=== PATIENT | male | born 1950 | race Caucasian/White ===

== ENCOUNTER 2022-08-21 17:47 | Inpatient (IN) ==
[2022-08-21] MEDS ORDERED: ACETAMINOPHEN 1,000 MG/100 ML VIAL IV STA (18:17)
--- NOTE | 2022-08-21 18:26 | Emergency Department Note ---
Impression & Plan Pneumonia, Parkinson disease, SIRS (systemic inflammatory response syndrome), Dyspnea on minimal exertion ED Provider Note NAME: DAVID FERNANDO AGE: 72 SEX: M ARRIVES VIA: Ambulance INFORMANT: Patient ED PROVIDER(S): Jose Powell MD CHIEF COMPLAINT: Shortness of breath PLAN: Disposition: Admit MEDICAL DECISION MAKING: The patient is a pleasant 72-year-old gentleman with a past medical history of Parkinson disease, rheumatoid arthritis, GERD who presents to the emergency department via EMS accompanied by family for evaluation of acute shortness of br eath which occurred this afternoon in the setting of the patient having worsening shortness of breath over the past couple of weeks, in the setting of his report of having increasing shortness of breath with exertion over the past 4 months. He reports he has not seen his doctor for his symptoms. They decided follow-up with his neurologist today in case his symptoms were related to his Parkinson medication. They were recommended to follow-up with his primary care doctor. They report that when they were driving home he acutely began more short of breath. Thus, and EMS was called and he was brought to the hospital. Patient denies any recent cough, congestion, GI or symptoms. He denies any fevers though he does present with fever at this time. On arrival to emergency department patient noted to be febrile to 38.2 with heart in the 100s and vital signs otherwise stable. He appears clinically dry though with chronic BLE edema He has diminished breath sounds of bilateral lower lung petersen and lungs are otherwise clear. Abdomen is benign. EKG without overt acute ischemia. WBC, 11.7K with neutrophil predominance. H/H 13.5/38.7 without prior values for comparison. Platelets within normal limits. Chemistry without metabolic acidosis. Phosphorus 1.4 with repletion provided. LFTs unremarkable. High- sensitivity troponin 10.2, within normal limits. BNP 83, within normal limits. Procalcitonin is not significantly elevated. Covid-19 PCR negative. Influenza and RSV PCR negative. UA without convincing evidence of infection. Given the patient's presentation with fever/SIRS was treated empirically with ceftriaxone. IVF hydration administered cautiously given the patient's lower extremity edema. CTA of the chest and abdomen pelvis was performed. CT of the chest was negative for PE. Note is made of left lower lung atelectasis however given the clinical context is suspicious for superimposed infection/pneumonia. [place] Her[place] [facility] evaluated the patient for admission. Further management per admitting team. Triage Nursing notes reviewed and agree them. Prior medical records reviewed Vital Signs: reviewed Differential diagnosis: Viral syndrome, otitis, pharyngitis, pneumonia, influenza, meningitis, urinary tract infection, sepsis, bacteremia, as well as other pathologies. ER treatment provided: See below. Diagnostics interpreted by me: ECG: Normal sinus rhythm, 97 bpm, no ectopy, no overt ST elevation or depression, QTC 414, QRS 84. Cardiac Monitoring: An order for continuous cardiac monitoring was placed and demonstrated Normal sinus rhythm, 97 bpm, no ectopy. Laboratory studies: See below Imaging studies: See below Consultation(s): Dr. Herrera, [facility], HPI: The patient is a pleasant 72-year-old gentleman with a past medical history of Parkinson disease, rheumatoid arthritis, GERD who presents to the emergency department via EMS accompanied by family for evaluation of acute shortness of breath which occurred this afternoon in the setting of the patient having worsening shortness of breath over the past couple of weeks, in the setting of his report of having increasing shortness of breath with exertion over the past 4 months. He reports he has not seen his doctor for his symptoms. They decided follow-up with his neurologist today in case his symptoms were related to his Parkinson medication. They were recommended to follow-up with his primary care doctor. They report that when they were driving home he acutely began more short of breath. Thus, and EMS was called and he was brought to the hospital. Patient denies any recent cough, congestion, GI or symptoms. He denies any fevers though he does present with fever at this time. ROS: See above HPI for pertinent positives & negatives. A total of 10 systems reviewed and were otherwise negative. VITALS:See Below PHYSICAL EXAMINATION: GENERAL: Awake, alert, uncomfortable-appearing, in no distress HENT: Normocephalic, atraumatic. Oropharynx with dry mucous membranes and otherw ise unremarkable. EYES: Normal conjunctiva. Sclera non-icteric. NECK: Supple. No nuchal rigidity. FROM. No JVD. RESPIRATORY: Diminished breath sounds of bilateral lower lung petersen and lungs are otherwise clear. CARDIAC: Tachycardic rate, normal rhythm. Extremities warm and well perfused. Pulses equal. ABDOMEN: Soft, non-distended. No tenderness to palpation. No rebound or guarding. No masses. RECTAL: Deferred. MUSCULOSKELETAL: Chest examination reveals no tenderness. The back is symmetrical on inspection without obvious abnormality. There is no CVA tenderness to palpation. No joint edema. LOWER EXTREMITIES: Calves are equal size bilaterally and non-tender. 1+ BLE edema. No discoloration. NEURO: No focal sensory or motor deficits noted. Masked facies. At baseline for Parkinsons. SKIN: No rash or jaundice noted. Jose Powell MD Past Med/Surg History Medical History GERD (gastroesophageal reflux disease) Hearing deficit Parkinson disease Rheumatoid arthritis Seizure 1 episode 8 years ago Surgical History History of cataract surgery History of colonoscopy History of tooth extraction History of total hip arthroplasty left Nasal polyps removed Family History Other No family history of adverse response to anesthesia Social History Smoking Status: Never smoker Second Hand Exposure: No; Hx Alcohol Use: Yes Alcohol type: beer Hx Substance Use: Yes Last Used Substance Other:: A COUPLE MONTHS AGO>ADVISED Preferred Language: Serbian Communication Ability: Effective 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 Beliefs That Will Affect Care: None Current Living Situation: Spouse Feels Safe at Home: Yes Assistive Devices: Glasses and Hearing Aid - Bilateral Allergies Allergies Allergy/AdvReac Type Severity Reaction Status Date / Time methotrexate Allergy Severe Seizure Verified 08/21/22 20:44 Home Meds Home Medications Medication Instructions Recorded Confirmed aspirin 81 mg tablet,delayed 81 mg PO QAM 06/06/22 08/21/22 release biotin 1,000 mcg chewable tablet 1,000 mcg PO QAM 06/06/22 08/21/22 carbidopa ER 25 mg-levodopa 100 mg 2 tab PO TIDM 06/06/22 08/21/22 tablet,extended release lamotrigine 150 mg tablet 150 mg PO BID 06/06/22 08/21/22 omeprazole 20 mg tablet,delayed 20 mg PO BID 06/06/22 08/21/22 release sertraline 100 mg tablet 100 mg PO DAILY 06/06/22 08/21/22 upadacitinib 15 mg tablet,extended 15 mg PO HS 06/06/22 08/21/22 release 24 hr (Rinvoq) carbidopa 25 mg-levodopa 100 mg 1 tab PO HS 08/21/22 08/21/22 tablet cholecalciferol (vitamin D3) 25 25 mcg PO DAILY 08/21/22 08/21/22 mcg (1,000 unit) tablet (Vitamin D3) diclofenac sodium 1 % topical gel 2 g topical TID PRN Pain 08/21/22 08/21/22 prednisone 5 mg tablet 5 mg PO QAM 08/21/22 08/21/22 Results & Data (ED) Vital Signs Vital Signs - 24 hr 08/21/22 18:00 08/21/22 18:00 08/21/22 18:04 Temperature 38.2 C H Temperature Source Oral Oral Pulse Rate 100 H Pulse Rate [Apical] Pulse Rhythm [Apical] Pulse Strength [Apical] Respiratory Rate 24 Respiratory Effort / Characteristics Respiratory Depth Respiratory Pattern Blood Pressure 142/71 H Blood Pressure [Right Arm] Blood Pressure Mean 94 Blood Pressure Mean [Right Arm] Blood Pressure Position Sitting Blood Pressure Position [Right Arm] Pulse Oximetry 94 Oxygen Delivery Method Room Air Room Air Sepsis Recent Fever Within 48 Hours Yes Sepsis New/Unexplained Change in Mental Status No Sepsis Action Taken by Nursing Physician Notified 08/21/22 18:20 08/21/22 19:00 08/21/22 20:00 Temperature Temperature Source Pulse Rate Pulse Rate [Apical] 94 H Pulse Rhythm [Apical] Regular Pulse Strength [Apical] Normal Respiratory Rate 18 Respiratory Effort / Characteristics Non-Labored Spontaneous Non-Labored Respiratory Depth Normal Normal Respiratory Pattern Regular Agonal Regular Blood Pressure Blood Pressure [Right Arm] 102/68 Blood Pressure Mean Blood Pressure Mean [Right Arm] 79 Blood Pressure Position Blood Pressure Position [Right Arm] Lying Pulse Oximetry 94 94 Oxygen Delivery Method Room Air Room Air Sepsis Recent Fever Within 48 Hours Sepsis New/Unexplained Change in Mental Status Sepsis Action Taken by Nursing Laboratory Data Attestation: I reviewed the patient's lab results. 08/21/22 18:47 08/21/22 18:47 Lab Results 08/21/22 08/21/22 08/21/22 Range/Units 18:00 18:36 18:47 WBC 11.78 H (4.8-10.8) K/ul RBC 4.54 L (4.63-6.08) M/uL Hgb 13.5 L (14.0-18.0) g/dl POC Hgb (14.0-18.0) g/dl Hct 38.7 L (40.1-51.0) % POC Hct (42-52) % MCV 85.2 (80.0-100.0) fL MCH 29.7 (25.0-34.0) pg MCHC 34.9 (32.0-36.0) g/dL RDW Std Deviation 40.5 (36.4-46.3) fL RDW Coeff of Neela 13.1 (11.5-14.5) % Plt Count 147 (130-400) K/uL MPV 10.7 (9.4-12.4) fL Immature Gran % (Auto) 0.8 % Neut % (Auto) 91.7 % Lymph % (Auto) 2.6 % [place] % (Auto) 4.1 % Eos % (Auto) 0.3 % Baso % (Auto) 0.5 % Neut # (Auto) 10.81 H (1.4-6.5) K/uL Lymph # (Auto) 0.31 L (1.2-3.4) K/uL [place] # (Auto) 0.48 (0.24-0.82) K/uL Eos # (Auto) 0.03 (0-0.50) K/uL Baso # (Auto) 0.06 (0-0.2) K/uL Immature Gran # (Auto) 0.09 H (0.00-0.02) K/uL PT (9.0-12.0) Seconds INR (0.9-1.1) POC Sodium (135-144) mmol/L Sodium (136-145) mmol/L POC Potassium (3.3-5.0) mmol/L Potassium (3.5-5.1) mmol/L POC Chloride (101-112) mmol/L Chloride (98-107) mmol/L Carbon Dioxide (21-32) mmol/L POC Total CO2 (24-31) mmol/L Anion Gap (3-11) POC Anion Gap (16-25) mmol/L POC BUN (7-18) mg/dl BUN (6-23) mg/dl Creatinine (0.6-1.4) mg/dl POC Creatinine (0.6-1.3) mg/dl Est Cr Clr Drug Dosing ml/min Est GFR ( Amer) ml/min Est GFR (Non-Af Amer) ml/min BUN/Creatinine Ratio (10-20) Glucose (70-99(Fasting)) mg/dl POC Glucose (other) (70-99) mg/dl Lactate (0.4-2.0) mmol/L Calcium (8.5-10.1) mg/dl POC Ioniz Calcium [place] (1.12-1.32) mmol/l Phosphorus (2.5-4.9) mg/dl Magnesium (1.7-2.4) mg/dl Total Bilirubin (0.2-1.0) mg/dl Direct Bilirubin (0-0.2) mg/dl AST (13-39) U/L ALT (7-52) U/L Alkaline Phosphatase (34-104) U/L Troponin I High Sens (0-20) pg/ml B-Natriuretic Peptide (0-100) pg/ml Total Protein (6.0-8.3) gm/dl Albumin (3.4-5.0) gm/dl Procalcitonin (0-0.5) ng/ml Urine Color Dark Yellow Urine Appearance Clear (Clear) Urine pH 5.5 (4.5-7.5) Ur Specific [place] 1.032 H (1.000-1.030) Urine Protein Negative (Negative) Urine Glucose (UA) Negative (Negative) Urine Ketones 1+ H (Negative) Urine Blood Negative (Negative) Urine Nitrite Negative (Negative) Urine Bilirubin 1+ H (Negative) Urine Urobilinogen Negative (Negative) Ur Leukocyte Esterase Negative (Negative) SARS-CoV-2 (PCR) NEGATIVE (Negative) Influenza Type A (PCR) Negative (Neg) Influenza Type B (PCR) Negative (Neg) RSV (RT-PCR) Negative (Neg) 08/21/22 08/21/22 08/21/22 Range/Units 18:47 18:47 18:47 WBC (4.8-10.8) K/ul RBC (4.63-6.08) M/uL Hgb (14.0-18.0) g/dl POC Hgb (14.0-18.0) g/dl Hct (40.1-51.0) % POC Hct (42-52) % MCV (80.0-100.0) fL MCH (25.0-34.0) pg MCHC (32.0-36.0) g/dL RDW Std Deviation (36.4-46.3) fL RDW Coeff of Neela (11.5-14.5) % Plt Count (130-400) K/uL MPV (9.4-12.4) fL Immature Gran % (Auto) % Neut % (Auto) % Lymph % (Auto) % [place] % (Auto) % Eos % (Auto) % Baso % (Auto) % Neut # (Auto) (1.4-6.5) K/uL Lymph # (Auto) (1.2-3.4) K/uL [place] # (Auto) (0.24-0.82) K/uL Eos # (Auto) (0-0.50) K/uL Baso # (Auto) (0-0.2) K/uL Immature Gran # (Auto) (0.00-0.02) K/uL PT 10.8 (9.0-12.0) Seconds INR 1.0 (0.9-1.1) POC Sodium (135-144) mmol/L Sodium 138 (136-145) mmol/L POC Potassium (3.3-5.0) mmol/L Potassium 3.5 (3.5-5.1) mmol/L POC Chloride (101-112) mmol/L Chloride 105 (98-107) mmol/L Carbon Dioxide 27 (21-32) mmol/L POC Total CO2 (24-31) mmol/L Anion Gap 6 (3-11) POC Anion Gap (16-25) mmol/L POC BUN (7-18) mg/dl BUN 18 (6-23) mg/dl Creatinine 1.04 (0.6-1.4) mg/dl POC Creatinine (0.6-1.3) mg/dl Est Cr Clr Drug Dosing 85.7 ml/min Est GFR ( Amer) 83.9 ml/min Est GFR (Non-Af Amer) 72.4 ml/min BUN/Creatinine Ratio 17.3 (10-20) Glucose 101 H (70-99(Fasting)) mg/dl POC Glucose (other) (70-99) mg/dl Lactate 1.8 (0.4-2.0) mmol/L Calcium 8.3 L (8.5-10.1) mg/dl POC Ioniz Calcium [place] (1.12-1.32) mmol/l Phosphorus (2.5-4.9) mg/dl Magnesium 1.7 (1.7-2.4) mg/dl Total Bilirubin 0.8 (0.2-1.0) mg/dl Direct Bilirubin 0.0 (0-0.2) mg/dl AST 14 (13-39) U/L ALT 10 (7-52) U/L Alkaline Phosphatase 85 (34-104) U/L Troponin I High Sens 10.2 (0-20) pg/ml B-Natriuretic Peptide (0-100) pg/ml Total Protein 6.2 (6.0-8.3) gm/dl Albumin 4.1 (3.4-5.0) gm/dl Procalcitonin (0-0.5) ng/ml Urine Color Urine Appearance (Clear) Urine pH (4.5-7.5) Ur Specific [place] (1.000-1.030) Urine Protein (Negative) Urine Glucose (UA) (Negative) Urine Ketones (Negative) Urine Blood (Negative) Urine Nitrite (Negative) Urine Bilirubin (Negative) Urine Urobilinogen (Negative) Ur Leukocyte Esterase (Negative) SARS-CoV-2 (PCR) (Negative) Influenza Type A (PCR) (Neg) Influenza Type B (PCR) (Neg) RSV (RT-PCR) (Neg) 08/21/22 08/21/22 08/21/22 Range/Units 18:47 18:47 18:47 WBC (4.8-10.8) K/ul RBC (4.63-6.08) M/uL Hgb (14.0-18.0) g/dl POC Hgb (14.0-18.0) g/dl Hct (40.1-51.0) % POC Hct (42-52) % MCV (80.0-100.0) fL MCH (25.0-34.0) pg MCHC (32.0-36.0) g/dL RDW Std Deviation (36.4-46.3) fL RDW Coeff of Neela (11.5-14.5) % Plt Count (130-400) K/uL MPV (9.4-12.4) fL Immature Gran % (Auto) % Neut % (Auto) % Lymph % (Auto) % [place] % (Auto) % Eos % (Auto) % Baso % (Auto) % Neut # (Auto) (1.4-6.5) K/uL Lymph # (Auto) (1.2-3.4) K/uL [place] # (Auto) (0.24-0.82) K/uL Eos # (Auto) (0-0.50) K/uL Baso # (Auto) (0-0.2) K/uL Immature Gran # (Auto) (0.00-0.02) K/uL PT (9.0-12.0) Seconds INR (0.9-1.1) POC Sodium (135-144) mmol/L Sodium (136-145) mmol/L POC Potassium (3.3-5.0) mmol/L Potassium (3.5-5.1) mmol/L POC Chloride (101-112) mmol/L Chloride (98-107) mmol/L Carbon Dioxide (21-32) mmol/L POC Total CO2 (24-31) mmol/L Anion Gap (3-11) POC Anion Gap (16-25) mmol/L POC BUN (7-18) mg/dl BUN (6-23) mg/dl Creatinine (0.6-1.4) mg/dl POC Creatinine (0.6-1.3) mg/dl Est Cr Clr Drug Dosing ml/min Est GFR ( Amer) ml/min Est GFR (Non-Af Amer) ml/min BUN/Creatinine Ratio (10-20) Glucose (70-99(Fasting)) mg/dl POC Glucose (other) (70-99) mg/dl Lactate (0.4-2.0) mmol/L Calcium (8.5-10.1) mg/dl POC Ioniz Calcium [place] (1.12-1.32) mmol/l Phosphorus 1.4 L* (2.5-4.9) mg/dl Magnesium (1.7-2.4) mg/dl Total Bilirubin (0.2-1.0) mg/dl Direct Bilirubin (0-0.2) mg/dl AST (13-39) U/L ALT (7-52) U/L Alkaline Phosphatase (34-104) U/L Troponin I High Sens (0-20) pg/ml B-Natriuretic Peptide 83 (0-100) pg/ml Total Protein (6.0-8.3) gm/dl Albumin (3.4-5.0) gm/dl Procalcitonin 0.42 (0-0.5) ng/ml Urine Color Urine Appearance (Clear) Urine pH (4.5-7.5) Ur Specific [place] (1.000-1.030) Urine Protein (Negative) Urine Glucose (UA) (Negative) Urine Ketones (Negative) Urine Blood (Negative) Urine Nitrite (Negative) Urine Bilirubin (Negative) Urine Urobilinogen (Negative) Ur Leukocyte Esterase (Negative) SARS-CoV-2 (PCR) (Negative) Influenza Type A (PCR) (Neg) Influenza Type B (PCR) (Neg) RSV (RT-PCR) (Neg) 08/21/22 Range/Units 19:07 WBC (4.8-10.8) K/ul RBC (4.63-6.08) M/uL Hgb (14.0-18.0) g/dl POC Hgb 13.3 L (14.0-18.0) g/dl Hct (40.1-51.0) % POC Hct 39 L (42-52) % MCV (80.0-100.0) fL MCH (25.0-34.0) pg MCHC (32.0-36.0) g/dL RDW Std Deviation (36.4-46.3) fL RDW Coeff of Neela (11.5-14.5) % Plt Count (130-400) K/uL MPV (9.4-12.4) fL Immature Gran % (Auto) % Neut % (Auto) % Lymph % (Auto) % [place] % (Auto) % Eos % (Auto) % Baso % (Auto) % Neut # (Auto) (1.4-6.5) K/uL Lymph # (Auto) (1.2-3.4) K/uL [place] # (Auto) (0.24-0.82) K/uL Eos # (Auto) (0-0.50) K/uL Baso # (Auto) (0-0.2) K/uL Immature Gran # (Auto) (0.00-0.02) K/uL PT (9.0-12.0) Seconds INR (0.9-1.1) POC Sodium 140 (135-144) mmol/L Sodium (136-145) mmol/L POC Potassium 3.5 (3.3-5.0) mmol/L Potassium (3.5-5.1) mmol/L POC Chloride 102 (101-112) mmol/L Chloride (98-107) mmol/L Carbon Dioxide (21-32) mmol/L POC Total CO2 27 (24-31) mmol/L Anion Gap (3-11) POC Anion Gap 16.0 (16-25) mmol/L POC BUN 18 (7-18) mg/dl BUN (6-23) mg/dl Creatinine (0.6-1.4) mg/dl POC Creatinine 1.1 (0.6-1.3) mg/dl Est Cr Clr Drug Dosing ml/min Est GFR ( Amer) ml/min Est GFR (Non-Af Amer) ml/min BUN/Creatinine Ratio (10-20) Glucose (70-99(Fasting)) mg/dl POC Glucose (other) 98 (70-99) mg/dl Lactate (0.4-2.0) mmol/L Calcium (8.5-10.1) mg/dl POC Ioniz Calcium [place] 1.11 L (1.12-1.32) mmol/l Phosphorus (2.5-4.9) mg/dl Magnesium (1.7-2.4) mg/dl Total Bilirubin (0.2-1.0) mg/dl Direct Bilirubin (0-0.2) mg/dl AST (13-39) U/L ALT (7-52) U/L Alkaline Phosphatase (34-104) U/L Troponin I High Sens (0-20) pg/ml B-Natriuretic Peptide (0-100) pg/ml Total Protein (6.0-8.3) gm/dl Albumin (3.4-5.0) gm/dl Procalcitonin (0-0.5) ng/ml Urine Color Urine Appearance (Clear) Urine pH (4.5-7.5) Ur Specific [place] (1.000-1.030) Urine Protein (Negative) Urine Glucose (UA) (Negative) Urine Ketones (Negative) Urine Blood (Negative) Urine Nitrite (Negative) Urine Bilirubin (Negative) Urine Urobilinogen (Negative) Ur Leukocyte Esterase (Negative) SARS-CoV-2 (PCR) (Negative) Influenza Type A (PCR) (Neg) Influenza Type B (PCR) (Neg) RSV (RT-PCR) (Neg) Administered Medications Acetaminophen (Acetaminophen 325 Mg Tab) 650 mg PO Q4H PRN PRN Reason: Pain or Fever Stop: 09/21/22 04:20 Last Admin: 08/22/22 04:31 Dose: 650 mg Documented By: CAROL ANN Carbidopa/Levodopa (Carbidopa/Levodopa 25/100mg Tab) 2 tab PO TIDM [facility] Stop: 09/20/22 21:59 Last Admin: 08/21/22 23:29 Dose: 2 tab Documented By: UZMA Potassium Phosphate 30 mmol/ (Sodium Chloride) 510 mls @ 88 mls/hr IV Tu@0000 ONE Stop: 08/22/22 05:47 Last Admin: 08/22/22 00:18 Dose: 88 mls/hr Documented By: UZMA Miscellaneous (Order Awaiting Action [Upadacitinib [Rinvoq] 15 Mg Tablet Extended Release 24 Hr]) 1 each N/A QS [facility] Stop: 09/21/22 00:00 Last Admin: 08/21/22 23:30 Dose: Not Given Documented By: UZMA Pantoprazole Sodium (Pantoprazole 40 Mg Tab) 40 mg PO BID [facility] Stop: 09/20/22 21:59 Last Admin: 08/21/22 23:29 Dose: 40 mg Documented By: UZMA Discontinued Medications Acetaminophen (Acetaminophen 325 Mg Tab) Confirm Administered Dose 650 mg .ROUTE .STK-MED ONE Stop: 08/22/22 04:28 Last Admin: 08/22/22 04:31 Dose: Not Given Documented By: CAROL ANN Sodium Chloride (Nss 1000ml) 500 mls @ 999 mls/hr IV .Q31M [facility] Stop: 08/21/22 19:00 Last Infusion: 08/21/22 19:06 Dose: 0 mls/hr Documented By: Admin: 08/21/22 18:26 Dose: 999 mls/hr Documented By: [id number] Acetaminophen (Ofirmev) 1,000 mg in 100 mls @ 400 mls/hr IV NOW STA Stop: 08/21/22 18:31 Last Infusion: 08/21/22 19:06 Dose: 0 mls/hr Documented By: Admin: 08/21/22 18:25 Dose: 400 mls/hr Documented By: [id number] Ceftriaxone Sodium (Rocephin) 2,000 mg in 70 mls @ 140 mls/hr IV NOW STA Stop: 08/21/22 19:30 Last Infusion: 08/21/22 20:23 Dose: 0 mls/hr Documented By: Admin: 08/21/22 19:36 Dose: 140 mls/hr Documented By: UZMA Sodium Chloride (Nss) 500 mls @ 999 mls/hr IV .Q31M ONE Stop: 08/21/22 19:32 Last Infusion: 08/21/22 20:23 Dose: 0 mls/hr Documented By: Admin: 08/21/22 19:36 Dose: 999 mls/hr Documented By: UZMA Sodium Chloride (Nss) 500 mls @ 999 mls/hr IV .Q31M ONE Stop: 08/21/22 20:57 Last Infusion: 08/21/22 21:46 Dose: 0 mls/hr Documented By: Admin: 08/21/22 21:00 Dose: 999 mls/hr Documented By: UZMA Potassium Phosphate 9 mmol/ (Sodium Chloride) 253 mls @ 88 mls/hr IV ONE ONE Stop: 08/21/22 23:37 Last Infusion: 08/22/22 00:18 Dose: 0 mls/hr Documented By: Admin: 08/21/22 21:00 Dose: 88 mls/hr Documented By: UZMA Ioversol (Optiray 320 500ml) 113 ml IV ONCE ONE Stop: 08/21/22 19:27 Last Admin: 08/21/22 19:26 Dose: 113 ml Documented By: AUSTEN Potassium Phosphate (Potassium Phos 3 Mmol/1 Ml Infusion) 9 mmol IV NOW STA Stop: 08/21/22 20:28 Last Admin: 08/21/22 21:01 Dose: 9 mmol Documented By: UZMA Imaging Data Radiologist's Impression: Abdomen/Pelvis CT 08/21/22 19:00 CT abd pelvis IV con only CLINICAL HISTORY: sepsis TECHNIQUE: Helical axial images of the abdomen and pelvis were obtained and displayed. Automated dose lowering techniques and/or adjustment according to patient size were utilized for this exam. This exam was performed with intravenous contrast. COMPARISON: None available at the time of this dictation. FINDINGS: Lower chest: For findings above the diaphragm, please see CT chest performed same day. Liver: Unremarkable. No focal lesions are seen. Gallbladder and biliary tree: No calcified gallstones. Normal caliber wall. No intra- or extrahepatic biliary ductal dilation. Pancreas: Fatty replacement of the pancreas is seen. Spleen: Unremarkable. Adrenals: Unremarkable. Kidneys and ureters: Unremarkable. Bladder: The wall appears thickened and the bladder is under distended. Reproductive organs: Unremarkable. Bowel: Unremarkable. Lymph nodes Retroperitoneal: Unremarkable. Pelvic: Unremarkable. Mesenteric: Unremarkable. Peritoneum: Normal. Vessels: Unremarkable. Abdominal wall: Unremarkable. Bones: Degenerative changes in the visualized spine. There is a left total hip arthroplasty. IMPRESSION: There is thickening of the bladder wall. Correlation with urinalysis is recommended to exclude UTI. ACT 112: Negative or not required by law. Electronically signed by: Dwaine Wallace M.D. 08/21/2022 7:51 PM Chest CTA 08/21/22 19:02 CT angio chest PE protocol CLINICAL HISTORY: SOB, BLE edema, r/o PE TECHNIQUE: Multidetector row helical CT of the chest was performed with a ngiographic protocol. Coronal and sagittal reformations were obtained. Coronal and sagittal MIPS were obtained from the axial data set and were submitted for review. Automated dose lowering techniques and/or adjustment according to patient size were utilized for this exam. CT DOSE: 1592.33 mGy.cm Comparison: Comparison is made to chest radiograph 11/29/2014 FINDINGS: Lungs and pleura: Atelectasis is seen in the left lower lobe. There is a 5 mm nodule in the right lower lobe (series 4 image 132) and a 6 mm nodule in the lingula (image 133). Heart and pericardium: Heart size is normal. No pericardial effusion. Vessels: No evidence of pulmonary embolism. Mediastinum and geoffrey: Unremarkable. Chest wall and lower neck: Unremarkable. Abdomen: For findings below the diaphragm, please refer to CT of the abdomen dated the same. Bones: Degenerative changes in the thoracic spine. IMPRESSION: 1. No evidence of pulmonary embolus. 2. There is atelectasis of the left lower lobe. No pneumonia is seen. 3. Pulmonary nodules as above. According to Fleischner criteria, no follow-up is required in low risk patients, in high-risk patients, a 12 month follow-up CT can be optionally performed. ACT 112: Negative or not required by law. Electronically signed by: Dwaine Wallace M.D. 08/21/2022 7:47 PM Discharge Plan Visit Data Chief Complaint: Shortness of Breath/Dyspnea ED Provider: Jose Powell Discharge Problem: Pneumonia, Parkinson disease, SIRS (systemic inflammatory response syndrome), Dyspnea on minimal exertion Patient Disposition: Admitted As Inpatient Discharge Instructions Interventions: ED Discharge Assessment Last Done: 08/21/22 22:59 : Pneumonia Qualifiers: Pneumonia type: due to unspecified organism Laterality: left Lung location: lower lobe of lung Qualified Code(s): J18.9 - Pneumonia, unspecified organism
[2022-08-21] MEDS ORDERED: SODIUM CHLORIDE 0.9% 1000ML 500 ML IV SCH (18:30)
[2022-08-21 18:52] LABS: Influenza A virus by PCR Negative (Neg); Influenza B virus by PCR Negative (Neg); RSV by PCR Negative (Neg); SARS CoV2 RNA(COVID-19) Ceph NEGATIVE (Negative)
[2022-08-21] MEDS ORDERED: cefTRIAXone SODIUM 2,000 MG/70 ML BAG IV STA (19:01)
[2022-08-21 19:02] LABS: Appearance Urine Clear (Clear); Blood Urine Negative (Negative); Color Urine Dark Yellow; Glucose Urine UA Negative (Negative); Ketones Urine 1+ (Negative); Leukocyte Esterase Urine Negative (Negative); Nitrite Urine Negative (Negative); Protein Urine Negative (Negative); Specific Gravity Urine 1.032 (1.000-1.030); Urobilinogen Urine Negative (Negative); pH Urine 5.5 (4.5-7.5)
[2022-08-21] MEDS ORDERED: SODIUM CHLORIDE 0.9% 500 ML IV ONE ×2 (19:02→20:27)
[2022-08-21 19:05] LABS: Bilirubin Urine 1+ (Negative)
[2022-08-21 19:20] LABS: iSTAT Creatinine 1.1 mg/dl (0.6-1.3); iSTAT Hemoglobin 13.3 g/dl (14.0-18.0); iSTAT Ionized Calcium 1.11 mmol/l (1.12-1.32); iSTAT Potassium 3.5 mmol/L (3.3-5.0)
[2022-08-21] MEDS ORDERED: OPTIRAY 320 500ml IV ONE (19:26)
[2022-08-21 19:37] LABS: Hematocrit (blood only) 38.7 % (40.1-51.0); Hemoglobin 13.5 g/dl (14.0-18.0); Mean Corpuscular Hemoglobin 29.7 pg (25.0-34.0); Mean Corpuscular Hgb Conc 34.9 g/dL (32.0-36.0); Mean Corpuscular Volume 85.2 fL (80.0-100.0); Mean Platelet Volume 10.7 fL (9.4-12.4); Platelet Count 147 K/uL (130-400); RDW Coefficient of Variation 13.1 % (11.5-14.5); RDW Standard Deviation 40.5 fL (36.4-46.3); Red Blood Count 4.54 M/uL (4.63-6.08); White Blood Count 11.78 K/ul (4.8-10.8)
--- NOTE | 2022-08-21 19:48 | CT Scan Report ---
CT angio chest PE protocol CLINICAL HISTORY: SOB, BLE edema, r/o PE TECHNIQUE: Multidetector row helical CT of the chest was performed with angiographic protocol. Alcala l and sagittal reformations were obtained. Coronal and sagittal MIPS were obtained from the axial heather a set and were submitted for review. Automated dose lowering techniques and/or adjustment according to patient size were utilized for this exam. CT DOSE: 1592.33 mGy.cm Comparison: Comparison is made to chest radiograph 11/29/2014 FINDINGS: Lungs and pleura: Atelectasis is seen in the left lower lobe. There is a 5 mm nodule in the right low er lobe (series 4 image 132) and a 6 mm nodule in the lingula (image 133). Heart and pericardium: Heart size is normal. No pericardial effusion. Vessels: No evidence of pulmonary embolism. Mediastinum and geoffrey: Unremarkable. Chest wall and lower neck: Unremarkable. Abdomen: For findings below the diaphragm, please refer to CT of the abdomen dated the same. Bones: Degenerative changes in the thoracic spine. IMPRESSION: 1. No evidence of pulmonary embolus. 2. There is atelectasis of the left lower lobe. No pneumonia is seen. 3. Pulmonary nodules as above. According to Fleischner criteria, no follow-up is required in low ris k patients, in high-risk patients, a 12 month follow-up CT can be optionally performed. ACT 112: Negative or not required by law. Electronically signed by: Dwaine Wallace M.D. 08/21/2022 7:47 PM
[2022-08-21 19:49] LABS: Prothrombin Time 10.8 Seconds (9.0-12.0)
--- NOTE | 2022-08-21 19:53 | CT Scan Report ---
CT abd pelvis IV con only CLINICAL HISTORY: sepsis TECHNIQUE: Helical axial images of the abdomen and pelvis were obtained and displayed. Automated dose lowering techniques and/or adjustment according to patient size were utilized for this exam. This e xam was performed with intravenous contrast. COMPARISON: None available at the time of this dictation. FINDINGS: Lower chest: For findings above the diaphragm, please see CT chest performed same day. Liver: Unremarkable. No focal lesions are seen. Gallbladder and biliary tree: No calcified gallstones. Normal caliber wall. No intra- or extrahepatic biliary ductal dilation. Pancreas: Fatty replacement of the pancreas is seen. Spleen: Unremarkable. Adrenals: Unremarkable. Kidneys and ureters: Unremarkable. Bladder: The wall appears thickened and the bladder is under distended. Reproductive organs: Unremarkable. Bowel: Unremarkable. Lymph nodes Retroperitoneal: Unremarkable. Pelvic: Unremarkable. Mesenteric: Unremarkable. Peritoneum: Normal. Vessels: Unremarkable. Abdominal wall: Unremarkable. Bones: Degenerative changes in the visualized spine. There is a left total hip arthroplasty. IMPRESSION: There is thickening of the bladder wall. Correlation with urinalysis is recommended to exclude UTI. ACT 112: Negative or not required by law. Electronically signed by: Dwaine Wallace M.D. 08/21/2022 7:51 PM
[2022-08-21 19:55] LABS: Basophils # (auto) 0.06 K/uL (0-0.2); Basophils % (auto) 0.5 %; Eosinophils # (auto) 0.03 K/uL (0-0.50); Eosinophils % (auto) 0.3 %; Immature Granulocytes # (auto) 0.09 K/uL (0.00-0.02); Immature Granulocytes % (auto) 0.8 %; Lymphocytes # (auto) 0.31 K/uL (1.2-3.4); Lymphocytes % (auto) 2.6 %; Monocytes # (auto) 0.48 K/uL (0.24-0.82); Monocytes % (auto) 4.1 %; Neutrophils # (auto) 10.81 K/uL (1.4-6.5); Neutrophils % (auto) 91.7 %
[2022-08-21 20:02] LABS: Albumin Level 4.1 gm/dl (3.4-5.0); BUN Creatinine Ratio 17.3 (10-20); Bilirubin,Total 0.8 mg/dl (0.2-1.0); Calcium 8.3 mg/dl (8.5-10.1); Creatinine Clr Calc Pharmacy 85.7 ml/min; Est GFR (African American) 83.9 ml/min; Est GFR (Non-African American) 72.4 ml/min; Magnesium 1.7 mg/dl (1.7-2.4); Potassium 3.5 mmol/L (3.5-5.1); Total Protein 6.2 gm/dl (6.0-8.3)
[2022-08-21 20:06] LABS: Troponin I High Sensitivity 10.2 pg/ml (0-20)
[2022-08-21] MEDS ORDERED: POTASSIUM PHOS 3 MMOL/1 ML INFUSION IV STA ×2 (20:27→21:50)
[2022-08-21] MEDS ORDERED: POTASSIUM PHOSPHATE 9 MMOL in SODIUM CHLORIDE 0.9% 250 ML IV ONE (20:45)
--- NOTE | 2022-08-21 20:58 | History & Physical Report ---
Date of Service August 21, 2022 Assessment & Plan (1) Hypophosphatemia: Plan: 72yo male with a history of Parkinsons disease, RA, history of seizure (eight years ago), GERD, and MDD presents with a one-week history of acutely-worsening SOB in the setting of SOB that has been worsening overall for the past four months. Patient was found on arrival with hypophosphatemia to 1.4. Hypophosphatemia Phosphate on arrival low at 1.4 Etiology unclear; calcium minimally low at 1.11 (ionized) Received Kphos 9mmol (x2) in ED Will give additional Kphos 30mmol Recheck serum phosphorous in AM Fever Unclear etiology; imaging shows bibasilar atelectasis but no overt pneumonia WBC mildly elevated to 11.8, though patient is on chronic prednisone for RA Received dose of ceftriaxone in ED Follow cultures Will defer decision re: further antibiotics to day team Parkinson's disease: continue home regimen RA: continue home prednisone History of seizure (8 years ago): continue home lamotrigine GERD: continue home omeprazole MDD: continue home sertraline FEN: regular diet Code status: full code DVT ppx: SCDs PT/OT: ordered Dispo: med/surg (2) Rheumatoid arthritis: (3) Parkinson disease: (4) Seizure: (5) GERD (gastroesophageal reflux disease): History of Present Illness Primary Care Provider: Khai Virk MD 72yo male with a history of Parkinsons disease, RA, history of seizure (eight years ago), GERD, and MDD presents with a one-week history of acutely-worsening SOB in the setting of SOB that has been worsening overall for the past four months. Symptoms acutely worsened earlier today, which prompted a visit to patient's neurologist, who recommended a PCP visit. On the way home from the neurology visit, patient experienced an acute worsening of SOB, at which point he called EMS and was brought to the hospital. Patient denies headache, vision changes, CP, palpitations, abdominal pain, nausea, vomiting, dysuria, hematochezia, melena, numbness, tingling, or other symptoms. Denies recent illness and recent travel. Upon arrival, vitals were notable for elevated BP (140s/70s), tachycardia (100), and fever (38.2); no tachypnea, patient afebrile, spO2 adequate on room air. Initial labs were notable for mild leukocytosis (11.8), mild anemia (13.5), minimally-low iCa (1.11), and hypophosphatemia (1.4); platelets wnl, no additional electrolyte abnormalities, creatinine not elevated, LFTs wnl, Tbili not elevated, covid/flu/RSV PCR negative, procalcitonin negative. In the ED, patient receivedNSS 500mL bolus (x3), Kphos 9mmol (x2), ceftriaxone, and acetaminophen. EKG: NSR, no overt ischemic change CT a/p: there is thickening of the bladder wall; correlation with urinalysis is recommended to exclude UTI CTA chest: no evidence of pulmonary embolus; there is atelectasis of the left lower lobe; no pneumonia is seen; pulmonary nodules (see official read) Surrogate decision-maker in case of an emergency: aishwarya Reyes (cell: [phone]) Allergies Allergy/AdvReac Type Severity Reaction Status Date / Time methotrexate Allergy Severe Seizure Verified 08/21/22 20:44 Home Medications Medication Instructions Recorded Confirmed Type aspirin 81 mg tablet,delayed 81 mg PO QAM 06/06/22 08/21/22 History release biotin 1,000 mcg chewable tablet 1,000 mcg PO QAM 06/06/22 08/21/22 History carbidopa ER 25 mg-levodopa 100 mg 2 tab PO TIDM 06/06/22 08/21/22 History tablet,extended release lamotrigine 150 mg tablet 150 mg PO BID 06/06/22 08/21/22 History omeprazole 20 mg tablet,delayed 20 mg PO BID 06/06/22 08/21/22 History release sertraline 100 mg tablet 100 mg PO DAILY 06/06/22 08/21/22 History upadacitinib 15 mg tablet,extended 15 mg PO HS 06/06/22 08/21/22 History release 24 hr (Rinvoq) carbidopa 25 mg-levodopa 100 mg 1 tab PO HS 08/21/22 08/21/22 History tablet cholecalciferol (vitamin D3) 25 25 mcg PO DAILY 08/21/22 08/21/22 History mcg (1,000 unit) tablet (Vitamin D3) diclofenac sodium 1 % topical gel 2 g topical TID PRN Pain 08/21/22 08/21/22 History prednisone 5 mg tablet 5 mg PO QAM 08/21/22 08/21/22 History Past Med/Surg History Medical History GERD (gastroesophageal reflux disease) Hearing deficit Parkinson disease Rheumatoid arthritis Seizure 1 episode 8 years ago Surgical History History of cataract surgery History of colonoscopy History of tooth extraction History of total hip arthroplasty left Nasal polyps removed Family History Other No family history of adverse response to anesthesia Social History Smoking Status: Never smoker Second Hand Exposure: No; Do You Dip or Chew Tobacco: No; Tobacco Cessation Education Requested by Patient: No Hx Alcohol Use: Yes Alcohol type: beer Hx Substance Use: No Preferred Language: Mohawk Communication Ability: Effective Director Family Required: Voice Beliefs That Will Affect Care: None Current Living Situation: Spouse Other Information That Helps Us Care for You: No Feels Safe at Home: Yes Assistive Devices: Glasses, Hearing Aid - Bilateral and Hearing Aid - Left Review of Systems Review of Systems: See HPI Physical Exam Physical Exam: Constitutional: tired-appearing, no acute distress HEENT: NCAT, no conjunctival injection CV: regular rhythm, no murmur appreciated, extremities well-perfused, no LE edema Resp: breath sounds distant in lower petersen, CTABL in upper petersen, no wheezes/rales/rhonchi appreciated, no increased work of breathing GI: soft, nondistended, nontender, BS normoactive MSK: no gross deformities appreciated Skin: warm, dry, no rash appreciated Neuro: somnolent but arousable to voice, oriented, no focal neurologic deficit appreciated Results & Data Results & Data ([facility]) Vital Signs (Past 12 Hours) Vital Signs Temp Pulse Pulse Resp BP BP Pulse Ox 08/21/22 20:00 94 H 18 102/68 94 08/21/22 19:00 94 08/21/22 18:00 08/21/22 18:00 38.2 C H 100 H 24 142/71 H 94 O2 Del Method 08/21/22 20:00 Room Air 08/21/22 19:00 Room Air 08/21/22 18:00 Room Air 08/21/22 18:00 Room Air Supervising Physician Co-Signing Physician Notes Attending addendum: I have physically seen this patient, have supervised the medical residents activities, and agree with the H&P unless as otherwise noted. Assessment and Plan: Hypophosphatemia- Phosphorus 1.4 on admission Replace with serial doses of potassium phosphate IV and follow serial labor atories Asthmatic bronchitis- Received ceftriaxone [address] ED Place on azithromycin 500 mg IV daily Duonebs every 4 hours while awake and every 2 hours when necessary. 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
[2022-08-21] MEDS: CARBIDOPA/LEVODOPA 25/100MG TAB PO SCH (23:29)
[2022-08-21] MEDS: PANTOprazole 40 MG TAB PO SCH (23:29)
--- NOTE | 2022-08-21 23:44 | CT Scan Report ---
CT SCAN OF THE CHEST WITHOUT IV CONTRAST CLINICAL HISTORY: Interstitial lung disease. COMPARISON STUDY: CT angiogram of the chest performed the same day 08/21/2022. TECHNIQUE: CT scan of the thorax was performed from the thoracic inlet to the upper abdomen. Images are reviewed in the axial, sagittal, and coronal planes. IV contrast was not administered for this ex amination as per the referring clinician. A dose lowering technique was utilized adhering to the carlie luci of MICHELLE. The examination is significantly compromised by motion artifact. There is also stre ak artifact from the arms which could not be elevated above the chest. CT DOSE: 668.79 mGy.cm FINDINGS: Thyroid: Imaged portions of the thyroid gland are normal in size and attenuation. Thoracic aorta: The thoracic aorta is normal in caliber and demonstrates standard 3-vessel arch anato my. Heart: The heart is enlarged and without pericardial effusion. There are coronary artery calcificatio ns. The main pulmonary arteries are mildly dilated suggesting pulmonary artery hypertension. Lungs and pleural spaces: Evaluation of the lung parenchyma is compromised by motion artifact. There is a small left pleural effusion. Segmental atelectasis is seen in the left lower lobe and lingula, w ith elevation of the left hemidiaphragm, volume loss in the left lung, and compensatory hyperinflatio n of the right lung. An 8 mm left upper lobe pulmonary nodule is seen on image #129. A 3 mm right low er lobe nodule is seen on image #150. The trachea and central airways are clear. Mild scarring/atelec tasis is seen at the right lung base. There is no subpleural reticulation. No traction bronchiectasis or honeycombing is seen. Mediastinum: There is no mediastinal lymphadenopathy. Yarelis: Not well assessed without IV contrast. Axillae: There is no axillary lymphadenopathy. Upper abdomen: There is a small hiatal hernia. Excreted IV contrast is noted within the partially antwon ged left renal collecting system. Partially visualized upper abdominal viscera is otherwise grossly u nremarkable. Skeletal structures: The skeletal structures are osteopenic. There are numerous mild thoracic kathy harish deformities. Degenerative change in hyperkyphosis is noted in the thoracic spine. No lytic or bl astic bony lesions are seen. Advanced arthritic change is noted in the shoulders. IMPRESSION: 1. Significant streak and motion compromised examination. 2. Cardiomegaly. 3. There is segmental atelectasis in the left lower lobe and lingula with volume loss in the left kimberlyn g. This is of indeterminate chronicity. Correlate clinically for evidence of superimposed pneumonia. 4. Small left pleural effusion. 5. There are at least 2 pulmonary nodules identified. The largest is seen in the left upper lobe and measures 8 mm. These can be followed as per the Fleischner criteria. See below. 6. Additional findings as above. Please refer to below summary of Fleischner criteria recommendations for follow-up of incidental CT n odules (Jen Singleton, Guidelines for management of small pulmonary nodules detected on CT scans: A sta tement from the Fleischner Society, Radiology 237: [phone].) SOLID NODULES Solitary nodule size: <6 mm * low risk patients: no follow-up needed * high risk patients: optional CT at 12 months Solitary nodule size: 6-8 mm * low risk patients: follow-up at 6-12 months, then consider further follow-up at 18-24 months * high risk patients: initial follow-up CT at 6-12 months and then at 18-24 months if no change Solitary nodule size: >8 mm * either low or high risk patients - consider follow-up CT at 3 months, and/or CT-PET, and/or biopsy Multiple nodules size: <6 mm * low risk patients: no routine follow-up * high risk patients: optional CT at 12 months Multiple nodules size: 6-8 mm * low risk patients: follow-up at 3-6 months, then consider further follow-up at 18-24 months * high risk patients: follow-up at 3-6 months, then at 18-24 months if no change Multiple nodules size: >8 mm * low risk patients: follow-up at 3-6 months, then consider further follow-up at 18-24 months * high risk patients: follow-up at 3-6 months, then at 18-24 months if no change Note: newly detected indeterminate nodule in persons 35 years of age or older. * low risk patients: minimal or absent history of smoking and/or other known risk factors * high risk patients: history of smoking or of other known risk factors (e.g. first degree relative with lung cancer, or exposure to asbestos, radon, uranium) * if a nodule up to 8 mm is partly solid or is ground glass further follow-up is required after 24 m onths to exclude possible slow growing adenocarcinoma (TEE) SUBSOLID NODULES Solitary pure ground-glass nodule * nodule size <6 mm - no CT follow-up required * nodule size >=6 mm - follow-up CT at 6-12 months, then every 2 years until 5 years Solitary part-solid nodule * nodule size <6 mm - no CT follow-up required * nodule size >=6 mm - follow-up CT at 3-6 months. If unchanged, and solid component remains <6 mm, then annual follow-up for 5 years Multiple subsolid nodules * nodule size <6 mm - follow-up CT at 3-6 months, consider further follow-up at 2 and 4 years if sta ble * nodule size >=6 mm - follow-up CT at 3-6 months, subsequent management based on the most suspiciou s nodule(s) ACT 112: Negative or not required by law. Electronically signed by: Luis Morejon M.D. 08/21/2022 11:42 PM
[2022-08-22] MEDS ORDERED: POTASSIUM PHOSPHATE 30 MMOL in SODIUM CHLORIDE 0.9% 500 ML IV ONE
[2022-08-22] MEDS ORDERED: ALBUT/IPRATROP 3MG/0.5MG NEB 3 ML VIAL NEB PRN (04:21)
[2022-08-22] MEDS ORDERED: ACETAMINOPHEN 325 MG TAB ONE (04:27)
[2022-08-22] MEDS: ACETAMINOPHEN 325 MG TAB PO PRN ×3 (04:31→17:53)
[2022-08-22] MEDS: AZITHROMYCIN 500 MG in DEXTROSE 5% 250 ML IV SCH (06:20)
[2022-08-22 06:40] LABS: Hematocrit (blood only) 36.7 % (40.1-51.0); Hemoglobin 12.8 g/dl (14.0-18.0); Mean Corpuscular Hemoglobin 29.7 pg (25.0-34.0); Mean Corpuscular Hgb Conc 34.9 g/dL (32.0-36.0); Mean Corpuscular Volume 85.2 fL (80.0-100.0); Mean Platelet Volume 10.6 fL (9.4-12.4); Platelet Count 139 K/uL (130-400); RDW Coefficient of Variation 13.1 % (11.5-14.5); RDW Standard Deviation 41.3 fL (36.4-46.3); Red Blood Count 4.31 M/uL (4.63-6.08); White Blood Count 11.25 K/ul (4.8-10.8)
[2022-08-22 07:31] LABS: Albumin Globulin Ratio 1.9 (0.9-2); Albumin Level 3.8 gm/dl (3.4-5.0); BUN Creatinine Ratio 14.5 (10-20); Calcium 7.8 mg/dl (8.5-10.1); Est GFR (African American) 78.4 ml/min; Est GFR (Non-African American) 67.7 ml/min; Magnesium 1.7 mg/dl (1.7-2.4); Phosphorus 3.5 mg/dl (2.5-4.9); Potassium 3.7 mmol/L (3.5-5.1); Total Protein 5.8 gm/dl (6.0-8.3)
[2022-08-22] MEDS: CARBIDOPA/LEVODOPA 25/100MG TAB PO SCH ×3 (09:13→17:53)
[2022-08-22] MEDS: ASPIRIN 81 MG ECTAB PO SCH (09:14)
[2022-08-22] MEDS: PANTOprazole 40 MG TAB PO SCH ×2 (09:15→23:24)
[2022-08-22] MEDS: lamoTRIgine 100 MG TAB PO SCH ×2 (09:15→21:31)
[2022-08-22] MEDS: predniSONE 5 MG TAB PO SCH (09:15)
[2022-08-22] MEDS: guaiFENesin 600 MG TABCR PO SCH ×2 (09:16→21:31)
[2022-08-22] MEDS: SERTRALINE HCL 100 MG TABLET PO SCH (09:16)
[2022-08-22] MEDS: CALCIUM CARBONATE 1250MG TAB PO SCH ×2 (15:21→21:31)
[2022-08-22] MEDS ORDERED: cefTRIAXone SODIUM 2,000 MG in DEXTROSE 5% 50 ML IV SCH (19:00)
--- NOTE | 2022-08-22 20:18 | Billing Data ---
Date of Service August 22, 2022 Coding Level of Care Code 99130 INT INP/OBS CARE
[2022-08-22] MEDS: UPADACITINIB PO SCH (21:02)
--- NOTE | 2022-08-22 22:04 | Hospitalist Progress Note ---
Date of Service August 22, 2022 Assessment & Plan (1) Hypophosphatemia: Plan: 72yo male with a history of Parkinsons disease, RA, history of seizure (eight years ago), GERD, and MDD presents with a one-week history of acutely-worsening SOB in the setting of SOB that has been worsening overall for the past four months. Patient was found on arrival with hypophosphatemia to 1.4. Hypophosphatemia Phosphate on arrival low at 1.4 Etiology unclear; calcium minimally low at 1.11 (ionized) Received Kphos 9mmol (x2) in ED Will give additional Kphos 30mmol Phosphorus level is normal, will recheck in AM. Likely contributed to his sym ptoms. Concern that this was due to decreased dietary symptoms. Fever Unclear etiology; imaging shows bibasilar atelectasis but no overt pneumonia WBC mildly elevated to 11.8, though patient is on chronic prednisone for RA Received dose of ceftriaxone in ED Follow cultures will give another dose of ceftriaxone. patient likely has pneumonia. will mon itor fever curve. If improved, will discharge on 08/23 Parkinson's disease: continue home regimen RA: continue home prednisone History of seizure (8 years ago): continue home lamotrigine GERD: continue home omeprazole MDD: continue home sertraline L FEN: regular diet Code status: full code DVT ppx: SCDs PT/OT: ordered Dispo: med/surg (2) Rheumatoid arthritis: (3) Parkinson disease: (4) Seizure: (5) GERD (gastroesophageal reflux disease): Admission and Anticipated Discharge Date Admission Date: August 21, 2022 Subjective 72 yo male reports feeling much better today. He has no new complaints. Review of Systems Review of Systems: All systems reviewed & are unremarkable except as noted in HPI & below Physical Exam Physical Exam: Constitutional: tired-appearing, no acute distress HEENT: NCAT, no conjunctival injection CV: regular rhythm, no murmur appreciated, extremities well-perfused, no LE edema Resp: breath sounds distant in lower petersen, CTABL in upper petersen, no wheezes/rales/rhonchi appreciated, no increased work of breathing GI: soft, nondistended, nontender, BS normoactive MSK: no gross deformities appreciated Skin: warm, dry, no rash appreciated Neuro: somnolent but arousable to voice, oriented, no focal neurologic deficit appreciated Results & Data Results & Data ([facility]) Vital Signs (Past 12 Hours) Vital Signs Temp Pulse Resp BP Pulse Ox O2 Del Method 08/22/22 15:26 72 18 103/68 93 Room Air 08/22/22 14:50 99 08/22/22 13:42 36.5 C 77 18 105/66 93 Room Air 08/22/22 13:38 Room Air 08/22/22 11:00 70 16 109/69 93 Room Air PG Care Time/CCT Total # of Minutes Spent Total Time Spent with Patient: Total time spent is greater than 50% in coordination of care (as documented) at patient's floor/unit and/or counseling patient: Coding Level of Care Code 89121 SUB INP/OBS CARE 2/35MIN Diagnoses Hypophosphatemia E83.39 Rheumatoid arthritis M06.9 Parkinson disease G20 Seizure R56.9 GERD (gastroesophageal reflux disease) K21.9
[2022-08-23] MEDS: UPADACITINIB PO SCH (00:43)
[2022-08-23] MEDS: AZITHROMYCIN 500 MG in DEXTROSE 5% 250 ML IV SCH (05:24)
[2022-08-23 08:26] LABS: Calcium 8.5 mg/dl (8.5-10.1); Potassium 3.8 mmol/L (3.5-5.1)
[2022-08-23 08:31] LABS: BUN Creatinine Ratio 12.5 (10-20); C Reactive Protein 9.14 mg/dl (0-0.5); Creatinine Clr Calc Pharmacy 92.8 ml/min; Est GFR (African American) 92.4 ml/min; Est GFR (Non-African American) 79.8 ml/min; Phosphorus 3.3 mg/dl (2.5-4.9)
[2022-08-23] MEDS: CALCIUM CARBONATE 1250MG TAB PO SCH (08:49)
[2022-08-23] MEDS: guaiFENesin 600 MG TABCR PO SCH (08:49)
[2022-08-23] MEDS: lamoTRIgine 100 MG TAB PO SCH (08:49)
[2022-08-23] MEDS: CARBIDOPA/LEVODOPA 25/100MG TAB PO SCH ×2 (08:49→11:13)
[2022-08-23] MEDS: PANTOprazole 40 MG TAB PO SCH (08:50)
[2022-08-23] MEDS: SERTRALINE HCL 100 MG TABLET PO SCH (08:50)
[2022-08-23 09:20] LABS: Hematocrit (blood only) 38.2 % (40.1-51.0); Hemoglobin 13.1 g/dl (14.0-18.0); Mean Corpuscular Hemoglobin 29.7 pg (25.0-34.0); Mean Corpuscular Hgb Conc 34.3 g/dL (32.0-36.0); Mean Corpuscular Volume 86.6 fL (80.0-100.0); Mean Platelet Volume 10.2 fL (9.4-12.4); Platelet Count 144 K/uL (130-400); RDW Standard Deviation 41.1 fL (36.4-46.3); Red Blood Count 4.41 M/uL (4.63-6.08); White Blood Count 6.33 K/ul (4.8-10.8)
[2022-08-23] MEDS: ASPIRIN 81 MG ECTAB PO SCH (09:38)
[2022-08-23] MEDS: predniSONE 5 MG TAB PO SCH (09:39)
[2022-08-23] MEDS: ACETAMINOPHEN 325 MG TAB PO PRN (09:39)
--- NOTE | 2022-08-23 19:03 | Electrocardiogram Report ---
Test Reason : Blood Pressure : / mmHG Vent. Rate : 097 BPM Atrial Rate : 097 BPM P-R Int : 154 ms QRS Dur : 084 ms QT Int : 326 ms P-R-T Axes : 051 -17 039 degrees QTc Int : 414 ms Poor data quality, interpretation may be adversely affected Normal sinus rhythm Cannot rule out Anterior infarct (cited on or before 29-NOV-2014) Nonspecific T wave abnormality Abnormal ECG When compared with ECG of 29-NOV-2014 08:39, No significant change was found Confirmed by Abhinav Jack ([id number]) on 08/23/2022 7:03:00 PM Referred By: REFERRED SELF Confirmed By:Abhinav Jack
--- NOTE | 2022-08-31 17:38 | Discharge Summary ---
Date of Service August 23, 2022 Admission HPI Per Admitting Provider 72yo male with a history of Parkinsons disease, RA, history of seizure (eight years ago), GERD, and MDD presents with a one-week history of acutely-worsening SOB in the setting of SOB that has been worsening overall for the past four months. Symptoms acutely worsened earlier today, which prompted a visit to patient's neurologist, who recommended a PCP visit. On the way home from the neurology visit, patient experienced an acute worsening of SOB, at which point he called EMS and was brought to the hospital. Patient denies headache, vision changes, CP, palpitations, abdominal pain, nausea, vomiting, dysuria, hematochezia, melena, numbness, tingling, or other symptoms. Denies recent illness and recent travel. Upon arrival, vitals were notable for elevated BP (140s/70s), tachycardia (100), and fever (38.2); no tachypnea, patient afebrile, spO2 adequate on room air. Initial labs were notable for mild leukocytosis (11.8), mild anemia (13.5), minimally-low iCa (1.11), and hypophosphatemia (1.4); platelets wnl, no additional electrolyte abnormalities, creatinine not elevated, LFTs wnl, Tbili not elevated, covid/flu/RSV PCR negative, procalcitonin negative. In the ED, patient receivedNSS 500mL bolus (x3), Kphos 9mmol (x2), ceftriaxone, and acetaminophen. EKG: NSR, no overt ischemic change CT a/p: there is thickening of the bladder wall; correlation with urinalysis is recommended to exclude UTI CTA chest: no evidence of pulmonary embolus; there is atelectasis of the left lower lobe; no pneumonia is seen; pulmonary nodules (see official read) Surrogate decision-maker in case of an emergency: aishwarya Reyes (cell: [phone]) Principal Diagnosis Pneumonia Discharge Exam Constitutional: APPEARS COMFORTABLE. no acute distress HEENT: NCAT, no conjunctival injection CV: regular rhythm, no murmur appreciated, extremities well-perfused, no LE edema Resp: CTA b/l, no wheezes/rales/rhonchi appreciated, no increased work of breathing GI: soft, nondistended, nontender, BS normoactive MSK: no gross deformities appreciated Skin: warm, dry, no rash appreciated Neuro: AA OX3 Discharge Data Allergies Allergy/AdvReac Type Severity Reaction Status Date / Time methotrexate Allergy Severe Seizure Verified 08/21/22 20:44 Consultations 08/21/22 20:27 ED Decision to Admit Stat Ordered Studies 08/21/22 19:00 CT abd pelvis IV con only Stat 08/21/22 19:02 CT angio chest PE protocol Stat 08/21/22 22:33 CT chest diagnostic wo con Urgent Hospital Course (1) Hypophosphatemia: 72yo male with a history of Parkinsons disease, RA, history of seizure (eight years ago), GERD, and MDD presents with a one-week history of acutely-worsening SOB in the setting of SOB that has been worsening overall for the past four months. Patient was found on arrival with hypophosphatemia to 1.4. Hypophosphatemia Phosphate on arrival low at 1.4 Etiology unclear; calcium minimally low at 1.11 (ionized) Received Kphos 9mmol (x2) in ED Will give additional Kphos 30mmol Phosphorus level is normal. Likely contributed to his symptoms. Concern that this was due to decreased dietary symptoms. Fever Unclear etiology; imaging shows bibasilar atelectasis but no overt pneumonia WBC mildly elevated to 11.8, though patient is on chronic prednisone for RA Received dose of ceftriaxone in ED Follow cultures gave another dose of ceftriaxone. patient likely has pneumonia. will monitor fever curve. As patient improved, will discharge on 08/23 with cefuroxime and azithromycin regimens. Parkinson's disease: continue home regimen RA: continue home prednisone History of seizure (8 years ago): continue home lamotrigine GERD: continue home omeprazole MDD: continue home sertraline FEN: regular diet Code status: full code DVT ppx: SCDs PT/OT: ordered Dispo: med/surg (2) Rheumatoid arthritis: (3) Parkinson disease: (4) Seizure: (5) GERD (gastroesophageal reflux disease): Total Time Total Time Spent Total Time Spent (In Minutes): 32 Discharge Plan Discharge Items Patient Disposition: Home - Self-Care Reason For Visit: HYPOPHOSPHATEMIA Discharge Diagnosis: pneumonia Activity: Resume your previous activity Non-emergency contact: Primary Care Provider Call non-emergency contact if: you have any medication questions Follow-up/Referrals: Khai Virk MD [Primary Care Provider] - 08/29/22 1:25 pm Diet: Regular Addtl Attending Provider Instructions: You have been hospitalized for an acute medical problem. During your stay at [facility], we have made an effort to correct the problem that brought you to the hospital while keeping you as comfortable as possible. Medications were used to bring your condition under control and your discharge instructions will include directions for any medications you should take after leaving the hospital. Please make sure you see your Primary Care Provider as part of your follow up plan. Recommend followup with PCP in 1-2 weeks. Recommend rechecking phosphorus in 1 week. Pending Studies at Discharge: No Stand-Alone Forms: My [facility], Smoking Cessation Medications and DC Order Prescriptions: New guaifenesin [Mucinex] 600 mg Tablet Extended Release 12hr 1,200 mg PO Q12H Qty: 10 0RF azithromycin 500 mg tablet 500 mg PO DAILY Qty: 1 0RF Rx Instructions: Please take one dose on 08/24 in the AM cefuroxime axetil 500 mg tablet 500 mg PO BID Qty: 8 0RF Rx Instructions: Take first dose on 08/23 PM with dinner Continued lamotrigine 150 mg Tablet 150 mg PO BID carbidopa-levodopa 25-100 mg Tablet Extended Release 2 tab PO TIDM Rx Instructions: ordered 1&1/2 tabs with 3 times a day with meals but pt takes 2 tablets 3 times a day with meals sertraline 100 mg Tablet 100 mg PO DAILY aspirin 81 mg Tablet,Delayed Release (Dr/Ec) 81 mg PO QAM omeprazole 20 mg Tablet,Delayed Release (Dr/Ec) 20 mg PO BID biotin 1,000 mcg Tablet,Chewable 1,000 mcg PO QAM Rinvoq 15 mg Tablet Extended Release 24 Hr 15 mg PO HS carbidopa-levodopa 25-100 mg tablet 1 tab PO HS prednisone 5 mg tablet 5 mg PO QAM cholecalciferol (vitamin D3) [Vitamin D3] 25 mcg (1,000 unit) Tablet 25 mcg PO DAILY diclofenac sodium 1 % Gel 2 g TOPICAL TID PRN (Reason: Pain) Rx Instructions: apply to single elbow, wrist or hand; for hand includes palm/fingers/back of hand Discharge Orders: Discharge Order (Routine); Ordered 08/23/22 Ordered By: Hemant Bishop/Other Patient Handouts: What Is Pneumonia? Admission Data Admit Date/Time: 08/21/22 21:55 Attending Provider: Hemant Crawley Admit Provider: Arcadio Edmond Primary Care Provider: Khai Virk Other Providers: Merritt Herrera Other Interventions: Discharge Summary Assessment (RN) Last Done: 08/23/22 13:45 Coding Level of Care Code HOSP INP/OBS DISCH >30 MIN Diagnoses Hypophosphatemia E83.39 Rheumatoid arthritis M06.9 Parkinson disease G20 Seizure R56.9 GERD (gastroesophageal reflux disease) K21.9
== END 2022-08-23 15:03 | disposition home or self-care (01) | DRG 194 ==
LOC: ED 17:47 → SUATTDRO 21:55 → EDINP 21:55 → 3N 08-22 18:31

== ENCOUNTER 2024-10-27 16:40 | Inpatient (IN) ==
--- NOTE | 2024-10-27 17:18 | Emergency Department Note ---
Impression & Plan Acute confusion, Hallucination, visual ED Provider Note HISTORY OF PRESENT ILLNESS: Patient is a 74-year-old male presenting with confusion. provides history. Reports the patient was diagnosed with influenza on 10/16/2024. Reports that "he just has not been right since." Reports that the patient has been having increasing hallucinations, she states that he is seeing things that are not there. States that he is seeing people and requesting to go home even when they are at home. He reportedly has been having increasing aggression and irritability towards the . She states that he is just not acting himself. Reports he has a history of Parkinson's disease. Reports he is had frequent falls in the last week. Denies the patient striking his head. States that he has not had any vomiting. He has had diarrhea for the last 10 days. Reports that he is just having watery stool for the last few days. Denies any recent antibiotic or steroid use. No reported fevers. No chest pain or shortness of breath. ROS: as above PHYSICAL EXAM: Constitutional: Patient appears in no acute distress. HENT: Head: Normocephalic and atraumatic. Eyes: EOMI, PERRL Mouth/Throat: Mucous membranes moist. Neck: Trachea midline. Neck supple. Cardiovascular: RRR, No murmurs, rubs or gallops. Intact distal pulses. Pulmonary/Chest: No respiratory distress. Breath sounds clear and equal bilaterally. No wheezes or rales. No chest wall tenderness to palpation. Abdominal: Abdomen soft, no tenderness, rebound or guarding. Musculoskeletal: No edema, tenderness or deformity noted. Skin: Warm and dry. No rash, erythema, pallor or cyanosis Psychiatric: Appropriate mood and affect for situation. Neurological: Alert and keenly responsive. CN II-XII grossly intact, moving all extremities equally and fully. MDM: - Vitals signs stable - History obtained via patient's , given his confusion. History as above. - Chronic conditions affecting care: Parkinson's disease; GERD; rheumatoid arthritis - Differential diagnoses include, but are not limited to: UTI; pneumonia; viral syndrome; CVA; intracranial hemorrhage; ACS - Order placed for continuous cardiac monitoring. At this time, monitor showed rate of 88 bpm with normal sinus rhythm, per my interpretation. - External medical records reviewed. Pulmonary visit note dated 01/04/2024 was reviewed. 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 - EKG image interpreted by myself showed normal sinus rhythm. Rate 81 bpm. QT 444. No acute ischemic changes. - Laboratory workup interpreted by myself showed normal WBC; normal PT/INR; stable electrolytes; normal troponin; normal TSH; normal AST/ALT - UA negative for infection - Viral respiratory panel negative - CXR image reviewed by myself is negative for pneumonia, per my interpretation. Radiology states that patient's left hemidiaphragmatic elevation is similar to previous CT scan. - CT head wo contrast negative for acute pathology - Unclear etiology for patient's confusion and visual hallucinations at this point. expresses concern about patient's safety given his recurrent falls and him not being at his neurologic baseline. Will discuss case with hospitalist service - Discussion was had with field case manager about patient's case and need for admission - Hospitalist consulted for admission - Patient admitted to [facility] hospitalist service for further evaluation and management. ASSESSMENT AND PLAN: Diagnosis: Acute confusion; visual hallucinations Plan: Admit Past Med/Surg History Problem List (Updated 10/27/24 @ 20:19 by Meghan Mccurdy MD) Hallucination, visual (Acute) Acute confusion (Acute) Pulmonary nodules Carotid artery disease Edema Restrictive lung disease Paralysis, diaphragm Dyslipidemia Carotid artery stenosis Dyspnea on exertion Low back pain Cervical stenosis of spinal canal Elevated hemidiaphragm Dyspnea Rheumatoid arthritis (Chronic) Seizure (Acute) Encounter for pre-operative examination Pneumonia (Acute) Parkinson disease (Acute) SIRS (systemic inflammatory response syndrome) (Acute) Dyspnea on minimal exertion (Acute) Seizure 1 episode 8 years ago GERD (gastroesophageal reflux disease) Parkinson disease Hypophosphatemia Medical History Carotid artery disease Dyslipidemia Restrictive lung disease Paralysis, diaphragm Rheumatoid arthritis GERD (gastroesophageal reflux disease) Parkinson disease Seizure Hearing deficit Surgical History History of cataract surgery History of total hip arthroplasty left History of colonoscopy History of tooth extraction Nasal polyps removed Family History Other Allergies Cancer Heart disease No family history of adverse response to anesthesia Social History Smoking Status: Never smoker Second Hand Exposure: No; Do You Dip or Chew Tobacco: No; Hx Alcohol Use: Yes Alcohol type: beer Hx Substance Use: No Preferred Language: Divehi Communication Ability: Effective Unhairing Machine Operator Required: Voice Beliefs That Will Affect Care: None Current Living Situation: Spouse Feels Safe at Home: Yes Assistive Devices: Cane Allergies Allergies Allergy/AdvReac Type Severity Reaction Status Date / Time methotrexate Allergy Severe Seizure Verified 01/02/24 10:07 Home Meds Home Medications Medication Instructions Recorded Confirmed aspirin 81 mg tablet,delayed 81 mg PO QAM 06/06/22 10/27/24 release biotin 1,000 mcg chewable tablet 1,000 mcg PO QAM 06/06/22 10/27/24 carbidopa ER 25 mg-levodopa 100 mg 2 tab PO TIDM 06/06/22 10/27/24 tablet,extended release lamotrigine 150 mg tablet 150 mg PO BID 06/06/22 10/27/24 omeprazole 20 mg tablet,delayed 40 mg PO BID 06/06/22 10/27/24 release sertraline 100 mg tablet 100 mg PO DAILY 06/06/22 10/27/24 upadacitinib 15 mg tablet,extended 15 mg PO HS 06/06/22 10/27/24 release 24 hr (Rinvoq) cholecalciferol (vitamin D3) 25 50 mcg PO DAILY 08/21/22 10/27/24 mcg (1,000 unit) tablet (Vitamin D3) diclofenac sodium 1 % topical gel 2 g topical TID PRN Pain 08/21/22 10/27/24 prednisone 5 mg tablet 5 mg PO QAM 08/21/22 10/27/24 saw palmetto 160 mg capsule 160 mg PO BID 09/26/22 10/27/24 cyanocobalamin (vitamin B-12) 1,000 mcg PO DAILY 11/19/23 10/27/24 1,000 mcg capsule magnesium chloride 64 mg 64 mg PO DAILY 11/19/23 10/27/24 (magnesium chloride) tablet carbidopa 50 mg-levodopa 200 1 tab PO HS 10/27/24 10/27/24 mg-entacapone 200 mg tablet Results & Data (ED) Vital Signs Vital Signs - 24 hr 10/27/24 16:45 10/27/24 18:01 10/27/24 18:24 Temperature 36.3 C L Temperature Source Oral Pulse Rate 78 87 Respiratory Rate 18 Blood Pressure 128/78 Blood Pressure Mean 94 Pulse Oximetry 94 91 Oxygen Delivery Method Room Air Room Air Sepsis New/Unexplained Change in Mental Status Yes Sepsis Action Taken by Nursing No Action Required Laboratory Data 10/27/24 17:57 10/27/24 17:57 Lab Results 10/27/24 10/27/24 10/27/24 Range/Units 17:48 17:57 18:16 WBC 6.81 (4.8-10.8) K/ul RBC 4.42 L (4.70-6.10) M/uL Hgb 13.1 L (14.0-18.0) g/dl Hct 38.1 L (42.0-52.0) % MCV 86.2 (80.0-100.0) fL MCH 29.6 (25.0-34.0) pg MCHC 34.4 (32.0-36.0) g/dL RDW Std Deviation 39.6 (36.4-46.3) fL RDW Coeff of Neela 12.5 (11.5-14.5) % Plt Count 271 (130-400) K/uL MPV 10.7 (9.4-12.4) fL Immature Gran % (Auto) 4.1 % Neut % (Auto) 68.9 % Lymph % (Auto) 15.6 % Mercer % (Auto) 8.2 % Eos % (Auto) 2.5 % Baso % (Auto) 0.7 % Neut # (Auto) 4.69 (1.40-6.50) K/uL Lymph # (Auto) 1.06 L (1.20-3.40) K/uL Mercer # (Auto) 0.56 (0.11-0.59) K/uL Eos # (Auto) 0.17 (0.00-0.50) K/uL Baso # (Auto) 0.05 (0.00-0.20) K/uL Immature Gran # (Auto) 0.28 H (0.01-0.20) K/uL PT 10.8 (9.0-12.0) Seconds INR 1.0 (0.9-1.1) Sodium 138 (136-145) mmol/L Potassium 3.8 (3.5-5.1) mmol/L Chloride 103 (98-107) mmol/L Carbon Dioxide 28 (21-32) mmol/L Anion Gap 7 (3-11) BUN 26 H (6-23) mg/dl Creatinine 1.36 (0.6-1.4) mg/dl Est Cr Clr Drug Dosing 59.9 ml/min eGFR 55.29 BUN/Creatinine Ratio 19.1 (10-20) Glucose 112 H (70-99(Fasting)) mg/dl Lactate 1.0 (0.4-2.0) mmol/L Calcium 9.1 (8.6-10.3) mg/dl Magnesium 1.9 (1.7-2.4) mg/dl Total Bilirubin 0.7 (0.2-1.0) mg/dl AST 15 (13-39) U/L ALT 4 L (7-52) U/L Alkaline Phosphatase 82 (34-104) U/L Troponin I High Sens 3.8 (0-20) pg/ml Total Protein 6.9 (6.0-8.3) gm/dl Albumin 4.2 (3.4-5.0) gm/dl Globulin 2.7 (2.5-4.0) gm/dl Albumin/Globulin Ratio 1.6 (0.9-2) TSH 2.905 (0.300-4.500) uIu/ml Urine Color Dark Yellow Urine Appearance Clear (Clear) Urine pH 6.0 (4.5-7.5) Ur Specific Downs 1.021 (1.000-1.030) Urine Protein Trace H (Negative) Urine Glucose (UA) Negative (Negative) Urine Ketones 1+ H (Negative) Urine Blood Negative (Negative) Urine Nitrite Negative (Negative) Urine Bilirubin Negative (Negative) Urine Urobilinogen Negative (Negative) Ur Leukocyte Esterase Negative (Negative) Urine WBC (Auto) 0-5 (0-5) /hpf Urine RBC (Auto) 0-2 (0-2) /hpf U Hyaline Cast (Auto) >20 H (0-2) /lpf U Epithel Cells (Auto) 0-2 (0-2) /hpf Urine Bacteria (Auto) None Seen (None Seen) Granular Casts Present A (None Prsent) /lpf Adenovirus (PCR) Not Detected (NotDetected) B. pertussis DNA (PCR) Not Detected (NotDetected) B.parapertussis DNA PCR Not Detected (NotDetected) C. pneumoniae DNA (PCR) Not Detected (NotDetected) Coronavirus OC43 (PCR) Not Detected (NotDetected) Coronavirus HKU1 (PCR) Not Detected (NotDetected) Coronavirus 229E (PCR) Not Detected (NotDetected) SARS-CoV-2 (PCR) Not Detected (NotDetected) Coronavirus NL63 (PCR) Not Detected (NotDetected) Human Metapneumovir PCR Not Detected (NotDetected) Influenza Type A (PCR) Not Detected (NotDetected) Influenza Type B (PCR) Not Detected (NotDetected) M. pneumoniae (PCR) Not Detected (NotDetected) Parainfluenza 1 (PCR) Not Detected (NotDetected) Parainfluenza 2 (PCR) Not Detected (NotDetected) Parainfluenza 3 (PCR) Not Detected (NotDetected) Parainfluenza 4 (PCR) Not Detected (NotDetected) RSV (PCR) Not Detected (NotDetected) Entero/Rhino (PCR) Not Detected (NotDetected) Imaging Data Radiologist's Impression: Chest X-Ray 10/27/24 17:03 EXAM: XR chest 1V portable CLINICAL HISTORY: Confusion. TECHNIQUE: X-ray image of the chest is obtained in AP projection. COMPARISON: With the prior CT dated 01/01/2024. FINDINGS: Pulmonary Parenchyma: Compared to the prior CT , there is an unchanged appearance regarding the left side diaphragmatic elevation and posterior basal consolidation noted. No pulmonary nodules are identified. Again obscured left costophentic angle was noted. No evidence of pleural effusion or pleural thickening. Heart and Mediastinum: Heart size and shape are normal. No mediastinal widening or masses. No hilar or mediastinal lymphadenopathy. Bony Thorax: The bony thorax appears intact without fractures or deformities. Soft Tissues: Soft tissues overlying the chest wall are unremarkable. IMPRESSION: 1. Compared to the prior CT, there is an unchanged appearance regarding the left side severe diaphragmatic elevation and posterior basal consolidation/atelectasis noted. No acute findings. However a residual left lower lobe infiltrate cant be excluded. 2. Again obscured left costophentic angle was noted. Electronically signed by Dre Burk 10-27-2024 7:[address] 10/27/24 17:03 EXAM: CT head/brain wo con CLINICAL HISTORY: Confusion. TECHNIQUE: An axial non-contrast CT scan of the brain was performed from the skull base to the high parietal region.One of the following dose reduction techniques was utilized for this exam.Automated exposure control, adjustment of the mA and/or kV according to patient size, and use of iterative reconstruction. COMPARISON: None. FINDINGS: Prominent cortical sulci and Sylvian fissures. The ventricular system, and basal cisterns are prominent and consistent with age-related changes. The visualized brain parenchyma shows a normal appearance. Henderson-white matter differentiation is maintained. No midline shifts or deformity. No intracerebral or extra axial hematoma. Normal size and configuration of the cerebral ventricles. Normal CT appearance of the posterior fossa structures namely the cerebellar hemispheres, brainstem and cerebellar peduncles. The IACs are unremarkable. The cerebellopontine angles are clear. The pituitary gland, the pineal gland, and the optic chiasm are unremarkable. The osseous structures in the skull base are unremarkable. No definite calvarium fractures. Calcifications are seen in the pineal gland region. Right maxillary sinus retention cyst Complete opacification of left maxillary sinus with soft tissue density and widened left osteomeatal complex. Abnormal left zygomatic arch and all boundaries of left maxillary sinus which is seen expanded with a ground glass matrix Mild mucosal thickening in the right maxillary sinus and left ethmoid sinus. The rest of the scanned paranasal sinuses are clear. IMPRESSION: 1. No acute intracranial hemorrhage, mass effect, or hydrocephalus. 2. The above-mentioned findings are suggestive of age-related changes. 3. Left maxilla and zygomatic arch expansile bone lesion with ground glass internal matrix. 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 4. Left maxillary sinusitis and right maxillary sinus retention cyst . Electronically signed by Dre Burk 10-27-2024 7:17 PM Discharge Plan Visit Data Chief Complaint: Confusion Stated Complaint: PARKINSONS, HALLUCINATIONS, UTI POSSIBLE ED Provider: Meghan Mccurdy Discharge Problem: Acute confusion, Hallucination, visual Forms Stand Alone Forms: My [facility] Prescriptions Prescriptions: No Action cyanocobalamin (vitamin B-12) 1,000 mcg capsule 1,000 mcg PO DAILY magnesium chloride 64 mg magnesium tablet 64 mg PO DAILY saw palmetto 160 mg capsule 160 mg PO BID Rx Instructions: give with meal/snack lamotrigine 150 mg Tablet 150 mg PO BID carbidopa-levodopa 25-100 mg Tablet Extended Release 2 tab PO TIDM Rx Instructions: ordered 1&1/2 tabs with 3 times a day with meals but pt takes 2 tablets 3 times a day with meals sertraline 100 mg Tablet 100 mg PO DAILY aspirin 81 mg Tablet,Delayed Release (Dr/Ec) 81 mg PO QAM omeprazole 20 mg Tablet,Delayed Release (Dr/Ec) 40 mg PO BID biotin 1,000 mcg Tablet,Chewable 1,000 mcg PO QAM Rinvoq 15 mg Tablet Extended Release 24 Hr 15 mg PO HS prednisone 5 mg tablet 5 mg PO QAM cholecalciferol (vitamin D3) [Vitamin D3] 25 mcg (1,000 unit) Tablet 50 mcg PO DAILY Rx Instructions: Pt's spouse does 2000 units- 4000 units during the winter diclofenac sodium 1 % Gel 2 g TOPICAL TID PRN (Reason: Pain) Rx Instructions: apply to single elbow, wrist or hand; for hand includes palm/fingers/back of hand [id number] 50-200-200 mg tablet 1 tab PO HS Referrals Referrals: Khai Virk MD [Primary Care Provider] -
[2024-10-27 18:20] LABS: Basophils # (auto) 0.05 K/uL (0.00-0.20); Basophils % (auto) 0.7 %; Eosinophils # (auto) 0.17 K/uL (0.00-0.50); Eosinophils % (auto) 2.5 %; Hematocrit (blood only) 38.1 % (42.0-52.0); Hemoglobin 13.1 g/dl (14.0-18.0); Immature Granulocytes # (auto) 0.28 K/uL (0.01-0.20); Immature Granulocytes % (auto) 4.1 %; Lymphocytes # (auto) 1.06 K/uL (1.20-3.40); Lymphocytes % (auto) 15.6 %; Mean Corpuscular Hemoglobin 29.6 pg (25.0-34.0); Mean Corpuscular Hgb Conc 34.4 g/dL (32.0-36.0); Mean Corpuscular Volume 86.2 fL (80.0-100.0); Mean Platelet Volume 10.7 fL (9.4-12.4); Monocytes # (auto) 0.56 K/uL (0.11-0.59); Monocytes % (auto) 8.2 %; Neutrophils # (auto) 4.69 K/uL (1.40-6.50); Neutrophils % (auto) 68.9 %; Platelet Count 271 K/uL (130-400); RDW Coefficient of Variation 12.5 % (11.5-14.5); RDW Standard Deviation 39.6 fL (36.4-46.3); Red Blood Count 4.42 M/uL (4.70-6.10); White Blood Count 6.81 K/ul (4.8-10.8)
[2024-10-27 18:40] LABS: Prothrombin Time 10.8 Seconds (9.0-12.0)
[2024-10-27 18:46] LABS: Appearance Urine Clear (Clear); Bacteria Urine Automated None Seen (None Seen); Bilirubin Urine Negative (Negative); Blood Urine Negative (Negative); Cast Urine Automated >20 /lpf (0-2); Color Urine Dark Yellow; Epithelial Cell Urine Auto 0-2 /hpf (0-2); Glucose Urine UA Negative (Negative); Granular Casts Urine Present /lpf (None Prsent); Ketones Urine 1+ (Negative); Leukocyte Esterase Urine Negative (Negative); Nitrite Urine Negative (Negative); Protein Urine Trace (Negative); RBC Urine Automated 0-2 /hpf (0-2); Specific Gravity Urine 1.021 (1.000-1.030); Urobilinogen Urine Negative (Negative); WBC Urine Automated 0-5 /hpf (0-5)
--- NOTE | 2024-10-27 19:06 | XRay Report ---
EXAM: XR chest 1V portable CLINICAL HISTORY: Confusion. TECHNIQUE: X-ray image of the chest is obtained in AP projection. COMPARISON: With the prior CT dated 01/01/2024. FINDINGS: Pulmonary Parenchyma: Compared to the prior CT , there is an unchanged appearance regarding the left side diaphragmatic elevation and posterior basal consolidation noted. No pulmonary nodules are identified. Again obscured left costophentic angle was noted. No evidence of pleural effusion or pleural thickening. Heart and Mediastinum: Heart size and shape are normal. No mediastinal widening or masses. No hilar or mediastinal lymphadenopathy. Bony Thorax: The bony thorax appears intact without fractures or deformities. Soft Tissues: Soft tissues overlying the chest wall are unremarkable. IMPRESSION: 1. Compared to the prior CT, there is an unchanged appearance regarding the left side severe diaphragmatic elevation and posterior basal consolidation/atelectasis noted. No acute findings. However a residual left lower lobe infiltrate cant be excluded. 2. Again obscured left costophentic angle was noted. Electronically signed by Dre Burk 10-27-2024 7:06 PM
[2024-10-27 19:07] LABS: Adenovirus PCR Not Detected (NotDetected); Bordetella parapertussis PCR Not Detected (NotDetected); Bordetella pertussis PCR Not Detected (NotDetected); Chlamydia pneumoniae PCR Not Detected (NotDetected); Coronavirus 229E PCR Not Detected (NotDetected); Coronavirus CoV-2 (COVID19)PCR Not Detected (NotDetected); Coronavirus HKU1 PCR Not Detected (NotDetected); Coronavirus NL63 PCR Not Detected (NotDetected); Coronavirus OC43PCR Not Detected (NotDetected); Human Metapneumovirus PCR Not Detected (NotDetected); Influenza A PCR Not Detected (NotDetected); Influenza B PCR Not Detected (NotDetected); Mycoplasma pneumoniae PCR Not Detected (NotDetected); Parainfluenza Virus 1 PCR Not Detected (NotDetected); Parainfluenza Virus 2 PCR Not Detected (NotDetected); Parainfluenza Virus 3 PCR Not Detected (NotDetected); Parainfluenza Virus 4 PCR Not Detected (NotDetected); Respiratory Syncytial VirusPCR Not Detected (NotDetected); Rhinovirus/Enterovirus PCR Not Detected (NotDetected)
--- NOTE | 2024-10-27 19:17 | CT Scan Report ---
EXAM: CT head/brain wo con CLINICAL HISTORY: Confusion. TECHNIQUE: An axial non-contrast CT scan of the brain was performed from the skull base to the high parietal region.One of the following dose reduction techniques was utilized for this exam.Automated exposure control, adjustment of the mA and/or kV according to patient size, and use of iterative reconstruction. COMPARISON: None. FINDINGS: Prominent cortical sulci and Sylvian fissures. The ventricular system, and basal cisterns are prominent and consistent with age-related changes. The visualized brain parenchyma shows a normal appearance. Henderson-white matter differentiation is maintained. No midline shifts or deformity. No intracerebral or extra axial hematoma. Normal size and configuration of the cerebral ventricles. Normal CT appearance of the posterior fossa structures namely the cerebellar hemispheres, brainstem and cerebellar peduncles. The IACs are unremarkable. The cerebellopontine angles are clear. The pituitary gland, the pineal gland, and the optic chiasm are unremarkable. The osseous structures in the skull base are unremarkable. No definite calvarium fractures. Calcifications are seen in the pineal gland region. Right maxillary sinus retention cyst Complete opacification of left maxillary sinus with soft tissue density and widened left osteomeatal complex. Abnormal left zygomatic arch and all boundaries of left maxillary sinus which is seen expanded with a ground glass matrix Mild mucosal thickening in the right maxillary sinus and left ethmoid sinus. The rest of the scanned paranasal sinuses are clear. IMPRESSION: 1. No acute intracranial hemorrhage, mass effect, or hydrocephalus. 2. The above-mentioned findings are suggestive of age-related changes. 3. Left maxilla and zygomatic arch expansile bone lesion with ground glass internal matrix. 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 4. Left maxillary sinusitis and right maxillary sinus retention cyst . Electronically signed by Dre Burk 10-27-2024 7:17 PM
[2024-10-27 19:38] LABS: Albumin Level 4.2 gm/dl (3.4-5.0); Bilirubin,Total 0.7 mg/dl (0.2-1.0); Calcium 9.1 mg/dl (8.6-10.3); Magnesium 1.9 mg/dl (1.7-2.4); Potassium 3.8 mmol/L (3.5-5.1)
[2024-10-27 19:44] LABS: Albumin Globulin Ratio 1.6 (0.9-2); BUN Creatinine Ratio 19.1 (10-20); Creatinine Clr Calc Pharmacy 59.9 ml/min; Globulin 2.7 gm/dl (2.5-4.0); Total Protein 6.9 gm/dl (6.0-8.3)
[2024-10-27 19:50] LABS: Troponin I High Sensitivity 3.8 pg/ml (0-20)
[2024-10-27 20:00] LABS: Thyroid Stimulating Hormone 2.905 uIu/ml (0.300-4.500)
[2024-10-27] MEDS: ACETAMINOPHEN 1,000 MG/100 ML VIAL IV STA (20:50)
--- NOTE | 2024-10-27 21:34 | History & Physical Report ---
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 He presented to the ED with his due to increasing confusion, aggression, and hallucinations for multiple days. She stated he is just not been the same since he had the flu 10/16/2024. CXR was concerning for left lower lobe infiltrate, will cover with IV antibiotics. Patient with recurrent falls over the past few weeks, will consult PT/OT. Patient is being admitted for left lower lobe pneumonia, ambulatory dysfunction, and confusion. Patient's is concerned that she is unable to care for him at home in this state. 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 Clark cxr showed unchanged appearance regarding left side severe diaphragmatic elevation and posterior basal consolidation/atelectasis, however residual left lower lobe infiltrate cannot be excluded, obscured left costophrenic angle In setting of recent flu, ongoing cough, weakness and confusion, will treat for pneumonia no leukocytosis, VSS, non-hypoxic procal ordered droplet precautions Rocephin and azithromycin IV ordered Tylenol and Tessalon perle prn sputum cultures ordered incentive spirometry trend cbc #Ambulatory dysfunction/confusion 2/2 PNA, dehydration, vs worsening Parkinsons dz Head CT negative for acute changes, left maxillary sinusitis and right maxillary sinus retention cyst (Tx with antibiotics above), left maxilla and zygomatic arch bone lesion with groundglass internal matrix (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 hydration at home Will give NSS at 80 mL/hour x 1L promote oral hydration Trend BMP #rheumatoid arthritis follows with [facility] rheumatology Electrolytes stable, low concern for adrenal insufficiency On chronic prednisone 5 Mg p.o. daily, continue On Rinvoq QAM, will hold in the setting of acute infection above #diarrhea - stool cultures ordered, denies recent abx use Chronic stable diagnoses: Parkinson'scontinue carbidopa levodopa, possibly contributing/worsening confusion above, fall precautions history of seizurescontinue lamotrigine GERDcontinue PPI Depressioncontinue sertraline BPH- bladder scan prn VTE ppx: SCDs Diet: regular Dispo: med/tele Admission and Anticipated Discharge Date Admission Date: 10/27/24 History of Present Illness Chief Complaint: confusion Primary Care Provider: Khai Virk MD Patient is a 74-year-old male with past medical history of Parkinson's disease, 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 He presented to the ED with his due to increasing confusion, aggression, and hallucinations for multiple days. She stated he is just not been the same since he had the flu 10/16/2024. CXR was concerning for left lower lobe infiltrate, will cover with IV antibiotics. Patient with recurrent falls over the past few weeks, will consult PT/OT. Patient is being admitted for left lower lobe pneumonia, ambulatory dysfunction, and confusion. Patient's is concerned that she is unable to care for him at home in this state. Patient seen at bedside with his present. Following history was provided by patients given patient's state of confusion. she stated that he has been confused at home and asking to go Home even when they are at home. He has also been aggressive today. He often has hallucinations here and there however it has been much more frequent. He has had a cough since he was diagnosed with the flu October 16. He also has been feverish. She stated he fell multiple times last week due to difficulty getting around, he is able to ambulate at baseline. He has had a poor p.o. intake for the past few days due to feeling sick. She also stated that the patient has had diarrhea that has progressed over the past 10 days to now loose watery stools. She denies any recent antibiotic use over the past 3 months. He was prescribed amoxicillin to take prior to dental visit, however patient canceled the visit and never took the antibiotic. Patient is on chronic prednisone and Renvela "which she gave him today. He received all of his medications today including his evening medications. She stated she believes he would wish to be DNR/DNI. Patient stated he really does not want to stay, however discussed benefits of staying with for IV antibiotics and to improve his strength. Patient was not aggressive at time of admission. Allergies Allergy/AdvReac Type Severity Reaction Status Date / Time methotrexate Allergy Severe Seizure Verified 01/02/24 10:07 Home Medications Medication Instructions Recorded Confirmed Type aspirin 81 mg tablet,delayed 81 mg PO QAM 06/06/22 10/27/24 History release biotin 1,000 mcg chewable tablet 1,000 mcg PO QAM 06/06/22 10/27/24 History carbidopa ER 25 mg-levodopa 100 mg 2 tab PO TIDM 06/06/22 10/27/24 History tablet,extended release lamotrigine 150 mg tablet 150 mg PO BID 06/06/22 10/27/24 History omeprazole 20 mg tablet,delayed 40 mg PO BID 06/06/22 10/27/24 History release sertraline 100 mg tablet 100 mg PO DAILY 06/06/22 10/27/24 History upadacitinib 15 mg tablet,extended 15 mg PO HS 06/06/22 10/27/24 History release 24 hr (Rinvoq) cholecalciferol (vitamin D3) 25 50 mcg PO DAILY 08/21/22 10/27/24 History mcg (1,000 unit) tablet (Vitamin D3) diclofenac sodium 1 % topical gel 2 g topical TID PRN Pain 08/21/22 10/27/24 History prednisone 5 mg tablet 5 mg PO QAM 08/21/22 10/27/24 History saw palmetto 160 mg capsule 160 mg PO BID 09/26/22 10/27/24 History cyanocobalamin (vitamin B-12) 1,000 mcg PO DAILY 11/19/23 10/27/24 History 1,000 mcg capsule magnesium chloride 64 mg 64 mg PO DAILY 11/19/23 10/27/24 History (magnesium chloride) tablet carbidopa 50 mg-levodopa 200 1 tab PO HS 10/27/24 10/27/24 History mg-entacapone 200 mg tablet Past Med/Surg History Problem List (Updated 10/27/24 @ 23:22 by Kellie Hearn PA-C) Acute diarrhea Renal insufficiency Ambulatory dysfunction LLL pneumonia Hallucination, visual (Acute) Acute confusion (Acute) Pulmonary nodules Carotid artery disease Edema Restrictive lung disease Paralysis, diaphragm Dyslipidemia Carotid artery stenosis Dyspnea on exertion Low back pain Cervical stenosis of spinal canal Elevated hemidiaphragm Dyspnea Rheumatoid arthritis (Chronic) Seizure (Acute) Encounter for pre-operative examination Pneumonia (Acute) Parkinson disease (Acute) SIRS (systemic inflammatory response syndrome) (Acute) Dyspnea on minimal exertion (Acute) Seizure 1 episode 8 years ago GERD (gastroesophageal reflux disease) Parkinson disease Hypophosphatemia Medical History Carotid artery disease Dyslipidemia Restrictive lung disease Paralysis, diaphragm Rheumatoid arthritis GERD (gastroesophageal reflux disease) Parkinson disease Seizure Hearing deficit Surgical History History of cataract surgery History of total hip arthroplasty left History of colonoscopy History of tooth extraction Nasal polyps removed Family History Other Allergies Cancer Heart disease No family history of adverse response to anesthesia Social History Smoking Status: Never smoker Second Hand Exposure: No; Do You Dip or Chew Tobacco: No; Hx Alcohol Use: Yes Alcohol type: beer Hx Substance Use: No Preferred Language: Surinamese Communication Ability: Effective Finish [employer] Operator Required: Voice Beliefs That Will Affect Care: None Current Living Situation: Spouse Feels Safe at Home: Yes Assistive Devices: Cane Review of Systems Review of Systems: see HPI Physical Exam Physical Exam: The patient is awake, confused. HEENT- EOMI, mucous membranes dry. Hearing grossly intact. Heart-normal S1 and S2. No murmurs, rubs or gallops. Lungs-clear bilaterally, no respiratory distress, no accessory muscle use. Abdomen-normal bowel sounds and soft. No ascites noted. Extremities- no clubbing, cyanosis, or edema. Results & Data Results & Data Vital Signs (Past 12 Hours) Vital Signs Temp Pulse Resp BP Pulse Ox O2 Del Method 10/27/24 20:43 37.6 C H 10/27/24 18:24 87 10/27/24 18:01 91 Room Air 10/27/24 16:45 36.3 C L 78 18 128/78 94 Room Air Laboratory Results Reviewed CBC, PT/INR, CMP, Pro-Rios, bio fire, UA, troponin, mag Diagnostic Findings reviewed head ct and cxr Medications Administered ed - 1G I Tylenol admission - NSS 80 mL/hour, Rocephin 2G IV, azithromycin 500 Mg IV ECG Additional Comments: ordered Code Status & VTE Plan Code Status dnr/dni discussed with patients VTE Prophylaxis Plan VTE Prophylaxis will be ordered: Yes Supervising Physician Co-Signing Physician Notes Attending addendum: I have physically seen this patient, have supervised the LONNIE's activities, and agree with the H&P unless as otherwise noted. 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 The patient presents to the emergency department due to family concerns regarding worsening confusion, aggressive behavior, and hallucinations since she had the flu on 10/17/2023 with. He was noted to have several falls last week, and had a fall earlier in the day today. Workup in the emergency department included CT scan of the head which primarily showed a left maxillary sinusitis, chest x-ray with left lower lobe pneumonia, and negative respiratory BioFire test. #Pneumonia/restrictive lung disease secondary to paralyzed left hemidiaphragm Chest x-ray with appearance of left-sided severe diaphragmatic elevation, with likely residual left lower lobe infiltrate. With no recent hospitalization, patient can be treated as a community-acquired pneumonia, being placed on ceftriaxone and azithromycin IV, DuoNebs as needed Follow sputum Gram stain, culture and sensitivity Incentive spirometry Ambulatory dysfunction/confusion/hallucinations- CT head negative for maxillary sinusitis Fall precautions Aspiration precautions Consult PT/OT Patient will need to be watched for potential activities requiring one-to-one Likely underlying contributing factor to his Parkinson's, continue [id number] at current dosing Acute kidney injury superimposed on CKD Creatinine 1.36, with base 0.96-1.13 Placed on NSS at 80 mL/h x 1 L Encourage oral hydration Repeat laboratories in a.m. Rheumatoid arthritis- On Rinvoq as outpatient, and prednisone 5 mg p.o. daily Will hold on stress dose steroids at this time Chronic medical conditions: Seizures/depression-continue lamotrigine, sertraline GERD-continue omeprazole/pantoprazole PG Care Time/CCT Total # of Minutes Spent Total Time Spent with Patient: Total time spent is greater than 50% in coordination of care (as documented) at patient's floor/unit and/or counseling patient: Coding Level of Care Code 54208 INT INP/OBS CARE 75MIN Diagnoses LLL pneumonia J18.9 Ambulatory dysfunction R26.2 Acute confusion R41.0 Renal insufficiency N28.9 Rheumatoid arthritis M06.9 Acute diarrhea R19.7
[2024-10-27] MEDS ORDERED: AZITHROMYCIN 500 MG/255 ML BAG IV SCH (22:30)
[2024-10-27] MEDS: cefTRIAXone SODIUM 2,000 MG/50 ML BAG IV STA (22:50)
[2024-10-27] MEDS ORDERED: ONDANSETRON INJ 2 MG/ML 2 ML VIAL IV PRN (23:42)
[2024-10-27] MEDS: AZITHROMYCIN 500 MG/255 ML BAG IV STA (23:44)
[2024-10-27] MEDS: SODIUM CHLORIDE 0.9% 1,000 ML IV SCH (23:44)
[2024-10-28] MEDS: GABAPENTIN 100 MG CAP PO ONE (02:41)
[2024-10-28] MEDS: MELATONIN 3 MG TAB PO PRN (02:41)
[2024-10-28] MEDS: OLANZapine 10 MG/2.1 ML SDV IM PRN (03:16)
[2024-10-28] MEDS: OLANZapine 10 MG/2.1 ML SDV IM STA (05:45)
--- OUTSIDE RECORDS SUMMARY | 2024-10-28 07:25 | External Medical Summary | Summary of Care ---
Author Name Unknown Organization [facility] Address [address] [facility] [place] [address] Phone [phone] Care Team Providers Care Alarm Operator Name Role Phone Khai Virk MD Primary Care Provider [phone] Reason for Visit * Reason Comments Rheum Follow Up Follow up - RA/PMR Encounter Details Date Type Department Care Team (Latest Contact Info) Description 06/27/2024 1:30 PM EST Office Visit Rheumatology [address] [place] [phone] [place] Nash CRNP [address] [facility] [place] [address] Rheumatoid factor positive with cyclic citrullinated peptide (CCP) antibody negative*; Encounter for long-term (current) use of high-risk medication; senior living current use of systemic steroids Allergies Active Allergy Reactions Criticality Noted Date Comments Cat Dander 08/10/2021 Dog Dander 08/10/2021 Dust 08/10/2021 Methotrexate Seizure High 11/20/2017 2015 was used to treat rheum arthritis, had seizure and was taken off. Not certain it was the methotrexate which caused the seizure. Pollen 08/10/2021 documented as of this encounter (statuses as of 06/30/2024) Medications ASPIR-81 81 MG PO TBEC Take by mouth. 0 6 Active Cholecalciferol (VITAMIN D) 1000 UNITS Tablet 1 daily Active Sildenafil Citrate 50 MG Oral Tablet As directed Active Diclofenac Sodium (VOLTAREN) 1 % gelIndications:Marla eric osteoarthritis involving multiple joints Apply 2 g topically to affected area 3 times a day as needed for Pain. 1 Tube 3 7 Active Biotin 1000 MCG Oral Tablet Chewable Take by mouth. Active Vitamin B Complex Oral Capsule Take by mouth. Active Rinvoq 15 MG Oral Tablet Extended Release 24 Hour (Upadacitinib ER)Indications:Rhe umatoid factor positive with cyclic citrullinated peptide (CCP) antibody negative Take 1 Tablet by mouth daily. 30 Tablet 5 3 Active Saw Fries (Serenoa repens) 160 MG Oral Capsule 160 mg. 3 Active Omeprazole 40 MG Oral Capsule Delayed Release (PriLOSEC) 4 Active Magnesium Gluconate 250 MG Oral Tablet 250 mg. 4 Active Carbidopa-Levodopa 25-100 MG Oral Tablet (Sinemet) Take 2 in the morning 1 in afternoon 1 in the evening 4 Active Sertraline HCl 100 MG Oral Tablet (Zoloft)Indication s:PD (Parkinson's disease) (HCC) TAKE 1 TABLET IN THE MORNING 90 Tablet 1 4 Active predniSONE 5 MG Oral Tablet (Deltasone)Indicat ions:Rheumatoid factor positive with cyclic citrullinated peptide (CCP) antibody negative TAKE 1 TABLET IN THE MORNING 90 Tablet 1 4 Active lamoTRIgine 150 MG Oral Tablet (LaMICtal)Indicati ons:History of seizure TAKE 1 TABLET TWICE A DAY 180 Tablet 1 4 Active Carbidopa-Levodopa ER 25-100 MG Oral Tablet Extended Release (Sinemet CR) TAKE 1 TABLET AT BEDTIME 90 Tablet 3 4 Active documented as of this encounter (statuses as of 06/30/2024) Active Problems Problem Noted Date Diagnosed Date Rheumatoid factor positive w ith cyclic citrullinated peptide (CCP) antibody negative 08/04/2022 PMR (polymyalgia rheumatica) 08/04/2022 Seizure, grand mal 05/27/2018 PD (Parkinson's disease) 04/22/2018 ED (erectile dysfunction) of organic origin 11/04 Post-void dribbling 11/20/2017 History of rheumatoid arthritis 02/21/2016 Memory difficulty 02/04/2015 Generalized osteoarthritis 02/04/2015 Rheumatoid arthritis involvi ng multiple sites with positive rheumatoid factor 12/08/2014 Overview (11/09/2015): ICD-10 update of inactive term Encounter for long-term (current) use of medicat ions 12/08/2014 Overview (05/29/2017): ICD-10 update of inactive term Other allergic rhinitis Overview (05/29/2017): ICD-10 update of inactive term documented as of this encounter (statuses as of 06/30/2024) Resolved Problems Problem Noted Date Diagnosed Date Resolved Date Other allergic rhinitis 12/2008 Overview (05/29/2017): Resolved per Duplicate Protocol #2. ICD-10 update of inactive term documented as of this encounter (statuses as of 06/30/2024) Immunizations Name Administration Dates Next Due COVID-19 mRNA, LNP-s, No Pre serve, 2-Dose Series (Moderna) 11/08/2020,10/11/2020 Pneumococcal Polysaccharide PPV23 (Pneumovax) documented as of this encounter Social History Tobacco Use Types Packs/Day Years Used Date Smoking Tobacco: Never Smokeless Tobacco: Former Tobacco Cessation:Counseling Given: Not Answered Alcohol Use Standard Drinks/Week Comments Yes 0 (1 standard drink = 0.6 oz pur e alcohol) 6 beers per week Sex and Gender Information Value Date Recorded Sex Assigned at Not on file Legal Sex Male 6:05 AM EST Gender Identity Not on file Sexual Orientation Not on file 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 Answer Date of Assessment Author Yes 04/16/2017 2:00 PM EDT Zeina Parisha E, MED ASSIST * Are you blind or do you have serious difficulty seeing, even when wearing glasses? Answer Date of Assessment Author Yes 04/16/2017 2:00 PM EDT Zeina Parisha E, MED ASSIST * Do you have serious difficulty walking or climbing stairs? (5 years old or older) Answer Date of Assessment Author Yes 04/16/2017 2:00 PM EDT Zeina Parisha E, MED ASSIST * Do you have difficulty dressing or bathing? (5 years old or older) Answer Date of Assessment Author Yes 04/16/2017 2:00 PM EDT Zeina Parisha E, MED ASSIST * Because of a physical, mental, or emotional condition, do you have difficulty doing errands alone such as visiting a doctors office or shopping? (15 years old or older) Answer Date of Assessment Author Yes 04/16/2017 2:00 PM EDZeina Fields E, MED ASSIST documented as of this encounter Mental Status * Because of a physical, mental, or emotional condition, do you have serious difficulty concentrating, remembering, or making decisions? (5 years old or older) Answer Entry Date Author Yes 04/16/2017 2:00 PM EDZeina Fields, MED ASSIST documented in this encounter Progress Notes * [place] Nash CRNP - 06/27/2024 1:40 PM EST Images from the original note were not included. Assessment and Plan Rheumatoid factor positive with cyclic citrullinated peptide (CCP) antibody negative Encounter for long-term (current) use of high-risk medication - CBC with WBC Differential; Future - Comprehensive Metabolic Panel; Future - Lipid Panel with Direct LDL if TG is High; Future long term current use of systemic steroids - DEXA Scan Bone Mineral Axial; Future Mr. Reyes returns today for management of RA. He is doing overall well from a RA standpoint on Rinvoq daily and low-dose prednisone. We will continue current medication regimen. Discussed conservative measures for flank pain. Seems to be more muscular in nature which may be caused from staggeredposture. Discussed trying pure magnesium oil, 10 units, topical analgesics. Advised patient to get blood work done today while they are here. We will continue to monitor labs every 6 months. DEXA scan scheduled for November. Patient advised to hold any immunosuppressant medication if they are sick or on antibiotics. Labs ordered for monitoring for medication toxicity. Patient advised to contact the clinic with questions. PLAN: Labs every 6 months Continue Rinvoq and Prednisone Follow up 6 months Discussed conservative measures for back pain Contact clinic with any questions or concerns Discussed the above in detail with the patient. All questions answered. CC DR. Prajapati Rheumatology Synopsis: [facility] RA SYNOPSIS Date of RA Diagnosis: 10/06/13 (06/27/2024 1:00 PM) Current Treatment: UPA (Prednisone 5 mg daily) (06/27/2024 1:00 PM) Previous Treatment: MTX; ADA (06/27/2024 1:00 PM) 2009 Classification Criteria: N (06/27/2024 1:00 PM) Seropositive or seronegative: Seropositive (06/27/2024 1:00 PM) RF and/or CCP: CCP+ (06/27/2024 1:00 PM) Disease activity: Controlled Patient History History of Present Illness HPI:74 year old male presented to rheumatology clinic for Rheum Follow Up (Follow up - RA/PMR) Accompanied by his today. Continues on Rinvoq 15 mg daily and low-dose prednisone 5 mg daily. Reports left lower flank pain with movement. He had back injections in the past with no improvement.Denies any recent flares from RA. Is due for labs. Scan in 2018, due for a DEXA scan. Denies any peripheral joint pain or synovitis. Denies interval illnesses, hospitalizations, surgeries. No concerns today. ROS: Review of Systems was asked and the following other significant symptoms are present: Right flank pain, fatigue, dry eyes, dyspnea on exertion Rheumatology History Subjective Patient's past history, medications, and allergies were reviewed. Objective Physical Exam Temp 36.5 C (97.7 F) (Infrared ) | Wt 108 kg (238 lb) | BMI 33.19 kg/m | BSA 2.33 m Constitutional: no acute distress HEENT: normal: normocephalic, atraumatic; no masses, tenderness, or adenopathy Eyes: sclera and conjunctiva normal Neck: supple, decreased range of motion of cervical spine CV: normal rate and rhythm, no murmur, gallops or rub Chest: normal respiratory effort, lungs clear to auscultation and percussion Musculoskeletal: Muscle strength 5/5 in upper and lower extremities, insurance account manager strength 5/5 Extremities: no clubbing, cyanosis, or edema, otherwise grossly normal, warm, and dry, bilateral ankle edema +2 nonpitting Skin: warm, dry, intact: Neuro: alert, sensory normal, staggered gait MSK/Joint exam (Homunculus) MSK Exam findings: Homunculus exam Studies: Labs and Imaging studies reviewed with pertinent findings noted below: Disease Treatment Response CDAI Scoring Patient Global: 20 / 100 Provider Global: 5 100 Tender (JETT-28): 0 / 28 Swollen (JETT-28): 0 / 28 CDAI: 2.5 CDAI (Clinical Disease Activity Index) [facility] Outcomes measures: Serial CDAI: Synopsis SmartLink 06/27/2024 13:30 11/26/2023 14:00 05/02/2023 14:00 CDAI CDAI 2.5 2 3 - Serial CDAI: - Yes - Remission: - No - Controlled disease activity Currently on csDMARD: No Currently on Biologic DMARD: Yes Vaccination status: COVID: Vaccine and/or Health maintenance status Incomplete Influenza:Flu Vaccine pending for this season Pneumococcal:Vaccine Series complete Zoster:Vaccine Series Complete Last Hepatitis and TB testing: Hepatitis B: Tested, result reviewed Hepatitis C: Tested, result reviewed PPD or TB-Gold: Tested, result reviewed Lab Results Component Value Date HBSAG Negative 08/10/2021 HEPB Negative 08/10/2021 HEPB <3.5 08/10/2021 HEPB Negative 08/10/2021 HEPB NOT immune to Hepatitis B Virus 08/10/2021 HCVAB Negative 08/10/2021 QUANTIFERON-TB PLUS,1T Date/Time Value Ref Range Status 08/10/2021 09:17 AM NEGATIVE NEGATIVE Final Comment: Negative test result. M. tuberculosis complex infection unlikely. Wrap-Up Follow Up: Return in about 6 months (around 12/25/2024) for Clinic Visit. | For: Clinic Visit Time: I spent a total of 30-39 minutes (exact time 30 mins) on the date of service in preparation, delivery, and documentation of the care provided to Clement Reyes excluding any time spent in the performance of separately billed services. JAKOB Deutsch Rheumatology Department The patient was discussed with me. I agree with the findings and plan as documented by [place] ROBERT in this note. Robert Cooper MD Rheumatology Department documented in this encounter Nursing Notes * Ana De La Cruz LPN - 06/27/2024 1:25 PM EST Chief Complaint Patient presents with Rheum Follow Up Follow up - RA/PMR documented in this encounter Plan of Treatment Upcoming Encounters Date Type Department Care Team (Late st Contact Info) Description 07/21/2024 1:00 PM EST Office Visit Neurology [facility] [address] [facility] [place] [address] Monica Gerard MD [address] [place] [address] 12/23/2024 3:30 PM EDT Imaging Radiology, [address] [place] [address] 12/26/2024 2:00 PM EDT Office Visit Rheumatology [address] [place] [phone] [place] Nash CRNP [facility] [place] [address] Scheduled Orders Name Type Priority Associated Diagnoses Orde r Schedule DEXA SCAN/BONE MINERAL AXIAL Medical Imaging Routine long term current use of systemic steroids Expected: 11/04/2024, Expires: 07/27/2025 Health Maintenance Due Date Last Done Comments Depression Screening 1964 DTap/Tdap Vaccines (1 - Tdap) 1971 Cologuard 1997 Fecal Occult Blood Test 1997 Sigmoidoscopy 1997 Colonoscopy 07/23/2018 07/23/2008 Colorectal Cancer Screening 07/23/2018 COVID-19 Vaccine ( season) 2024 11/08/2020, 10/11/2020 Influenza Vaccine (FLU shot) (#1) 2024 Lipid Panel 06/27/2029 06/27/2024, 0209/2023, 08/03/2015 Hepatitis C Screening Completed 08/10/2021 Zoster Vaccines Completed 11/28/2021, 09/07, 04/18/2012 Pneumococcal Vaccine: 65+ Years Completed 09/12/2023, 09/28/2021, 05/11/2016, Additional history exists HPV (Gardasil) Vaccine Aged Out No lo nger eligible based on patient's age to complete this topic Hepatitis B Vaccine Aged Out No longe r eligible based on patient's age to complete this topic MENINGOCOCCAL (MENACTRA/MENVEO) Aged Out No longer eligible based on patient's age to complete this topic documented as of this encounter Medical Devices Not on filedocumented as of this encounter Results * (ABNORMAL) LIPID PANEL WITH DIRECT LDL IF TG IS HIGH (06/27/2024 2:12 PM EST) Triglycerides 68 <=174 mg/dL 06/27/2024 11:11 PM EST [facility] Comment: Triglyceride Reference Ranges (mg/dL): <150 Acceptable 150-174 Borderline high 175-499 High >=500 Very high Cholesterol 264(H) <200 mg/dL 06/27/2024 11:11 PM EST [facility] Comment: Total Cholesterol Reference Ranges (mg/dL): <200 Desirable 200-239 Borderline high >=240 High HDL Cholesterol 75 >39 mg/dL 11:11 PM EST [facility] Comment: HDL Cholesterol Reference Ranges (mg/dL): >=60 High (Desirable) <50 Low (Undesirable) For Females <40 Low (Undesirable) For Males Non-HDL Cholesterol 189(H) <=159 mg/dL 06/27/2024 11:11 PM EST [facility] Comment: Non-HDL Cholesterol Reference Range (mg/dL): <100 Target level for high risk ASCVD patient <130 Optimal for general population 130-159 Near optimal for general population 160-189 Borderline High 190-219 High >=220 Very High LDL Cholesterol 175(H) <=129 mg/dL 06/27/2024 11:11 PM EST [facility] Comment: LDL Cholesterol Reference Ranges (mg/dL): <70 Target level for high risk ASCVD patient <100 Optimal for general population 100-129 Near optimal for general population 130-159 Borderline high 160-189 High >=190 Very high Blood Venous blood specimen / Unknown Venipuncture / Unknown 06/27/2024 2:12 PM EST 06/27/2024 2:12 PM EST [place] ROBERT LAB BLOOD ORDERABLES Sheridan l Result [facility] [address] [place] [address] documented in this encounter Visit Diagnoses Diagnosis Rheumatoid factor positive with cyclic citrullinated peptide (CCP) antibody negative- Primary Encounter for long-term (current) use of high-risk medication Encounter for long-term (current) use of other medications long term current use of systemic steroids Encounter for long-term (current) use of steroids documented in this encounter Care Teams Alarm Operator Relationship Specialty Start Date End Date Khai Virk MD [address] [place] [address] PCP - General Family Medicine 12/08/14 documented as of this encounter"
--- OUTSIDE RECORDS SUMMARY | 2024-10-28 07:25 | External Medical Summary ---
Author Name Unknown Address Unknown Organization [id number]:[facility]ORY [facility] [place] - [address] [place] [address] Laboratory Report Ordering Provider Test Date Status DEANNE JUAREZ 07/21/2024 13:49:43 Final Observation Date Value Abnormality Reference (Units ) Status Lamotrigine level 07/21/2024 13:49:43 7.7 2. 5-15.0 (ug/mL) Final Performing Location LABORATORY [facility] - [address] [place] [address]
--- OUTSIDE RECORDS SUMMARY | 2024-10-28 07:25 | External Medical Summary | Summary of Care ---
Author Name Unknown Organization [facility] Address [address] [place] [address] Phone [phone] Care Team Providers Care Entry Level Software Developer Name Role Phone Khai Virk MD Primary Care Provider [phone] Reason for Referral * Precert (Diagnostic Medical) (Within 10 days (routine)) - Pending Review Specialty Diagnoses / Procedures Referred By Marlon jacobs Referred To Contact Sleep Disorders Diagnoses Obstructive sleep apnea syndrome Procedures SLEEP TEST W/ TYPE 3 PORTABLE MONITOR, 4 CHANNEL; AT HOME Migue Conde MD [address] [place] [address] Phone: tel: fax: Referral ID Status Reason Start Date Expiration Date V isits Requested Visits Authorized [id number] Pending Review 09/23/[phone] Reason for Visit * Reason Comments NEW PATIENT New patient referral from Dr Larry Gerard for Parkinson's * Evaluate & Treat - Unlimited Visits (Within 30 days (routine)) - Authorized Specialty Diagnoses / Procedures Referred By Marlon t Referred To Contact Neurology Diagnoses Parkinson's disease without dyskinesia or fluctuating manifestations (HCC) Larry Gerard MD [address] [place] [address] [place] [address] Phone: tel: fax: Referral ID Status Reason Start Date Expiration Date Visits Requested Visits Authorized [id number] Authorized Specialty Services Required 4 07/23/[phone] Encounter Details Date Type Department Care Team (Latest Contact Info) Description 09/23/2024 1:00 PM EST Office Visit Neurology [facility] [place] [address] [place] [address] Migue Conde MD [address] [facility] [place] [phone] Parkinson's disease without dyskinesia, with fluctuating manifestations (HCC)*; 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 Not certain it was the methotrexate which caused the seizure. Pollen 08/10/2021 documented as of this encounter (statuses as of 09/23/2024) Medications ASPIR-81 81 MG PO TBEC Take by mouth. 0 05/08/20 06 Active Cholecalciferol (VITAMIN D) 1000 UNITS Tablet 1 daily Active Sildenafil Citrate 50 MG Oral Tablet As directed Active Diclofenac Sodium (VOLTAREN) 1 % gelIndications:Marla eric osteoarthritis involving multiple joints Apply 2 g topically to affected area 3 times a day as needed for Pain. 1 Tube 3 04/02/20 17 Active Biotin 1000 MCG Oral Tablet Chewable Take by mouth. Active Vitamin B Complex Oral Capsule Take by mouth. Active Rinvoq 15 MG Oral Tablet Extended Release 24 Hour (Upadacitinib ER)Indications:Rhe umatoid factor positive with cyclic citrullinated peptide (CCP) antibody negative Take 1 Tablet by mouth daily. 30 Tablet 5 06/01/20 23 Active Saw Catarina (Serenoa repens) 160 MG Oral Capsule Take 160 mg by mouth at bedtime. 09/26/19 23 Active Omeprazole 40 MG Oral Capsule Delayed Release (PriLOSEC) 1 Capsule in the morning and 1 Capsule before bedtime. 02/20/20 24 Active Magnesium Gluconate 250 MG Oral Tablet Take 250 mg by mouth at bedtime. 03/03/20 24 Active Sertraline HCl 100 MG Oral Tablet (Zoloft)Indication s:PD (Parkinson's disease) (HCC) TAKE 1 TABLET IN THE MORNING 90 Tablet 1 05/05/20 24 Active predniSONE 5 MG Oral Tablet (Deltasone)Indicat ions:Rheumatoid factor positive with cyclic citrullinated peptide (CCP) antibody negative TAKE 1 TABLET IN THE MORNING 90 Tablet 1 05/06/20 24 Active lamoTRIgine 150 MG Oral Tablet (LaMICtal)Indicati ons:History of seizure TAKE 1 TABLET TWICE A DAY 180 Tablet 1 05/27/20 24 Active B-12 50 MCG Oral Tablet Take by mouth. Active Flax Seed Oil 1000 MG Oral Capsule Take 1 Capsule by mouth at bedtime. Active Carbidopa-Levodopa -Entacapone 50-200-200 MG Oral Tablet Take 1 tablet per mouth 4 times a day at [id number]-oxod-3SM and MN (Take 30 minutes prior to food intake) Do not start before October 07, 2024. 360 Tablet 3 10/08/19 25 Active Carbidopa-Levodopa 25-100 MG Oral Tablet (Sinemet) Take 2 in the morning 2 in afternoon 2 in the evening 03/24/20 24 025 Discontin ued(Medic ation/Dos e Changed) Carbidopa-Levodopa ER 25-100 MG Oral Tablet Extended Release (Sinemet CR) TAKE 1 TABLET AT BEDTIME 90 Tablet 3 06/17/20 24 025 Discontin ued(Medic ation/Dos e Changed) documented as of this encounter (statuses as of 09/23/2024) Active Problems Problem Noted Date Diagnosed Date [...] as of this encounter (statuses as of 09/23/2024) Resolved Problems Problem Noted Date Diagnosed Date Resolved Date Other allergic rhinitis 12/2008 Overview (05/29/2017): Resolved per Duplicate Protocol #2. ICD-10 update of inactive term documented as of this encounter (statuses as of 09/23/2024) Immunizations Name Administration Dates Next Due COVID-19 mRNA, LNP-s, No Pre serve, 2-Dose Series (Moderna) 11/08/2020,10/11/2020 Pneumococcal Polysaccharide PPV23 (Pneumovax) documented as of this encounter Social History Tobacco Use Types Packs/Day Years Used Date Smoking Tobacco: Never Smokeless Tobacco: Former Alcohol Use Standard Drinks/Week Comments Yes 0 (1 standard drink = 0.6 oz pur e alcohol) occasional use only Sex and Gender Information Value Date Recorded Sex Assigned at Not on file Legal Sex Male 6:05 AM EST Gender Identity Not on file Sexual Orientation Not on file 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 Answer Date of Assessment Author Yes 04/16/2017 2:00 PM EDT Zeina Parish, MED ASSIST * Are you blind or [...] Author Yes 04/16/2017 2:00 PM EDT Zeina Parish E, MED ASSIST documented as of this encounter Mental Status * Because of a physical, mental, or emotional condition, do you have serious difficulty concentrating, remembering, or making decisions? (5 years old or older) Answer Entry Date Author Yes 04/16/2017 2:00 PM EDT Zeina Parish E, MED ASSIST documented in this encounter Patient Instructions * Patient Instructions* Migue Conde MD - 09/23/2024 1:57 PM EST I would like to switch him to Carbidopa/Levdopa/Entacapone (Stalevo) 50/200/200 QID at [id number]. I will order a home sleep study. If he continues with hallucinations we can put him on Nuplazid 34mg per day. I have recommended to stop Licorice. He needs an annual melanoma screen. documented in this encounter Progress Notes * Migue Conde MD - 09/23/2024 12:59 PM EST 09/23/2024 1:06 PM Clement Reyes 74 year old male REF: LARRY GERARD [address] [place] [address] (office) [phone] (fax) Asked by Khai Virk MD to render opinion regarding management of Parkinson's CC: Chief Complaint Patient presents with NEW PATIENT New patient referral from Dr Larry Gerard for Parkinson's HPI: The patient is a 74-year-old gentleman who is being followed by my colleague, Dr. Gerard [facility]. There was concerns of possible Parkinson's. Symptoms were first noted in 2014 with reduced eye blink and overall slowness of movements. He was seen by my colleague, Dr. Wellingtoncu April 2017 for the same concern. My colleague felt that he likely has Parkinson's. He has a history of loss of sense of smell and dream enactment. Also with a history of depression and apathy. Helives put on carbidopa/levodopa in 2016 which reduced his tremor. He does have a poor balance and has a shuffling tendency. He also has less arm swing on 1 side. No history of hallucinations until last year but house have cognitive issues. Handwriting was getting smaller. He had a Maben in April2018 which was 22/30 points. He also has hearing impairment which was thought to affect his overallscore. He takes immediate release carbidopa/levodopa 50/200 at 10:00 a.m., at 2:00 p.m. and at 6:00 p.m. and slow release 25/100 at bedtime. Last L-Dopa was at 7AM. He does have times where he freezes and has trouble turning around. At times he appears to be confused, especially in the morning hours. states that he snores and gasps for air frequently. Very tired during the day. He has occasional sundowning. He has stopped exercising for the past year. He has back pain. He has been having diarrhea for the past couple months. He has been eating lots of licorice. 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.9] 02/04/2015 Rheumatoid arthritis involving multiple sites with positive rheumatoid factor ([facility]) [M05.79] 12/08/2014 ICD-10 update of inactive term Encounter for long-term (current) use of medications [Z79.899] 12/08/2014 ICD-10 update of inactive term Other allergic rhinitis [J30.89] ICD-10 update of inactive term MEDICATIONS: Current Outpatient Medications Medication Sig Dispense Refill Cholecalciferol (VITAMIN D) 1000 UNITS Tablet 1 daily Sildenafil Citrate 50 MG Oral Tablet As directed Diclofenac Sodium (VOLTAREN) 1 % gel Apply 2 g topically to affected area 3 times a day as needed for Pain. 1 Tube 3 Biotin 1000 MCG Oral Tablet Chewable Take by mouth. Rinvoq 15 MG Oral Tablet Extended Release 24 Hour (Upadacitinib ER) Take 1 Tablet by mouth daily. 30 Tablet 5 Saw Catarina (Serenoa repens) 160 MG Oral Capsule Take 160 mg by mouth at bedtime. Omeprazole 40 MG Oral Capsule Delayed Release (PriLOSEC) 1 Capsule in the morning and 1 Capsule before bedtime. Magnesium Gluconate 250 MG Oral Tablet Take 250 mg by mouth at bedtime. Carbidopa-Levodopa 25-100 MG Oral Tablet (Sinemet) Take 2 in the morning 2 in afternoon 2 in the evening Sertraline HCl 100 MG Oral Tablet (Zoloft) TAKE 1 TABLET IN THE MORNING 90 Tablet 1 predniSONE 5 MG Oral Tablet (Deltasone) TAKE 1 TABLET IN THE MORNING 90 Tablet 1 lamoTRIgine 150 MG Oral Tablet (LaMICtal) TAKE 1 TABLET TWICE A DAY 180 Tablet 1 Carbidopa-Levodopa ER 25-100 MG Oral Tablet Extended Release (Sinemet CR) TAKE 1 TABLET AT BEDTIME 90 Tablet 3 B-12 50 MCG Oral Tablet Take by mouth. Flax Seed Oil 1000 MG Oral Capsule Take 1 Capsule by mouth at bedtime. ASPIR-81 81 MG PO TBEC Take by mouth. (Patient not taking: Reported on 09/23/2024) 0 Vitamin B Complex Oral Capsule Take by mouth. (Patient not taking: Reported on 09/23/2024) No current facility-administered medications for this visit. ALLERGIES: Review of patient's allergies indicates: Allergen Reactions Methotrexate Seizure 2014 was used to treat rheum arthritis, had seizure and was taken off. Not certain it was the methotrexate which caused the seizure. 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 [employer] Tobacco Use Smoking status: Never Smokeless tobacco: Former Vaping Use Vaping status: Never Used Substance and Sexual Activity Alcohol use: Yes Comment: occasional use only Drug use: Yes Types: Marijuana Comment: Rare use Sexual activity: Not on file Other Topics Concern Not on file Social History Narrative Not on file Social Needs Financial Resource Strain: Not on file Food Insecurity: Not on file Transportation Needs: Not on file Social Connections: Not on file Housing Stability: Not on file Occupation: HIV risk factors: None FAMILY HISTORY Family History Problem Relation Name Age of Onset Other (triple bypass) Father Lymphoma Sister Other (Other) Son Neutropenia Thyroid Disorder Mother Breast Cancer Mother Other (ITP) Daughter Family Status Relation Status Mo Alive thyroid problems Fa Alive triple by-pass, arthritis in back Sis Alive blood disorder, thyroid Bro Alive Ruthie Alive ITP-spleen removed Son Alive neutropenia Mo Ruthie (Not Specified) REVIEW OF SYSTEMS: The patient denies new cardiac, lung, kidney, liver, skin, thyroid, bladder, or digestive problems.The patient also denies acute changes in hearing or vision. Otherwise, all other systems are negative or as noted above. There were no vitals taken for this visit. The patient is a 74 year old male who is well developed and appears to be their stated age. NEUROLOGIC EXAMINATION: Mental status: Intact higher integrative functions. Orientated to person, place, and time. Recent and remote memory functions are intact. Attention, concentration, language, and fund of knowledge arenormal. Judgment and insight are intact. Mood and affect are normal. Hypomimia, hypokinetic dysarthria. Hypophonia Head leans to the left. Bilateral bradykinesia L>R, some apraxia on the Left. Bilateral moderate rigidity. No resting tremor. Camptocormia, significant axial rigidity Slow turns. IMPRESSION: He has rigid-akinetic type Parkinson's, has developed motor fluctuations. He is presently underdosed with dopamine I suspect he has severe obstructive sleep apnea that affects his cognition. He would benefit from Nuplazid. He has no prolonged QT on today's ECG. RECOMMENDATIONS: I would like to switch him to Carbidopa/Levdopa/Entacapone (Stalevo) 50/200/200 QID at [id number]. I will order a home sleep study. If he continues with hallucinations we can put him on Nuplazid 34mg per day. I have recommended to stop Licorice. Next f/u in 4months. I spent approximately 45 minutes with this patient greater than half the time was spent reviewing diagnosis, physical exam, imaging, and treatment. Thank-you for letting me participate in the care of this patient. Migue Conde MD Neurology [address] [place] [address] Please send copy to requesting physician, Khai Virk MD documented in this encounter Nursing Notes * Patricia Gunter LPN - 09/23/2024 1:05 PM EST Patient verified identity by spelling of last name and date. Chief Complaint Patient presents with NEW PATIENT New patient referral from Dr Larry Gerard for Parkinson's documented in this encounter Plan of Treatment Upcoming Encounters Date Type Department Care Team (Late st Contact Info) Description 12/23/2024 3:30 PM EDT Imaging Radiology [facility] [address] [place] [phone] 12/26/2024 2:00 PM EDT Office Visit Rheumatology [address] [place] [phone] [place] Nash CRNP [address] [place] [address] 01/22/2025 2:20 PM EDT Office Visit Neurology [facility] [place] [address] [place] [address] Larry Gerard MD [address] [place], [place] [id number] 03/04/2025 1:40 PM EDT Telemedicine Neurology [address] [place] [address] Migue Conde MD [address] [place] [facility] [address] Scheduled Orders Name Type Priority Associated Diagnoses Orde r Schedule SLEEP TEST W/ TYPE 3 PORTABLE MONITOR, 4 CHANNEL; AT HOME Procedures Routine Obstructive sleep apnea syndrome Ordered: 09/23/2024 EKG EKG Routine At risk for prolonged QT interval syndrome Expected: 09/30/2024 (Approximate), Expires: 10/21/2025 Health Maintenance Due Date Last Done Comments Depression Screening 1964 DTap/Tdap Vaccines (1 - Tdap) 1971 Cologuard 1997 Fecal Occult Blood Test 1997 Sigmoidoscopy 1997 Colonoscopy 07/23/2018 07/23/2008 Colorectal Cancer Screening 07/23/2018 COVID-19 Vaccine ( season) 2024 11/08/2020, 10/11/2020 Influenza Vaccine (FLU shot) (#1) 2024 Lipid Panel 06/27/2029 06/27/2024, 09/2023, 08/03/2015 Hepatitis C Screening Completed 08/10/2021 Zoster Vaccines Completed 11/28/2021, 09/07, 04/18/2012 Pneumococcal Vaccine: 50+ Years Completed 09/12/2023, 09/28/2021, 05/11/2016, Additional history exists HPV (Gardasil) Vaccine Aged Out No lo nger eligible based on patient's age to complete this topic Hepatitis B Vaccine Aged Out No longe r eligible based on patient's age to complete this topic MENINGOCOCCAL (MENACTRA/MENVEO) Aged Out No longer eligible based on patient's age to complete this topic Meningitis B Vaccine (Bexsero/Trumemba) Aged Out No longer eligible based on patient's age to complete this topic documented as of this encounter Medical Devices Not on filedocumented as of this encounter Visit Diagnoses Diagnosis Parkinson's disease without dyskinesia, with fluctuating manifestations (HCC)- Primary 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
--- OUTSIDE RECORDS SUMMARY | 2024-10-28 07:25 | External Medical Summary | Continuity of Care Document ---
Author Name Unknown Organization [address] [id number] Care Team Providers Care Electronics Engineering Technician Name Role Phone Khai Virk Primary Care Physician [phone] Encounter [facility] [id number] Date(s): 10/02/24 - 10/02/24 [place] [address] A [facility] [address] [address] [phone] Encounter Diagnosis GERD(Discharge Diagnosis) - 10/02/24 Anxiety with depression(Discharge Diagnosis) - 10/02/24 Edema(Discharge Diagnosis) - 10/02/24 Hyperlipidemia(Discharge Diagnosis) - 10/02/24 Parkinsonism(Discharge Diagnosis) - 10/02/24 Rheumatoid arthritis of multiple sites without rheumatoid factor(Discharge Diagnosis) - 10/02/24 Seizure(Discharge Diagnosis) - 10/02/24 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, without behavioral disturbance, psychotic disturbance, mood disturbance, or anxiety(Discharge Diagnosis) - 10/02/24 Hemidiaphragm paralysis(Discharge Diagnosis) - 10/02/24 Body mass index [BMI] 31.0-31.9, adult(Discharge Diagnosis) - 10/02/24 Physical deconditioning(Discharge Diagnosis) - 10/02/24 Back pain(Discharge Diagnosis) - 10/02/24 Discharge Disposition: Home or Self Care Attending Physician: MD Virk Juan Encounter Type: Clinic Allergies, Adverse Reactions, Alerts Substance Criticality Severity Reaction Reaction Severity Status methotrexate Unable to assess criticality Severe Seizure Active Cats Active Grass Active Dogs Active Dust Active Pollen Active Mold Active Assessment and Plan Extracted from: Title:Office Visit Note Author:MD Virk Juan Mickey e:10/02/24 1.GERD Status: chronic, controlled. Data: EMR. Goal: controlled and stable. Plan: continue current treatment plan. 2.Anxiety with depression Status: chronic, controlled. Data: EMR. Goal: controlled and stable. Plan: continue current treatment plan. 3.Edema Status: chronic, controlled. Data: EMR. Goal: controlled and stable. Plan: continue current treatment plan. 4.Hyperlipidemia Status: chronic, controlled. Data: EMR. Goal: controlled and stable. Plan: continue current treatment plan. 5.Parkinsonism Status: chronic, controlled. Data: EMR. Goal: controlled and stable. Plan: continue current treatment plan. 6.Rheumatoid arthritis of multiple sites without rheumatoid factor Status: chronic, controlled. Data: EMR. Goal: controlled and stable. Plan: continue current treatment plan. 7.Seizure Status: chronic, controlled. Data: EMR. Goal: controlled and stable. Plan: continue current treatment plan. 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 Data: EMR. Goal: controlled and stable. Plan: continue current treatment plan. 9.Hemidiaphragm paralysis Status: chronic, stable. Data: EMR. Goal: controlled and stable. Plan: continue current treatment plan. 10.Physical deconditioning Status: chronic, uncontrolled. Data: EMR. Goal: controlled and stable. Plan: refer to PT self schedule. 11.Back pain Status: chronic, uncontrolled. Data: EMR. Goal: controlled and stable. Plan: refer to PT self schedule. Check labs prior to next visit: lipid, CMP, TSH, CBC BTO 6 months for awv. Immunizations Given and Recorded Vaccine Date Status Refusal Reason pneumococcal 20-valent conjugate vaccine 09/12/23 Given zoster vaccine, inactivated 11/28/21 Given zoster vaccine, inactivated 09/28/21 Given pneumococcal 13-valent vaccine 09/28/21 Given pneumococcal 13-valent vaccine 06/08/14 Given tetanus toxoids-diphtheria, Td (Adult) 09/26/17 Gi hever pneumococcal 23-valent vaccine 07/23/15 Given zoster vaccine live 04/18/12 Given tetanus/diphtheria/pertuss, acel (Tdap) 02/24/08 R ecorded Mental Status 10/02/24 Barriers to Learning one year Acuity of illness Mandatory Health Literacy Documentation Yes Health Literacy Communication Barriers N ever Primary Language Martiniquais Problem List Condition Confirmation Course Effective Dates Status H ealth Status Informant Lumbar facet arthropathy Confirmed Active Carotid artery stenosis 1 Confirmed Active Other symptoms and signs involving cognitive functions and awareness Confirmed Active Colon polyp Confirmed Active Colonoscopy 2, 3 Confirmed Active 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, without behavioral disturbance, psychotic disturbance, mood disturbance, or anxiety Confirmed 03/06/24 Active Depression 4 Confirmed Active Other difficulties with micturition Confirmed Active Parkinsonism 5 Confirmed Active Male erectile dysfunction, unspecified Confirmed Active GERD Confirmed 04/18/12 Active Hip arthritis 6 Confirmed Active Status post left hip replacement Confirmed Active Hyperlipidemia Confirmed Active Sacroiliitis Confirmed Active Low back pain Confirmed Active Anxiety with depression Confirmed 03/06/24 Active BPH (benign prostatic hypertrophy) Confirmed Active Obesity Confirmed Active Osteoarthritis of right hip Confirmed 03/06/24 Active Hemidiaphragm paralysis 7 Confirmed 10/12/22 Active Restrictive lung disease 8 Confirmed 10/12/22 Active Rheumatoid arthritis of multiple sites without rheumatoid factor 9, 10 Confirmed Active Seizure 11 Confirmed Active Edema Confirmed Active Weight disorder Confirmed Active 160-69% stenosis in 05/2013 doppler : polyp 312/2007: polyp 4sees Dr. Dobson 5se[address] Dr[address] Monica Gerard [place] [facility] [place] 7sees [facility] [place]monology [facility]. Clement Clark 8sees [facility] [place] pulmonology Dr. Clement Clark 9[address] Dr[address] Ivy [address] Dr[address] Mccormick 11[address] Dr. 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, without behavioral disturbance, psychotic disturbance, mood disturbance, or anxiety Discharge Diagnosis 10/02/24 Non-Specified Anxiety with depression Discharge Diagnosis 10/02/24 Non-Specified GERD Discharge Diagnosis 10/02/24 Non-Specified Seizure Discharge Diagnosis 10/02/24 Non-Specified Rheumatoid arthritis of multiple sites without rheumatoid factor Discharge Diagnosis 10/02/24 Non-Specified Body mass index [BMI] 31.0-31.9, adult Discharge Diagnosis 10/02/24 Non-Specified Back pain Discharge Diagnosis 10/02/24 Non-Specified Physical deconditioning Discharge Diagnosis 10/02/24 Non-Specified Procedures Procedure Date Related Diagnosis Body Site Status CT angiography of chest with contrast 1 08/21/[address] of abdomen and pelvis 2 08/21/[address] of chest without contrast 3 08/21/[address] of chest without IV contrast 4 08/21/22 Completed Colonoscopy 5, 6 10/17/21 Complete d EMG - Electromyography 7 01/12/21 Completed X-ray of spine 8 08/30/20 Complete d Colonoscopy 9 10/17/17 Completed Pelvis X-ray 10 06/02/[address] 11 11/29/14 Completed MRI 12, 13 11/29/14 Completed Lumbar spine XRAY 14 10/14/14 Comp leted XRAY Right Hip 15 10/14/14 Complet ed Colonoscopy 16 06/09/13 Completed Cataract 17 Completed Hearing aid - bilateral C ompleted hip replacement; nasal polyps Completed MRI of brain 18 Completed 11. No evidence of pulmonary embolus. 2. There is atelectasis of the left lower lobe. No pneumonia is seen. 3. Pulmonary nodules as above. According to Fleishner criteria, no follow-up is required in low risk patients, in high-risk ptients, a [address] can be optionally performed. 2There is thickening of the bladder wall. Correlation with urinalysis is recommended to exclude UTI. 3IMPRESSION: 1. Significant streak and motion compromised examination. 2. Cardiomegaly. 3. There is segmental atelectasis in the left lower lobe and lingula with colume loss in the left lung. This is os indeterminate chronicity. Correlate clinically for edvidence of superimposed pneumonia. 4. Small left pleural effusion. 5. There are at least 2 pulmonary nodules identified. The largest is seen in the left upper lobe and measures 8mm. These can be followed as per the Fleischner criteria. See below. 6. Additional findings as above. 41. Significant streak and motion compromised examination. 2. Cardiomegaly 3. THere is segmental atelectasis in the left lower lob and lingula with volume loss in the left lung. This is of indeteriminate chronicity. Correlate clinically for evidence of superimposed pneumonia. 4. Small left pleural effusion. 5. There are at least 2 pulmonary nodules identified. The largest is seen in the left upper lobe and measures 8 mm. These can be followed as per the Fleishner criteria. See Below. 5COLO to cecum, diverticulossi, hemorrhoids, SF polyp 5 mm CF 6Pathology results showed one serrated polyps. Repeat in 5 years. 7Impression: Abnormal study. This electrodianostic study shows evidence of followin. Chronic right C5-C6 polyradiculopathy with no active denervation. 2. 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 3. Mild focal slowing (focal demyelination) of the left ulnar nerve across the elbow. There is no electrophysiological evidence of a myopathy or generalized disorder of motor neurons. 8Spine DDD, without abnormal translation 9Impression: Diverticulosis in the sigmoid colon No specimens collected. Recommendations: Repeat colonoscopy in 5 years for surveillance. 10Degenerative and postoperative changes. No acute process 11d/t seizure No acute cardiopulmonary abnormality 12brain without IV contrast there is no hemorrage, mass effect, or evidence of acute territorial ischemia by CT criteria 13no acute intracranial abnormalitiy 14Mild to moderate multilevel degenerative disc disease and facet arthosis of the lumbar spine. No lumbar spine fracture or subluxation. 15No acute bony abnormality identified in the hips or bony pelvis. A Left hip arthroplasty is in near anatomic alignment. No periprosthetic lucency is suggested. Additional degenerative changes as above. 16hx of polyp 17As per [facility] note 03/06/24 18No acute intracranial abnormality is identified. A few scattered, tiny nonspecific foci of subcortical and periventricular t2/flair hyperintensity, most commonly associated with chronic small vessel ischemic changes in this age group, similar nonspecific findings may be seen with prior inflammation, [prior infection, or prior trauma. Paranasal sinus mucosal thickening as described with a left maxillary sinus air- fluid level, worrisome for sinusitis. Clinical correlation is recommended. Vital Signs Most recent to oldest [Reference Range]: 1 Height 182 cm (10/02/24 10:36 AM) Patient Weight 105.7 kg (10/02/24 10:36 AM) Body Mass Index 31.91 kg/m2 (10/02/24 10:36 AM) Temperature [36.5-37.9 DegC] 36.4 DegC *LOW* (10/02/24 10:36 AM) Heart Rate 61 bpm (10/02/24 10:36 AM) Respiratory Rate 17 br/min (10/02/24 10:36 AM) Blood Pressure 121/80mmHg (10/02/24 10:36 AM) Cuff Pulse Pressure 41 mmHg (10/02/24 10:36 AM) Social History Social History Type Response Smoking Status Never smoked cigaret melodie Sex Male Sex Representation Male (finding) [facility] Outpt Note * MD Virk Juan: PERFORM Event Display: [facility] Outpt Note Authored Date: [id number] Chief Complaint 6 Month F/U. History of Present Illness feels good, no c/o. No SE from meds. No significant change in health since last visit 6 months ago. c/o right lower back pain for years. pain only when walking. no pain whensitting. no radiation.No numbness or tingling. gradually getting worse. Saw Dr. Morales in past, had 2 injection at the right SI joint - not helped. Takes ibuprofen prn. sees neurology for Parkinson's disease, seizure, dementia, anxiety and depression. stable. went ot see a neurology in [facility], was toldundermedicated.Sleep study wasordered.Medication for Parkinso n'sdiseasewaschanged to a long-acting medication (ptdoes not knowthe nameof the medication).Has f/u. No exercise. does notwalk much due toback pain.feels tiredall the time. Does not want to use a cane or walker. continue to SOB withmild exertion such as walking due to diaphoresis paralysis,see [facility] [place] security escort.Does not walk much now as a result. seesDr.OppermanforRA. Hx of edema, stable. wears compression stocking. BPH controlled with Saw [place]. GERD controlled withomeprazole. Physical Exam Vitals & Measurements T:36.4C HR:61(Monitored) RR:17 BP:121/80 SpO2:96% HT:182cm WT:105.7kg WT:105.700kg(Dosing) BMI:31.91 PHQ2 Data(Data Documented on:10/02/2024 10:36) Emotional health assessment POSITIVE PHQ-9 modified for adolescents not completed GENERAL: A&Ox3. No acute distress. Affect and speech appropriate. HEENT: PERRLA, EOMI, Conjunctivae clear. NECK: Supple, No lymphadenopathy. No carotid bruits. HEART: RRR, normal S1, S2. No murmurs, gallops or clicks. LUNGS: breathing not labored, breathing sound clear, breathing sound equal bilaterally, no rales, no wheezing. ABDOMEN: Positive bowel sound, soft, nontender, non-distended. No hepatosplenomegaly noted. No mass. EXTREMITIES: + stasis changes with trace edema. Back: limited ROM due to stuffiness.+ tenderness at the right SI joint area. Assessment/Plan 1.GERD Status: chronic, controlled. Data: EMR. Goal: controlled and stable. Plan: continue current treatment plan. 2.Anxiety with depression Status: chronic, controlled. Data: EMR. Goal: controlled and stable. Plan: continue current treatment plan. 3.Edema Status: chronic, controlled. Data: EMR. Goal: controlled and stable. Plan: continue current treatment plan. 4.Hyperlipidemia Status: chronic, controlled. Data: EMR. Goal: controlled and stable. Plan: continue current treatment plan. 5.Parkinsonism Status: chronic, controlled. Data: EMR. Goal: controlled and stable. Plan: continue current treatment plan. 6.Rheumatoid arthritis of multiple sites without rheumatoid factor Status: chronic, controlled. Data: EMR. Goal: controlled and stable. Plan: continue current treatment plan. 7.Seizure Status: chronic, controlled. Data: EMR. Goal: controlled and stable. Plan: continue current treatment plan. 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 Data: EMR. Goal: controlled and stable. Plan: continue current treatment plan. 9.Hemidiaphragm paralysis Status: chronic, stable. Data: EMR. Goal: controlled and stable. Plan: continue current treatment plan. 10.Physical deconditioning Status: chronic, uncontrolled. Data: EMR. Goal: controlled and stable. Plan: refer to PT self schedule. 11.Back pain Status: chronic, uncontrolled. Data: EMR. Goal: controlled and stable. Plan: refer to PT self schedule. Check labs prior to next visit: lipid, CMP, TSH, CBC BTO 6 months for awv. 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, without behavioral disturbance, psychotic disturbance, mood disturbance, or anxiety Obesity Osteoarthritis of right hip Other difficulties with micturition Other symptoms and signs involving cognitive functions and awareness Parkinsonism Restrictive lung disease Rheumatoid arthritis of multiple sites without rheumatoid factor Sacroiliitis Seizure Status post left hip replacement UNSPECIFIED HEARING LOSS Weight disorder Resolved Cervical disc disease DDD (degenerative disc disease), cervical Elbow pain, right Foot pain Hip pain Knee pain Neck pain Pain in elbow Strain of gluteus medius Strain of piriformis muscle Procedure/Surgical History CT of chest without IV contrast| Service Date: 08/21/2022T of chest without contrast| Service Date: 08/21/2022T of abdomen and pelvis| Service Date: 08/21/2022T angiography of chest with contrast| Service Date: 08/21/2022olonoscopy| Service Date: 10/17/2021EMG - Electromyography| Service Date: 01/12/2021X-ray of spine| Service Date: 08/30/2020olonoscopy| Service Date:10/17/2017Pelvis X-ray| Service Date: 06/02/2016MRI| Service Date: 11/29/2014Chest CT| Service Date: 11/29/2014Lumbar spine XRAY| Service Date: 10/14/2014XRAY Right Hip| Service Date: 10/14/2014Colonoscopy| Service Date: 06/09/2013hip replacement; nasal polypsHearing aid - bilateralMRI of brainCataract Medications biotin(biotin 1000 mcg oral tablet), 1000 mcg= 1 tab, PO, Daily carbidopa-levodopa(Sinemet 25 mg-100 mg oral tablet), 1 tab, PO, tid cholecalciferol(Vitamin D3 1000 intl units oral capsule), 1000 Int_Unit= 1 cap, PO, Daily cholecalciferol(cholecalciferol 25 mcg (1000 intl units) oral tablet) cyanocobalamin(Vitamin B12 1000 mcg oral tablet), 1000 mcg= 1 tab, PO, Daily diclofenac topical(Voltaren 1% topical gel), 1 appl, topical, qid, PRN, 3 refills flax(Flax Seed Oil oral capsule), See Instructions lamoTRIgine(lamoTRIgine 150 mg oral tablet), 150 mg= 1 tab, PO, bid magnesium gluconate(magnesium gluconate 250 mg oral tablet), 250 mg= 1 tab, PO, Daily omeprazole(omeprazole 40 mg oral delayed release capsule), 1 cap, PO, bid predniSONE(predniSONE 5 mg oral tablet), 5 mg= 1 tab, PO, Daily saw palmetto(saw palmetto 450 mg oral capsule), 450 mg= 1 each, PO, Daily sertraline(sertraline 100 mg oral tablet) upadacitinib(Rinvoq 15 mg oral tablet, extended release), 15 mg= 1 tab, PO, Daily Allergies methotrexate(Severe)Seizure Cats Dogs Dust Grass Mold Pollen Social History Smoking Status Never smoked cigarettes Alcohol - Medium Risk Type:Beer - Comments: 6-7 beers at one time at times when palying golf Exercise - Regular exercise Exercise type:Walking - Comments: golfing Tobacco - Denies Tobacco Use Use:Unknown if ever smoked Smokeless tobacco use:As per [facility] note 03/06/24 -Former chewing tobacco user 0.5 pouches a day x 20years Intake (IView) Smoking History Cigarette smoker: Never smoked cigarettes Tobacco Product Use: Never used other tobacco products SHX E-Cigarette Use: Never Family History Bleeding disorder: Son. Breast cancer: Mother. Cardiovascular disease: Father. Heart disease: Father and Unknown. Pacemaker: Father. Stroke: MGF and Unknown. Health Status Family Member(s) Immunizations Vaccine Date Status pneumococcal 20-valent conjugate vaccine 09/12/2023 Given zoster vaccine, inactivated 11/28/2021 Given zoster vaccine, inactivated 09/28/2021 Given pneumococcal 13-valent vaccine 09/28/2021 Given tetanus toxoids-diphtheria, Td (Adult) 09/26/2017 Given pneumococcal 23-valent vaccine 07/23/2015 Given pneumococcal 13-valent vaccine 06/08/2014 Given zoster vaccine live 04/18/2012 Given tetanus/diphtheria/pertuss, acel (Tdap) 02/24/2008 Recorded Recommendations Health Maintenance Pending(in the next year) OverDue Medicare Annual Wellness Visit due09/28/22and every 1year Adult Influenza Vaccine due02/04/24and every 1year Due Adult Social Determinants of Health Screening due10/02/24Unknown Frequency Falls Plan of Care due10/02/24Unknown Frequency Satisfied(in the past 1 year) Satisfied Body Mass Index on10/02/24.Satisfied by SHEILA Gray Kirsten Lipid Screening on03/03/24.Satisfied by Contributor_system, 115 network disks Electronic Signature on File Electronically Reviewed/Signed by: Khai Virk MD Author Signature Dt/Tm:10/02/2024 11:25 AM Department of Family Medicine [facility] Patient Care team information Care Team Personnel Name: MD Virk Juan Position: Physician - Family Med Member Role: Primary Care Provider Address: [address] [place] [address] Telecom: [phone] Care Team Related Persons Name: TIMA FERNANDO Insurance Providers Guarantor name: CLEMENT FERNANDO Health Plan Information #: 1 Payer: [employer] Member Number: [id number] Policy Number: NA Group Number: [id number] Health Plan Information #: 2 Payer: SELF PAY Member Number: NA Policy Number: NA Group Number: NA Health Plan Information #: 3 Payer: [employer] Member Number: [id number] Policy Number: NA Group Number: [id number]"
--- OUTSIDE RECORDS SUMMARY | 2024-10-28 07:25 | External Medical Summary | Summary of Care ---
Author Name Unknown Organization [facility] Address [address] [place] [address] Phone [phone] Care Team Providers Care Garment Manufacturer Name Role Phone Khai Virk MD Primary Care Provider [phone] Reason for Visit * Reason Onset Date Comments Appointment 09/23/2024 Sleep Med Encounter Details Date Type Department Care Team (Late st Contact Info) Description 09/23/2024 Telephone Neurology, [place] [address] [place] [address] Migue Conde MD [address] [place] [address] Appointment (Sleep Med) Allergies Active Allergy Reactions Criticality Noted Date [...] daily. 30 Tablet 5 3 Active Saw [place] (Serenoa repens) 160 MG Oral Capsule Take 160 mg by mouth at bedtime. 3 Active Omeprazole 40 MG Oral Capsule Delayed Release (PriLOSEC) 1 Capsule in the morning and 1 Capsule before bedtime. 4 Active Magnesium Gluconate 250 MG Oral Tablet Take 250 mg by mouth at bedtime. 4 Active Sertraline HCl 100 MG Oral [...] A DAY 180 Tablet 1 4 Active B-12 50 MCG Oral Tablet Take by mouth. Active Flax Seed Oil 1000 MG Oral Capsule Take 1 Capsule by mouth at bedtime. Active Carbidopa-Levodopa -Entacapone 50-200-200 MG Oral Tablet Take 1 tablet per mouth 4 times a day at [id number] and MN (Take 30 minutes prior to food intake) Do not start before October 07, 2024. 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 Answer Date of Assessment Author Yes 04/16/2017 2:00 PM EDT Zeina Parish, MED ASSIST * Are you blind or do you have serious difficulty seeing, even when wearing glasses? Answer Date of Assessment Author Yes 04/16/2017 2:00 PM EDT Zeina Parish, MED ASSIST * Do you have serious difficulty walking or climbing stairs? (5 years old or older) Answer Date of Assessment Author Yes 04/16/2017 2:00 PM EDT Zeina Parish, MED ASSIST * Do you have difficulty dressing or bathing? (5 years old or older) Answer Date of Assessment Author Yes 04/16/2017 2:00 PM EDT Zeina Parish, MED ASSIST * Because of a physical, mental, or emotional condition, do you have difficulty doing errands alone such as visiting a doctors office or shopping? (15 years old or older) Answer Date of Assessment Author Yes 04/16/2017 2:00 PM EDT Zeina Parish, MED ASSIST documented as of this encounter Mental Status * Because of a physical, mental, or emotional condition, do you have serious difficulty concentrating, remembering, or making decisions? (5 years old or older) Answer Entry Date Author Yes 04/16/2017 2:00 PM EDT Zeina Parish, MED ASSIST documented in this encounter Miscellaneous Notes * Telephone Encounter - Jacki Lo OSA - 09/23/2024 2:39 PM EST Please call pt to schedule a home sleep test documented in this encounter Plan of Treatment Upcoming Encounters Date Type Department Care Team (Late st Contact Info) Description 12/23/2024 3:30 PM EDT Imaging Radiology [facility] [address] [place] [phone] 12/26/2024 2:00 PM EDT Office Visit Rheumatology [address] [place] [phone] Jamaica Nash CRNP [address] [facility] [place] [address] 01/22/2025 2:20 PM EDT Office Visit Neurology [facility] [address] [facility] [place] [address] Monica Gerard MD [address] [place] [address] 03/04/2025 1:40 PM EDT Telemedicine Neurology [address] [place] [phone] Migue Conde MD [address] [facility] [place] [address] Health Maintenance Due Date Last Done Comments Depression Screening 1962 DTap/Tdap Vaccines (1 - Tdap) 1971 Cologuard 1997 Fecal Occult Blood Test 1997 Sigmoidoscopy 1997 Colonoscopy 07/23/2018 07/23/2008 Colorectal Cancer Screening 07/23/2018 COVID-19 Vaccine ( season) 2024 11/08/2020, 10/11/2020 Influenza Vaccine (FLU shot) (#1) 2024 Lipid Panel 06/27/2029 06/27/2024, 0 09/2023, 08/03/2015 Hepatitis C Screening Completed 08/10/2021 Zoster Vaccines Completed 11/28/2021, 2 10/2021, 04/18/2012 Pneumococcal Vaccine: 50+ Years Completed 09/12/2023, [...] Not on filedocumented as of this encounter Care Teams Garment Manufacturer Relationship Specialty Start Date End Date Khai Virk MD [address] [place] [address] PCP - General Family Medicine 12/08/14 documented as of this encounter
--- OUTSIDE RECORDS SUMMARY | 2024-10-28 07:25 | External Medical Summary | Summary of Care ---
Author Name Unknown Organization [facility] Address [address] [facility] [place] [address] Phone [phone] Care Team Providers Care Freight Service Inspector Name Role Phone Khai Virk MD Primary Care Provider [phone] Reason for Visit * Reason Onset Date Comments Scheduling 09/24/2024 HST Encounter Details Date Type Department Care Team (Late st Contact Info) Description 09/24/2024 Telephone Sleep Lab [facility] [address] [facility] [place] [address] [facility] [address] [facility] [place] [address] Scheduling (HST) Allergies Active Allergy Reactions Criticality Noted Date Comments Cat Dander 08/10/2021 Dog Dander 08/10/2021 Dust 08/10/2021 Methotrexate Seizure High 11/20/2017 2015 was used to treat rheum arthritis, had seizure and was taken off. Not certain it was the methotrexate which caused the seizure. Pollen 08/10/2021 documented as of this encounter (statuses as of 09/24/2024) Medications ASPIR-81 81 MG PO TBEC Take [...] daily. 30 Tablet 5 3 Active Saw [place] (Serenoa repens) 160 MG Oral Capsule Take [...] per mouth 4 times a day at [id number] and MN (Take 30 minutes prior to food intake) Do not start before October 07, 2024. 360 Tablet 3 5 Active documented as of this encounter (statuses as of 09/24/2024) Active Problems Problem Noted Date Diagnosed Date [...] as of this encounter (statuses as of 09/24/2024) Resolved Problems Problem Noted Date Diagnosed Date Resolved Date Other allergic rhinitis 12/2008 Overview (05/29/2017): Resolved per Duplicate Protocol #2. 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 Answer Date of Assessment Author Yes 04/16/2017 2:00 PM eZina Mason, MED ASSIST * Are you blind or do you have serious difficulty seeing, even when wearing glasses? Answer Date of Assessment Author Yes 04/16/2017 2:00 PM Zeina Mason, MED ASSIST * Do you have serious [...] PM EDT Zeina Parisha E, MED ASSIST documented as of this encounter Mental Status * Because of a physical, mental, or emotional condition, do you have serious difficulty concentrating, remembering, or making decisions? (5 years old or older) Answer Entry Date Author Yes 04/16/2017 2:00 PM EDT Zeina Parish E, MED ASSIST documented in this encounter Miscellaneous Notes * Telephone Encounter - Shawna Jarrett OSA - 09/24/2024 10:06 AM EST HST REUMANN NO AUTH documented in this encounter Plan of Treatment Upcoming Encounters Date Type Department Care Team (Late st Contact Info) Description 12/23/2024 3:30 PM EDT Imaging Radiology [facility] [address] [place] [phone] 12/26/2024 2:00 PM EDT Office Visit Rheumatology [address] [place] [address] Jamaica Nash CRNP [address] [facility] [place] [address] 01/22/2025 2:20 PM EDT Office Visit Neurology [facility] [address] [place] [address] Monica Gerard MD [address] [place] [address] 03/04/2025 1:40 PM EDT Telemedicine Neurology [address] [place] [phone] Migue Conde MD [address] [facility] [place] [address] Health Maintenance Due Date Last Done Comments [...] filedocumented as of this encounter Care Teams Freight Service Inspector Relationship Specialty Start Date End Date Khai Virk MD [address] [place] [address] PCP - General Family Medicine 12/08/14 documented as of this encounter
--- OUTSIDE RECORDS SUMMARY | 2024-10-28 07:25 | External Medical Summary | Summary of Care ---
Author Name Unknown Organization [facility] Address [address] [facility] [place] [address] Phone [phone] Care Team Providers Care Marionette Performer Name Role Phone Khai Virk MD Primary Care Provider [phone] Reason for Visit * Reason Comments Outpatient Testing Encounter Details Date Type Department Care Team (Late st Contact Info) Description 06/27/2024 2:10 PM EST Laboratory Laboratory [address] [place] [phone] [place] [address] Encounter for long-term (current) use of high-risk medication Allergies Active Allergy Reactions Criticality Noted Date Comments Cat Dander 08/10/2021 Dog Dander 08/10/2021 Dust 08/10/2021 Methotrexate Seizure High 11/20/2017 2015 was used to treat rheum arthritis, had seizure and was taken off. Not certain it was the methotrexate which caused the seizure. Pollen 08/10/2021 documented as of this encounter (statuses as of 06/27/2024) Medications ASPIR-81 81 MG PO TBEC Take [...] daily. 30 Tablet 5 3 Active Saw [place] (Serenoa repens) 160 MG Oral Capsule 160 [...] as of this encounter (statuses as of 06/27/2024) Active Problems Problem Noted Date Diagnosed Date [...] as of this encounter (statuses as of 06/27/2024) Resolved Problems Problem Noted Date Diagnosed Date Resolved Date Other allergic rhinitis 12/2008 Overview (05/29/2017): Resolved per Duplicate Protocol #2. 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 Answer Date of Assessment Author Yes 04/16/2017 2:00 PM Zeina Mason E, MED ASSIST * Are you blind or do you have serious difficulty seeing, even when wearing glasses? Answer Date of Assessment Author Yes 04/16/2017 2:00 PM Zeina Mason, MED ASSIST * Do you have serious difficulty walking or climbing stairs? (5 years old or older) Answer Date of Assessment Author Yes 04/16/2017 2:00 PM Zeina Mason, MED ASSIST * Do you have difficulty [...] Parish, MED ASSIST documented in this encounter Plan of Treatment Upcoming Encounters Date Type Department Care Team (Late st Contact Info) Description 07/21/2024 1:00 PM EST Office Visit Neurology [facility] [address] [facility] [place] [address] Monica Gerard MD [address] [facility] [place] [address] 12/23/2024 3:30 PM EDT Imaging Radiology, [place] [address] [place] [address] 12/26/2024 2:00 PM EDT Office Visit Rheumatology [address] [place] [phone] Jamaica Nash CRNP [facility] [facility] [place] [address] Pending Results Name Type Priority Associated Diagnoses Date /Time CBC WITH WBC DIFFERENTIAL Lab Routine Encounter for long-term (current) use of high-risk medication 06/27/2024 2:12 PM EST COMPREHENSIVE METABOLIC PANEL Lab Routine Encounter for long-term (current) use of high-risk medication 06/27/2024 2:12 PM EST LIPID PANEL WITH DIRECT LDL IF TG IS HIGH Lab Routine Encounter for long-term (current) use of high-risk medication 06/27/2024 2:12 PM EST CBC Lab Routine Encounter for long-term (current) use of high-risk medication 06/27/2024 2:12 PM EST DIFFERENTIAL, AUTOMATED Lab Routine Encounter for long-term (current) use of high-risk medication 06/27/2024 2:12 PM EST Health Maintenance Due Date Last Done Comments Depression Screening 1964 DTap/Tdap Vaccines (1 - Tdap) 1971 Cologuard 1997 Fecal Occult Blood Test 1997 Sigmoidoscopy 1997 Colonoscopy 07/23/2018 07/23/2008 Colorectal Cancer Screening 07/23/2018 COVID-19 Vaccine ( season) 2024 11/08/2020, 10/11/2020 Influenza Vaccine (FLU shot) (#1) 2024 Lipid Panel 09/07/2028 09/07/2023, 08/03/2015 Hepatitis C Screening Completed 08/10/2021 Zoster [...] as of this encounter Visit Diagnoses Diagnosis Encounter for long-term (current) use of high-risk medication Encounter for long-term (current) use of other medications documented in this encounter Care Teams Marionette Performer Relationship Specialty Start Date End Date Khai Virk MD [address] [place] [address] PCP - General Family Medicine 12/08/14 documented as of this encounter
--- OUTSIDE RECORDS SUMMARY | 2024-10-28 07:25 | External Medical Summary | Summary of Care ---
Author Name Unknown Organization [facility] Address [address] [place] [address] Phone [phone] Care Team Providers Care Supervisor Beehive Kiln Name Role Phone Khai Virk MD Primary Care Provider [phone] Reason for Referral * Evaluate & Treat - Unlimited Visits (Within 30 days (routine)) - Authorized Specialty Diagnoses / Procedures Referred By Contac t Referred To Contact Neurology Diagnoses Parkinson's disease without dyskinesia or fluctuating manifestations (HCC) Monica Gerard MD [address] [facility] [place] [address] Phone: tel: fax: Referral ID Status Reason Start Date Expiration Date Visits Requested Visits Authorized [id number] Authorized Specialty Services Required 4 [phone] Question Answer Referral Priority Within 30 days (routine) [facility] NEUROLOGY REFERRAL QUESTIONS Movement - Dr Morton Does the patient's condition allow them to wait to be seen by a specialist or should they be seen by first available provider? Or is this a follow up with established provider? Specialist Where should this appointment be scheduled? [facility] Reason for Visit * Reason Comments Follow Up 4 mo follow up, juan perez Encounter Details Date Type Department Care Team (Late st Contact Info) Description 07/21/2024 1:00 PM EST Office Visit [facility]rology [facility] [address] [place] [address] Monica Gerard MD [address] [facility] [place] [address] History of seizure*; Parkinson's disease without dyskinesia or fluctuating manifestations (HCC) Allergies Active Allergy Reactions Criticality Noted Date Comments Cat Dander 08/10/2021 Dog Dander 08/10/2021 Dust 08/10/2021 Methotrexate Seizure High 11/20/2017 2015 was used to treat rheum arthritis, had seizure and was taken off. Not certain it was the methotrexate which caused the seizure. Pollen 08/10/2021 documented as of this encounter (statuses as of 07/21/2024) Medications ASPIR-81 81 MG PO TBEC Take [...] daily. 30 Tablet 5 3 Active Saw [place] (Serenoa repens) 160 MG Oral Capsule 160 [...] AT BEDTIME 90 Tablet 3 4 Active B-12 50 MCG Oral Tablet Take by mouth. Active Flax Seed Oil 1000 MG Oral Capsule Take 1 Capsule by mouth in the morning. Active documented as of this encounter (statuses as of 07/21/2024) Active Problems Problem Noted Date Diagnosed Date [...] as of this encounter (statuses as of 07/21/2024) Resolved Problems Problem Noted Date Diagnosed Date Resolved Date Other allergic rhinitis 12/2008 Overview (05/29/2017): Resolved per Duplicate Protocol #2. 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 Answer Date of Assessment Author Yes 04/16/2017 2:00 PM EDT Zeina Parish E, MED ASSIST * Are you blind or do you have serious difficulty seeing, even when wearing glasses? Answer Date of Assessment Author Yes 04/16/2017 2:00 PM EDT Zeina Parish E, MED ASSIST * Do you have [...] Parish, MED ASSIST documented in this encounter Progress Notes * Monica Gerard MD - 07/21/2024 1:43 PM EST CLINIC NOTES Neurology [facility] [place] [address] [facility] [place] [address] Clement Reyes : 1950 NEUROLOGY OUTPATIENT NOTE 07/21/2024 HISTORY: The patient is referred for consultation by Dr. Virk, who will be receiving a copy of this note. 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 He has had several falls. He does not use his assistive devices in part because I believe he thinksit makes him look old or sick. Rare hallucinations Cognitive slowing difficulty understanding instructions some dyspraxia. Denies any wearing off. No seizures Past Medical History: Diagnosis Date Allergic rhinitis due to other allergen Encounter for long-term (current) use of other medications MTX 12.5 mg (started 11/17) and Humira 40 q 2wk started 06/19 Fatigue Hearing loss Memory loss Osteoarthritis Other convulsions Parkinson's disease ([facility]) Rheumatoid arthritis(714.0) RF-/CCP+ Seizure ([facility]) 11/29/2014 Tinnitus Patient Active Problem List Diagnosis Other allergic rhinitis Rheumatoid arthritis involving multiple sites with positive rheumatoid factor (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) Seizure, grand mal ([facility]) Rheumatoid factor positive with cyclic citrullinated peptide (CCP) antibody negative PMR (polymyalgia rheumatica) ([facility]) Past Surgical History: Procedure Laterality Date INJECT DX/THER SUBSTANCE INTERLAMINAR CERVICAL/THORACIC W IMAGE GUIDE 11/22/2020 INJECTION SPINE LUMBAR CERVICAL OR THORACIC performed by Torito Morales, DO at OR [facility] INJECT DX/THER SUBSTANCE INTERLAMINAR CERVICAL/THORACIC W IMAGE GUIDE 12/20/2020 INJECTION SPINE LUMBAR CERVICAL OR THORACIC performed by Torito Morales, DO at OR [facility] OTHER (INFORMATION) 2001 sinus polyp removed REVISION OF TOTAL HIP JOINT SURGERY 2010 left hip Social History Socioeconomic History Marital status: Spouse name: Not on file Number of children: 2 Years of education: Not on file Highest education level: Not on file Occupational History 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 [employer] Tobacco Use Smoking status: Never Smokeless tobacco: Former Vaping Use Vaping status: Never Used Substance and Sexual Activity Alcohol use: Yes Comment: 6 beers per week Drug use: Yes Types: Marijuana Sexual activity: Not on file Other Topics Concern Not on file Social History Narrative Not on file Social Needs Financial Resource Strain: Not on file Food Insecurity: Not on file Transportation Needs: Not on file Social Connections: Not on file Housing Stability: Not on file Family History Problem Relation Name Age of Onset Other (triple bypass) Father Lymphoma Sister Other (Other) Son Neutropenia Thyroid Disorder Mother Breast Cancer Mother Other (ITP) Daughter Current Outpatient Medications Medication Sig Dispense Refill ASPIR-81 81 MG PO TBEC Take by mouth. 0 Cholecalciferol (VITAMIN D) 1000 UNITS Tablet 1 [...] by mouth daily. 30 Tablet 5 Saw [place] (Serenoa repens) 160 MG Oral Capsule 160 mg. Omeprazole 40 MG Oral Capsule Delayed Release (PriLOSEC) Magnesium Gluconate 250 MG Oral Tablet 250 mg. Carbidopa-Levodopa 25-100 MG Oral Tablet (Sinemet) Take 2 in the morning 1 in afternoon 1 in the evening Sertraline HCl 100 MG [...] Oral Capsule Take 1 Capsule by mouth in the morning. Vitamin B Complex Oral Capsule Take by mouth. (Patient not taking: Reported on 07/21/2024) No current facility-administered medications for this visit. Review of patient's allergies indicates: Allergen Reactions Methotrexate Seizure 2014 was used to treat rheum arthritis, had seizure and was taken off. Not certain it was the methotrexate which caused the seizure. Cat Dander Dog Dander Dust Pollen Results for orders placed or performed in visit on 06/27/24 CBC Result Value Ref Range WBC 8.08 4.00 - 10.80 K/uL RBC 4.72 4.50 - 5.25 M/uL HGB 14.0 14.0 - 16.8 g/dL HCT 43.1 40.0 - 48.4 % MCV 91.3 82.0 - 99.5 fL MCH 29.7 27.0 - 34.0 pg MCHC 32.5 32.0 - 36.0 g/dL RDW 13.1 11.5 - 15.5 % PLT 208 140 - 400 K/uL MPV 10.7 6.6 - 11.1 fL nRBCs 0 <=0 /100 WBCs Results for orders placed or performed in visit on 08/03/15 LIPID PANEL Result Value Ref Range HOURS FASTING 12 hours Triglycerides 98 <200 mg/dL Cholesterol 233 (H) <200 mg/dL HDL Cholesterol 68 >39 mg/dL Cholesterol-HDL Ratio 3.4 LDL Cholesterol 145 (H) 0 - 129 mg/dL Results for orders placed or performed in visit on 06/27/24 LIPID PANEL WITH DIRECT LDL IF TG IS HIGH Result Value Ref Range Triglycerides 68 <=174 mg/dL Cholesterol 264 (H) <200 mg/dL HDL Cholesterol 75 >39 mg/dL Non-HDL Cholesterol 189 (H) <=159 mg/dL LDL Cholesterol 175 (H) <=129 mg/dL Lab Results Component Value Date/Time HEMOGLOBIN A1C - [facility] 5.4 01/14/2021 01:37 PM Lab Results Component Value Date/Time TSH - [facility] 1.44 01/14/2021 01:37 PM TSH - [facility] 2.31 05/27/2018 03:54 PM TSH - [facility] 2.96 12/21/2015 02:04 PM TSH - [facility] 3.29 09/07/2023 12:00 AM No results found for: "LINDA" Results for orders placed or performed in visit on 01/14/21 VITAMIN B12 Result Value Ref Range Vitamin B12 823 232-1,245 pg/mL Results for orders placed or performed in visit on 01/14/21 FOLIC ACID Result Value Ref Range Folic Acid 18.9 >4.5 ng/mL No results found for: "HFUI86ELQ4" No results found for: "ZRSD89TPX0" No results found for: "[id number]" No results found for: "25OHVITAMIND" Vitamin D Level Interpretation deficient: <20 ng/ml insufficient: 20-30 ng/ml normal: 31-100 ng/ml REVIEW OF SYSTEMS: As above PHYSICAL EXAM: BP 110/58 | Pulse 61 | Temp 36.4 C (97.6 F) (Tympanic) | Wt 107.2 kg (236 lb 6.4oz) | SpO2 97% | BMI 32.97 kg/m | BSA 2.32 m Moderate hypophonia decreased blink frequency facial masking. Some facial dyskinesias no resting tremor some cogwheel rigidity at the wrist symmetric strength gait is stooped but adequate mildly wide-based. There is decreased right arm swing mild generalized bradykinesia IMPRESSION: History of isolated but protracted seizure continue Lamictal and check level Parkinson's disease some dyskinesias and moderate dementia. Previously the patient has not tolerated Aricept and has not want to try memantine Patient we discussed safety avoiding fracture have elected to refer him to Dr. Morton for his opinion Total of 30 minutes spent with the patient more than 50% in counseling return in 6 months Monica Gerard MD 07/21/2024 1:43 PM documented in this encounter Nursing Notes * Bull Espinoza, [facility] - 07/21/2024 1:05 PM EST Patient verified identity by spelling of last name and date. Chief Complaint Patient presents with Follow Up 4 mo follow up, parkinson's. documented in this encounter Plan of Treatment Upcoming Encounters Date Type Department Care Team (Late st Contact Info) Description 12/23/2024 3:30 PM EDT Imaging [facility] [address] [place] [phone] 12/26/2024 2:00 PM EDT Office Visit Rheumatology [address] [place] [phone] [place] Nash CRNP [address] [place] [address] [place] [address] 01/19/2025 11:20 AM EDT Office Visit Neurology [facility] [address] [facility] [place] [address] Migue Conde MD [address] [place] [address] Pending Results Name Type Priority Associated Diagnoses Date /Time LAMOTRIGINE LEVEL Lab Routine History of seizure 07/21/2024 1:49 PM EST Scheduled Referrals Name Type Priority Associated Diagnoses Orde r Schedule ADULT NEUROLOGY REFERRAL OP Referral Within 30 days (routine) Parkinson's disease without dyskinesia or fluctuating manifestations (HCC) Ordered: 07/21/2024 Health Maintenance Due Date Last Done Comments [...] as of this encounter Visit Diagnoses Diagnosis History of seizure- Primary Parkinson's disease without dyskinesia or fluctuating manifestations (HCC) documented in this encounter Care Teams Supervisor Beehive Kiln Relationship Specialty Start Date End Date Khai Virk MD [address] [place] [address] PCP - General Family Medicine 12/08/14 documented as of this encounter
--- OUTSIDE RECORDS SUMMARY | 2024-10-28 07:25 | External Medical Summary | Summary of Care ---
Author Name Unknown Organization [facility] [address] [facility] [address] Phone [phone] Care Team Providers Care Digital Watch Assembler Name Role Phone Khai Virk MD Primary Care Provider [phone] Reason for Visit * Reason Comments Outpatient Testing Encounter Details Date Type Department Care Team (Late st Contact Info) Description 07/21/2024 1:50 PM EST Laboratory Laboratory [facility] [address] [place] [address] [facility] [address] [place] [address] Arrived Allergies Active Allergy Reactions Criticality Noted Date [...] daily. 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 (5 years old or older) Answer Date of Assessment Author Yes 04/16/2017 2:00 PM Zeina Mason E, MED ASSIST * Do you have [...] Description 12/23/2024 3:30 PM EDT Imaging Radiology [facility] [address] [place] [phone] 12/26/2024 2:00 PM EDT Office Visit Rheumatology [address] [place] [phone] Jamaica Nash CRNP [facility] [place] [address] 01/19/2025 11:20 AM EDT Office Visit Neurology [facility] [address] [facility] [place] [address] [facility]igue Conde MD [address] [facility] [address] Health Maintenance Due Date Last Done Comments Depression Screening 1964 DTap/Tdap Vaccines (1 - Tdap) 1971 Cologuard 1997 Fecal Occult Blood Test 1997 Sigmoidoscopy 1997 Colonoscopy 07/23/2018 07/23/2008 Colorectal Cancer Screening 07/23/2018 COVID-19 Vaccine ( season) 2024 11/08/2020, 10/11/2020 Influenza Vaccine (FLU shot) (#1) 2024 Lipid Panel 06/27/2029 06/27/2024, 02/0 09/2023, 08/03/2015 Hepatitis C Screening Completed 08/10/2021 [...] filedocumented as of this encounter Care Teams Digital Watch Assembler Relationship Specialty Start Date End Date Khai Virk MD [address] [place] [address] PCP - General Family Medicine 12/08/14 documented as of this encounter
--- OUTSIDE RECORDS SUMMARY | 2024-10-28 07:26 | External Medical Summary | Summary of Care ---
Author Name Unknown Organization [facility] Address [address] [facility] [place] [address] Phone [phone] Care Team Providers Care Puff Ironer Name Role Phone Khai Virk MD Primary Care Provider [phone] Reason for Visit * Reason Comments eRx-Medication Refill Encounter Details Date Type Department Care Team (Late st Contact Info) Description 05/26/2024 Refill Neurology [facility] [place] [address] [facility] [place] [address] Larry Gerard MD [address] [place] [address] History of seizure Allergies Active Allergy Reactions Criticality Noted Date Comments Cat Dander 08/10/2021 Dog Dander 08/10/2021 Dust 08/10/2021 Methotrexate Seizure High 11/20/2017 2015 was used to treat rheum arthritis, had seizure and was taken off. Not certain it was the methotrexate which caused the seizure. Pollen 08/10/2021 documented as of this encounter (statuses as of 05/27/2024) Medications Medication Sig Dispensed Refills Start Date End Date Status ASPIR-81 81 MG PO TBEC Take by mouth. 0 05/08/2006 Active Cholecalciferol (VITAMIN D) 1000 UNITS Tablet 1 daily Active Sildenafil Citrate 50 MG Oral Tablet As directed Active Diclofenac Sodium (VOLTAREN) 1 % gelIndications:Prim josephine osteoarthritis involving multiple joints Apply 2 g topically to affected area 3 times a day as needed for Pain. 1 Tube 3 04/02/2017 Active Biotin 1000 MCG Oral Tablet Chewable Take by mouth. Active Carbidopa-Levodopa ER 25-100 MG Oral Tablet Extended Release 1 at bedtime 90 Tablet 4 2023 Active Vitamin B Complex Oral Capsule Take by mouth. Active Rinvoq 15 MG Oral Tablet Extended Release 24 Hour (Upadacitinib ER)Indications:Rheu matoid factor positive with cyclic citrullinated peptide (CCP) antibody negative Take 1 Tablet by mouth daily. 30 Tablet 5 06/01/2023 Active Saw [place] (Serenoa repens) 160 MG Oral Capsule 160 mg. 09/26/2022 Activ e Omeprazole 40 MG Oral Capsule Delayed Release (PriLOSEC) 02/20/2024 Active Magnesium Gluconate 250 MG Oral Tablet 250 mg. 03/03/2024 Active Carbidopa-Levodopa 25-100 MG Oral Tablet (Sinemet) Take 2 in the morning 1 in afternoon 1 in the evening 03/24/2024 Active Sertraline HCl 100 MG Oral Tablet (Zoloft)Indications :PD (Parkinson's disease) (HCC) TAKE 1 TABLET IN THE MORNING 90 Tablet 1 05/05/2024 Active predniSONE 5 MG Oral Tablet (Deltasone)Indicati ons:Rheumatoid factor positive with cyclic citrullinated peptide (CCP) antibody negative TAKE 1 TABLET IN THE MORNING 90 Tablet 1 05/06/2024 Active lamoTRIgine 150 MG Oral Tablet (LaMICtal)Indicatio ns:History of seizure TAKE 1 TABLET TWICE A DAY 180 Tablet 1 05/27/2024 Active lamoTRIgine 150 MG Oral Tablet (LaMICtal)Indicatio ns:History of seizure Take 1 tablet twice a day 180 Tablet 1 11/13/2023 05/27/20 24 Discontinued documented as of this encounter (statuses as of 05/27/2024) Active Problems Problem Noted Date Diagnosed Date Rheumatoid factor positive w ith cyclic citrullinated peptide (CCP) antibody negative 08/04/2022 PMR (polymyalgia rheumatica) 08/04/2022 Seizure, grand mal 05/27/2018 PD (Parkinson's disease) 04/22/2018 ED (erectile dysfunction) of organic origin 11/04 Post-void dribbling 11/20/2017 History of rheumatoid arthritis 02/21/2016 Memory difficulty 02/04/2015 Generalized osteoarthritis 02/04/2015 Rheumatoid arthritis involvi ng multiple sites with positive rheumatoid factor 12/08/2014 Overview: ICD-10 update of inactive term Encounter for long-term (current) use of medicat ions 12/08/2014 Overview: ICD-10 update of inactive term Other allergic rhinitis Overview: ICD-10 update of inactive term documented as of this encounter (statuses as of 05/27/2024) Resolved Problems Problem Noted Date Diagnosed Date Resolved Date Other allergic rhinitis 12/2008 Overview: Resolved per Duplicate Protocol #2. ICD-10 update of inactive term documented as of this encounter (statuses as of 05/27/2024) Immunizations Name Administration Dates Next Due COVID-19 mRNA, LNP-s, No Pre serve, 2-Dose Series (Moderna) 11/08/2020,10/11/2020 Pneumococcal Polysaccharide PPV23 (Pneumovax) documented as of this encounter Social History Tobacco Use Types Packs/Day Years Used Date Smoking Tobacco: Never Smokeless Tobacco: Former Alcohol Use Standard Drinks/Week Comments Yes 0 (1 standard drink = 0.6 oz pur e alcohol) 6 beers per week Utilities Answer Date Recorded Do you have trouble paying y our heating, water, or electric bill? (Adult - for ages 18 years and over) Not on file 01/22/2024 Is your family able to pay t he heat, water, or electric bill? (Household - for ages 0-17 years) Not on file 01/22/2024 Does your family have access to good internet? (Household - for ages 0-17 years) Not on file 01/22/2024 Social Connections Answer Date Recorded How often do you feel lonely or isolated from those around you? (Adult - for ages 18 years and over) Not on file 01/22/2024 Sex and Gender Information Value Date Recorded Sex Assigned at Not on file Gender Identity Not on file Sexual Orientation Not on file Job Start Date Occupation Industry Not on file Not on file Not on file documented as of this encounter Functional Status Functional Status Response Date of Assess ment Are you deaf or do you have serious difficulty h earing? Yes 04/16/2017 Are you blind or do you have serious difficulty seeing, even when wearing glasses? Yes 04/16/2017 Do you have serious difficul ty walking or climbing stairs? (5 years old or older) Yes 04/16/2017 Do you have difficulty dress ing or bathing? (5 years old or older) Yes 04/16/2017 Because of a physical, menta l, or emotional condition, do you have difficulty doing errands alone such as visiting a doctor s office or shopping? (15 years old or older) Yes 04/16/20 17 Cognitive Status Response Date of Assessm ent Because of a physical, menta l, or emotional condition, do you have serious difficulty concentrating, remembering, or making decisions? (5 years old or older) Yes 04/16/2017 documented as of this encounter Miscellaneous Notes * Telephone Encounter - Precious Saini RP - 05/27/2024 1:23 PM EDTSigned Prescriptions: Disp Refills lamoTRIgine 150 MG Oral Tablet (LaMICtal) 180 Ta*1 Sig: TAKE 1 TABLET TWICE A DAYAuthorizing Provider: LARRY GERARD User: PRECIOUS SAINI * Telephone Encounter - Colby Guevara - 05/26/2024 4:18 AM EDTPending Prescriptions: Disp Refills lamoTRIgine 150 MG Oral Tablet [Pharmacy M*180 Ta*3 Sig: Take 1 tablet twice a day * Telephone Encounter - Colby Guevara - 05/26/2024 4:16 AM EDT Did you pend patient's preferred pharmacy and medication before forwarding?yes Pharmacy: [facility] Pending Prescriptions: Disp Refills lamoTRIgine 150 MG Oral Tablet (LaMICtal)*180 Ta*3 Sig: TAKE 1 TABLET TWICE A DAY Last Visit: 03/24/2024 (in office), 12/05/2019 (telemedicine) Next Visit: 07/21/2024 If no future appointments scheduled, and last appointment is greater than a year ago, please schedule patient for a follow-up appointment Last date the medication was ordered: 11/13/2023 Is this request for a controlled substance?No Urine Drug Screen:No results found for this or any previous visit. Patient Phone Numbers Labs: Lab Results Component Value Date/Time CREAT 1.13 09/07/2023 12:00 AM CREAT 0.9 06/18/2020 02:50 PM POTASSIUM 4.4 09/07/2023 12:00 AM POTASSIUM 4.6 12/08/2015 08:43 AM TSH 3.29 09/07/2023 12:00 AM TSH 2.31 05/27/2018 03:54 PM LDL 145 (H) 08/03/2015 08:38 AM LDLCALC 161 (A) 09/07/2023 12:00 AM ALT 10 05/01/2023 11:55 AM ALT 12 06/18/2020 02:50 PM HGBA1C 5.4 01/14/2021 01:37 PM documented in this encounter Plan of Treatment Upcoming Encounters Date Type Department Care Team (Late st Contact Info) Description 06/27/2024 1:30 PM EST Office Visit Rheumatology [address] [place] [phone] [place] Nash CRNP [address] [facility] [place] [address] 07/21/2024 1:00 PM EST Office Visit Neurology [place] [address] [facility] [place] [address] Larry Gerard MD [address] [facility] [place] [address] Health Maintenance Due Date Last Done Comments [...] this encounter Visit Diagnoses Diagnosis History of seizure documented in this encounter Care Teams Puff Ironer Relationship Specialty Start Date End Date Khai Virk MD [address] [place], [place] [address] PCP - General Family Medicine 12/08/14 documented as of this encounter
--- OUTSIDE RECORDS SUMMARY | 2024-10-28 07:26 | External Medical Summary ---
Author Name Unknown Address Unknown Organization K01:LABORATORY [facility] [place] - [address] [facility] [address] Laboratory Report Ordering Provider Test Date Status CARMELO LANG 06/27/2024 14:12:18 Final Observation Date Value Abnormality Reference (Units ) Status SYNC LEUKOCYTES IN BLOOD BY AUTOMATED COUNT 06/27/2024 14:12:18 8.08 4.00-10.80 (K/uL) Final Segs 06/27/2024 14:12:18 69.3 40.0-75.0 (%) Final Lymphs % 06/27/2024 14:12:18 19.2 18.0-42.0 (%) Final Monos 06/27/2024 14:12:18 7.3 1.0-11.0 (%) Final Eosinophils 06/27/2024 14:12:18 2.2 0.0-6.0 (%) Final Basos 06/27/2024 14:12:18 1.1 0.0-2.0 (%) Final Immature Granulocyte, Percent 06/27/2024 14:12:18 0.9 0.0-2.0 (%) Final Absolute Segs 06/27/2024 14:12:18 5.60 1.80-7.70 (K/uL) Final Lymphs, absolute 06/27/2024 14:12:18 1.55 1.00-4.80 (K/ul) Final Monos, Abs 06/27/2024 14:12:18 0.59 0.00-1.10 (K/uL) Final Eos, Abs 06/27/2024 14:12:18 0.18 0.00-0.70 (K/uL) Final Basos, Abs 06/27/2024 14:12:18 0.09 0.00-0.20 (K/uL) Final Immature Granulocytes, Number 06/27/2024 14:12:18 0.07 0.00-0.20 (K/uL) Final Performing Location LABORATORY [facility] [place] - [address] [facility] [address]
--- OUTSIDE RECORDS SUMMARY | 2024-10-28 07:26 | External Medical Summary | Summary of Care ---
Author Name Unknown Organization [facility] Address [address] [facility] [place] [address] Phone [phone] Care Team Providers Care Tip Printer Name Role Phone Khai Virk MD Primary Care Provider [phone] Reason for Visit * Reason Comments eRx-Medication Refill Encounter Details Date Type Department Care Team (Late st Contact Info) Description 05/06/2024 Refill Rheumatology [address] [place] [phone] Precious Rhodes CRNP [address] [place] [address] [place] [address] Rheumatoid factor positive with cyclic citrullinated peptide (CCP) antibody negative Allergies Active Allergy Reactions Criticality Noted Date Comments Cat Dander 08/10/2021 Dog Dander 08/10/2021 Dust 08/10/2021 Methotrexate Seizure High 11/20/2017 2015 was used to treat rheum arthritis, had seizure and was taken off. Not certain it was the methotrexate which caused the seizure. Pollen 08/10/2021 documented as of this encounter (statuses as of 05/06/2024) Medications Medication Sig Dispensed Refills Start Date [...] mouth daily. 30 Tablet 5 06/01/2023 Active lamoTRIgine 150 MG Oral Tablet (LaMICtal)Indicatio ns:History of seizure Take 1 tablet twice a day 180 Tablet 1 11/13/2023 Active Saw Porter (Serenoa repens) 160 MG Oral Capsule 160 [...] THE MORNING 90 Tablet 1 05/06/2024 Active predniSONE 5 MG Oral Tablet (Deltasone)Indicati ons:Rheumatoid factor positive with cyclic citrullinated peptide (CCP) antibody negative Take 1 Tablet by mouth in the morning. 100 Tablet 4 05/02/2023 05/06/20 24 Discontinued documented as of this encounter (statuses as of 05/06/2024) Active Problems Problem Noted Date Diagnosed Date [...] as of this encounter (statuses as of 05/06/2024) Resolved Problems Problem Noted Date Diagnosed Date Resolved Date Other allergic rhinitis 12/2008 Overview: Resolved per Duplicate Protocol #2. ICD-10 update of inactive term documented as of this encounter (statuses as of 05/06/2024) Immunizations Name Administration Dates Next Due COVID-19 [...] encounter Miscellaneous Notes * Telephone Encounter - Ten Castillo RPh - 05/06/2024 11:02 AM EDTSigned Prescriptions: Disp Refills predniSONE 5 MG Oral Tablet (Deltasone) 90 Tab*1 Sig: TAKE 1 TABLET IN THE MORNINGAuthorizing Provider: PRECIOUS RHODES User: TEN CASTILLO * Telephone Encounter - Ten Castillo RPh - 05/06/2024 11:00 AM EDT Rheumatology: Refill Request(s) Per review of the refill parameters, Medication was refilled Ten Castillo RPh [facility] Clinical Pharmacist Rheumatology Department 05/06/2024,11:00 AM documented in this encounter Plan of Treatment Upcoming Encounters Date Type Department Care Team (Late st Contact Info) Description 06/27/2024 1:30 PM EST Office Visit Rheumatology [address] [place] [phone] Precious Rhodes CRNP [address] [facility] [place] [address] 07/21/2024 1:00 PM EST Office Visit Neurology [facility] [place] [address] [facility] [place] [address] Monica Gerard MD 200 [facility] [place] [address] Health Maintenance Due Date Last Done Comments [...] as of this encounter Visit Diagnoses Diagnosis Rheumatoid factor positive with cyclic citrullinated peptide (CCP) antibody negative documented in this encounter Care Teams Tip Printer Relationship Specialty Start Date End Date Khai Virk MD [address] [place] [address] PCP - General Family Medicine 12/08/14 documented as of this encounter
--- OUTSIDE RECORDS SUMMARY | 2024-10-28 07:26 | External Medical Summary ---
Author Name Unknown Address Unknown Organization K01:LABORATORY [facility] [place] - [facility] [address] [facility] [address] [facility] [address] Laboratory Report Ordering Provider Test Date Status CARMELO LANG 06/27/2024 14:12:18 Final Observation Date Value Abnormality Reference (Units ) Status WBC, Total 06/27/2024 14:12:18 8.08 4.00-10.80 (K/uL) Final RBC 06/27/2024 14:12:18 4.72 4.50-5.25 (M/uL) Final Hemoglobin 06/27/2024 14:12:18 14.0 14.0-16.8 (g/dL) Final HCT 06/27/2024 14:12:18 43.1 40.0-48.4 (%) Final MCV 06/27/2024 14:12:18 91.3 82.0-99.5 (fL) Final MCH 06/27/2024 14:12:18 29.7 27.0-34.0 (pg) Final MCHC 06/27/2024 14:12:18 32.5 32.0-36.0 (g/dL) Final RDW 06/27/2024 14:12:18 13.1 11.5-15.5 (%) Final Platelets 06/27/2024 14:12:18 208 140-400 (K/uL) Final MPV 06/27/2024 14:12:18 10.7 6.6-11.1 (fL) Final Nucleated erythrocytes/100 leukocytes [Ratio] in Blood by Automated count 06/27/2024 14:12:18 0 <=0 (/100 WBCs) Final Performing Location LAB[facility]ATORY [facility] [place] [facility] [address] [facility] [address]
--- OUTSIDE RECORDS SUMMARY | 2024-10-28 07:26 | External Medical Summary | Summary of Care ---
Author Name Unknown Organization [facility] Address [address] [facility] [place] [address] Phone [phone] Care Team Providers Care Drug Abuse Worker Name Role Phone Khai Virk MD Primary Care Provider [phone] Reason for Visit * Reason Comments eRx-Medication Refill Encounter Details Date Type Department Care Team (Late st Contact Info) Description 06/17/2024 Refill Neurology [facility] [address] [place] [address] Larry Gerard MD [address] [place] [address] Allergies Active Allergy Reactions Criticality Noted Date Comments Cat Dander 08/10/2021 Dog Dander 08/10/2021 Dust 08/10/2021 Methotrexate Seizure High 11/20/2017 2015 was used to treat rheum arthritis, had seizure and was taken off. Not certain it was the methotrexate which caused the seizure. Pollen 08/10/2021 documented as of this encounter (statuses as of 06/17/2024) Medications ASPIR-81 81 MG PO TBEC Take by mouth. 0 05/08/20 06 Active Cholecalciferol (VITAMIN D) 1000 UNITS Tablet 1 daily Active Sildenafil Citrate 50 MG Oral Tablet As directed Active Diclofenac Sodium (VOLTAREN) 1 % gelIndications:Pr imary osteoarthritis involving multiple joints Apply 2 g topically to affected area 3 times a day as needed for Pain. 1 Tube 3 04/02/20 17 Active Biotin 1000 MCG Oral Tablet Chewable Take by mouth. Active Vitamin B Complex Oral Capsule Take by mouth. Active Rinvoq 15 MG Oral Tablet Extended Release 24 Hour (Upadacitinib ER)Indications:Rh eumatoid factor positive with cyclic citrullinated peptide (CCP) antibody negative Take 1 Tablet by mouth daily. 30 Tablet 5 06/01/20 23 Active Saw [place] (Serenoa repens) 160 MG Oral Capsule 160 mg. 09/26/19 23 Active Omeprazole 40 MG Oral Capsule Delayed Release (PriLOSEC) 02/20/20 24 Active Magnesium Gluconate 250 MG Oral Tablet 250 mg. 03/03/20 24 Active Carbidopa-Levodop a 25-100 MG Oral Tablet (Sinemet) Take 2 in the morning 1 in afternoon 1 in the evening 03/24/20 24 Active Sertraline HCl 100 MG Oral Tablet (Zoloft)Indicatio ns:PD (Parkinson's disease) (HCC) TAKE 1 TABLET IN THE MORNING 90 Tablet 1 05/05/20 24 Active predniSONE 5 MG Oral Tablet (Deltasone)Indica tions:Rheumatoid factor positive with cyclic citrullinated peptide (CCP) antibody negative TAKE 1 TABLET IN THE MORNING 90 Tablet 1 05/06/20 24 Active lamoTRIgine 150 MG Oral Tablet (LaMICtal)Indicat ions:History of seizure TAKE 1 TABLET TWICE A DAY 180 Tablet 1 05/27/20 24 Active Carbidopa-Levodop a ER 25-100 MG Oral Tablet Extended Release (Sinemet CR) TAKE 1 TABLET AT BEDTIME 90 Tablet 3 06/17/20 24 Active Carbidopa-Levodop a ER 25-100 MG Oral Tablet Extended Release 1 at bedtime 90 Tablet 4 04/10/20 23 024 Discontinued documented as of this encounter (statuses as of 06/17/2024) Active Problems Problem Noted Date Diagnosed Date [...] as of this encounter (statuses as of 06/17/2024) Resolved Problems Problem Noted Date Diagnosed Date Resolved Date Other allergic rhinitis 12/2008 Overview (05/29/2017): Resolved per Duplicate Protocol #2. 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 Not [...] encounter Miscellaneous Notes * Telephone Encounter - Mark Dimas RPh - 06/17/2024 3:01 PM ESTSigned Prescriptions: Disp Refills Carbidopa-Levodopa ER 25-100 MG Oral Table*90 Tab*3 Sig: TAKE 1TABLET AT BEDTIMEAuthorizing Provider: LARRY GERARD AOrdering User: MARK DIMAS documented in this encounter Plan of Treatment Upcoming Encounters Date Type Department Care Team (Late st Contact Info) Description 06/27/2024 1:30 PM EST Office Visit Rheumatology [address] [place] [phone] [place] Nash CRNP [address] [facility] [place] [address] 07/21/2024 1:00 PM EST Office Visit Neurology [facility] 200 [facility] [place] [address] Larry Gerard MD [address] [place] [address] Health Maintenance Due Date Last Done Comments [...] filedocumented as of this encounter Care Teams Drug Abuse Worker Relationship Specialty Start Date End Date Khai Virk MD [address] [place] [address] PCP - General Family Medicine 12/08/14 documented as of this encounter
--- OUTSIDE RECORDS SUMMARY | 2024-10-28 07:26 | External Medical Summary ---
Author Name Unknown Address Unknown Organization K01:LABORATORY [facility] [place] - [address] [place] [address] [place] [address] Laboratory Report Ordering Provider Test Date Status CARMELO LANG 06/27/2024 14:12:18 Final Observation Date Value Abnormality Reference (Units ) Status BUN 06/27/2024 14:12:18 19 6-20 (mg/dL) Final Creatinine 06/27/2024 14:12:18 1.0 0.6-1.2 (mg/dL) Final Glomerular filtration rate/1.73 sq M.predicted [Volume Rate/Area] in Serum, Plasma or Blood by Creatinine-based formula (CKD-EPI) 06/27/2024 14:12:18 84 >=60 (mL/min) Final eGFR is calculated based on the CKD-EPI 2020 equation. Sodium 06/27/2024 14:12:18 140 135-146 (m mol/L) Final Potassium 06/27/2024 14:12:18 4.6 3.5-5.1 (m mol/L) Final Cl 06/27/2024 14:12:18 103 98-107 (mm ol/L) Final CO2 06/27/2024 14:12:18 25 22-32 (mmo l/L) Final Anion gap 06/27/2024 14:12:18 12 7-15 (mmol /L) Final Glucose 06/27/2024 14:12:18 86 70-120 (mg /dL) Final Albumin 06/27/2024 14:12:18 4.7 3.8-5.0 (g /dL) Final AST (Aspartate aminotransferase) 06/27/2024 14:12:18 14 10-50 (U/L) Final Alk Phos 06/27/2024 14:12:18 111 35-130 (U/ L) Final Bilirubin, Total 06/27/2024 14:12:18 0.6 <=1 .2 (mg/dL) Final Calcium 06/27/2024 14:12:18 9.3 8.4-10.2 ( mg/dL) Final Protein 06/27/2024 14:12:18 6.9 6.0-8.3 (g /dL) Final ALT (Alanine aminotransferase) 06/27/2024 14:12:18 17 10-50 (U/L) Final Performing Location LABORATORY [facility] [place] - [facility] [address] [facility] [address]
--- OUTSIDE RECORDS SUMMARY | 2024-10-28 07:26 | External Medical Summary | Summary of Care ---
Author Name Unknown Organization [facility] Address [address] [facility] [place] [address] Phone [phone] Care Team Providers Care Promos Executive Producer Name Role Phone Khai Virk MD Primary Care Provider Reason for Visit * Reason Comments eRx-Medication Refill Encounter Details Date Type Department Care Team (Late st Contact Info) Description 05/05/2024 Refill Neurology [facility] 200 [facility] [place] [address] Larry Gerard MD [address] [place] [address] PD (Parkinson's disease) ([facility]) Allergies Active Allergy Reactions Criticality Noted Date Comments Cat Dander 08/10/2021 Dog Dander 08/10/2021 Dust 08/10/2021 Methotrexate Seizure High 11/20/2017 2015 was used to treat rheum arthritis, had seizure and was taken off. Not certain it was the methotrexate which caused the seizure. Pollen 08/10/2021 documented as of this encounter (statuses as of 05/05/2024) Medications Medication Sig Dispensed Refills Start Date [...] Complex Oral Capsule Take by mouth. Active predniSONE 5 MG Oral Tablet (Deltasone)Indicati ons:Rheumatoid factor positive with cyclic citrullinated peptide (CCP) antibody negative Take 1 Tablet by mouth in the morning. 100 Tablet 4 05/02/2023 Active Rinvoq 15 MG Oral Tablet Extended Release 24 Hour (Upadacitinib ER)Indications:Rheu matoid factor positive with cyclic citrullinated peptide (CCP) antibody negative Take 1 Tablet by mouth daily. 30 Tablet 5 06/01/2023 Active lamoTRIgine 150 MG Oral Tablet (LaMICtal)Indicatio ns:History of seizure Take 1 tablet twice a day 180 Tablet 1 11/13/2023 Active Saw Ebony (Serenoa repens) 160 MG Oral Capsule 160 [...] THE MORNING 90 Tablet 1 05/05/2024 Active Sertraline HCl 100 MG Oral Tablet (Zoloft)Indications :PD (Parkinson's disease) (HCC) TAKE 1 TABLET IN THE MORNING 90 Tablet 1 11/30/2023 05/05/20 24 Discontinued documented as of this encounter (statuses as of 05/05/2024) Active Problems Problem Noted Date Diagnosed Date [...] as of this encounter (statuses as of 05/05/2024) Resolved Problems Problem Noted Date Diagnosed Date Resolved Date Other allergic rhinitis 12/2008 Overview: Resolved per Duplicate Protocol #2. ICD-10 update of inactive term documented as of this encounter (statuses as of 05/05/2024) Immunizations Name Administration Dates Next Due COVID-19 [...] Telephone Encounter - Ten Castillo RPh - 05/05/2024 4:06 PM EDTSigned Prescriptions: Disp Refills Sertraline HCl 100 MG Oral Tablet (Zoloft) 90 Tab*1 Sig: TAKE 1 TABLET IN THE MORNINGAuthorizing Provider: LARRY GERARD AOrderaldo User: TEN CASTILLO------- documented in this encounter Plan of Treatment Upcoming Encounters Date Type Department Care Team (Late st Contact Info) Description 06/27/2024 1:30 PM EST Office Visit Rheumatology [address] [place] [phone] [place] Nash CRNP [address] [facility] [place] [id number] 07/21/2024 1:00 PM EST Office Visit Neurology [employer] [address] [place] [address] Larry Gerard MD [address] [place] [address] Health Maintenance Due Date Last Done Comments [...] as of this encounter Visit Diagnoses Diagnosis PD (Parkinson's disease) (HCC) Paralysis agitans documented in this encounter Care Teams Promos Executive Producer Relationship Specialty Start Date End Date Khai Virk MD [address] [place] [address] PCP - General Family Medicine 12/08/14 documented as of this encounter
--- OUTSIDE RECORDS SUMMARY | 2024-10-28 07:26 | External Medical Summary | Summary of Care ---
Author Name Unknown Organization [facility] Address [address] [place] [place] [address] Phone [phone] Care Team Providers Care Youth Development Specialist Name Role Phone Khai Virk MD Primary Care Provider [phone] Reason for Visit * Reason Onset Date Comments Advice 03/04/2024 Encounter Details Date Type Department Care Team (Late st Contact Info) Description 03/04/2024 Telephone Neurology [facility] [address] [place] [phone] Services, Scheduling [address] [place] [address] Advice Allergies Active Allergy Reactions Criticality Noted Date Comments Cat Dander 08/10/2021 Dog Dander 08/10/2021 Dust 08/10/2021 Methotrexate Seizure High 11/20/2017 2015 was used to treat rheum arthritis, had seizure and was taken off. Not certain it was the methotrexate which caused the seizure. Pollen 08/10/2021 documented as of this encounter (statuses as of 06/03/2024) Medications Medication Sig Dispensed Refills Start Date [...] Release 1 at bedtime 90 Tablet 4 3 Active Vitamin B Complex Oral Capsule Take by mouth. Active Rinvoq 15 MG Oral Tablet Extended Release 24 Hour (Upadacitinib ER)Indications:Rhe umatoid factor positive with cyclic citrullinated peptide (CCP) antibody negative Take 1 Tablet by mouth daily. 30 Tablet 5 3 Active Saw Corning (Serenoa repens) 160 MG Oral Capsule 160 mg. 3 Active omeprazole (PRILOSEC) 20 MG CPDR 1 twice daily 7 03/24/20 24 Discontinued(Med ication List Clean Up) methylPREDNISolone 4 MG Oral Tablet (Medrol)Indication s:Rheumatoid factor positive with cyclic citrullinated peptide (CCP) antibody negative 4 tabs daily for 1 week then decrease by 1 tab every week until you are at 1 tab daily 100 Tablet 1 2 03/24/20 24 Discontinued predniSONE 5 MG Oral Tablet (Deltasone)Indicat ions:Rheumatoid factor positive with cyclic citrullinated peptide (CCP) antibody negative Take 1 Tablet by mouth in the morning. 100 Tablet 4 3 05/06/20 24 Discontinued Carbidopa-Levodopa 25-100 MG Oral Tablet (Sinemet) Take 2 tab three times daily 540 Tablet 3 3 03/24/20 24 Discontinued(Ref ill) lamoTRIgine 150 MG Oral Tablet (LaMICtal)Indicati ons:History of seizure Take 1 tablet twice a day 180 Tablet 1 4 05/27/20 24 Discontinued Sertraline HCl 100 MG Oral Tablet (Zoloft)Indication s:PD (Parkinson's disease) ([facility]) TAKE 1 TABLET IN THE MORNING 90 Tablet 1 4 05/05/20 24 Discontinued documented as of this encounter (statuses as of 06/03/2024) Active Problems Problem Noted Date Diagnosed Date [...] as of this encounter (statuses as of 06/03/2024) Resolved Problems Problem Noted Date Diagnosed Date Resolved Date Other allergic rhinitis 12/2008 Overview: Resolved per Duplicate Protocol #2. ICD-10 update of inactive term documented as of this encounter (statuses as of 06/03/2024) Immunizations Name Administration Dates Next Due COVID-19 [...] encounter Miscellaneous Notes * Telephone Encounter - Mei Mendoza MED ASSIST - 03/05/2024 9:52 AM EDT Please update his med list. ask his if any of his medicines are new or changed in dose. Is there any sign an infection other than urinary tract infection? I am assuming since he is on antibiotics that he was seen by primary care? Are the hallucinations bothersome to him? The medications that are used to treat hallucinations have significant black box warnings that they can increase the risk of heart attack and stroke so were very cautious about using them. If he is not awake and alert otherwise they should bring him to the emergency room LMOM for Maryam to return call. Made her aware I was sending MyG as well. * Telephone Encounter - Mei Mendoza MED ASSIST - 03/04/2024 3:[address] Gerard, pt is schedule for an appt 03/24 * Telephone Encounter - Purnima Gu OSA - 03/04/2024 3:36 PM EDT Neuroscience Phone Call Form- Requested Information from caller: Who is calling (not pt) name: tawnya relationship: Provider patient is established with: Rajani What is the concern or issue they are having: Patients spouse, Tawnya is concerned about the patient because he is seeing things, confused and he is upset because he is confused about things, he started antibiotics , he tested negative for a UTI, he also had a sonogram done but waiting for the results still. Patient's spouse is needing advice on what to do or if he needs a medication change. How long has the issue been going on: on going Any additional details to add: no Phone number for nurse to call back: [phone] Are forms needed? no Medication Refill? no Verify Pharmacy information is correct. Form to be used for established patients only (not new patients) Clinic has 24-48 hours to respond to caller. If caller is calling back before timeframe with any changes in condition/issues reported, update TEand re-route to appropriate pool If caller is calling back before timeframe- update TE- no need to re-route [facility] Neurology Pool- [facility] Neuro Leslie- [id number] (All messages get sent to the [facility]) Neurology Pool Numbers- [place] and [facility] patients - follow normal process Ops req [facility] [place] Neurology ([place])- [id number] Ops req [place] Neurology ([place]- [facility] and [facility] clinics Only)- [id number] Neurosurgery Pool Numbers- [place] patients- follow normal process Ops req Neurosurgery [facility] [place] ([place])- [id number] Ops req Neurosurgery [facility] ([place] Only) [id number] documented in this encounter Plan of Treatment Upcoming Encounters Date Type Department Care Team (Late st Contact Info) Description 06/27/2024 1:30 PM EST Office Visit Rheumatology [address] [place] [phone] [place] Nash CRNP [address] [facility] [place] [address] 07/21/2024 1:00 PM EST Office Visit Neurology [employer] 200 [facility] [place] [address] Monica Gerard MD 200 [place] [address] Health Maintenance Due Date Last Done Comments [...] filedocumented as of this encounter Care Teams Youth Development Specialist Relationship Specialty Start Date End Date Khai Virk MD [address] [facility] [place] [address] PCP - General Family Medicine 12/08/14 documented as of this encounter
--- OUTSIDE RECORDS SUMMARY | 2024-10-28 07:26 | External Medical Summary ---
Author Name Unknown Address Unknown Organization K01:LAB[facility]ORY [facility] [place] - [address] [facility] [address] [place] [address] Laboratory Report Ordering Provider Test Date Status CARMELO LANG 06/27/2024 14:12:18 Final Observation Date Value Abnormality Reference (Units ) Status Triglyceride 06/27/2024 14:12:18 68 <=174 ( mg/dL) Final Triglyceride Reference Range s (mg/dL):
<150 Acceptable
150-174 Borderline high
175-499 High
>=500 Very high Cholesterol 06/27/2024 14:12:18 264 Above high normal <200 (mg/dL) Final Total Cholesterol Reference Ranges (mg/dL):
<200 Desirable
200-239 Borderline high
>=240 High HDL 06/27/2024 14:12:18 75 >39 (mg/dL ) Final HDL Cholesterol Reference Ra nges (mg/dL):
>=60 High (Desirable)
<50 Low (Undesirable) For Females
<40 Low (Undesirable) For Males NON-HDL CHOLESTEROL 06/27/2024 14:12:18 189 Above high normal <=159 (mg/dL) Final Non-HDL Cholesterol Referenc e Range (mg/dL):
<100 Target level for high risk ASCVD patient
<130 Optimal for general population
130-159 Near optimal for general population
160-189 Borderline High
190-219 High
>=220 Very High LDL, (calculated) 06/27/2024 14:12:18 175 Above high n ormal <=129 (mg/dL) Final LDL Cholesterol Reference Ra nges (mg/dL):
<70 Target level for high risk ASCVD patient
<100 Optimal for general population
100-129 Near optimal for general population
130-159 Borderline high
160-189 High
>=190 Very high Performing Location LABORATORY [facility] - [address] [facility] [address]
[2024-10-28 08:21] LABS: Basophils # (auto) 0.05 K/uL (0.00-0.20); Basophils % (auto) 0.7 %; Eosinophils # (auto) 0.16 K/uL (0.00-0.50); Eosinophils % (auto) 2.3 %; Hematocrit (blood only) 37.7 % (42.0-52.0); Hemoglobin 12.6 g/dl (14.0-18.0); Immature Granulocytes # (auto) 0.14 K/uL (0.01-0.20); Lymphocytes # (auto) 0.53 K/uL (1.20-3.40); Lymphocytes % (auto) 7.6 %; Mean Corpuscular Hemoglobin 28.6 pg (25.0-34.0); Mean Corpuscular Hgb Conc 33.4 g/dL (32.0-36.0); Mean Corpuscular Volume 85.7 fL (80.0-100.0); Mean Platelet Volume 10.3 fL (9.4-12.4); Monocytes # (auto) 0.54 K/uL (0.11-0.59); Monocytes % (auto) 7.8 %; Neutrophils # (auto) 5.54 K/uL (1.40-6.50); Neutrophils % (auto) 79.6 %; Platelet Count 243 K/uL (130-400); RDW Coefficient of Variation 12.6 % (11.5-14.5); RDW Standard Deviation 39.6 fL (36.4-46.3); White Blood Count 6.96 K/ul (4.8-10.8)
--- NOTE | 2024-10-28 08:23 | Hospitalist Progress Note ---
"<Statement entered by Chantal Mead MD - 10/28/24 18:59> generally try to avoid antipsychotics in Parkinson's, which can cause permanent worsening of symptoms. he has been extremely agitated and aggressive, however, and I think the benefit of low dose seroquel (one of the safest options) outweighs the risks. For severe agitation putting Mr. Reyes or the staff at risk we will need to rely on benzodiazepines, which carry risk of worsening delirium. 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 Presented with increasing recurrent falls, confusion, aggression, and hallucinations for multiple days, in the setting of recent influenza infection. Initial evaluation revealed negative biofire, negative UA, and CXR with posterior basal consolidation/atelectasis, however residual left lower lobe infiltrate cannot be exclude and chronic left sided diaphragmatic elevation. Pt admitted for IV antibiotics and PT/OT evaluations. 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 Conde) - last visit (10/03/24) reviewed - rec switch to Stalevo 50/200/200 QID. If continued hallucinations, add Nuplazid 34mg/day - will switch to 50/200/200 QID dosing (will be three pills here as Stalevo is not on formularly) Suspect underlying cognitive/dementia process as well - add Seroquel 25mg HS (however if no improvement, consider sending Nuplazid to pharmacy and having family bring it in) PT/OT pending Required IM zyprexa x2, gabapentin and soft limb restraints overnight. Still in restraints, add Seroquel as above. Behaviors are going to be difficult to control if cannot reliably take Parkinson's meds. Consider palliative consult pending course. #BPH Noted hx, but not seems to be on any meds, takes ?saw palmetto OTC Suprapubic pain on exam, UA negative. Had urinary retention for 800c, but then voided for 600 - will initiate flomax #rheumatoid arthritis follows with [facility] rheumatology Continue chronic prednisone 5 Mg p.o. daily, Hold Rinvoq QAM, #diarrhea - stool cultures ordered, denies recent abx use history of seizurescontinue lamotrigine GERDcontinue PPI Depressioncontinue sertraline BPH- bladder scan prn Dispo: continued inpatient stay, stable for downgrade to medical DVT prophylaxis: SCDs. Family updated at bedside 10/28 Admission and Anticipated Discharge Date Admission Date: October 27, 2024 Subjective patient seen lying in bed, and son at bedside. At this time patient was sleeping and unable to answer any my questions. provides most of the history has not been formally diagnosed with dementia but notes gradual decline in his cognitive status. Overall worsening since the holidays, requires direction for almost every task, family notes inability to learn any new tasks. Has to be instructed to pull down his pants to use the restroom. It is often found in front of the shower when trying to toilet or by the toilet when he needs to shower Acutely is having episodes where he grimaces his face and kind of Bhandari's down while sleeping, family is unsure if he is in pain or if he is having nightmares. does not endorse that anything happens like this at night. He is getting up 4-5 times a night to pee Was recently supposed to have his Parkinson's meds uptitrated but there have been issues as he recently had the flu Tele sinus rhythm 50s to 80s Review of Systems Review of Systems: All systems reviewed & are unremarkable except as noted in Subjective Physical Exam Physical Exam: General: NAD, VS as above, lying in bed sleeping Resp: normal respiratory effort, snoring, lungs clear to auscultation anteriorly CV: RRR, no murmur, Abd: normal bowel sounds, soft, worsening grimacing with suprapubic palpation Extremities: Moves all extremities, bilateral upper extremity soft restraints Results & Data Results & Data Vital Signs (Past 12 Hours) Vital Signs Temp Pulse Pulse Pulse Resp BP BP 10/28/24 07:48 97.9 F 97 H 18 122/77 10/28/24 01:53 10/28/24 01:53 98.2 F 90 20 147/82 H 10/27/24 23:50 84 10/27/24 23:42 98.2 F 90 20 147/82 H 10/27/24 22:30 66 18 94/65 L 10/27/24 20:43 99.7 F H Pulse Ox O2 Del Method 10/28/24 07:48 93 Room Air 10/28/24 01:53 Room Air 10/28/24 01:53 91 Room Air 10/27/24 23:50 10/27/24 23:42 91 Room Air 10/27/24 22:30 92 Room Air 10/27/24 20:43 Laboratory Results CBC, chemistry, UA reviewed Diagnostic Findings chest x-ray reviewed, head CT reviewed PG Care Time/CCT Total # of Minutes Spent Total Time Spent with Patient: Total time spent is greater than 50% in coordination of care (as documented) at patient's floor/unit and/or counseling patient: Coding Level of Care Code 60013 SUB INP/OBS CARE 3/50MIN Diagnoses LLL pneumonia J18.9 Ambulatory dysfunction R26.2 Renal insufficiency N28.9 Rheumatoid arthritis M06.9 Acute diarrhea R19.7"
[2024-10-28] MEDS ORDERED: INFLUENZA VACC TS2024-25(65y+)/PF (IIV3) 0.5mL Syr IM ONE (09:00)
[2024-10-28 09:11] LABS: Calcium 8.6 mg/dl (8.6-10.3); Magnesium 2.1 mg/dl (1.7-2.4); Potassium 3.4 mmol/L (3.5-5.1)
[2024-10-28 09:17] LABS: BUN Creatinine Ratio 18.3 (10-20); Creatinine Clr Calc Pharmacy 74.5 ml/min
[2024-10-28] MEDS: CARBIDOPA/LEVODOPA 25/100MG EXT REL TAB PO SCH ×2 (12:01→18:09)
[2024-10-28] MEDS: SERTRALINE HCL 100 MG TABLET PO SCH (12:02)
[2024-10-28] MEDS: PANTOprazole 40 MG TAB PO SCH (12:02)
[2024-10-28] MEDS: predniSONE 5 MG TAB PO SCH (12:02)
[2024-10-28] MEDS: POTASSIUM CHLORIDE CRTAB 20 MEQ TABCR PO STA (12:02)
[2024-10-28] MEDS: lamoTRIgine 25 MG TAB PO SCH (12:02)
[2024-10-28] MEDS: ASPIRIN 81 MG ECTAB PO SCH (12:02)
[2024-10-28] MEDS: lamoTRIgine 100 MG TAB PO SCH (12:02)
[2024-10-28 13:08] LABS: Appearance Urine Clear (Clear); Bilirubin Urine Negative (Negative); Blood Urine Negative (Negative); Color Urine Yellow; Glucose Urine UA Negative (Negative); Ketones Urine Negative (Negative); Leukocyte Esterase Urine Negative (Negative); Nitrite Urine Negative (Negative); Protein Urine Negative (Negative); Specific Gravity Urine 1.004 (1.000-1.030); Urobilinogen Urine Negative (Negative)
--- NOTE | 2024-10-28 13:24 | Electrocardiogram Report ---
Test Reason : Blood Pressure : */* mmHG Vent. Rate : 81 BPM Atrial Rate : 81 BPM P-R Int : 170 ms QRS Dur : 80 ms QT Int : 444 ms P-R-T Axes : 72 -14 34 degrees QTcB Int : 515 ms Normal sinus rhythm Poor R wave progression, consider anterior NC vs. lead placement vs. LVH Abnormal ECG When compared with ECG of 21-Aug-2022 17:53, Nonspecific T wave abnormality now evident in Lateral leads QT has lengthened Confirmed by Colby Gustafson ([id number]) on 10/28/2024 1:23:41 PM Referred By: REFERRED SELF Confirmed By: Colby Gustafson
[2024-10-28] MEDS: ACETAMINOPHEN 1,000 MG/100 ML VIAL IV STA (13:51)
[2024-10-28] MEDS: ENTACAPONE 200 MG TAB PO SCH (18:09)
[2024-10-28] MEDS ORDERED: PHA DELIRIUM CONSULT PRN (19:20)
[2024-10-28] MEDS: TAMSULOSIN HCL 0.4 MG CAP PO SCH (21:05)
[2024-10-28] MEDS: QUEtiapine FUMARATE 25 MG TABLET PO SCH (22:02)
[2024-10-28] MEDS: AZITHROMYCIN 250 MG in DEXTROSE 5% 250 ML IV SCH (22:08)
[2024-10-28] MEDS: cefTRIAXone SODIUM 2,000 MG/50 ML BAG IV SCH (22:08)
[2024-10-29] MEDS ORDERED: ALBUT/IPRATROP 3MG/0.5MG NEB 3 ML VIAL NEB PRN (13:55)
[2024-10-29] MEDS: ALBUT/IPRATROP 3MG/0.5MG NEB 3 ML VIAL NEB STA (14:37)
--- NOTE | 2024-10-29 14:54 | Hospitalist Progress Note ---
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 Presented with increasing recurrent falls, confusion, aggression, and hallucinations for multiple days, in the setting of recent influenza infection. Initial evaluation revealed negative biofire, negative UA, and CXR with posterior basal consolidation/atelectasis, however residual left lower lobe infiltrate cannot be exclude and chronic left sided diaphragmatic elevation. Pt admitted for IV antibiotics and PT/OT evaluations. 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 Conde) - last visit (10/03/24) reviewed - rec switch to Stalevo 50/200/200 QID. If continued hallucinations, add Nuplazid 34mg/day - will switch to 50/200/200 QID dosing (will be three pills here as Stalevo is not on formularly) Suspect underlying cognitive/dementia process as well - add Seroquel 25mg HS (however if no improvement, consider sending Nuplazid to pharmacy and having family bring it in) PT/OT pending - Suspect patient will need rehab, SNF did not require any extra medications overnight, restraints have been removed and he has been pleasant. #BPH Noted hx, but not seems to be on any meds, takes ?saw guerita OTC Flomax started after episode of retention, BP has remained stable #rheumatoid arthritis follows with [facility] rheumatology Continue chronic prednisone 5 Mg p.o. daily, Hold Rinvoq QAM, history of seizurescontinue lamotrigine GERDcontinue PPI Depressioncontinue sertraline BPH- bladder scan prn Dispo: continued inpatient stay, DVT prophylaxis: SCDs. Family updated at bedside 10/28 & 10/29 Admission and Anticipated Discharge Date Admission Date: October 27, 2024 Supervising Physician Co-Signing Physician Notes Attending Attestation - Chart reviewed, care plan d/w ROSIBEL Lino. I agree w/ the coronado components of her documentation. John Romero MD Subjective patient seen lying in bed, present at bedside. David is able to answer some of my questions today knows his name and knows that he is in the hospital. Thinks he was in the hospital though for seizure. Denies any pain reports that he is much closer to his mental status baseline. Review of Systems Review of Systems: All systems reviewed & are unremarkable except as noted in Subjective Physical Exam Physical Exam: General: NAD, VS as above, Sitting up in bed, appears much better than yesterday Resp: normal respiratory effort, wheezing throughout bilateral lung petersen CV: RRR, no murmur, Abd: normal bowel sounds, soft, nontender to palpation Extremities: Moves all extremities, alert and oriented x 2 Results & Data Results & Data Vital Signs (Past 12 Hours) Vital Signs Temp Pulse Pulse Resp BP BP Pulse Ox 10/29/24 14:37 81 16 93 10/29/24 11:50 97.9 F 74 18 134/84 94 10/29/24 09:15 97.9 F 82 18 108/62 90 10/29/24 08:00 10/29/24 07:57 97.9 F 92 H 16 120/76 94 10/29/24 07:47 98.4 F 87 16 111/64 91 O2 Del Method 10/29/24 14:37 Room Air 10/29/24 11:50 Room Air 10/29/24 09:15 Room Air 10/29/24 08:00 Room Air 10/29/24 07:57 Room Air 10/29/24 07:47 Room Air PG Care Time/CCT Total # of Minutes Spent Total Time Spent with Patient: Total time spent is greater than 50% in coordination of care (as documented) at patient's floor/unit and/or counseling patient: Coding Level of Care Code 04291 SUB INP/OBS CARE 35MIN Diagnoses LLL pneumonia J18.9 Ambulatory dysfunction R26.2 Renal insufficiency N28.9 Rheumatoid arthritis M06.9 Acute diarrhea R19.7"
[2024-10-30] MEDS: hydrOXYzine HCl 25 MG TAB PO STA (06:01)
--- NOTE | 2024-10-30 11:35 | Hospitalist Progress Note ---
Date of Service October 30, 2024 Assessment & Plan (1) LLL pneumonia: (2) Ambulatory dysfunction: (3) Renal insufficiency: (4) Rheumatoid arthritis: (5) Acute diarrhea: Plan Patient is a 74-year-old male with past medical history of Parkinson's disease, restrictive lung disease secondary to paralyzed left hemidiaphragm, history of seizures, BPH, rheumatoid arthritis (on Rinvoq and prednisone). Presented with increasing recurrent falls, confusion, aggression, and hallucinations for multiple days, in the setting of recent influenza infection. Initial evaluation revealed negative biofire, negative UA, and CXR with posterior basal consolidation/atelectasis, however residual left lower lobe infiltrate cannot be exclude and chronic left sided diaphragmatic elevation. Pt admitted for IV antibiotics and PT/OT evaluations. 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 Conde) - last visit (10/03/24) reviewed - rec switch to Stalevo 50/200/200 QID. If continued hallucinations, add Nuplazid 34mg/day - will switch to 50/200/200 QID dosing (will be three pills here as Stalevo is not on formularly) Suspect underlying cognitive/dementia process as well - add Seroquel 25mg HS (however if no improvement, consider sending Nuplazid to pharmacy and having family bring it in) PT/OT recommend rehab, case management following #BPH Noted hx, but not seems to be on any meds, takes ?saw guerita OTC Flomax started after episode of retention, BP has remained stable #rheumatoid arthritis follows with [facility] rheumatology Continue chronic prednisone 5 Mg p.o. daily, Hold Rinvoq QAM, history of seizurescontinue lamotrigine GERDcontinue PPI Depressioncontinue sertraline Dispo: continued inpatient stay, DVT prophylaxis: SCDs. Family updated at bedside 10/28 & 10/29 Admission and Anticipated Discharge Date Admission Date: October 27, 2024 Supervising Physician Co-Signing Physician Notes Attending Attestation - Chart reviewed, care plan d/w ROSIBEL Lino. I agree w/ the coronado components of her documentation. John Romero MD Subjective patient seen earlier this morning after I was notified by the RN that he was yelling at staff and trying to get out of the bed and leave. When I entered the room this was the case he initially screamed at me but was redirectable. States that he wants to go home. He understands that he has pneumonia but states "I can take pills at home "we discussed his physical strength and how his is unable to take care of him in his current state and his need for physical rehab. He was agreeable to ice cream as a snack and this was a good distraction Review of Systems Review of Systems: All systems reviewed & are unremarkable except as noted in Subjective Physical Exam Physical Exam: General: NAD, VS as above, Sitting up in bed, Resp: normal respiratory effort, diminished in the bases, no wheezing today CV: RRR, no murmur, Abd: normal bowel sounds, soft, nontender to palpation Extremities: Moves all extremities, alert and oriented x 2 Results & Data Results & Data Vital Signs (Past 12 Hours) Vital Signs Temp Pulse Pulse Resp BP Pulse Ox O2 Del Method 10/30/24 07:47 97.7 F 84 18 129/72 94 Room Air 10/30/24 07:16 84 PG Care Time/CCT Total # of Minutes Spent Total Time Spent with Patient: Total time spent is greater than 50% in coordination of care (as documented) at patient's floor/unit and/or counseling patient: Coding Level of Care Code 10002 SUB INP/OBS CARE 08/30MIN Diagnoses LLL pneumonia J18.9 Ambulatory dysfunction R26.2 Renal insufficiency N28.9 Rheumatoid arthritis M06.9 Acute diarrhea R19.7
[2024-10-30] MEDS ORDERED: PHA DELIRIUM CONSULT PRN ×2 (11:58→19:35)
[2024-10-30] MEDS: ACETAMINOPHEN 325 MG TAB PO PRN (21:45)
[2024-10-31] MEDS: LORazepam 0.5 MG TAB PO STA (02:32)
[2024-10-31] MEDS: QUEtiapine FUMARATE 25 MG TABLET PO STA (12:59)
--- NOTE | 2024-10-31 14:42 | Hospitalist Progress Note ---
"Date of Service October 31, 2024 Assessment & Plan (1) LLL pneumonia: (2) Ambulatory dysfunction: (3) Renal insufficiency: (4) Rheumatoid arthritis: (5) Acute diarrhea: Plan Patient is a 74-year-old male with past medical history of Parkinson's disease, restrictive lung disease secondary to paralyzed left hemidiaphragm, history of seizures, BPH, rheumatoid arthritis (on Rinvoq and prednisone). Presented with increasing recurrent falls, confusion, aggression, and hallucinations for multiple days, in the setting of recent influenza infection. Initial evaluation revealed negative biofire, negative UA, and CXR with posterior basal consolidation/atelectasis, however residual left lower lobe infiltrate cannot be exclude and chronic left sided diaphragmatic elevation. Pt admitted for IV antibiotics and PT/OT evaluations. 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 Conde) - last visit (10/03/24) reviewed - rec switch to Stalevo 50/200/200 QID. If continued hallucinations, add Nuplazid 34mg/day - will switch to 50/200/200 QID dosing (will be three pills here as Stalevo is not on formularly) Suspect underlying cognitive/dementia process as well - add Seroquel 25mg BID with increased behaviors PT/OT recommend rehab, case management following #BPH Noted hx, but not seems to be on any meds, takes ?saw guerita OTC Flomax started after episode of retention, BP has remained stable #rheumatoid arthritis follows with [facility] rheumatology Continue chronic prednisone 5 Mg p.o. daily, Hold Rinvoq QAM, history of seizurescontinue lamotrigine GERDcontinue PPI Depressioncontinue sertraline Dispo: continued inpatient stay, managing behaviors DVT prophylaxis: SCDs. Family updated at bedside 10/28 & 10/29 & 10/31 Admission and Anticipated Discharge Date Admission Date: October 27, 2024 Supervising Physician Co-Signing Physician Notes Attending Attestation - Chart reviewed, care plan d/w ROSIBEL Lino. I agree w/ the coronado components of her documentation. Restraints of upper limbs have been necessary to avoid pulling at IVs, avoid self-injury, avoid injury to staff, etc. John Romero MD Subjective patient seen earlier this morning attempting to get out of bed despite being in restraints. Mumbles and not able to be reasoned with Revisit this afternoon with at bedside and sleeping Review of Systems Review of Systems: All systems reviewed & are unremarkable except as noted in Subjective Physical Exam Physical Exam: General: NAD, VS as above, Sitting up in bed, Resp: normal respiratory effort, diminished in the bases, no wheezing today CV: RRR, no murmur, Extremities: Moves all extremities, alert and oriented x 1 Results & Data Results & Data Vital Signs (Past 12 Hours) Vital Signs Temp Pulse Pulse Resp BP Pulse Ox O2 Del Method 10/31/24 14:07 83 10/31/24 07:39 98.4 F 81 20 99/62 L 92 Room Air PG Care Time/CCT Total # of Minutes Spent Total Time Spent with Patient: Total time spent is greater than 50% in coordination of care (as documented) at patient's floor/unit and/or counseling patient: Coding Level of Care Code 04761 SUB INP/OBS CARE 2/35MIN Diagnoses LLL pneumonia J18.9 Ambulatory dysfunction R26.2 Renal insufficiency N28.9 Rheumatoid arthritis M06.9 Acute diarrhea R19.7"
[2024-10-31] MEDS: DOXYCYCLINE HYCLATE 100 MG CAP PO SCH (20:37)
[2024-10-31] MEDS: QUEtiapine FUMARATE 25 MG TABLET PO SCH (20:38)
--- NOTE | 2024-11-01 09:50 | Electrocardiogram Report ---
Test Reason : Blood Pressure : */* mmHG Vent. Rate : 81 BPM Atrial Rate : 81 BPM P-R Int : 168 ms QRS Dur : 86 ms QT Int : 388 ms P-R-T Axes : 63 -24 30 degrees QTcB Int : 450 ms Normal sinus rhythm Poor R wave progression, consider anterior PA vs. lead placement vs. LVH Normal ECG When compared with ECG of 27-Oct-2024 16:57, QT has shortened Confirmed by Tere El ([id number]) on 11/01/2024 9:50:28 AM Referred By: REFERRED SELF Confirmed By: Tere El
[2024-11-01] MEDS: QUEtiapine FUMARATE 25 MG TABLET PO STA (11:53)
--- NOTE | 2024-11-01 14:06 | Hospitalist Progress Note ---
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 Presented with increasing recurrent falls, confusion, aggression, and hallucinations for multiple days, in the setting of recent influenza infection. Initial evaluation revealed negative biofire, negative UA, and CXR with posterior basal consolidation/atelectasis, however residual left lower lobe infiltrate cannot be exclude and chronic left sided diaphragmatic elevation. Pt admitted for IV antibiotics and PT/OT evaluations. 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 Conde) - last visit (10/03/24) reviewed - rec switch to Stalevo 50/200/200 QID. If continued hallucinations, add Nuplazid 34mg/day - will switch to 50/200/200 QID dosing (will be three pills here as Stalevo is not on formulary) PT/OT recommend rehab, case management following Patient becoming increasingly agitated and aggressive - has required restraints on and off. Mostly wanting to leave and usually not redirectable. Patient started on seroquel this admission and has been uptitrated. Received a 25mg dose around noon today for behavioral emergency for effectively 25mg TID dosing. QTc checked yesterday - 450. Will add 25mg PO seroquel HS PRN for aggitation. If behaviors not improving, consider psych consult #BPH Noted hx, but not seems to be on any meds, takes ?saw guerita OTC Flomax started after episode of retention, BP has remained stable #rheumatoid arthritis follows with [facility] rheumatology Continue chronic prednisone 5 Mg p.o. daily, Hold Rinvoq QAM, history of seizurescontinue lamotrigine GERDcontinue PPI Depressioncontinue sertraline Dispo: continued inpatient stay, managing behaviors DVT prophylaxis: SCDs. Family updated at bedside 10/28 & 10/29 & 10/31 Admission and Anticipated Discharge Date Admission Date: October 27, 2024 Supervising Physician Co-Signing Physician Notes Attending Attestation - Chart reviewed, care plan d/w ROSIBEL Lino. I agree w/ the coronado components of her documentation. Unfortunately patient required restraints once again today. Restraints of upper limbs have been necessary to avoid self-injury, avoid injury to staff, etc. Cont seroquel titration as tolerated; follow QTc. John Romero MD Subjective touched base with RN this morning and patient was cooperating and trialed out of restraints, I visited the patient about 1 hour after this, and he was trying to get out of the bed and mumbling about two hours later yelling, aggitated and had to be put back into restraints Review of Systems Review of Systems: All systems reviewed & are unremarkable except as noted in Subjective Physical Exam Physical Exam: General: NAD, VS as above, moving around in the bed Resp: normal respiratory effort, did not allow me to listen to his back today CV: RRR, no murmur, Extremities: Moves all extremities, alert and oriented x 1 Results & Data Results & Data Vital Signs (Past 12 Hours) Vital Signs Temp Pulse Resp BP BP Pulse Ox O2 Del Method 11/01/24 12:16 97.0 F L 86 17 105/70 93 Room Air 11/01/24 07:32 Room Air 11/01/24 03:27 98.2 F 77 20 123/77 95 Room Air PG Care Time/CCT Total # of Minutes Spent Total Time Spent with Patient: Total time spent is greater than 50% in coordination of care (as documented) at patient's floor/unit and/or counseling patient: Coding Level of Care Code 98406 SUB INP/OBS CARE 3/50MIN Diagnoses LLL pneumonia J18.9 Ambulatory dysfunction R26.2 Renal insufficiency N28.9 Rheumatoid arthritis M06.9 Acute diarrhea R19.7"
[2024-11-01] MEDS ORDERED: QUEtiapine FUMARATE 25 MG TABLET PO PRN (14:40)
--- NOTE | 2024-11-02 14:01 | Psychiatric Consultation ---
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 Unfortunately there are no known medications to cure or shorten the duration of delirium; rather antipsychotics are used at times to help with sleep/appetite/psychomotor agitation and hallucinations if these symptoms are causing significant distress and/or interfering with acute safety. Duration of delirium varies broadly with persistent delirium (defined as lasting for weeks or months) occurring frequently with [id number]% of patients exhibiting some symptoms of delirium at 6 months after symptom onset, see:Jeremy Morelos., Lamine Ludwig., Cheyanne Olivo.et al.Delirium.Kim Rev Dis Primers6, 90 (2020). [email or web address]. Goal in dementia is to avoid medication management of behaviors if possible by maximizing non-pharmacologic strategies for behavioral management. However, given worsening agitation/aggression agree that use of an antipsychotic is warranted as risk/benefit profile now favors treatment. Note all antipsychotic medications carry black box warning for increased risk of all-cause mortality in setting of dementia. Overall, I spent a total of 60 minutes with this case including review of chart records, review of labwork, review of EKG QTc, direct evaluation of the patient at bedside, counseling the patient, discussion of the patient with the Nurse and with the hospitalist provider, discussion with the psychiatric liason during clinical rounds and documentation in the electronic health record. (1) Acute confusion: (2) Dementia due to Parkinson's disease with behavioral disturbance: (3) Delirium: (4) LLL pneumonia: Plan -Given limited effect from Seroquel would trial olanzapine 2.5mg po HS prn or 5mg ODT (seems like this might be most successful option) HS prn for agitation/delusions. Avoid typical antipsychotics such as haldol given increased risk for motor side effects in Parkinson's disease. -Continue medical workup to rule out and treat any underlying causes contributing to potential delirium including correction of electrolyte ab normalities, avoid or limit use of deliriogenic medications (benzodiazepines, opioids, anticholinergics) -Continue with delirium prevention measures: raising blinds during the day, closing at night, frequent re-orientation, contact with family/friends, explaining procedures/nursing care measures prior to physical contact, correct any hearing and visual impairments -For behavioral emergency: olanzapine 2.5 mg or 5mg IM x 1 (DO NOT exceed 20mg per 24 hours, check EKG if IM dose required, NEVER co-administer with IM or IV benzodiazepines). -If symptoms persist despite treatment of his medical conditions and antipsychotic medication changes then it might be worthwhile to consider adjustment of Sinement dosing and/or neurology input. If symptoms persist would also encourage consideration for use of pimavanserin as alternative option for hallucinations/agitation if neurology agrees. Psych History Identifying Data 74-year-old male with past medical history of Parkinson's disease, 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 He presented to the ED with his due to increasing confusion, aggression, and hallucinations for multiple days. Psychiatry consulted for medication recommendations for agitation. Chief Complaint garbled History of Present Illness Clement was admitted due to increased confusion and aggression. Per H&P seems his symptoms have worsened since he had the flu on 10/16/2024. Increased falls and motor instability in recent weeks as well. He has been kicking, hitting and swearing at nurses. Very resistant to care interventions, especially when he is incontinent and linen changes or direct care is required. He has been getting Seroquel po with limited to no benefit so far desite multiple doses. Today his speech is garbled and incomprehensible. He is soft wrist restraints and resting tremor of his hands is noticeable. No evidence for acute dystonia, he is moving all of his limbs, head, eyes, neck. Allergies Allergy/AdvReac Type Severity Reaction Status Date / Time methotrexate Allergy Severe Seizure Verified 01/02/24 10:07 Home Medications Medication Instructions Recorded Confirmed Type aspirin 81 mg tablet,delayed 81 mg PO QAM 06/06/22 10/27/24 History release biotin 1,000 mcg chewable tablet 1,000 mcg PO QAM 06/06/22 10/27/24 History carbidopa ER 25 mg-levodopa 100 mg 2 tab PO TIDM 06/06/22 10/27/24 History tablet,extended release lamotrigine 150 mg tablet 150 mg PO BID 06/06/22 10/27/24 History omeprazole 20 mg tablet,delayed 40 mg PO BID 06/06/22 10/27/24 History release sertraline 100 mg tablet 100 mg PO DAILY 06/06/22 10/27/24 History upadacitinib 15 mg tablet,extended 15 mg PO HS 06/06/22 10/27/24 History release 24 hr (Rinvoq) cholecalciferol (vitamin D3) 25 50 mcg PO DAILY 08/21/22 10/27/24 History mcg (1,000 unit) tablet (Vitamin D3) diclofenac sodium 1 % topical gel 2 g topical TID PRN Pain 08/21/22 10/27/24 History prednisone 5 mg tablet 5 mg PO QAM 08/21/22 10/27/24 History saw palmetto 160 mg capsule 160 mg PO BID 09/26/22 10/27/24 History cyanocobalamin (vitamin B-12) 1,000 mcg PO DAILY 11/19/23 10/27/24 History 1,000 mcg capsule magnesium chloride 64 mg 64 mg PO DAILY 11/19/23 10/27/24 History (magnesium chloride) tablet carbidopa 50 mg-levodopa 200 1 tab PO HS 10/27/24 10/27/24 History mg-entacapone 200 mg tablet Patient History Medical History Rheumatoid arthritis Hearing deficit Surgical History History of cataract surgery History of total hip arthroplasty left History of colonoscopy History of tooth extraction Nasal polyps removed Family History Other Allergies Cancer Heart disease No family history of adverse response to anesthesia Social History Smoking Status: Never smoker Second Hand Exposure: No; Do You Dip or Chew Tobacco: No; Hx Alcohol Use: Yes Alcohol type: beer Hx Substance Use: No Preferred Language: Serbian Communication Ability: Effective Budget Report Clerk Required: Voice Beliefs That Will Affect Care: None Current Living Situation: Spouse Current Living Situation Comment: lives with Tawnya Other Information That Helps Us Care for You: No Feels Safe at Home: Yes Assistive Devices: Cane and Walker Physical Exam Vital Signs (Past 24 Hours): Last Vital Signs Temp 36.6 C 11/02/24 00:15 Pulse 76 11/02/24 00:15 Resp 20 11/02/24 00:15 BP 130/69 11/02/24 00:15 Pulse Ox 94 11/02/24 00:15 O2 Del Method Room Air 11/02/24 09:22 Results & Data (PSY) Medications Administered Acetaminophen (Acetaminophen 325 Mg Tab) 650 mg PO Q4H PRN PRN Reason: Pain or Fever Stop: 11/26/24 23:41 Last Admin: 10/31/24 17:35 Dose: 650 mg Documented By: Admin: 10/30/24 21:45 Dose: 650 mg Documented By: FELICITA Aspirin (Aspirin 81 Mg Ectab) 81 mg PO QAM [facility] Stop: 11/27/24 08:59 Last Admin: 11/02/24 09:29 Dose: 81 mg Documented By: [facility] Admin: 11/01/24 08:57 Dose: 81 mg Documented By: Admin: 10/31/24 10:09 Dose: 81 mg Documented By: Admin: 10/30/24 08:14 Dose: 81 mg Documented By: Admin: 10/29/24 09:21 Dose: 81 mg Documented By: Admin: 10/28/24 12:02 Dose: Not Given Documented By: ANTONIO Carbidopa/Levodopa (Carbidopa/Levodopa 25/100mg Ext Rel Tab) 2 tab PO QID [facility] Stop: 11/27/24 07:59 Last Admin: 11/02/24 12:12 Dose: 2 tab Documented By: Admin: 11/02/24 09:28 Dose: 2 tab Documented By: Admin: 11/01/24 20:39 Dose: 2 tab Documented By: Admin: 11/01/24 17:05 Dose: 2 tab Documented By: Admin: 11/01/24 14:03 Dose: 2 tab Documented By: Admin: 11/01/24 09:01 Dose: 2 tab Documented By: Admin: 10/31/24 20:37 Dose: 2 tab Documented By: Admin: 10/31/24 17:27 Dose: 2 tab Documented By: Admin: 10/31/24 13:36 Dose: 2 tab Documented By: Admin: 10/31/24 10:10 Dose: 2 tab Documented By: Admin: 10/30/24 21:43 Dose: 2 tab Documented By: Admin: 10/30/24 17:14 Dose: 2 tab Documented By: Admin: 10/30/24 12:24 Dose: 2 tab Documented By: Admin: 10/30/24 08:14 Dose: 2 tab Documented By: Admin: 10/29/24 21:00 Dose: 2 tab Documented By: Admin: 10/29/24 16:45 Dose: 2 tab Documented By: Admin: 10/29/24 13:04 Dose: 2 tab Documented By: Admin: 10/29/24 10:11 Dose: 2 tab Documented By: Admin: 10/28/24 22:50 Dose: Not Given Documented By: Admin: 10/28/24 18:09 Dose: Not Given Documented By: RAUL Entacapone (Entacapone 200 Mg Tab) 200 mg PO QID SHA Stop: 11/27/24 16:59 Last Admin: 11/02/24 12:11 Dose: 200 mg Documented By: Admin: 11/02/24 09:29 Dose: 200 mg Documented By: Admin: 11/01/24 20:39 Dose: 200 mg Documented By: Admin: 11/01/24 17:04 Dose: 200 mg Documented By: [facility] Admin: 11/01/24 14:04 Dose: 200 mg Documented By: [facility] Admin: 11/01/24 08:58 Dose: 200 mg Documented By: Admin: 10/31/24 20:37 Dose: 200 mg Documented By: Admin: 10/31/24 17:26 Dose: 200 mg Documented By: Admin: 10/31/24 13:36 Dose: 200 mg Documented By: Admin: 10/31/24 10:09 Dose: 200 mg Documented By: Admin: 10/30/24 21:44 Dose: 200 mg Documented By: Admin: 10/30/24 17:14 Dose: 200 mg Documented By: Admin: 10/30/24 12:24 Dose: 200 mg Documented By: Admin: 10/30/24 08:15 Dose: 200 mg Documented By: Admin: 10/29/24 21:00 Dose: 200 mg Documented By: Admin: 10/29/24 16:45 Dose: 200 mg Documented By: Admin: 10/29/24 13:04 Dose: 200 mg Documented By: Admin: 10/29/24 09:22 Dose: 200 mg Documented By: Admin: 10/28/24 21:05 Dose: 200 mg Documented By: Admin: 10/28/24 18:09 Dose: Not Given Documented By: WRL Lamotrigine (Lamotrigine 100 Mg Tab) 100 mg PO BID SHA Stop: 11/27/24 08:59 Last Admin: 11/02/24 09:30 Dose: 100 mg Documented By: Admin: 11/01/24 20:38 Dose: 100 mg Documented By: Admin: 11/01/24 08:58 Dose: 100 mg Documented By: Admin: 10/31/24 20:37 Dose: 100 mg Documented By: Admin: 10/31/24 10:10 Dose: 100 mg Documented By: Admin: 10/30/24 21:44 Dose: 100 mg Documented By: Admin: 10/30/24 08:15 Dose: 100 mg Documented By: Admin: 10/29/24 21:00 Dose: 100 mg Documented By: Admin: 10/29/24 09:23 Dose: 100 mg Documented By: Admin: 10/28/24 21:06 Dose: 100 mg Documented By: Admin: 10/28/24 12:02 Dose: Not Given Documented By: ANTONIO Lamotrigine (Lamotrigine 25 Mg Tab) 50 mg PO BID [facility] Stop: 11/27/24 08:59 Last Admin: 11/02/24 09:29 Dose: 50 mg Documented By: Admin: 11/01/24 20:39 Dose: 50 mg Documented By: Admin: 11/01/24 08:58 Dose: 50 mg Documented By: Admin: 10/31/24 20:37 Dose: 50 mg Documented By: Admin: 10/31/24 10:09 Dose: 50 mg Documented By: Admin: 10/30/24 21:43 Dose: 50 mg Documented By: Admin: 10/30/24 08:14 Dose: 50 mg Documented By: Admin: 10/29/24 21:00 Dose: 50 mg Documented By: Admin: 10/29/24 09:22 Dose: 50 mg Documented By: Admin: 10/28/24 21:06 Dose: 50 mg Documented By: Admin: 10/28/24 12:02 Dose: Not Given Documented By: ANTONIO Melatonin (Melatonin 3 Mg Tab) 3 mg PO HS PRN PRN Reason: Sleep Stop: 11/26/24 23:41 Last Admin: 10/28/24 02:41 Dose: 3 mg Documented By: FELICITA Pantoprazole Sodium (Pantoprazole 40 Mg Tab) 40 mg PO BID SHA Stop: 11/27/24 08:59 Last Admin: 11/02/24 09:30 Dose: 40 mg Documented By: Admin: 11/01/24 20:39 Dose: 40 mg Documented By: Admin: 11/01/24 08:58 Dose: 40 mg Documented By: Admin: 10/31/24 20:37 Dose: 40 mg Documented By: [facility] Admin: 10/31/24 10:09 Dose: 40 mg Documented By: Admin: 10/30/24 21:44 Dose: 40 mg Documented By: Admin: 10/30/24 08:14 Dose: 40 mg Documented By: Admin: 10/29/24 21:00 Dose: 40 mg Documented By: Admin: 10/29/24 09:21 Dose: 40 mg Documented By: Admin: 10/28/24 21:06 Dose: 40 mg Documented By: Admin: 10/28/24 12:02 Dose: Not Given Documented By: ANTONIO Prednisone (Prednisone 5 Mg Tab) 5 mg PO QAM SHA Stop: 11/27/24 08:59 Last Admin: 11/02/24 09:30 Dose: 5 mg Documented By: Admin: 11/01/24 08:58 Dose: 5 mg Documented By: Admin: 10/31/24 10:10 Dose: 5 mg Documented By: Admin: 10/30/24 08:14 Dose: 5 mg Documented By: Admin: 10/29/24 09:21 Dose: 5 mg Documented By: Admin: 10/28/24 12:02 Dose: Not Given Documented By: ANTOINO Quetiapine Fumarate (Quetiapine Fumarate 25 Mg Tablet) 25 mg PO BID SHA Stop: 11/30/24 20:59 Last Admin: 11/02/24 09:31 Dose: 25 mg Documented By: Admin: 11/01/24 20:39 Dose: 25 mg Documented By: Admin: 11/01/24 08:58 Dose: 25 mg Documented By: [facility] Admin: 10/31/24 20:38 Dose: 25 mg Documented By: RUSTY Sertraline HCl (Sertraline Hcl 100 Mg Tablet) 100 mg PO DAILY SHA Stop: 11/27/24 08:59 Last Admin: 11/02/24 09:31 Dose: 100 mg Documented By: [facility] Admin: 11/01/24 08:58 Dose: 100 mg Documented By: Admin: 10/31/24 10:10 Dose: 100 mg Documented By: Admin: 10/30/24 08:15 Dose: 100 mg Documented By: Admin: 10/29/24 09:21 Dose: 100 mg Documented By: Admin: 10/28/24 12:02 Dose: Not Given Documented By: ANTONIO Tamsulosin HCl (Tamsulosin Hcl 0.4 Mg Cap) 0.4 mg PO HS SHA Stop: 11/27/24 20:59 Last Admin: 11/01/24 20:39 Dose: 0.4 mg Documented By: Admin: 10/31/24 20:37 Dose: 0.4 mg Documented By: Admin: 10/30/24 21:45 Dose: 0.4 mg Documented By: [facility] Admin: 10/29/24 21:00 Dose: 0.4 mg Documented By: Admin: 10/28/24 21:05 Dose: 0.4 mg Documented By: MINERVA Coding Level of Care Code 99339 IN/OBS CONSULT LVL 4,60M Diagnoses Acute confusion R41.0 Dementia due to Parkinson's disease with behavioral disturbance G20.A1; F02.818 Delirium R41.0 LLL pneumonia J18.9
--- NOTE | 2024-11-02 15:19 | Hospitalist Progress Note ---
"Date of Service November 02, 2024 Assessment & Plan (1) LLL pneumonia: (2) Ambulatory dysfunction: (3) Renal insufficiency: (4) Rheumatoid arthritis: (5) Acute diarrhea: Plan Patient is a 74-year-old male with past medical history of Parkinson's disease, restrictive lung disease secondary to paralyzed left hemidiaphragm, history of seizures, BPH, rheumatoid arthritis (on Rinvoq and prednisone). Presented with increasing recurrent falls, confusion, aggression, and hallucinations for multiple days, in the setting of recent influenza infection. Initial evaluation revealed negative biofire, negative UA, and CXR with posterior basal consolidation/atelectasis, however residual left lower lobe infiltrate cannot be exclude and chronic left sided diaphragmatic elevation. Pt admitted for IV antibiotics and PT/OT evaluations. #PNA | Possible Metabolic encephalopathy due to pneumonia Immunocompromised on Rinvoq (last dose 10/27) and chronic steroid use. Completed course of rocephin and azithro/doxy. 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 Conde) - last visit (10/03/24) reviewed - rec switch to Stalevo 50/200/200 QID. If continued hallucinations, add Nuplazid 34mg/day - will switch to 50/200/200 QID dosing (will be three pills here as Stalevo is not on formulary) PT/OT recommend rehab, case management following - family considering family appeal for [facility]. Patient becoming increasingly agitated and aggressive - has required restraints on and off. Mostly wanting to leave and usually not redirectable. Patient started on Seroquel this admission and has been uptitrated without much effect. Psychiatry consulted and trial Zyprexa 5mg ODT hs prn for agitation/delusions. Behavioral emergency IM zyprexa. If not improving, consider neurology consult/pimavanserin for hallucinations. Today endorses to me that patient has been having hallucination while inpatient and since NOV at home. #BPH Noted hx, but not seems to be on any meds, takes ?saw guerita OTC Flomax started after episode of retention, BP has remained stable #rheumatoid arthritis follows with [facility] rheumatology Continue chronic prednisone 5 Mg p.o. daily, Hold Rinvoq QAM, history of seizurescontinue lamotrigine GERDcontinue PPI Depressioncontinue sertraline Dispo: continued inpatient stay, managing behaviors DVT prophylaxis: SCDs. Family updated at bedside 10/28 & 10/29 & 10/31 & 11/02 Discussed case with Psych, Dr. Castro Admission and Anticipated Discharge Date Admission Date: October 27, 2024 Supervising Physician Co-Signing Physician Notes Attending Attestation - Chart reviewed, care plan d/w PA Mone Lino. I agree w/ the coronado components of her documentation. Unfortunately patient continues to require restraints of upper limbs in order to avoid self-injury, avoid injury to staff, etc. Appreciate psychiatric assistance by Dr Castro. John Romero MD Subjective Patient seen this morning, no family at bedside. Still in restraints, has been aggressive during his care times despite restraints Speech is garble and not answering questions with meaningful answers Review of Systems Review of Systems: Unobtainable due to cognitive status Physical Exam Physical Exam: General: NAD, VS as above, moving around in the bed Resp: normal respiratory effort, did not allow me to listen to his back today CV: RRR, no murmur, Extremities: Moves all extremities, alert and oriented x 1 Results & Data Results & Data Vital Signs (Past 12 Hours) Vital Signs O2 Del Method 11/02/24 09:22 Room Air PG Care Time/CCT Total # of Minutes Spent Total Time Spent with Patient: Total time spent is greater than 50% in coordination of care (as documented) at patient's floor/unit and/or counseling patient: Coding Level of Care Code 70109 SUB INP/OBS CARE 2/35MIN Diagnoses LLL pneumonia J18.9 Ambulatory dysfunction R26.2 Renal insufficiency N28.9 Rheumatoid arthritis M06.9 Acute diarrhea R19.7"
[2024-11-02] MEDS: OLANZapine ZYDIS 5 MG ORALLY DIS. TAB PO PRN (20:41)
--- NOTE | 2024-11-03 15:46 | Hospitalist Progress Note ---
"Date of Service November 03, 2024 Assessment & Plan (1) LLL pneumonia: (2) Ambulatory dysfunction: (3) Renal insufficiency: (4) Rheumatoid arthritis: (5) Acute diarrhea: Plan Patient is a 74-year-old male with past medical history of Parkinson's disease, restrictive lung disease secondary to paralyzed left hemidiaphragm, history of seizures, BPH, rheumatoid arthritis (on Rinvoq and prednisone). Presented with increasing recurrent falls, confusion, aggression, and hallucinations for multiple days, in the setting of recent influenza infection. Initial evaluation revealed negative biofire, negative UA, and CXR with posterior basal consolidation/atelectasis, however residual left lower lobe infiltrate cannot be exclude and chronic left sided diaphragmatic elevation. Pt admitted for IV antibiotics and PT/OT evaluations. #PNA | Possible Metabolic encephalopathy due to pneumonia Immunocompromised on Rinvoq (last dose 10/27) and chronic steroid use. Completed course of rocephin and azithro/doxy. 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 Conde) - last visit (10/03/24) reviewed - rec switch to Stalevo 50/200/200 QID. If continued hallucinations, add Nuplazid 34mg/day - will switch to 50/200/200 QID dosing (will be three pills here as Stalevo is not on formulary) PT/OT recommend rehab, case management following - family considering family appeal for [facility]. Patient continues to be agitated and aggressive - has required restraints on and off. Patient started on Seroquel this admission and has been uptitrated without much effect which was then discontinued. Psychiatry consulted and trial Zyprexa 5mg ODT hs prn for agitation/delusions. Behavioral emergency IM zyprexa. If not improving, consider neurology consult/pimavanserin for hallucinations. Neurology consulted, appreciate recs Palliative care consulted, appreciate recs Did discuss w/ today that patient has not been eating recently, she did report that she does not want to use artificial nutrition including TPN or PEG tube. #BPH Noted hx, but not seems to be on any meds, takes ?saw guerita OTC Flomax started, plan to continue #rheumatoid arthritis follows with [facility] rheumatology Continue chronic prednisone 5 Mg p.o. daily, Hold Rinvoq Chronic conditions: history of seizurescontinue lamotrigine GERDcontinue PPI Depressioncontinue sertraline Dispo: continued inpatient stay, managing behaviors DVT prophylaxis: SCDs. Family updated at bedside 11/03 Admission and Anticipated Discharge Date Admission Date: October 27, 2024 Supervising Physician Co-Signing Physician Notes Attending Attestation - Chart reviewed, care plan d/w ROSIBEL Dorman. I agree w/ the coronado components of her documentation. Unfortunately patient continues to require restraints of upper limbs in order to avoid self-injury, avoid injury to staff, etc. Patient remains severely altered. Agree with palliative care consult to refine goals of care. Low-grade fever of 37.7 this evening - recheck cbc, bmp, mag, crp, B12 in am. Consider repeat cxr. Consider I/O cath for u/a and urine cx. Consider blood cx's. John Romero MD Subjective Patient seen and examined this morning. Patient resting at time of encounter, offered no complaints. Per nurse, patient was agressive this morning trying to punch staff w/ his restraints on. Patient also spitting at staff. Physical Exam Constitutional: WD/WN, vitals as above Eyes: PERRL, conjunctivae normal, anicteric sclerae Respiratory: breathing unlabored Cardiovascular: well perfused Results & Data Results & Data Vital Signs (Past 12 Hours) Vital Signs Temp Pulse Resp BP Pulse Ox O2 Del Method 11/03/24 10:44 Room Air 11/03/24 07:56 36.4 C L 89 20 140/62 92 Room Air PG Care Time/CCT Total # of Minutes Spent Total Time Spent with Patient: Total time spent is greater than 50% in coordination of care (as documented) at patient's floor/unit and/or counseling patient: Coding Level of Care Code 07521 SUB INP/OBS CARE 2/35MIN Diagnoses LLL pneumonia J18.9 Ambulatory dysfunction R26.2 Renal insufficiency N28.9 Rheumatoid arthritis M06.9 Acute diarrhea R19.7"
[2024-11-04 06:33] LABS: Basophils # (auto) 0.08 K/uL (0.00-0.20); Basophils % (auto) 0.8 %; Eosinophils # (auto) 0.26 K/uL (0.00-0.50); Eosinophils % (auto) 2.5 %; Hematocrit (blood only) 42.5 % (42.0-52.0); Immature Granulocytes # (auto) 0.09 K/uL (0.01-0.20); Immature Granulocytes % (auto) 0.9 %; Lymphocytes # (auto) 0.88 K/uL (1.20-3.40); Lymphocytes % (auto) 8.3 %; Mean Corpuscular Hemoglobin 28.8 pg (25.0-34.0); Mean Corpuscular Hgb Conc 32.9 g/dL (32.0-36.0); Mean Corpuscular Volume 87.4 fL (80.0-100.0); Mean Platelet Volume 10.5 fL (9.4-12.4); Monocytes # (auto) 0.81 K/uL (0.11-0.59); Monocytes % (auto) 7.7 %; Neutrophils # (auto) 8.44 K/uL (1.40-6.50); Neutrophils % (auto) 79.8 %; Platelet Count 247 K/uL (130-400); RDW Coefficient of Variation 12.9 % (11.5-14.5); RDW Standard Deviation 41.3 fL (36.4-46.3); Red Blood Count 4.86 M/uL (4.70-6.10); White Blood Count 10.56 K/ul (4.8-10.8)
[2024-11-04 06:54] LABS: BUN Creatinine Ratio 23.2 (10-20); C Reactive Protein 9.81 mg/dl (0-0.5); Calcium 9.1 mg/dl (8.6-10.3); Creatinine Clr Calc Pharmacy 84.8 ml/min; Magnesium 2.1 mg/dl (1.7-2.4); Potassium 4.3 mmol/L (3.5-5.1)
--- NOTE | 2024-11-04 08:42 | Palliative Care Consultation ---
Date of Consultation November 04, 2024 Assessment & Plan (1) Agitation due to dementia: prn olanzipine - no scheduled doses low grade temp last night, workup in progress, appears less agitated but more sedated today remains in restraints Would consider olanzipine 5mg PO daily by ODT, can repeat qhs prn (2) Altered mental status: (3) Hallucination, visual: (4) Discussion about advance care planning held with family member: Met with , Maryam Reyes at bedside for 45min face to face long discussion re PD + Dementia (PDD) and expected clinical course of deterioration. We spoke about his expressed wishes - he did not want CPR, he did not want NENA, and he has for past 9 mos been more vocal with Maryam stating "I know I'm going to soon." He has been in a steady state of decline over the past year, more dramatically over the past 3-4 mos. David has 2 adult children (a son and dtr) from first marriage and 2 bio children with Maryam. There are 4 adult children, 2 from the first marriage there is no AD on file [place] 169 was discussed - NOK ordering would be current spouse + the 2 adult children from his first marriage, majority decision will rule in class. Maryam does not feel there will be a lot of opposition or conflict but agrees that everyone needs to hear how serious things have become and she does not want to convey this news on her own. I agreed and offered a family meeting with anyone she feels needs to be there. We agreed to a larger family meeting - planned for tomorrow, Weds., 11/05/24 at 1030am both in person and via Zoom on [facility] iPad to accommodate out of town family members. Meeting details sent to and nursing, and are included herein as follows: Anna Marie Montano is inviting you to a scheduled Zoom meeting. Topic: Palliative Medicine Family Meeting for Jasper Reyes Time: Nov 05, 2024 10:30 AM Eastern Time ([place] and [place]) Join Zoom Meeting by clicking this link: [email or web address] Meeting ID: [id number] (5) Weakness generalized: (6) Delirium: (7) Dementia due to Parkinson's disease with behavioral disturbance: (8) Ambulatory dysfunction: (9) Palliative care by specialist: Plan As above Thank you for allowing us to participate in the ongoing care of this patient. Please page with any additional concerns. Maco Montano [facility] Director, Palliative Medicine History of Present Illness Reason for Consultation: On 11/03/24 @ 12:37 Brittany Dorman Wrote To Angelina Montano dementia, parkinsons Attending Physician: John Romero MD History of Present Illness David Reyes is a 74yo male admitted 10/27/24 with reporting progressive Acute confusion + visual and auditory hallucinations Dx with flu 10/16/24 and has been acutely declining ever since with worsening AMS; initial evaluation showed neg Biofire, +CXR posterior basal consolidation/atelectasis & "however residual left lower lobe infiltrate cannot be excluded" along with his chronic left sided diaphragmatic elevation. UA was not remarkable on admisison. David was admitted for IV antibiotics and PT/OT evaluations. Hx Parkinson, followed by [facility] [place] PMH: Parkinson's disease, 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 increasing falls watery stool, weakness, no recent abtx or steroid, low grade fever last night - work up in progress Psych consult 11/02: "Diagnostically consistent with encephalopathy/delirium superimposed on Parkinson's disease with dementia with behavioral disturbance and possible superimposed on prolonged delirium from recent influenza infection, new pneumonia and on chronic immunosuppression. Unfortunately there are no known medications to cure or shorten the duration of delirium; rather antipsychotics are used at times to help with sleep/appetite/psychomotor agitation and hallucinations if these symptoms are causing significant distress and/or interfe ring with acute safety. Duration of delirium varies broadly with persistent delirium (defined as lasting for weeks or months) occurring frequently with [id number]% of patients exhibiting some symptoms of delirium at 6 months after symptom onset, see:Jeremy Morelos., Lamine Ludwig., Cheyanne Olivo.et al.Delirium.Kim Rev Dis Primers6, 90 (2020). [email or web address]://doi.org/10.1038/ [email or web address]. Goal in dementia is to avoid medication management of behaviors if possible by maximizing non-pharmacologic strategies for behavioral management. However, given worsening agitation/aggression agree that use of an antipsychotic is warranted as risk/benefit profile now favors treatment. Note all antipsychotic medications carry black box warning for increased risk of all-cause mortality in setting of dementia." Allergies Allergy/AdvReac Type Severity Reaction Status Date / Time methotrexate Allergy Severe Seizure Verified 01/02/24 10:07 Home Medications Medication Instructions Recorded Confirmed Type aspirin 81 mg tablet,delayed 81 mg PO QAM 06/06/22 10/27/24 History release biotin 1,000 mcg chewable tablet 1,000 mcg PO QAM 06/06/22 10/27/24 History carbidopa ER 25 mg-levodopa 100 mg 2 tab PO TIDM 06/06/22 10/27/24 History tablet,extended release lamotrigine 150 mg tablet 150 mg PO BID 06/06/22 10/27/24 History omeprazole 20 mg tablet,delayed 40 mg PO BID 06/06/22 10/27/24 History release sertraline 100 mg tablet 100 mg PO DAILY 06/06/22 10/27/24 History upadacitinib 15 mg tablet,extended 15 mg PO HS 06/06/22 10/27/24 History release 24 hr (Rinvoq) cholecalciferol (vitamin D3) 25 50 mcg PO DAILY 08/21/22 10/27/24 History mcg (1,000 unit) tablet (Vitamin D3) diclofenac sodium 1 % topical gel 2 g topical TID PRN Pain 08/21/22 10/27/24 History prednisone 5 mg tablet 5 mg PO QAM 08/21/22 10/27/24 History saw palmetto 160 mg capsule 160 mg PO BID 09/26/22 10/27/24 History cyanocobalamin (vitamin B-12) 1,000 mcg PO DAILY 11/19/23 10/27/24 History 1,000 mcg capsule magnesium chloride 64 mg 64 mg PO DAILY 11/19/23 10/27/24 History (magnesium chloride) tablet carbidopa 50 mg-levodopa 200 1 tab PO HS 10/27/24 10/27/24 History mg-entacapone 200 mg tablet Patient History Medical History Rheumatoid arthritis Hearing deficit Surgical History History of cataract surgery History of total hip arthroplasty left History of colonoscopy History of tooth extraction Nasal polyps removed Family History Other Allergies Cancer Heart disease No family history of adverse response to anesthesia Social History Smoking Status: Never smoker Second Hand Exposure: No; Do You Dip or Chew Tobacco: No; Hx Alcohol Use: Yes Alcohol type: beer Hx Substance Use: No Preferred Language: Ukrainian Communication Ability: 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: Voice Beliefs That Will Affect Care: None Current Living Situation: Spouse Current Living Situation Comment: lives with Tawnya Other Information That Helps Us Care for You: No Feels Safe at Home: Yes Assistive Devices: Cane and Walker Review of Systems Review of Systems: Unobtainable due to cognitive status Physical Exam Constitutional: + ill appearing, + altered mental status and + behavioral limitations Eyes: PERRL ENMT: MM sl dry Neck: trachea midline, no thyromegaly Respiratory: normal respiratory effort and symmetric chest movement Auscultation: + diminished lung sounds and + crackles (left > right) Cardiovascular: Rate/Rhythm: regular rate Vessels: no JVD Extremities: no edema Gastrointestinal (Abdomen): Inspection/Auscultation: normal bowel sounds Percussion/Palpation: abdomen soft; no guarding Musculoskeletal: lethargic, gen weakness Skin: pale, warm Neurologic: lethargic, did not awake to voice; occ grimacing and frowning, fighting his bilat wrist restraints unable to follow commands Results & Data Vital Signs (Past 12 Hours) Vital Signs Temp Pulse Pulse Resp BP Pulse Ox O2 Del Method 11/04/24 08:37 36.5 C 88 18 123/78 95 Room Air 11/03/24 21:02 36.6 C 98 H 18 150/65 H 95 Room Air 11/03/24 21:00 Room Air Laboratory Results 11/04/24 10/28/24 Range/Units 06:01 12:43 WBC 10.56 (4.8-10.8) K/ul RBC 4.86 (4.70-6.10) M/uL Hgb 14.0 (14.0-18.0) g/dl Hct 42.5 (42.0-52.0) % MCV 87.4 (80.0-100.0) fL MCH 28.8 (25.0-34.0) pg MCHC 32.9 (32.0-36.0) g/dL RDW Std Deviation 41.3 (36.4-46.3) fL RDW Coeff of Neela 12.9 (11.5-14.5) % Plt Count 247 (130-400) K/uL MPV 10.5 (9.4-12.4) fL Immature Gran % (Auto) 0.9 % Neut % (Auto) 79.8 % Lymph % (Auto) 8.3 % Chester % (Auto) 7.7 % Eos % (Auto) 2.5 % Baso % (Auto) 0.8 % Neut # (Auto) 8.44 H (1.40-6.50) K/uL Lymph # (Auto) 0.88 L (1.20-3.40) K/uL Chester # (Auto) 0.81 H (0.11-0.59) K/uL Eos # (Auto) 0.26 (0.00-0.50) K/uL Baso # (Auto) 0.08 (0.00-0.20) K/uL Immature Gran # (Auto) 0.09 (0.01-0.20) K/uL Sodium 142 (136-145) mmol/L Potassium 4.3 (3.5-5.1) mmol/L Chloride 107 (98-107) mmol/L Carbon Dioxide 29 (21-32) mmol/L Anion Gap 6 (3-11) BUN 22 (6-23) mg/dl Creatinine 0.95 (0.6-1.4) mg/dl Est Cr Clr Drug Dosing 84.8 ml/min eGFR 85.04 BUN/Creatinine Ratio 23.2 H (10-20) Glucose 95 (70-99(Fasting)) mg/dl Calcium 9.1 (8.6-10.3) mg/dl Magnesium 2.1 (1.7-2.4) mg/dl C-Reactive Protein 9.81 H (0-0.5) mg/dl Vitamin B12 > 1500 H (180-914) pg/ml Urine Color Yellow Urine Appearance Clear (Clear) Urine pH 7.0 (4.5-7.5) Ur Specific Spring 1.004 (1.000-1.030) Urine Protein Negative (Negative) Urine Glucose (UA) Negative (Negative) Urine Ketones Negative (Negative) Urine Blood Negative (Negative) Urine Nitrite Negative (Negative) Urine Bilirubin Negative (Negative) Urine Urobilinogen Negative (Negative) Ur Leukocyte Esterase Negative (Negative) Diagnostic Findings Chest X-Ray 10/27/24 17:03 EXAM: XR chest 1V portable CLINICAL HISTORY: Confusion. TECHNIQUE: X-ray image of the chest is obtained in AP projection. COMPARISON: With the prior CT dated 01/01/2024. FINDINGS: Pulmonary Parenchyma: Compared to the prior CT , there is an unchanged appearance regarding the left side diaphragmatic elevation and posterior basal consolidation noted. No pulmonary nodules are identified. Again obscured left costophentic angle was noted. No evidence of pleural effusion or pleural thickening. Heart and Mediastinum: Heart size and shape are normal. No mediastinal widening or masses. No hilar or mediastinal lymphadenopathy. Bony Thorax: The bony thorax appears intact without fractures or deformities. Soft Tissues: Soft tissues overlying the chest wall are unremarkable. IMPRESSION: 1. Compared to the prior CT, there is an unchanged appearance regarding the left side severe diaphragmatic elevation and posterior basal consolidation/atelectasis noted. No acute findings. However a residual left lower lobe infiltrate cant be excluded. 2. Again obscured left costophentic angle was noted. Electronically signed by Dre Burk 10-27-2024 7:[address] 10/27/24 17:03 EXAM: CT head/brain wo con CLINICAL HISTORY: Confusion. TECHNIQUE: An axial non-contrast CT scan of the brain was performed from the skull base to the high parietal region.One of the following dose reduction techniques was utilized for this exam.Automated exposure control, adjustment of the mA and/or kV according to patient size, and use of iterative reconstruction. COMPARISON: None. FINDINGS: Prominent cortical sulci and Sylvian fissures. The ventricular system, and basal cisterns are prominent and consistent with age-related changes. The visualized brain parenchyma shows a normal appearance. Henderson-white matter differentiation is maintained. No midline shifts or deformity. No intracerebral or extra axial hematoma. Normal size and configuration of the cerebral ventricles. Normal CT appearance of the posterior fossa structures namely the cerebellar hemispheres, brainstem and cerebellar peduncles. The IACs are unremarkable. The cerebellopontine angles are clear. The pituitary gland, the pineal gland, and the optic chiasm are unremarkable. The osseous structures in the skull base are unremarkable. No definite calvarium fractures. Calcifications are seen in the pineal gland region. Right maxillary sinus retention cyst Complete opacification of left maxillary sinus with soft tissue density and widened left osteomeatal complex. Abnormal left zygomatic arch and all boundaries of left maxillary sinus which is seen expanded with a ground glass matrix Mild mucosal thickening in the right maxillary sinus and left ethmoid sinus. The rest of the scanned paranasal sinuses are clear. IMPRESSION: 1. No acute intracranial hemorrhage, mass effect, or hydrocephalus. 2. The above-mentioned findings are suggestive of age-related changes. 3. Left maxilla and zygomatic arch expansile bone lesion with ground glass internal matrix. 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 4. Left maxillary sinusitis and right maxillary sinus retention cyst . Electronically signed by Dre Burk 10-27-2024 7:17 PM Chest X-Ray 11/04/24 07:59 XR chest 1V portable CLINICAL HISTORY: Fever. COMPARISON STUDY: Chest CT January 01, 2024. Chest radiograph October 27, 2024. FINDINGS: Moderate elevation of the left hemidiaphragm is chronic. Associated left basilar opacity favors atelectasis. There is no pneumothorax or pleural effusion. No airspace opacity within the right lung is present. Cardiomegaly is again noted. Cardiomediastinal silhouette is stable. IMPRESSION: 1. No acute cardiopulmonary findings. 2. Stable elevation of the left hemidiaphragm with associated opacity that favors atelectasis. ACT 112: Negative or not required by law. Electronically signed by: Reji La M.D. 11/04/2024 9:11 AM PG Care Time/CCT Total # of Minutes Spent Total Time Spent with Patient: Total time spent is greater than 50% in coordination of care (as documented) at patient's floor/unit and/or counseling patient: I spent 110 minutes overall addressing this case: 15 min in medical data review/discussion with referring provider(s) and/or preparation for the visit 20 min in direct interaction with the patient/exam 45 min in Advance Care Planning/Goals of Care discussions as detailed above in note (must be >16min) 15 min in subsequent review and synthesis of assessment and plan 15 min communicating with other providers regarding the patient's case: nursing, primary team Advanced Care Planning 04069 Advanced Care Planning 30 Min [id number] Advanced Care Planning Additional 30 [place] [address] IN/OBS CONSULT LVL 4,60M (25 - SIGNIFICANT, SEPARATELY IDENTIFIABLE ) Patient Type New Medical Decision Making High Complexity Diagnoses Agitation due to dementia F03.911 Altered mental status R41.82 Hallucination, visual R44.1 Discussion about advance care planning held with family member Z71.0 Weakness generalized R53.1 Delirium R41.0 Dementia due to Parkinson's disease with behavioral disturbance G20.A1; F02.818 Ambulatory dysfunction R26.2 Palliative care by specialist Z51.5 Additional Codes Advanced Care Planning - 60404 Advanced Care Planning 30 Min: 91882 Advanced Care Planning 30 Min ([id number]) Advanced Care Planning - 67825 Advanced Care Planning Additional 30 Min: 11230 Advanced Care Planning Additional 30 Min ([id number])
--- NOTE | 2024-11-04 09:13 | XRay Report ---
XR chest 1V portable CLINICAL HISTORY: Fever. COMPARISON STUDY: Chest CT January 01, 2024. Chest radiograph October 27, 2024. FINDINGS: Moderate elevation of the left hemidiaphragm is chronic. Associated left basilar opacity fa vors atelectasis. There is no pneumothorax or pleural effusion. No airspace opacity within the right lung is present. Cardiomegaly is again noted. Cardiomediastinal silhouette is stable. IMPRESSION: 1. No acute cardiopulmonary findings. 2. Stable elevation of the left hemidiaphragm with associated opacity that favors atelectasis. ACT 112: Negative or not required by law. Electronically signed by: Reji La M.D. 11/04/2024 9:11 AM
--- NOTE | 2024-11-04 15:07 | Neurology Consultation ---
Date of Consultation November 04, 2024 Assessment & Plan (1) Altered mental status: Likely related to acute encephalopathy due to pneumonia (2) Weakness generalized: Due to acute encephalopathy (3) Agitation due to dementia: Due to Parkinson's dementia and hallucinations. Plan Recommend to continue the current regimen which is equivalent to carbidopalevodopaentacapone, 50-200-200 tablet per 4 times a day Agree with initiating cefazolin for agitation and confusion.. Follow-up with Dr. Conde as outpatient PT/OT Telehealth Consultation Telehealth Information Telehealth Information: I performed this visit using a real-time telehealth connection between my location and the patients location ([facility]). After connecting through interactive tele-video, patient was identified by name and date of and/or wristband check.Patient (or authorized healthcare resources representative) was informed that this was a telemedicine visit and it was being conducted confidentially over secure lines. My office door was closed and no one else was present in the room with me.Patient (or authorized healthcare resources representative) provided consent to proceed with the visit, expressed an understanding of privacy and security of the telemedicine visit, and gave permission to have a hospital resources representative in the room in order to assist with the visit and to conduct portions of the visit, as needed. I informed the patient (or authorized healthcare resources representative) that I reviewed their record and presented the opportunity for them to ask any questions regarding the visit today. The patient agreed to participate. History of Present Illness Reason for Consultation: PD with agitation Attending Physician: John Romero MD History of Present Illness Clement Khalil is a 74-year-old male patient with PMH of Parkinson's disease, with Parkinson's dementia, history of seizure disorder,restrictive lung disease, left hemidiaphragmatic paralysis. who has presented to ED with reports of increasing fall frequency, confusion , aggression and hallucinations . his chest x ray showed basal consolidation / atelactasis. also noted to be dehydrated , has been maintained on antibiotics and has been doing okay. He was seen by psychiatry who recommended pimavanserin for the agitation and confusion. The tells me that he has been confused ever since the fall with increasing frequency of agitation at nighttime and during the day, The pneumonia recently has made it worse, he follows with Dr. Yusuf who had adjusted his carbidopa levodopa early October. He did well for a while however within 1 year he acutely got worse. Now the patient is sitting calmly in bed, interacting with his , answering questions appropriately, with apparent dementia, he knew that he is in the hospital, he knew however he could not provide detailed history. Allergies Allergy/AdvReac Type Severity Reaction Status Date / Time methotrexate Allergy Severe Seizure Verified 01/02/24 10:07 Home Medications Medication Instructions Recorded Confirmed Type aspirin 81 mg tablet,delayed 81 mg PO QAM 06/06/22 10/27/24 History release biotin 1,000 mcg chewable tablet 1,000 mcg PO QAM 06/06/22 10/27/24 History carbidopa ER 25 mg-levodopa 100 mg 2 tab PO TIDM 06/06/22 10/27/24 History tablet,extended release lamotrigine 150 mg tablet 150 mg PO BID 06/06/22 10/27/24 History omeprazole 20 mg tablet,delayed 40 mg PO BID 06/06/22 10/27/24 History release sertraline 100 mg tablet 100 mg PO DAILY 06/06/22 10/27/24 History upadacitinib 15 mg tablet,extended 15 mg PO HS 06/06/22 10/27/24 History release 24 hr (Rinvoq) cholecalciferol (vitamin D3) 25 50 mcg PO DAILY 08/21/22 10/27/24 History mcg (1,000 unit) tablet (Vitamin D3) diclofenac sodium 1 % topical gel 2 g topical TID PRN Pain 08/21/22 10/27/24 History prednisone 5 mg tablet 5 mg PO QAM 08/21/22 10/27/24 History saw palmetto 160 mg capsule 160 mg PO BID 09/26/22 10/27/24 History cyanocobalamin (vitamin B-12) 1,000 mcg PO DAILY 11/19/23 10/27/24 History 1,000 mcg capsule magnesium chloride 64 mg 64 mg PO DAILY 11/19/23 10/27/24 History (magnesium chloride) tablet carbidopa 50 mg-levodopa 200 1 tab PO HS 10/27/24 10/27/24 History mg-entacapone 200 mg tablet Patient History Medical History Rheumatoid arthritis Hearing deficit Surgical History History of cataract surgery History of total hip arthroplasty left History of colonoscopy History of tooth extraction Nasal polyps removed Family History Other Allergies Cancer Heart disease No family history of adverse response to anesthesia Social History Smoking Status: Never smoker Second Hand Exposure: No; Do You Dip or Chew Tobacco: No; Hx Alcohol Use: Yes Alcohol type: beer Hx Substance Use: No Preferred Language: Grenadian Communication Ability: Effective Tie Hacker Required: Voice Beliefs That Will Affect Care: None Current Living Situation: Spouse Current Living Situation Comment: lives with Tawnya Other Information That Helps Us Care for You: No Feels Safe at Home: Yes Assistive Devices: Cane and Walker Review of Systems No further review of system could be otherwise obtained Physical Exam General Constitutional: Appearance normally developed Head and face: normocephalic and atraumatic Eyes: no ptosis, no anisocoria, and no dysconjugate gaze Respiratory: normal effort Cardiovascular: regular rhythm and regular rate Abdomen: non distended Skin: no rashes, lesions, or ulcers noted Psychiatric: confused, calm NEUROLOGIC EXAMINATION: Mental Status:alert, , person, not to place or time , with decreased fund of knowledge and knowledge of current events. Cranial Nerves: CN 2 - no visual defect on confrontation and pupils round, equal, reactive to light CN 3, 4, 6 - extra-ocular movements intact and no nystagmus CN 5 - facial sensation intact CN 7 - no facial asymmetry CN 8 - intact hearing CN 9, 10 - palate symmetric, normal gag CN 11 - good shoulder shrug CN 12 - tongue midline MOTOR: Strength was at least antigravity throughout, Pronator drift was absent and There were no significant tremors SENSATION: intact and symmetric to pinprick, light touch, vibration and joint position GAIT: Deferred COORDINATION: no ataxia with finger to nose testing and heel to hankins testing REFLEXES: cannot assess over telemedicine Results & Data Vital Signs (Past 12 Hours) Vital Signs Temp Pulse Pulse Resp BP Pulse Ox O2 Del Method 11/04/24 13:50 36.5 C 84 16 123/79 95 Room Air 11/04/24 08:37 36.5 C 88 18 123/78 95 Room Air 11/04/24 07:50 Room Air Laboratory Results Laboratory Results - last 24 hr 11/04/24 06:01 WBC 10.56 RBC 4.86 Hgb 14.0 Hct 42.5 MCV 87.4 MCH 28.8 MCHC 32.9 RDW Std Deviation 41.3 RDW Coeff of Neela 12.9 Plt Count 247 MPV 10.5 Immature Gran % (Auto) 0.9 Neut % (Auto) 79.8 Lymph % (Auto) 8.3 Pitt % (Auto) 7.7 Eos % (Auto) 2.5 Baso % (Auto) 0.8 Neut # (Auto) 8.44 H Lymph # (Auto) 0.88 L Pitt # (Auto) 0.81 H Eos # (Auto) 0.26 Baso # (Auto) 0.08 Immature Gran # (Auto) 0.09 Sodium 142 Potassium 4.3 Chloride 107 Carbon Dioxide 29 Anion Gap 6 BUN 22 Creatinine 0.95 Est Cr Clr Drug Dosing 84.8 eGFR 85.04 BUN/Creatinine Ratio 23.2 H Glucose 95 Calcium 9.1 Magnesium 2.1 C-Reactive Protein 9.81 H Vitamin B12 > 1500 H Diagnostic Findings Chest X-Ray 11/04/24 07:59 XR chest 1V portable CLINICAL HISTORY: Fever. COMPARISON STUDY: Chest CT January 01, 2024. Chest radiograph October 27, 2024. FINDINGS: Moderate elevation of the left hemidiaphragm is chronic. Associated left basilar opacity favors atelectasis. There is no pneumothorax or pleural effusion. No airspace opacity within the right lung is present. Cardiomegaly is again noted. Cardiomediastinal silhouette is stable. IMPRESSION: 1. No acute cardiopulmonary findings. 2. Stable elevation of the left hemidiaphragm with associated opacity that favors atelectasis. ACT 112: Negative or not required by law. Electronically signed by: Reji La M.D. 11/04/2024 9:[address] scan of the head done 10/07/2024 shows no acute abnormalities Medications Administered Home Medications Medication Instructions Recorded Confirmed Last Taken aspirin 81 mg tablet,delayed 81 mg PO QAM 06/06/22 10/27/24 10/27/24 release biotin 1,000 mcg chewable tablet 1,000 mcg PO QAM 06/06/22 10/27/24 10/27/24 carbidopa ER 25 mg-levodopa 100 mg 2 tab PO TIDM 06/06/22 10/27/24 10/27/24 18:00 tablet,extended release lamotrigine 150 mg tablet 150 mg PO BID 06/06/22 10/27/24 10/27/24 08:00 omeprazole 20 mg tablet,delayed 40 mg PO BID 06/06/22 10/27/24 10/27/24 18:00 release sertraline 100 mg tablet 100 mg PO DAILY 06/06/22 10/27/24 10/27/24 upadacitinib 15 mg tablet,extended 15 mg PO HS 06/06/22 10/27/24 10/26/24 release 24 hr (Rinvoq) cholecalciferol (vitamin D3) 25 50 mcg PO DAILY 08/21/22 10/27/24 10/27/24 mcg (1,000 unit) tablet (Vitamin D3) diclofenac sodium 1 % topical gel 2 g topical TID PRN Pain 08/21/22 10/27/24 10/26/24 prednisone 5 mg tablet 5 mg PO QAM 08/21/22 10/27/24 10/27/24 saw palmetto 160 mg capsule 160 mg PO BID 09/26/22 10/27/24 10/27/24 cyanocobalamin (vitamin B-12) 1,000 mcg PO DAILY 11/19/23 10/27/24 10/27/24 1,000 mcg capsule magnesium chloride 64 mg 64 mg PO DAILY 11/19/23 10/27/24 10/27/24 (magnesium chloride) tablet carbidopa 50 mg-levodopa 200 1 tab PO HS 10/27/24 10/27/24 10/26/24 mg-entacapone 200 mg tablet Active Medications Generic Name Dose Route Start Last Admin Trade Name Freq PRN Reason Stop Dose Admin Acetaminophen 650 mg 10/27/24 23:42 10/31/24 17:35 Acetaminophen 325 Mg Tab PO 11/26/24 23:41 650 mg Q4H PRN Administration Pain or Fever Aspirin 81 mg 10/28/24 09:00 11/04/24 08:59 Aspirin 81 Mg Ectab PO 11/27/24 08:59 81 mg QAM SHA Administration Carbidopa/Levodopa 2 tab 10/28/24 17:00 11/04/24 13:23 Carbidopa/Levodopa 25/100mg Ext Rel Tab PO 11/27/24 07:59 2 tab QID SHA Administration Entacapone 200 mg 10/28/24 17:00 11/04/24 13:22 Entacapone 200 Mg Tab PO 11/27/24 16:59 200 mg QID SHA Administration Lamotrigine 100 mg 10/28/24 09:00 11/04/24 09:01 Lamotrigine 100 Mg Tab PO 11/27/24 08:59 100 mg BID SHA Administration Lamotrigine 50 mg 10/28/24 09:00 11/04/24 08:59 Lamotrigine 25 Mg Tab PO 11/27/24 08:59 50 mg BID SHA Administration Melatonin 3 mg 10/27/24 23:42 10/28/24 02:41 Melatonin 3 Mg Tab PO 11/26/24 23:41 3 mg HS PRN Administration Sleep Olanzapine 5 mg 11/02/24 15:22 11/02/24 20:41 Olanzapine Zydis 5 Mg Orally Dis. Tab PO 12/02/24 20:59 5 mg HS PRN Administration Agitation Pantoprazole Sodium 40 mg 10/28/24 09:00 11/04/24 09:00 Pantoprazole 40 Mg Tab PO 11/27/24 08:59 40 mg BID SHA Administration Prednisone 5 mg 10/28/24 09:00 11/04/24 09:00 Prednisone 5 Mg Tab PO 11/27/24 08:59 5 mg QAM SHA Administration Sertraline HCl 100 mg 10/28/24 09:00 11/04/24 09:00 Sertraline Hcl 100 Mg Tablet PO 11/27/24 08:59 100 mg DAILY SHA Administration Tamsulosin HCl 0.4 mg 10/28/24 21:00 11/03/24 21:02 Tamsulosin Hcl 0.4 Mg Cap PO 11/27/24 20:59 Not Given HS SHA
--- NOTE | 2024-11-04 15:29 | Communication Note ---
Date of Service: November 04, 2024 correction , ok to start pimavanserin instead of cefazolin
--- NOTE | 2024-11-04 15:38 | Hospitalist Progress Note ---
"Date of Service November 04, 2024 Assessment & Plan (1) LLL pneumonia: (2) Ambulatory dysfunction: (3) Renal insufficiency: (4) Rheumatoid arthritis: (5) Acute diarrhea: Plan Patient is a 74-year-old male with past medical history of Parkinson's disease, restrictive lung disease secondary to paralyzed left hemidiaphragm, history of seizures, BPH, rheumatoid arthritis (on Rinvoq and prednisone). Presented with increasing recurrent falls, confusion, aggression, and hallucinations for multiple days, in the setting of recent influenza infection. Initial evaluation revealed negative biofire, negative UA, and CXR with posterior basal consolidation/atelectasis, however residual left lower lobe infiltrate cannot be exclude and chronic left sided diaphragmatic elevation. Pt admitted for IV antibiotics and PT/OT evaluations. #PNA | Possible Metabolic encephalopathy due to pneumonia Immunocompromised on Rinvoq (last dose 10/27) and chronic steroid use. Completed course of rocephin and azithro/doxy. Repeat CXR 11/04: negative for pneumonia. Supportive care: IS, tessalon, prn nebs Patient w/ low grade fever 11/03 - repeat labs reveal normal WBC. CRP elevated at 9,81, unsure patient baseline. 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 Conde) - last visit (10/03/24) reviewed - rec switch to Stalevo 50/200/200 QID. If continued hallucinations, add Nuplazid 34mg/day Patient continues to be agitated and aggressive - has required restraints on and off. Patient started on Seroquel this admission and has been uptitrated without much effect which was then discontinued. Psychiatry consulted and trial Zyprexa 5mg ODT hs prn for agitation/delusions. Behavioral emergency IM zyprexa. If not improving, consider neurology consult/pimavanserin for hallucinations. Neurology consulted - okay w/ trying pimavanserin, discussed 11/04 via [facility]. Spoke w/ pharmacy, we do not have pimavanserin on formulary here, would have to request medication. Given restraints able to be removed & patient calm on 11/04, will hold off on this for now as patient seems to be responding to Zyprexa. Will continue to monitor his symptoms closely. Palliative care consulted, - family meeting set for 11/05. PT/OT recommend rehab, case management following - family considering family ap peal for [facility]. #BPH Noted hx, but not seems to be on any meds, takes ?saw palmetto OTC Flomax started, plan to continue UC pending #rheumatoid arthritis follows with [facility] rheumatology Continue chronic prednisone 5 Mg p.o. daily, Hold Rinvoq Chronic conditions: history of seizurescontinue lamotrigine GERDcontinue PPI Depressioncontinue sertraline Dispo: continued inpatient stay, managing behaviors DVT prophylaxis: SCDs. Family updated at bedside 11/04 Admission and Anticipated Discharge Date Admission Date: October 27, 2024 Supervising Physician Co-Signing Physician Notes Attending Attestation - Chart reviewed, care plan d/w ROSIBEL Dorman. I agree w/ the coronado components of her documentation. No low-grade fever since 11/03. u/a with bilirubin -- would check LFTs in am to rule out any biliary disease. CRP elevated - would trend. Family meeting set up with palliative care team for 11/05. Appreciate neuro & palliative care assistance. Restraints removed this afternoon successfully. John Romero MD Subjective Patient seen and examined this morning. patient's and niece at bedside at time of encounter. Patient resting in bed, unable to provide any history. reports patient has been calm today, restraints able to be removed. Patient was asking questions to his and is aware he is in hospital Physical Exam Constitutional: WD/WN, vitals as above Eyes: PERRL, conjunctivae normal, anicteric sclerae Respiratory: breathing unlabored Cardiovascular: well perfused Results & Data Results & Data Vital Signs (Past 12 Hours) Vital Signs Temp Pulse Pulse Resp BP Pulse Ox O2 Del Method 11/04/24 13:50 36.5 C 84 16 123/79 95 Room Air 11/04/24 08:37 36.5 C 88 18 123/78 95 Room Air 11/04/24 07:50 Room Air PG Care Time/CCT Total # of Minutes Spent Total Time Spent with Patient: Total time spent is greater than 50% in coordination of care (as documented) at patient's floor/unit and/or counseling patient: Coding Level of Care Code 31311 SUB INP/OBS CARE 50MIN Diagnoses LLL pneumonia J18.9 Ambulatory dysfunction R26.2 Renal insufficiency N28.9 Rheumatoid arthritis M06.9 Acute diarrhea R19.7"
[2024-11-04 18:17] LABS: Appearance Urine Clear (Clear); Bacteria Urine Automated None Seen (None Seen); Bilirubin Urine 1+ (Negative); Blood Urine Negative (Negative); Cast Urine Automated 0-2 /lpf (0-2); Color Urine Dark Yellow; Epithelial Cell Urine Auto 0-2 /hpf (0-2); Glucose Urine UA Negative (Negative); Ketones Urine 1+ (Negative); Leukocyte Esterase Urine Negative (Negative); Mucus Urine Present (None Prsent); Nitrite Urine Negative (Negative); Protein Urine Trace (Negative); RBC Urine Automated 0-2 /hpf (0-2); Specific Gravity Urine 1.031 (1.000-1.030); Urobilinogen Urine Negative (Negative); WBC Urine Automated 0-5 /hpf (0-5)
[2024-11-04] MEDS: BENZONATATE 100 MG CAPSULE PO PRN (20:38)
[2024-11-05 08:27] LABS: Alanine Aminotransferase < 3 U/L (7-52); Albumin Level 3.8 gm/dl (3.4-5.0); Alkaline Phosphatase 124 U/L (34-104); Aspartate Aminotransferase 16 U/L (13-39); Bilirubin Direct 0.1 mg/dl (0-0.2); Bilirubin,Total 0.7 mg/dl (0.2-1.0); C Reactive Protein 10.01 mg/dl (0-0.5); Total Protein 6.7 gm/dl (6.0-8.3)
[2024-11-05] MEDS: POLYETHYLENE (MIRALAX) 17 GM PACK PO SCH (08:58)
--- NOTE | 2024-11-05 13:03 | Palliative Family Discussion ---
Date of Service November 05, 2024 Patient Directed Conference Time of Meetin-1100am Participants: Angelina Montano DNP, [facility] Patient exam: David was present/inattentive but more alert than yesterday. He has no acute distress. Lung sounds dim on left > right, no wheezing. Mildly disheveled and possibly starting to develop a stye on the upper lid of his right eye. Speech garbled at times, inconsistent and does not stay focused. had a hard time focusing on ipad to identify his children on the video screen. +[employer], hearing aide placed in right ear.3 Patient Support System: , sons x2, dtr x1, dtr in law, brother Ruddy and sister in law Silva Fernando ([employer]) Other Healthcare Provider Participation: Nursing Meeting Location: bedside Advanced Directive available: no formal AD but pt has been clear, consistently, with family that he does not want life support, artificial tube feeds or hydration and if he can't be who he always was independent and free then that is not the life he wants for himself. The patient's surrogate medical decision maker participated: yes, , son and dtr from his first marriage in accordance with [place] Act 169 A 40 min face to face ACP family meeting was held for DAVID FERNANDO. This meeting was necessary for determining the appropriate course of treatment. Topics of Discussion Topics of Discussion: 1. This meeting focused on the management plan for Mr Fernando who has advanced Parkinson's disease (PD) and Parkinson's dementia (PDD), complicated by his comorbid issues. We discussed he will require placement in a longterm for long-term care. Given his progressive functional decline, a trial of rehabilitation therapy will be initiated to address current needs, with the eventual goal of transitioning to long-term care focused on comfort and quality of life. 2. We reviewed how Parkinsons disease is a progressive neurodegenerative disorder primarily characterized by motor symptoms such as tremor, rigidity, bradykinesia, and postural instability. As the disease advances, patients experience significant disability, often requiring assistance with activities of daily living (ADLs). 3. We also discussed Parkinsons dementia, which commonly occurs in the later stages of Parkinsons disease, further complicates the clinical picture with cognitive decline, memory impairment, and difficulty with decision-making, which can significantly impact a patient's ability to care for themselves. David's current stage suggests that continued motor deterioration and cognitive decline are occuring - he is weaker, less active, more rigidity, falling more, eating less/taking less PO and worsening memory decline with behavioral outbursts at time which for now have improved with prn Zyprexa. 4. As PD progresses, mobility issues worsen, and the risk of falls increases. In PDD, cognitive impairment will likely become more pronounced, leading to further difficulties with memory, communication, and daily functioning. Over time, patients may experience increasing difficulty with swallowing, speech, and may become more prone to infections, including aspiration pneumonia, a common cause of morbidity in advanced stages. 5. We all agreed that in the context of these changes, the focus of care will shift towards providing comfort, symptom management, and support for both the patient and family members. While rehabilitation can help address specific deficits, the primary goal will be to manage symptoms and improve quality of life as the patient transitions into long-term care. We agreed to the following Next Steps: 1. Initiate a trial of rehabilitation services to optimize function and assess needs. They have family who is director at [facility], has offered him a bed and a family discount. They would like dispo planning for [facility] in [place]. Primary team and care mgt made aware. 2. Begin preparations for longterm placement. 3. Prioritize comfort care and symptom management in anticipation of further decline. We agreed this plan will be revisited regularly to adjust care as the patient's condition progresses. Other Content of Meetin. Opportunity given for participants to speak and ask questions. 2. Participants were assured of attention to patient comfort. 3. Reassurance provided. 4. Support was provided for informed, good-inder decisions. 5. Emotions expressed by family were acknowledged and addressed. 6. Follow-up Outpatient: [facility] in 4 weeks from [place], we will schedule 7. Plan of Care: As outlined above. TS: 85 10 min chart review 10min examining pt 40min in ACP meeting face to face discussion 10 in care coordination 15min d/w primary team, nursing, care mgt
--- NOTE | 2024-11-05 16:55 | Hospitalist Progress Note ---
"Date of Service November 05, 2024 Assessment & Plan (1) LLL pneumonia: (2) Ambulatory dysfunction: (3) Renal insufficiency: (4) Rheumatoid arthritis: (5) Acute diarrhea: Plan Patient is a 74-year-old male with past medical history of Parkinson's disease, restrictive lung disease secondary to paralyzed left hemidiaphragm, history of seizures, BPH, rheumatoid arthritis (on Rinvoq and prednisone). Presented with increasing recurrent falls, confusion, aggression, and hallucinations for multiple days, in the setting of recent influenza infection. #PNA | Possible Metabolic encephalopathy due to pneumonia Immunocompromised on Rinvoq (last dose 10/27) and chronic steroid use. Completed course of rocephin and azithro/doxy. Repeat CXR 11/04: negative for pneumonia. Supportive care: IS, tessalon, prn nebs Patient w/ low grade fever 11/03 - repeat labs reveal normal WBC. CRP elevated at 9,81, unsure patient baseline. 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 Conde) - last visit (10/03/24) reviewed - rec switch to Stalevo 50/200/200 QID. If continued hallucinations, add Nuplazid 34mg/day Psychiatry consulted and trial Zyprexa 5mg ODT hs prn for agitation/delusions. Behavioral emergency IM zyprexa. If not improving, consider neurology consult/pimavanserin for hallucinations. Neurology consulted - okay w/ trying pimavanserin, discussed 11/04 via [place]. Spoke w/ pharmacy, we do not have pimavanserin on formulary here, would have to request medication. Given restraints able to be removed & patient calm, will hold off on this for now as patient seems to be responding to Zyprexa. Will continue to monitor his symptoms closely. Palliative care consulted, - agreeable to trial of rehab at [facility]. Focus of care is shifting towards providing comfort, symptom management. Family not agreeable to feeding tubes, IV fluids, antibiotics PT/OT recommend rehab #BPH Noted hx, but not seems to be on any meds, takes ?saw guerita OTC Flomax started, plan to continue Urinalysis negative. #rheumatoid arthritis follows with [facility] rheumatology Continue chronic prednisone 5 Mg p.o. daily, Hold Rinvoq Patient w/ right eye irritation and possible Sty formation - erythromycin ointment added for comfort. Can also do warm compresses to right eye if patient compliant prn. Chronic conditions: history of seizurescontinue lamotrigine GERDcontinue PPI Depressioncontinue sertraline Dispo: continued inpatient stay, managing behaviors DVT prophylaxis: SCDs. Anticipate discharge to [facility] on 11/06. Discussed w/ Palliative care and case management 11/05. Admission and Anticipated Discharge Date Admission Date: October 27, 2024 Supervising Physician Co-Signing Physician Notes Attending Attestation - Chart reviewed, care plan d/w [place] Dorman. I agree w/ the coronado components of her documentation. Family meeting in conjunction with the palliative care team took place today. Current plan - trial of rehab; will transfer to [facility] as he cannot return home. If he does poorly with therapy and there is further decline then ultimately will transition to a more comfort-based approach. Appreciate palliative care assistance. John Romero MD Subjective Patient seen and examined this afternoon. Patient was resting in bed and was alert. He denied any complaints at time of encounter. Was able to carry on a conversation. Physical Exam Constitutional: WD/WN, vitals as above Eyes: PERRL, conjunctivae normal, anicteric sclerae Respiratory: normal respiratory effort, lungs clear to auscultation Cardiovascular: RRR, no murmur, no edema Results & Data Results & Data Vital Signs (Past 12 Hours) Vital Signs Temp Pulse Resp BP BP Pulse Ox O2 Del Method 11/05/24 12:13 36.7 C 75 16 94/60 L 94 Room Air 11/05/24 08:07 36.6 C 86 16 96/58 L 93 Room Air 11/05/24 07:50 Room Air PG Care Time/CCT Total # of Minutes Spent Total Time Spent with Patient: Total time spent is greater than 50% in coordination of care (as documented) at patient's floor/unit and/or counseling patient: Coding Level of Care Code 06936 SUB INP/OBS CARE 2/35MIN Diagnoses LLL pneumonia J18.9 Ambulatory dysfunction R26.2 Renal insufficiency N28.9 Rheumatoid arthritis M06.9 Acute diarrhea R19.7"
[2024-11-05 22:02] VITALS: BP 153/88; PULSE 85; RESP 18; TEMP 98.2; O2SAT 96
[2024-11-06] MEDS: ERYTHROMYCIN OP OINT 5 MG/GM 3.5 GM TUBE OPR SCH (08:12)
--- NOTE | 2024-11-06 10:02 | Discharge Summary ---
Discharge Summary Date of Service November 06, 2024 Principal Dx & Hospital Course #1 = Principal Diagnosis (1) LLL pneumonia: (2) Ambulatory dysfunction: (3) Renal insufficiency: (4) Rheumatoid arthritis: (5) Acute diarrhea: Plan Patient is a 74-year-old male with past medical history of Parkinson's disease, restrictive lung disease secondary to paralyzed left hemidiaphragm, history of seizures, BPH, rheumatoid arthritis (on Rinvoq and prednisone). Presented with increasing recurrent falls, confusion, aggression, and hallucinations for multiple days, in the setting of recent influenza infection. #PNA | Possible Metabolic encephalopathy due to pneumonia Completed Rocephin & Azithro/Doxy Repeat CXR 11/04 showed resolution of pneumonia. 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 Conde) Psychiatry consulted and trial Zyprexa 5mg ODT hs prn for agitation/delusions. Neurology consulted - okay w/ trying pimavanserin, discussed 11/04 via [place]. - defer outpatient as patient was clinically improving in terms of behaviors. Palliative care consulted, - agreeable to trial of rehab at [facility]. Focus of care is shifting towards providing comfort, symptom management. Family not agreeable to feeding tubes, IV fluids, antibiotics PT/OT recommend rehab #BPH Noted hx, but not seems to be on any meds, takes ?saw guerita OTC Flomax started, plan to continue on discharge. Urinalysis negative. #rheumatoid arthritis follows with [facility] rheumatology Continue chronic prednisone 5 Mg p.o. daily, Rinvoq resumed on dc Patient w/ right eye irritation and possible Sty formation - erythromycin ointment added for comfort. Can also do warm compresses to right eye if patient compliant prn. Chronic conditions: history of seizurescontinue lamotrigine GERDcontinue PPI Depressioncontinue sertraline Discharged to [facility] 11/06. Admission HPI Per Admitting Provider Patient is a 74-year-old male with past medical history of Parkinson's disease, 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 He presented to the ED with his due to increasing confusion, aggression, and hallucinations for multiple days. She stated he is just not been the same since he had the flu 10/16/2024. CXR was concerning for left lower lobe infiltrate, will cover with IV antibiotics. Patient with recurrent falls over the past few weeks, will consult PT/OT. Patient is being admitted for left lower lobe pneumonia, ambulatory dysfunction, and confusion. Patient's is concerned that she is unable to care for him at home in this state. Patient seen at bedside with his present. Following history was provided by patients given patient's state of confusion. she stated that he has been confused at home and asking to go Home even when they are at home. He has also been aggressive today. He often has hallucinations here and there however it has been much more frequent. He has had a cough since he was diagnosed with the flu October 16. He also has been feverish. She stated he fell multiple times last week due to difficulty getting around, he is able to ambulate at baseline. He has had a poor p.o. intake for the past few days due to feeling sick. She also stated that the patient has had diarrhea that has progressed over the past 10 days to now loose watery stools. She denies any recent antibiotic use over the past 3 months. He was prescribed amoxicillin to take prior to dental visit, however patient canceled the visit and never took the antibiotic. Patient is on chronic prednisone and Renvela "which she gave him today. He re ceived all of his medications today including his evening medications. She stated she believes he would wish to be DNR/DNI. Patient stated he really does not want to stay, however discussed benefits of staying with for IV antibiotics and to improve his strength. Patient was not aggressive at time of admission. Discharge Exam Constitutional WD/WN, vitals as above Eyes PERRL, conjunctivae normal, anicteric sclerae Respiratory breathing unlabored Cardiovascular well perfused Psychiatric pleasant Discharge Plan Discharge Items Patient Disposition: Personal Prison Reason For Visit: PNEUMONIA, AMBULATORY DYSFUNCTION, CONFUSION Discharge Diagnosis: Pneumonia, Parkinson's disease Activity: Resume your previous activity Non-emergency contact: Primary Care Provider and Neurologist Call non-emergency contact if: you have any medication questions Follow-up/Referrals: Moose,Khai, MD [Primary Care Provider] - Diet: Regular Addtl Attending Provider Instructions: Mr. Reyes, You were recently hospitalized for increasing amounts of confusion. You were found to have pneumonia and were treated appropriately. Please see recommendations below regarding your discharge. Please take Zyprexa 5mg as needed prior to bed. This medication helps with confusion, anxiety, or feeling agitated. Please follow up with your neurologist for continued management of your Parkinson's disease. You had what appears to be a Sty formation by your right eye, please use erythromycin ointment once daily for ~ 7 days to help with irritation. Please resume the remainder of your outpatient medications. You will be receiving physical therapy and occupational therapy which will help you get stronger. Please follow up with your PCP within 1-2 weeks of discharge for further care. If you develop any worsening symptoms including shortness of breath, chest pain, fever please report back to the ED for further care. Sincerely, Brittany Dorman PA-C Pending Studies at Discharge: No Stand-Alone Forms: My Cozy [employer], Smoking Cessation Skilled Items Patient informed of condition?: Yes DNR: Yes Discharge Level of Care: Other Communicable Disease: No Discharge Prognosis: Stable Lines: None Urinary Catheter: No Medications and DC Order Prescriptions: New tamsulosin 0.4 mg Capsule 0.4 mg PO HS Qty: 30 0RF erythromycin 5 mg/gram (0.5 %) Ointment 1 applic OPR DAILY Qty: 3.5 0RF Rx Instructions: Daily to right eye x 7 days olanzapine 5 mg Tablet,Disintegrating 5 mg PO HS PRN (Reason: agitation) Qty: 30 0RF Continued lamotrigine 150 mg Tablet 150 mg PO BID Qty: 60 0RF carbidopa-levodopa 25-100 mg Tablet Extended Release 2 tab PO TIDM Qty: 90 0RF Rx Instructions: ordered 1&1/2 tabs with 3 times a day with meals but pt takes 2 tablets 3 times a day with meals sertraline 100 mg Tablet 100 mg PO DAILY Qty: 30 0RF prednisone 5 mg tablet 5 mg PO QAM Qty: 30 0RF aspirin 81 mg Tablet,Delayed Release (Dr/Ec) 81 mg PO QAM Qty: 30 0RF saw palmetto 160 mg capsule 160 mg PO BID Qty: 60 0RF Rx Instructions: give with meal/snack cholecalciferol (vitamin D3) [Vitamin D3] 25 mcg (1,000 unit) Tablet 50 mcg PO DAILY Qty: 30 0RF Rx Instructions: Pt's spouse does 2000 units- 4000 units during the winter ftsoppvum-eenmzkpo-gklnkvazbw 50-200-200 mg tablet 1 tab PO HS Qty: 30 0RF diclofenac sodium 1 % Gel 2 g TOPICAL TID PRN (Reason: Pain) Qty: 1 0RF Rx Instructions: apply to single elbow, wrist or hand; for hand includes palm/fingers/back of hand omeprazole 20 mg Tablet,Delayed Release (Dr/Ec) 40 mg PO BID Qty: 120 0RF biotin 1,000 mcg Tablet,Chewable 1,000 mcg PO QAM Qty: 30 0RF cyanocobalamin (vitamin B-12) 1,000 mcg capsule 1,000 mcg PO DAILY Qty: 30 0RF Rinvoq 15 mg Tablet Extended Release 24 Hr 15 mg PO HS Qty: 30 0RF magnesium chloride 64 mg magnesium tablet 64 mg PO DAILY Qty: 30 0RF Discharge Orders: Discharge Order (Routine); Ordered 11/06/24 Ordered By: Brittany Dorman Admission Data Admit Date/Time: 10/27/24 22:21 Attending Provider: Chantal Mead Admit Provider: Merritt Herrera Primary Care Provider: Khai Virk Other Providers: Merritt Herrera; [facility]; [place]; Afsaneh Castro; Leroy Dumont; Erika Hidalgo; Ellie Mckeon; Franky Cano; Sandy Gonzalez; Angelina Montano; Monica Ocasio; Mateus Butt; Monica Gerard; Leroy Bhatt; [place]; Arpit Camacho; Jordan Veras; Fatemeh Kilgore; Saroj Baker; Ananda Crocker; Holland Calderon; Santiago Belle; Brandy Barba; Kathy Leroy; Jordan Rizo; Ariadne Arteaga; [facility]; [facility] Other Interventions: Discharge Summary Assessment (RN) Last Done: 11/06/24 10:59 Hospital Stay Data Consultations 10/27/24 20:02 ED Decision to Admit Stat 11/02/24 10:01 Consult Psychiatry Routine 11/03/24 12:37 Consult Palliative Care Routine 11/03/24 14:56 Consult Neurology Routine Diagnostic Imagining Performed 10/27/24 17:03 CT head/brain wo con Stat Pending Results Patient Have Any Pending Studies at Discharge: No Discharge Instructions Given to Patient (Per Discharging Provider) Mr. Reyes, You were recently hospitalized for increasing amounts of confusion. You were found to have pneumonia and were treated appropriately. Please see recommendations below regarding your discharge. Please take Zyprexa 5mg as needed prior to bed. This medication helps with confusion, anxiety, or feeling agitated. Please follow up with your neurologist for continued management of your Parkinson's disease. You had what appears to be a Sty formation by your right eye, please use erythromycin ointment once daily for ~ 7 days to help with irritation. Please resume the remainder of your outpatient medications. You will be receiving physical therapy and occupational therapy which will help you get stronger. Please follow up with your PCP within 1-2 weeks of discharge for further care. If you develop any worsening symptoms including shortness of breath, chest pain, fever please report back to the ED for further care. Sincerely, Brittany Dorman PA-C Total Time Total Time Spent Total Time Spent (In Minutes): 45 Total Time Includes: Examination of the Patient, Discharge Planning and Medication Reconciliation Coding Level of Care Code 52436 INP/OBS DISCH >30 MIN Diagnoses LLL pneumonia J18.9 Ambulatory dysfunction R26.2 Renal insufficiency N28.9 Rheumatoid arthritis M06.9 Acute diarrhea R19.7
== END 2024-11-06 11:33 | disposition home health service (06) | DRG 193 ==
LOC: ED 16:40 → SUATTDRO 22:21 → 2W 22:21 → 3E 11-03 17:47

== ENCOUNTER 2024-12-04 00:08 | Inpatient (IN) ==
[2024-12-04 00:52] LABS: Basophils # (auto) 0.06 K/uL (0.00-0.20); Eosinophils # (auto) 0.11 K/uL (0.00-0.50); Eosinophils % (auto) 1.8 %; Hematocrit (blood only) 33.3 % (42.0-52.0); Hemoglobin 11.1 g/dl (14.0-18.0); Immature Granulocytes # (auto) 0.03 K/uL (0.01-0.20); Immature Granulocytes % (auto) 0.5 %; Lymphocytes # (auto) 1.19 K/uL (1.20-3.40); Lymphocytes % (auto) 19.8 %; Mean Corpuscular Hemoglobin 29.1 pg (25.0-34.0); Mean Corpuscular Hgb Conc 33.3 g/dL (32.0-36.0); Mean Corpuscular Volume 87.4 fL (80.0-100.0); Mean Platelet Volume 10.2 fL (9.4-12.4); Monocytes # (auto) 0.54 K/uL (0.11-0.59); Neutrophils # (auto) 4.08 K/uL (1.40-6.50); Neutrophils % (auto) 67.9 %; Platelet Count 190 K/uL (130-400); RDW Coefficient of Variation 14.4 % (11.5-14.5); RDW Standard Deviation 46.1 fL (36.4-46.3); Red Blood Count 3.81 M/uL (4.70-6.10); White Blood Count 6.01 K/ul (4.8-10.8)
[2024-12-04 01:09] LABS: Anion Gap 6 (3-11); BUN Creatinine Ratio 15.8 (10-20); Blood Urea Nitrogen 19 mg/dl (6-23); Calcium 8.6 mg/dl (8.6-10.3); Carbon Dioxide 27 mmol/L (21-32); Chloride 109 mmol/L (98-107); Creatinine Clr Calc Pharmacy 69.3 ml/min; Glucose 101 mg/dl (70-99(Fasting)); Potassium 3.8 mmol/L (3.5-5.1); Sodium 142 mmol/L (136-145)
[2024-12-04 01:15] LABS: Troponin I High Sensitivity 8.5 pg/ml (0-20)
[2024-12-04 01:24] LABS: Thyroid Stimulating Hormone 2.609 uIu/ml (0.300-4.500)
[2024-12-04 01:25] LABS: Alanine Aminotransferase < 3 U/L (7-52); Albumin Globulin Ratio 1.7 (0.9-2); Albumin Level 3.9 gm/dl (3.4-5.0); Alkaline Phosphatase 134 U/L (34-104); Aspartate Aminotransferase 58 U/L (13-39); Bilirubin,Total 1.2 mg/dl (0.2-1.0); Globulin 2.3 gm/dl (2.5-4.0); Magnesium 2.2 mg/dl (1.7-2.4); Total Protein 6.2 gm/dl (6.0-8.3)
--- NOTE | 2024-12-04 01:25 | XRay Report ---
EXAM: XR chest 1V portable CLINICAL HISTORY: weakness TECHNIQUE: An X-ray image of the chest is obtained in AP projection. COMPARISON: 11/04/2024 FINDINGS: The patient is rotated obscuring fine details of both upper zones. Pulmonary Parenchyma: Patchy airspace shadowing is seen in the left mid and lower zones obliterating left costophrenic angle. Prominent bronchovascular markings seen bilaterally. The right costophrenic angle appears sharp. Heart and Mediastinum: The heart size appears enlarged. No mediastinal widening or masses. No hilar or mediastinal lymphadenopathy. Bony Thorax: Bony thorax appears intact without fractures or deformities. Soft Tissues: Soft tissues overlying the chest wall are unremarkable. IMPRESSION: 1. Imaging findings are likely due to pulmonary infection/atalectasis with mild to moderate left-sided pleural effusion, would recommend clinical lab correlation. 2. No significant interval changes. Electronically signed by Dre Burk 12-04-2024 01:25 AM
[2024-12-04 01:44] LABS: Appearance Urine Clear (Clear); Bacteria Urine Automated None Seen (None Seen); Bilirubin Urine Negative (Negative); Blood Urine Negative (Negative); Color Urine Dark Yellow; Epithelial Cell Urine Auto 0-2 /hpf (0-2); Glucose Urine UA Negative (Negative); Ketones Urine 1+ (Negative); Leukocyte Esterase Urine Negative (Negative); Mucus Urine Present (None Prsent); Nitrite Urine Negative (Negative); Protein Urine 1+ (Negative); Specific Gravity Urine 1.029 (1.000-1.030); Urobilinogen Urine Negative (Negative); WBC Urine Automated 0-5 /hpf (0-5)
--- NOTE | 2024-12-04 02:24 | History & Physical Report ---
Date of Service December 04, 2024 Assessment & Plan (1) Altered mental status: (2) Ambulatory dysfunction: (3) Elevated CK: Plan 74-year-old male PMHx PVD, restrictive lung disease secondary to paralyzed L hemidiaphragm, history of seizure, BPH, and RA on chronic prednisone presenting from [facility] after worsening aggression/confusion from patient's baseline day [employer]. ED evaluation reveals no leukocytosis, H&H 11.1/33.3; CMP with chloride 109, glucose 101, bilirubin 1.2, AST 58, ALT <3, alk phos 135, globulin 2.3; TSH pending; CK pending; CXR findings likely due to pulmonary infection/atelectasis with mild to moderate left-sided pleural effusion; EKG NSR at 88 bpm. #Ambulatory dysfunction/AMS/Agitation Worsening PAD, aggression at baseline but on the day of arrival seem to have been pulling at pipes in the wall at nursing facility and was covered in feces. Police were called and patient required sedation to transport to hospital. Does follow with neurology, most recent visit 05/21/2023. Actively sleeping at time of admission. Patient will likely need different placement. - CBC without clear infection that could explain change, trop 8.5, CK pending, procal pending, UA negative for infection - CBC am - CXR does show mild to moderate L sided pleural effusion, no leukocytosis or fevers/cough - appears to be more so a chronic finding when looking at prior imaging - Fall precautions - Compression stockings placed for BLE edema - No 1:1 required at present - Olanzapine prn agitation -- can add additional agents as appropriate - Can consider psych consult as appropriate - none at time of admission - PT/OT ordered- appreciate assistance - Palliative consult placed - appreciate input + recs - Case management consulted - appreciate input + recs #Elevated CK Mainly sedentary, unable to tell me if any recent falls. No recent change steroid dose identified. No falls reported by EMS, unable to reach place of residence. - CK 2576 - IVF w/ LR @ 100 mL/hr x 1 L - reevaluate/adjust as necessary - CK, BMP am #RA- [facility], on chronic prednisone and Rinvoq - continue #PD- Stalevo, olanzapine prn agitation- continue #History of seizures- Lamotrigine - continue #GERD- Omeprazole - continue #Depression- Sertraline - continue #BPH- Bladder scan pending; Tamsulosin - continue Attempted to call [employer] x 2 at time of admission to confirm medications/code status but without answer. PLEASE REVIEW MEDS AND CODE STATUS. Dispo: Admit, med/sx VTE Prophylaxis: SCDs This document was dictated utilizing [employer]. Please excuse any grammatical errors that may be secondary to use of this software. Admission and Anticipated Discharge Date Admission Date: 12/04/2024 History of Present Illness Chief Complaint: Confusion Primary Care Provider: Khai Virk MD 74-year-old male PMHx PVD, restrictive lung disease secondary to paralyzed L hemidiaphragm, history of seizure, BPH, and RA on chronic prednisone presenting from [facility] after worsening aggression/confusion from patient's baseline day [employer]. Was found to be pulling at pipes on the wall at [facility] and was covered in feces. Police were called to help to transport patient to the hospital and patient did require sedation. Patient not helpful in providing a history. Wakes to voice and light touch, answers yes and no. When asked if he has pain he replies no. Also replies no to SOB, weakness, or N/V. ED evaluation reveals no leukocytosis, H&H 11.1/33.3; CMP with chloride 109, glucose 101, bilirubin 1.2, AST 58, ALT <3, alk phos 135, globulin 2.3; TSH p ending; CK pending; CXR findings likely due to pulmonary infection/atelectasis with mild to moderate left-sided pleural effusion; EKG NSR at [address] Bernstein's attestation for adjustments/additions to treatment plan. Allergies Allergy/AdvReac Type Severity Reaction Status Date / Time methotrexate Allergy Severe Seizure Verified 01/02/24 10:07 Home Medications Medication Instructions Recorded Confirmed Type aspirin 81 mg tablet,delayed 81 mg PO QAM #30 tabs 11/06/24 Rx release biotin 1,000 mcg chewable tablet 1,000 mcg PO QAM #30 tabs 11/06/24 Rx carbidopa 50 mg-levodopa 200 1 tab PO HS #30 tabs 11/06/24 Rx mg-entacapone 200 mg tablet carbidopa ER 25 mg-levodopa 100 mg 2 tab PO TIDM #90 tabs 11/06/24 Rx tablet,extended release cholecalciferol (vitamin D3) 25 50 mcg (2 x 25 mcg (1,000 unit)) 11/06/24 Rx mcg (1,000 unit) tablet (Vitamin PO DAILY #30 tabs D3) cyanocobalamin (vitamin B-12) 1,000 mcg PO DAILY #30 caps 11/06/24 Rx 1,000 mcg capsule diclofenac sodium 1 % topical gel 2 g topical TID PRN Pain #1 g 11/06/24 Rx lamotrigine 150 mg tablet 150 mg PO BID #60 tabs 11/06/24 Rx magnesium chloride 64 mg 64 mg PO DAILY #30 tabs 11/06/24 Rx (magnesium chloride) tablet olanzapine 5 mg disintegrating 5 mg PO HS PRN agitation #30 tabs 11/06/24 Rx tablet omeprazole 20 mg tablet,delayed 40 mg (2 x 20 mg) PO BID #120 tabs 11/06/24 Rx release prednisone 5 mg tablet 5 mg PO QAM #30 tabs 11/06/24 Rx saw palmetto 160 mg capsule 160 mg PO BID #60 caps 11/06/24 Rx sertraline 100 mg tablet 100 mg PO DAILY #30 tabs 11/06/24 Rx tamsulosin 0.4 mg capsule 0.4 mg PO HS #30 caps 11/06/24 Rx upadacitinib 15 mg tablet,extended 15 mg PO HS #30 tabs 11/06/24 Rx release 24 hr (Rinvoq) Past Med/Surg History Problem List (Updated 12/04/24 @ 03:09 by Christiane Garcia PA-C) Elevated CK Agitation due to dementia Weakness generalized Palliative care by specialist Altered mental status Discussion about advance care planning held with family member Delirium Dementia due to Parkinson's disease with behavioral disturbance Acute diarrhea Renal insufficiency Ambulatory dysfunction LLL pneumonia Hallucination, visual (Acute) Acute confusion (Acute) Pulmonary nodules Carotid artery disease Edema Restrictive lung disease Paralysis, diaphragm Dyslipidemia Carotid artery stenosis Dyspnea on exertion Low back pain Cervical stenosis of spinal canal Elevated hemidiaphragm Dyspnea Rheumatoid arthritis (Chronic) Seizure (Acute) Encounter for pre-operative examination Pneumonia (Acute) Parkinson disease (Acute) SIRS (systemic inflammatory response syndrome) (Acute) Dyspnea on minimal exertion (Acute) Seizure 1 episode 8 years ago GERD (gastroesophageal reflux disease) Parkinson disease Hypophosphatemia Medical History Rheumatoid arthritis Hearing deficit Surgical History History of cataract surgery History of total hip arthroplasty left History of colonoscopy History of tooth extraction Nasal polyps removed Family History Other Allergies Cancer Heart disease No family history of adverse response to anesthesia Social History Smoking Status: Never smoker Second Hand Exposure: No; Do You Dip or Chew Tobacco: No; Hx Alcohol Use: No Hx Substance Use: No Preferred Language: Vietnamese Communication Ability: Effective Mopper Required: No Beliefs That Will Affect Care: None Current Living Situation: Personal Care Facility Current Living Situation Comment: [facility] Other Information That Helps Us Care for You: No Feels Safe at Home: Yes Safety Concerns: Feels Safe At This Time Assistive Devices: Cane and Walker Review of Systems Review of Systems: All systems reviewed & are unremarkable except as noted in Subjective Physical Exam Physical Exam: General: No acute distress, sleeping when enter the room but wakes to voice and light touch Skin: Warm and dry Head: Normocephalic, atraumatic Eyes: PERRL, conjunctivae clear, sclera non-icteric ENT: External ear and ear canal without swelling; nose atraumatic; good dentition, tongue normal appearance, pharynx normal Neck: Supple, no LAD Cardio: RRR, no M/G/R, S1 and S2 normal Resp: No respiratory distress, Lungs CTA in all lobes bilaterally, no wheezes, rales, or rhonchi Abdomen: Soft, symmetric, nontender; No masses or hepatosplenomegaly; Bowel sounds normoactive MSK: No deformities; pulses palpable and equal; significant BLE edema, ~ pitting Neuro: Sensation intact bilaterally Psych: Sleeping, wakes briefly to touch and voice. Results & Data Results & Data Vital Signs (Past 12 Hours) Vital Signs Temp Pulse Pulse Resp BP BP Pulse Ox 12/04/24 01:06 75 20 112/67 95 12/04/24 00:41 36.9 C 90 20 134/72 95 12/04/24 00:40 88 12/04/24 00:39 95 O2 Del Method 12/04/24 01:06 Room Air 12/04/24 00:41 Room Air 12/04/24 00:40 12/04/24 00:39 Room Air Laboratory Results 12/04/24 12/04/24 01:27 00:21 WBC 6.01 RBC 3.81 L Hgb 11.1 L Hct 33.3 L MCV 87.4 MCH 29.1 MCHC 33.3 RDW Std Deviation 46.1 RDW Coeff of Neela 14.4 Plt Count 190 MPV 10.2 Immature Gran % (Auto) 0.5 Neut % (Auto) 67.9 Lymph % (Auto) 19.8 Crowley % (Auto) 9.0 Eos % (Auto) 1.8 Baso % (Auto) 1.0 Neut # (Auto) 4.08 Lymph # (Auto) 1.19 L Crowley # (Auto) 0.54 Eos # (Auto) 0.11 Baso # (Auto) 0.06 Immature Gran # (Auto) 0.03 Sodium 142 Potassium 3.8 Chloride 109 H Carbon Dioxide 27 Anion Gap 6 BUN 19 Creatinine 1.20 Est Cr Clr Drug Dosing 69.3 eGFR 64.25 BUN/Creatinine Ratio 15.8 Glucose 101 H Calcium 8.6 Magnesium 2.2 Total Bilirubin 1.2 H AST 58 H ALT < 3 L Alkaline Phosphatase 134 H Troponin I High Sens 8.5 Total Protein 6.2 Albumin 3.9 Globulin 2.3 L Albumin/Globulin Ratio 1.7 TSH 2.609 Urine Color Dark Yellow Urine Appearance Clear Urine pH 6.0 Ur Specific Champion 1.029 Urine Protein 1+ H Urine Glucose (UA) Negative Urine Ketones 1+ H Urine Blood Negative Urine Nitrite Negative Urine Bilirubin Negative Urine Urobilinogen Negative Ur Leukocyte Esterase Negative Urine WBC (Auto) 0-5 Urine RBC (Auto) 3-5 H U Hyaline Cast (Auto) 11-20 H U Epithel Cells (Auto) 0-2 Urine Bacteria (Auto) None Seen Urine Mucus Present A Diagnostic Findings Chest X-Ray 12/04/24 00:21 EXAM: XR chest 1V portable CLINICAL HISTORY: weakness TECHNIQUE: An X-ray image of the chest is obtained in AP projection. COMPARISON: 11/04/2024 FINDINGS: The patient is rotated obscuring fine details of both upper zones. Pulmonary Parenchyma: Patchy airspace shadowing is seen in the left mid and lower zones obliterating left costophrenic angle. Prominent bronchovascular markings seen bilaterally. The right costophrenic angle appears sharp. Heart and Mediastinum: The heart size appears enlarged. No mediastinal widening or masses. No hilar or mediastinal lymphadenopathy. Bony Thorax: Bony thorax appears intact without fractures or deformities. Soft Tissues: Soft tissues overlying the chest wall are unremarkable. IMPRESSION: 1. Imaging findings are likely due to pulmonary infection/atalectasis with mild to moderate left-sided pleural effusion, would recommend clinical lab correlation. 2. No significant interval changes. Electronically signed by Dre Burk 12-04-2024 01:25 AM ECG Additional Comments: NSR, nonspecific T wave abnormality 80 bpm, MA 180, QRS 88, QT/QTc 380/459, PRT 77/-19/18 Code Status & VTE Plan Code Status Full Per last hospital stay, DNR/DNI and with palliative discussion was DNR/DNI but given inability to confirm this information, ordered as full code. Supervising Physician Co-Signing Physician Notes I personally saw and examined the patient. I independently reviewed the labs, EKG, imaging, problem list, medication list, past medical history and family history. I verified all coronado points and agree with Christiane Garcia PA-C with the following exceptions and/or additions: 74 year old male presents to the ER with aggression and hitting staff at [facility]. No collateral history on admission and no history available from patient. O/E Poorly nourished, alert but not orientated x3, HS RRR, no murmurs, Chest CTAB, Abdo SNT, pedal edema A/P AMS, aggression - recent encephalopathy during recent admission treated for possible pneumonia. No change in CXR and labs stable therefore no plan to re- treat. Consult palliative care as discharged to [facility] for rehabilitation but suspect will need more permanent placement and plan from prior meeting was to focus more on comfort. PG Care Time/CCT Total # of Minutes Spent Total Time Spent with Patient: Total time spent is greater than 50% in coordination of care (as documented) at patient's floor/unit and/or counseling patient: Coding Level of Care Code 10846 INT INP/OBS CARE MIN Diagnoses Altered mental status R41.82 Ambulatory dysfunction R26.2 Elevated CK R74.8
--- OUTSIDE RECORDS SUMMARY | 2024-12-04 02:24 | External Medical Summary | Summary of Care ---
Author Name Unknown Organization [facility] Address [address] [facility] [place] [address] Phone [phone] Care Team Providers Care Photoengraving Helper Name Role Phone Khai Virk MD Primary Care Provider [phone] Reason for Visit * Reason Comments eRx-Medication Refill Encounter Details Date Type Department Care Team (Late st Contact Info) Description 11/03/2024 Refill Neurology [facility] [address] [facility] [place] [address] Larry Gerard MD [address] [place] [address] PD (Parkinson's disease) ([facility]) Allergies Active Allergy Reactions Criticality Noted Date Comments Cat Dander 08/10/2021 Dog Dander 08/10/2021 Dust 08/10/2021 Methotrexate Seizure High 11/20/2017 2015 was used to treat rheum arthritis, had seizure and was taken off. Not certain it was the methotrexate which caused the seizure. Pollen 08/10/2021 documented as of this encounter (statuses as of 11/03/2024) Medications ASPIR-81 81 MG PO TBEC Take [...] 30 Tablet 5 06/01/20 23 Active Saw [place]bee (Serenoa repens) 160 MG Oral Capsule Take 160 mg by mouth at bedtime. 09/26/19 23 Active Omeprazole 40 MG Oral Capsule Delayed Release (PriLOSEC) 1 Capsule in the morning and 1 Capsule before bedtime. 02/20/20 24 Active Magnesium Gluconate 250 MG Oral Tablet Take 250 mg by mouth at bedtime. 03/03/20 24 Active lamoTRIgine 150 MG Oral Tablet (LaMICtal)Indicat ions:History of seizure TAKE 1 TABLET TWICE A DAY 180 Tablet 1 05/27/20 24 Active B-12 50 MCG Oral Tablet Take by mouth. Active Flax Seed Oil 1000 MG Oral Capsule Take 1 Capsule by mouth at bedtime. Active Carbidopa-Levodop a-Entacapone 50-200-200 MG Oral Tablet Take 1 tablet per mouth 4 times a day at 0OR-dywj-5VT and MN (Take 30 minutes prior to food intake) Do not start before October 07, 2024. 360 Tablet 3 10/08/19 25 Active Sertraline HCl 100 MG Oral Tablet (Zoloft)Indicatio ns:PD (Parkinson's disease) ([facility]) TAKE 1 TABLET IN THE MORNING 90 Tablet 1 11/04/19 25 Active Sertraline HCl 100 MG Oral Tablet (Zoloft)Indicatio ns:PD (Parkinson's disease) ([facility]) TAKE 1 TABLET IN THE MORNING 90 Tablet 1 05/05/20 24 025 Discontinued predniSONE 5 MG Oral Tablet (Deltasone)Indica tions:Rheumatoid factor positive with cyclic citrullinated peptide (CCP) antibody negative TAKE 1 TABLET IN THE MORNING 90 Tablet 1 05/06/20 24 025 Discontinued documented as of this encounter (statuses as of 11/03/2024) Active Problems Problem Noted Date Diagnosed Date [...] as of this encounter (statuses as of 11/03/2024) Resolved Problems Problem Noted Date Diagnosed Date Resolved Date Other allergic rhinitis 12/2008 Overview (05/29/2017): Resolved per Duplicate Protocol #2. 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 (15 years old or [...] Telephone Encounter - Mark Dimas RPh - 11/03/2024 2:19 PM EDTSigned Prescriptions: Disp Refills Sertraline HCl 100 MG Oral Tablet (Zoloft) 90 Tab*1 Sig: TAKE 1 TABLET IN THE MORNINGAuthorizing Provider: LARRY GERARD AOrdering User: MARK DIMAS documented in this encounter Plan of Treatment Upcoming Encounters Date Type Department Care Team (Late st Contact Info) Description 12/23/2024 3:30 PM EDT Imaging Radiology [facility] [address] [place] [phone] 12/26/2024 2:00 PM EDT Office Visit Rheumatology [address] [place] [phone] [place] Nash CRNP [address] [facility] [place], [place] [address] 01/22/2025 2:20 PM EDT Office Visit Neurology [facility] [place] [address] [facility] [place] [address] Larry Gerard MD [address] [place] [address] 03/04/2025 1:40 PM EDT Telemedicine Neurology [place] [address] [place] [phone] Migue Conde MD [address] [place] [address] Health Maintenance Due Date Last Done Comments Depression Screening 1964 DTap/Tdap Vaccines (1 - Tdap) 1971 Cologuard 1997 Fecal Occult Blood Test 1997 Sigmoidoscopy 1997 Colonoscopy 07/23/2018 07/23/2008 Colorectal Cancer Screening 07/23/2018 COVID-19 Vaccine (2023- season) 2024 11/08/2020, 10/11/2020 Influenza Vaccine (FLU [...] agitans documented in this encounter Care Teams Photoengraving Helper Relationship Specialty Start Date End Date Khai Virk MD [address] [place] [address] PCP - General Family Medicine 12/08/14 documented as of this encounter
--- OUTSIDE RECORDS SUMMARY | 2024-12-04 02:24 | External Medical Summary | Summary of Care ---
Author Name Unknown Organization [facility] Address [address] [facility] [place] [address] Phone [phone] Care Team Providers Care Crossing Tender Name Role Phone Khai Virk MD Primary Care Provider [phone] Reason for Visit * Reason Comments eRx-Medication Refill Encounter Details Date Type Department Care Team (Late st Contact Info) Description 11/03/2024 Refill Rheumatology [address] [place] [phone] Precious Rhodes CRNP [address] [place] [address] [place] [address] Rheumatoid factor positive with cyclic citrullinated peptide [...] needed for Pain. 1 Tube 3 04/02/20 Active Biotin 1000 MCG Oral Tablet Chewable Take by mouth. Active Vitamin B Complex Oral Capsule Take by mouth. Active Rinvoq 15 MG Oral Tablet Extended Release 24 Hour (Upadacitinib ER)Indications:Rh eumatoid factor positive with cyclic citrullinated peptide (CCP) antibody negative Take 1 Tablet by mouth daily. 30 Tablet 5 06/01/20 23 Active Saw [place] (Serenoa repens) 160 MG Oral Capsule Take [...] per mouth 4 times a day at [id number] and MN (Take 30 minutes prior to food intake) Do not start before October 07, 2024. 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 Not [...] Encounter - Mark Dimas RPh - 11/03/2024 2:23 PM EDTSigned Prescriptions: Disp Refills predniSONE 5 MG Oral Tablet (Deltasone) 90 Tab*1 Sig: TAKE 1 TABLET IN THE MORNINGAuthorizing Provider: PRECIOUS RHODES ANNOrderaldo User: MARK DIMAS * Telephone Encounter - Mark Dimas RPh - 11/03/2024 2:21 PM EDT Rheumatology: Refill Request(s) Per review of the refill parameters, Medication was refilled Mark Dimas RPh [facility] Clinical Pharmacist Rheumatology Department 11/03/2024,2:22 PM * Telephone Encounter - Colby Guevara - 11/03/2024 4:24 AM EDTPending Prescriptions: Disp Refills predniSONE 5 MG Oral Tablet [Pharmacy Med *90 Tab*3 Sig: TAKE 1 TABLET IN THE MORNING * Telephone Encounter - Colby Guevara - 11/03/2024 4:22 AM EDT Did you pend patient's preferred pharmacy and medication before forwarding?yes Pharmacy: [id number] Pending Prescriptions: Disp Refills predniSONE 5 MG Oral Tablet (Deltasone) [*90 Tab*3 Sig: TAKE 1 TABLET IN THE MORNING Last Visit: 06/27/2024 (in office), Visit date not found (telemedicine) Next Visit: 12/26/2024 If no future appointments scheduled, and last appointment is greater than a year ago, please schedule patient for a follow-up appointment Last date the medication was ordered: 05/06/2024 Is this request for a controlled substance?No Urine Drug Screen:No results found for this or any previous visit. Patient Phone Numbers Labs: Lab Results Component Value Date/Time CREAT 1.0 06/27/2024 02:12 PM CREAT 1.13 09/07/2023 12:00 AM CREAT 0.9 06/18/2020 02:50 PM POTASSIUM 4.6 06/27/2024 02:12 PM POTASSIUM 4.4 09/07/2023 12:00 AM POTASSIUM 4.6 12/08/2015 08:43 AM TSH 3.29 09/07/2023 12:00 AM TSH 2.31 05/27/2018 03:54 PM LDL 175 (H) 06/27/2024 02:12 PM LDL 145 (H) 08/03/2015 08:38 AM LDLCALC 161 (A) 09/07/2023 12:00 AM ALT 17 06/27/2024 02:12 PM ALT 12 06/18/2020 02:50 PM HGBA1C 5.4 01/14/2021 01:37 PM documented in this encounter Plan of Treatment Upcoming Encounters Date Type Department Care Team (Late st Contact Info) Description 12/23/2024 3:30 PM EDT Imaging Radiology [facility] [address] [place] [phone] 12/26/2024 2:00 PM EDT Office Visit Rheumatology [address] [place] [address] Precious Rhodes CRNP [address] [facility] [place] [address] 01/22/2025 2:20 PM EDT Office Visit Neurology [facility] [address] [place] [address] Monica Gerard MD [address] [place] [address] 03/04/2025 1:40 PM EDT Telemedicine Neurology [address] [place] [address] Migue Conde MD [address] [place] [id number] Health Maintenance Due Date Last Done Comments Depression Screening 1964 DTap/Tdap Vaccines (1 - Tdap) 1971 Cologuard 1997 Fecal Occult Blood Test 1997 Sigmoidoscopy 1997 Colonoscopy 07/23/2018 07/23/2008 Colorectal Cancer Screening 07/23/2018 COVID-19 Vaccine ( season) 2024 11/08/2020, 10/11/2020 Influenza Vaccine (FLU shot) (#1) 2024 Lipid Panel 06/27/2029 06/27/2024, 020 09/2023, 08/03/2015 Hepatitis C Screening Completed 08/10/2021 [...] negative documented in this encounter Care Teams Crossing Tender Relationship Specialty Start Date End Date Khai Virk MD [address] [place] [address] PCP - General Family Medicine 12/08/14 documented as of this encounter
--- OUTSIDE RECORDS SUMMARY | 2024-12-04 02:24 | External Medical Summary | Summary of Care ---
Author Name Unknown Organization [facility] Address [address] [place] [address] Phone [phone] Care Team Providers Care Electrical Engineering Drafting Officer Name Role Phone Khai Virk MD Primary Care Provider [phone] Reason for Visit * Reason Onset Date Comments Medication Refill 12/03/2024 Encounter Details Date Type Department Care Team (Late st Contact Info) Description 12/03/2024 Refill Neurology [facility] [address] [place] [address] Migue Cain MD [address] [place] [address] PD (Parkinson's disease) ([facility])* Allergies Active Allergy Reactions Criticality Noted Date Comments Cat Dander 08/10/2021 Dog Dander 08/10/2021 Dust 08/10/2021 Methotrexate Seizure High 11/20/2017 2015 was used to treat rheum arthritis, had seizure and was taken off. Not certain it was the methotrexate which caused the seizure. Pollen 08/10/2021 documented as of this encounter (statuses as of 12/03/2024) Medications ASPIR-81 81 MG PO TBEC Take [...] Complex Oral Capsule Take by mouth. Active Saw [place] (Serenoa repens) 160 MG Oral Capsule Take 160 mg by mouth at bedtime. 09/26/19 23 Active Omeprazole 40 MG Oral Capsule Delayed Release (PriLOSEC) 1 Capsule in the morning and 1 Capsule before bedtime. 02/20/20 24 Active Magnesium Gluconate 250 MG Oral Tablet Take 250 mg by mouth at bedtime. 03/03/20 24 Active B-12 50 MCG Oral Tablet Take by mouth. Active Flax Seed Oil 1000 MG Oral Capsule Take 1 Capsule by mouth at bedtime. Active predniSONE 5 MG Oral Tablet (Deltasone)Indicat ions:Rheumatoid factor positive with cyclic citrullinated peptide (CCP) antibody negative TAKE 1 TABLET IN THE MORNING 90 Tablet 1 11/04/19 25 Active Sertraline HCl 100 MG Oral Tablet (Zoloft)Indication s:PD (Parkinson's disease) ([facility]) TAKE 1 TABLET IN THE MORNING 90 Tablet 1 11/04/19 25 Active Rinvoq 15 MG Oral Tablet Extended Release 24 Hour (Upadacitinib ER)Indications:Rhe umatoid factor positive with cyclic citrullinated peptide (CCP) antibody negative Take 1 tablet by mouth daily. 30 Tablet 11/25/2024 1:28 PM EDT 11/18/19 25 Active lamoTRIgine 150 MG Oral Tablet (LaMICtal)Indicati ons:History of seizure TAKE 1 TABLET TWICE A DAY 180 Tablet 1 11/21/19 25 Active Carbidopa-Levodopa -Entacapone 50-200-200 MG Oral TabletIndications: PD (Parkinson's disease) ([facility]) Take 1 tablet per mouth 4 times a day at 1UV-rshr-9MU and MN (Take 30 minutes prior to food intake) 360 Tablet 3 12/04/19 25 Active Carbidopa-Levodopa -Entacapone 50-200-200 MG Oral Tablet Take 1 tablet per mouth 4 times a day at 2PI-ebmu-0JF and MN (Take 30 minutes prior to food intake) Do not start before October 07, 2024. 360 Tablet 3 10/08/19 25 025 Discontin ued(Refil l) documented as of this encounter (statuses as of 12/03/2024) Active Problems Problem Noted Date Diagnosed Date [...] as of this encounter (statuses as of 12/03/2024) Resolved Problems Problem Noted Date Diagnosed Date Resolved Date Other allergic rhinitis 12/2008 Overview (05/29/2017): Resolved per Duplicate Protocol #2. 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 Not [...] encounter Miscellaneous Notes * Telephone Encounter - Migue Cain MD - 12/03/2024 1:40 PM EDTSigned Prescriptions: Disp Refills Kihobeocm-Efjezkte-Ahtbpfwuyv 50-200-200 M*360 Ta*3 Sig: Take 1 tablet per mouth 4 times a day at 6TE-qqja-0AJ and MN (Take 30 minutes prior to food intake) Authorizing Provider: MIGUE CAIN * Telephone Encounter - Bibi Dutta LPN - 12/03/2024 12:27 PM EDT Pending Prescriptions: Disp Refills Dkjxgfnrp-Kpyotlow-Lfrqvyuwpf 50-200-200 M*360 Ta*3 Sig: Take 1tablet per mouth 4 times a day at 3HB-giyd-1ON and MN (Take 30 minutes prior to food intake)-------- documented in this encounter Plan of Treatment Upcoming Encounters Date Type Department Care Team (Late st Contact Info) Description 12/23/2024 3:30 PM EDT Imaging Radiology [facility] [address] [place] [phone] 01/12/2025 3:00 PM EDT Office Visit Rheumatology [address] [place] [phone] [place] Nash CRNP [address] [place] [phone] 01/22/2025 2:20 PM EDT Office Visit Neurology [facility] [address] [facility] [place] [address] Monica Gerard MD [address] [facility] [place] [address] 03/04/2025 1:40 PM EDT Telemedicine Neurology [address] [place] [phone] Migue Cain MD [address] [facility] [place] [address] Health Maintenance Due Date Last Done Comments Depression Screening 1964 DTap/Tdap Vaccines (1 - Tdap) 1971 Cologuard 1997 Fecal Occult Blood Test 1997 Sigmoidoscopy 1997 Colonoscopy 07/23/2018 07/23/2008 Colorectal Cancer Screening 07/23/2018 COVID-19 Vaccine ( season) 2024 11/08/2020, 10/11/2020 Influenza Vaccine (FLU shot) (Season Ended) 2025 Lipid Panel 06/27/2029 06/27/2024, 02/0 09/2023, 08/03/2015 [...] encounter Visit Diagnoses Diagnosis PD (Parkinson's disease) (HCC)- Primary Paralysis agitans documented in this encounter Care Teams Electrical Engineering Drafting Officer Relationship Specialty Start Date End Date Khai Virk MD [address] [place] [address] PCP - General Family Medicine 12/08/14 documented as of this encounter
--- OUTSIDE RECORDS SUMMARY | 2024-12-04 02:24 | External Medical Summary | Summary of Care ---
Author Name Unknown Organization [facility] Address [address] [facility] [place] [address] Phone [phone] Care Team Providers Care Dental Assistant Name Role Phone Khai Virk MD Primary Care Provider [phone] Reason for Visit * Reason Onset Date Comments Medication Refill 11/14/2024 Encounter Details Date Type Department Care Team (Late st Contact Info) Description 11/14/2024 Refill Rheumatology [address] [place] [phone] Robert Cooper MD [address] [facility] [place] [address] Encounter for long-term (current) use of medications*; Rheumatoid factor positive with cyclic citrullinated peptide (CCP) antibody negative Allergies Active Allergy Reactions Criticality Noted Date Comments Cat Dander 08/10/2021 Dog Dander 08/10/2021 Dust 08/10/2021 Methotrexate Seizure High 11/20/2017 2015 was used to treat rheum arthritis, had seizure and was taken off. Not certain it was the methotrexate which caused the seizure. Pollen 08/10/2021 documented as of this encounter (statuses as of 11/17/2024) Medications ASPIR-81 81 MG PO TBEC Take by mouth. 0 05/08/20 06 Active Cholecalciferol (VITAMIN D) 1000 UNITS Tablet 1 daily Active Sildenafil Citrate 50 MG Oral Tablet As directed Active Diclofenac Sodium (VOLTAREN) 1 % gelIndications:Marla reyes osteoarthritis involving multiple joints Apply 2 g topically to affected area 3 times a day as needed for Pain. 1 Tube 3 04/02/20 17 Active Biotin 1000 MCG Oral Tablet Chewable Take by mouth. Active Vitamin B Complex Oral Capsule Take by mouth. Active Saw [place] (Serenoa repens) 160 MG Oral Capsule Take [...] per mouth 4 times a day at 3HG-lfjn-7YF and MN (Take 30 minutes prior to food intake) Do not start before October 07, 2024. 360 Tablet 3 10/08/19 25 Active predniSONE 5 MG Oral Tablet (Deltasone)Indicat ions:Rheumatoid factor positive with cyclic citrullinated peptide (CCP) antibody negative TAKE 1 TABLET IN THE MORNING 90 Tablet 1 11/04/19 25 Active Sertraline HCl 100 MG Oral Tablet (Zoloft)Indication s:PD (Parkinson's disease) ([facility]) TAKE 1 TABLET IN THE MORNING 90 Tablet 1 11/04/19 25 Active Rinvoq 15 MG Oral Tablet Extended Release 24 Hour (Upadacitinib ER)Indications:Rhe umatoid factor positive with cyclic citrullinated peptide (CCP) antibody negative Take 1 tablet by mouth daily. 30 Tablet 11/18/19 25 Active Rinvoq 15 MG Oral Tablet Extended Release 24 Hour (Upadacitinib ER)Indications:Rhe umatoid factor positive with cyclic citrullinated peptide (CCP) antibody negative Take 1 Tablet by mouth daily. 30 Tablet 5 06/01/20 23 025 Discontin ued(Refil l) documented as of this encounter (statuses as of 11/17/2024) Active Problems Problem Noted Date Diagnosed Date [...] as of this encounter (statuses as of 11/17/2024) Resolved Problems Problem Noted Date Diagnosed Date Resolved Date Other allergic rhinitis 12/2008 Overview (05/29/2017): Resolved per Duplicate Protocol #2. 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 Answer Date of Assessment Author Yes 04/16/2017 2:00 PM EDT Zeina Parish elsea E, MED ASSIST * Are you blind or do you have serious difficulty seeing, even when wearing glasses? Answer Date of Assessment Author Yes 04/16/2017 2:00 PM EDT Zeina Parish elsea E, MED ASSIST * Do you have serious difficulty walking or climbing stairs? (5 years old or older) Answer Date of Assessment Author Yes 04/16/2017 2:00 PM EDT Zeina Parish elsea E, MED ASSIST * Do you have difficulty dressing or bathing? (5 years old or older) Answer Date of Assessment Author Yes 04/16/2017 2:00 PM EDT Zeina Parish elsea E, MED ASSIST * Because of a [...] EDT Zeina Parisha E, MED ASSIST documented in this encounter Miscellaneous Notes * Telephone Encounter - Mark Dimas RPh - 11/17/2024 1:59 PM EDT Provided 30 days supply with 0 refill(s). Per refill protocol patient should have updated labs on file within past 3 months. Lab orders placed. Please contact patient to advise of labs ordered for blood draw. Fasting is not required. Advise toobtain labs before requesting the next refill. Thanks, Stevie Dimas, PharmD Clinical Pharmacist [facility] [phone] 11/17/2024 1:59 PM * Telephone Encounter - Jennifer Orosco PA-C - 11/17/2024 11:12 AM EDTSigned Prescriptions: Disp Refills Rinvoq 15 MG Oral Tablet Extended Release *30 Tab*0 Sig: Take 1 Tablet by mouth daily. Authorizing Provider: JENNIFER OROSCO * Telephone Encounter - Mark Dimas RP - 11/15/2024 11:42 AM EDTPending Prescriptions: Disp Refills Rinvoq 15 MG Oral Tablet Extended Release *30 Tab*0 Sig: Take 1 Tablet by mouth daily. * Telephone Encounter - Mark Dimas RP - 11/15/2024 11:42 AM EDT Rheumatology: Refill Request(s) Per review of the refill parameters, Medication was NOT refilled d/t following concern: Last labs completed greater than protocol allows. Last labs completed 06/27/24. Please advise if you would like held until labs completed. Lab work previously ordered and pended 30 day supply. Please route back and will advise pt of labs if appropriate. Mark Dimas RPh [facility] Clinical Pharmacist Rheumatology Department 11/15/2024,11:42 AM * Telephone Encounter - Kristal Baez pharmacy care coordinator - 11/14/2024 9:44 AM EDT Patient is up to date for office visits. Pending Prescriptions: Disp Refills Rinvoq 15 MG Oral Tablet Extended Release*30 Tab*5 Sig: Take 1 Tablet by mouth daily. Last Visit: 06/27/2024 (in office), Visit date not found (telemedicine) Next Visit: 01/12/2025 If no future appointments scheduled, and last appointment is greater than a year ago, please schedule patient for a follow-up appointment Last date the medication was ordered: 06/01/2023 Pharmacy: [facility] [address] Is this request for a controlled substance?No it is not controlled. Urine Drug Screen:No results found for this [...] Description 12/23/2024 3:30 PM EDT Imaging Radiology [facility] [address] [place] [phone] 01/12/2025 3:00 PM EDT Office Visit Rheumatology [address] [place] [phone] [place] Nash CRNP [address] [place] [address] 01/22/2025 2:20 PM EDT Office Visit Neurology [facility] [place] [address] [facility] [place] [phone] Monica Gerard MD [address] [place] [address] 03/04/2025 1:40 PM EDT Telemedicine Neurology [address] [place] [phone] Migue Conde MD [address] [facility] [place] [address] Scheduled Orders Name Type Priority Associated Diagnoses Orde r Schedule ALT Lab Routine Encounter for long-term (current) use of medications Every 3 Months for 4 Occurrences starting 11/15/2024 until 11/15/2025 AST Lab Routine Encounter for long-term (current) use of medications Every 3 Months for 4 Occurrences starting 11/15/2024 until 11/15/2025 BUN Lab Routine Encounter for long-term (current) use of medications Every 3 Months for 4 Occurrences starting 11/15/2024 until 11/15/2025 CBC WITH WBC DIFFERENTIAL Lab Routine Encounter for long-term (current) use of medications Every 3 Months for 4 Occurrences starting 11/15/2024 until 11/15/2025 CREATININE Lab Routine Encounter for long-term (current) use of medications Every 3 Months for 4 Occurrences starting 11/15/2024 until 11/15/2025 Health Maintenance Due Date Last Done Comments Depression Screening 1964 DTap/Tdap Vaccines (1 - Tdap) 1971 Cologuard 1997 Fecal Occult Blood Test 1997 Sigmoidoscopy 1997 Colonoscopy 07/23/2018 07/23/2008 Colorectal Cancer Screening 07/23/2018 COVID-19 Vaccine ( season) 2024 11/08/2020, 10/11/2020 Influenza Vaccine (FLU shot) (Season Ended) 2025 Lipid Panel 06/27/2029 06/27/2024, 09/2023, 08/03/2015 Hepatitis [...] Diagnosis Encounter for long-term (current) use of medications- Primary Encounter for long-term (current) use of other medications Rheumatoid factor positive with cyclic citrullinated peptide (CCP) antibody negative documented in this encounter Care Teams Dental Assistant Relationship Specialty Start Date End Date Khai Virk MD [address] [place] [address] PCP - General Family Medicine 12/08/14 documented as of this encounter
--- OUTSIDE RECORDS SUMMARY | 2024-12-04 02:24 | External Medical Summary | Summary of Care ---
Author Name Unknown Organization [facility] Address [address] [facility] [place] [address] Phone [phone] Care Team Providers Care Correspondence School Instructor Name Role Phone Khai Virk MD Primary Care Provider [phone] Reason for Visit * Reason Comments eRx-Medication Refill Encounter Details Date Type Department Care Team (Late st Contact Info) Description 11/20/2024 Refill Neurology [facility] [address] [facility] [place] [address] Larry Gerard MD [address] [place] [address] History of seizure Allergies Active Allergy Reactions Criticality Noted Date Comments Cat Dander 08/10/2021 Dog Dander 08/10/2021 Dust 08/10/2021 Methotrexate Seizure High 11/20/2017 2015 was used to treat rheum arthritis, had seizure and was taken off. Not certain it was the methotrexate which caused the seizure. Pollen 08/10/2021 documented as of this encounter (statuses as of 11/20/2024) Medications ASPIR-81 81 MG PO TBEC Take [...] Oral Capsule Take by mouth. Active Saw Levant (Serenoa repens) 160 MG Oral Capsule Take [...] per mouth 4 times a day at [id number] and [place] (Take 30 minutes prior to [...] mouth daily. 30 Tablet 11/18/19 25 Active lamoTRIgine 150 MG Oral Tablet (LaMICtal)Indicat ions:History of seizure TAKE 1 TABLET TWICE A DAY 180 Tablet 1 11/21/19 25 Active lamoTRIgine 150 MG Oral Tablet (LaMICtal)Indicat ions:History of seizure TAKE 1 TABLET TWICE A DAY 180 Tablet 1 05/27/20 24 025 Discontinued documented as of this encounter (statuses as of 11/20/2024) Active Problems Problem Noted Date Diagnosed Date [...] as of this encounter (statuses as of 11/20/2024) Resolved Problems Problem Noted Date Diagnosed Date Resolved Date Other allergic rhinitis 12/2008 Overview (05/29/2017): Resolved per Duplicate Protocol #2. 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 Answer Date of Assessment Author Yes 04/16/2017 2:00 PM EDZeina Fields E, MED ASSIST * Are you blind [...] Telephone Encounter - Ten Castillo RPh - 11/20/2024 2:58 PM EDTSigned Prescriptions: Disp Refills lamoTRIgine 150 MG Oral Tablet (LaMICtal) 180 Ta*1 Sig: TAKE 1 TABLET TWICE A DAYAuthorizing Provider: LARRY GERARD User: TEN CASTILLO * Telephone Encounter - Colby Guevara - 11/20/2024 5:21 AM EDTPending Prescriptions: Disp Refills lamoTRIgine 150 MG Oral Tablet [Pharmacy M*180 Ta*3 Sig: TAKE 1 TABLET TWICE A DAY * Telephone Encounter - Colby Guevara - 11/20/2024 5:19 AM EDT Did you pend patient's preferred pharmacy and medication before forwarding?yes Pharmacy: [facility] Pending Prescriptions: Disp Refills lamoTRIgine 150 MG Oral Tablet (LaMICtal)*180 Ta*3 Sig: TAKE 1 TABLET TWICE A DAY Last Visit: 09/23/2024 (in office), 12/05/2019 (telemedicine) Next Visit: Visit date not found If no future appointments scheduled, and last appointment is greater than a year ago, please schedule patient for a follow-up appointment Last date the medication was ordered: 05/27/2024 Is this request for a controlled substance?No [...] Description 12/23/2024 3:30 PM EDT Imaging Radiology [facility] [address] [place] [id number] 01/12/2025 3:00 PM EDT Office Visit Rheumatology [address] [place] [phone] Jamaica Nash CRNP [address] [place] [address] [place] [address] 01/22/2025 2:20 PM EDT Office Visit Neurology [facility] [place] [address] [place] [phone] Larry Gerard MD [address] [place] [address] 03/04/2025 1:40 PM EDT Telemedicine Neurology [address] [place] [phone] Migue Conde MD [address] [place] [address] Health Maintenance Due Date Last Done Comments Depression Screening 1964 DTap/Tdap Vaccines (1 - Tdap) 1971 Cologuard 1997 Fecal Occult Blood Test 1997 Sigmoidoscopy 1997 Colonoscopy 07/23/2018 07/23/2008 Colorectal Cancer Screening 07/23/2018 COVID-19 Vaccine ( season) 2024 11/08/2020, 10/11/2020 Influenza Vaccine (FLU shot) (Season Ended) 2025 Lipid Panel 06/27/2029 06/27/2024, 020 09/2023, 08/03/2015 [...] seizure documented in this encounter Care Teams Correspondence School Instructor Relationship Specialty Start Date End Date Khai Virk MD [address] [place] [address] PCP - General Family Medicine 12/08/14 documented as of this encounter
--- OUTSIDE RECORDS SUMMARY | 2024-12-04 02:24 | External Medical Summary | Summary of Care ---
Author Name Unknown Organization [facility] Address [address] [facility] [place] [address] Phone [phone] Care Team Providers Care Occupational Therapist Aide Name Role Phone Khai Virk MD Primary Care Provider [phone] Reason for Visit * Reason Onset Date Comments Precert Approved 11/14/2024 Rinvoq 15MG er tablets Encounter Details Date Type Department Care Team (Late st Contact Info) Description 11/14/2024 Telephone Rheumatology [address] [place] [phone] Robert Cooper MD [address] [facility] [place] [address] Precert Approved (Rinvoq 15MG er tablets/) Allergies Active Allergy Reactions Criticality Noted Date Comments Cat Dander 08/10/2021 Dog Dander 08/10/2021 Dust 08/10/2021 Methotrexate Seizure High 11/20/2017 2015 was used to treat rheum arthritis, had seizure and was taken off. Not certain it was the methotrexate which caused the seizure. Pollen 08/10/2021 documented as of this encounter (statuses as of 11/18/2024) Medications ASPIR-81 81 MG PO TBEC Take [...] Oral Capsule Take by mouth. Active Saw Powell (Serenoa repens) 160 MG Oral Capsule Take [...] per mouth 4 times a day at 2QI-beus-4PR and [place] (Take 30 minutes prior to [...] as of this encounter (statuses as of 11/18/2024) Active Problems Problem Noted Date Diagnosed Date [...] as of this encounter (statuses as of 11/18/2024) Resolved Problems Problem Noted Date Diagnosed Date Resolved Date Other allergic rhinitis 12/2008 Overview (05/29/2017): Resolved per Duplicate Protocol #2. 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 Qty and Day Supply: Did you receive insurance information from outside the chart? No, received insurance information within the chart Valid auth start date: 09/19/24 Valid auth end date: 11/16/25 Rx Insurance Info: HIGHMARK * Telephone Encounter - Kristal Baez PHARM Tech - 11/14/2024 9:45 AM EDT Patient's is calling to inform doctor that the patient's insurance will not pay for this medication without a completed prior authorization. Did confirm this information with the pharmacy. Pt's current insurance information is as follows: Patient name: Clement Reyes ID number: [id number] BIN number: [id number] PCN number: [id number] Group number: [id number] Subscriber name: Clement Reyes Primary or Secondary Insurance:Primary Medication: Rinvoq 15 MG Oral Tablet Extended Release 24 Hour (Upadacitinib ER) Reason for Request: NEEDS PRIOR AUTH Pharmacy and phone number: [facility] [address] [phone] Rx plan and phone number: DEBRA [phone] Is this a new medication for the patient? No. How did the patient obtain the medication on the lastfill? It was covered last time on this same insurance. What alternative medications does the pharmacy have in stock?: N/A Thank you, Kristal Baez Dinkey Engine Mechanic [facility] 11/14/2024,9:51 AM Pt's is calling in regarding pt's prescription for Rinvoq 15 MG Oral Tablet Extended Release 24 Hour (Upadacitinib ER). documented in this encounter Plan of Treatment Upcoming Encounters Date Type Department Care Team (Late st Contact Info) Description 12/23/2024 3:30 PM EDT Imaging Radiology [facility] [address] [place] [phone] 01/12/2025 3:00 PM EDT Office Visit Rheumatology [address] [place] [phone] Jamaica Nash CRNP [address] [place] [address] 01/22/2025 2:20 PM EDT Office Visit Neurology [facility] [place] [address] [facility] [place] [phone] Monica Gerard MD [address] [place] [address] 03/04/2025 1:40 PM EDT Telemedicine Neurology [address] [place] [phone] Migue Conde MD [address] [place] [address] Health Maintenance Due Date [...] filedocumented as of this encounter Care Teams Occupational Therapist Aide Relationship Specialty Start Date End Date Khai Virk MD [address] [place] [address] PCP - General Family Medicine 12/08/14 documented as of this encounter
--- OUTSIDE RECORDS SUMMARY | 2024-12-04 02:24 | External Medical Summary | Summary of Care ---
Author Name Unknown Organization [facility] Address [address] [facility] [place] [address] Phone [phone] Care Team Providers Care Health And Wellness Director Name Role Phone Khai Virk MD Primary Care Provider [phone] Reason for Visit * Reason Onset Date Comments Medication Refill 11/14/2024 Encounter Details Date Type Department Care Team (Late st Contact Info) Description 11/14/2024 Refill Rheumatology [address] [place] [phone] Robert Cooper MD [address] [facility] [place] [address] Encounter for long-term (current) use of medications*; [...] Oral Capsule Take by mouth. Active [place] (Serenoa repens) 160 MG Oral Capsule Take [...] per mouth 4 times a day at [id number] and MN (Take 30 minutes prior to food intake) Do not start before October 07, 2024. 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 Mark Dimas RPh [facility] Clinical Pharmacist Rheumatology Department 11/15/2024,11:42 AM * Telephone Encounter - Kristal Baez junior paralegal - 11/14/2024 9:44 AM EDT Patient is [...] date the medication was ordered: 06/01/2023 Pharmacy: [facility] [address] Is this request for a controlled [...] Description 12/23/2024 3:30 PM EDT Imaging Radiology [facility] [address] [place] [phone] 01/12/2025 3:00 PM EDT Office Visit Rheumatology [address] [place] [id number] [place] Nash CRNP [address] [place] [address] 01/22/2025 2:20 PM EDT Office Visit Neurology [facility] [address] [facility] [place] [phone] Monica Gerard MD [address] [place] [address] 03/04/2025 1:40 PM EDT Telemedicine Neurology [address] [place] [phone] Migue Conde MD [address] [facility] [place] [address] Scheduled Orders Name Type Priority Associated [...] negative documented in this encounter Care Teams Health And Wellness Director Relationship Specialty Start Date End Date Khai Virk MD [address] [facility] [address] PCP - General Family Medicine 12/08/14 documented as of this encounter
[2024-12-04 03:03] LABS: Creatine Kinase 2576 U/L (30-223)
[2024-12-04] MEDS ORDERED: OLANZapine ZYDIS 5 MG ORALLY DIS. TAB PO PRN (04:18)
[2024-12-04] MEDS ORDERED: POLYETHYLENE (MIRALAX) 17 GM PACK PO PRN (04:18)
[2024-12-04] MEDS ORDERED: MAGNESIUM HYDROXIDE SUSP 30 ML UDC PO PRN (04:18)
[2024-12-04] MEDS ORDERED: ONDANSETRON INJ 2 MG/ML 2 ML VIAL IV PRN (04:18)
[2024-12-04] MEDS ORDERED: MELATONIN 3 MG TAB PO PRN (04:18)
[2024-12-04] MEDS: RINVOQ~ORDER AWAITING ACTION SCH (04:51)
--- NOTE | 2024-12-04 06:03 | Emergency Department Note ---
Impression & Plan Aggressive behavior, Dementia due to Parkinson's disease with behavioral disturbance, Elevated CK admitted to the [facility] ED Provider Note NAME: DAVID FERNANDO AGE: 74 SEX: Male INFORMANT: Patient ED PROVIDER(S): Kim Cerda DO CHIEF COMPLAINT: Aggressive behavior PLAN: Disposition: admit to the [facility] MEDICAL DECISION MAKING: This is a 74-year-old male patient brought to the emergency department after exhibiting aggressive behavior at [place]. patient has a history of Parkinson's disease and some dementia. He became more aggressive tonight and EMS was called. Patient was noted to have bilateral lower extremity edema with significant ecchymosis and contusion noted over the right lower extremity. Total CK was elevated at 2576. EMS states they believe the patient had suffered a fall a couple of days ago. Nursing staff had talked to the patient's on the phone who stated the patient had been falling at [place]. other laboratory studies revealed no leukocytosis. Patient is more anemic with a hemoglobin of 11. Glucose was 101. Troponin was within normal limits. Urinalysis revealed 1+ ketones and red blood cells but no obvious signs of infection. Chest x-ray did show evidence of a left-sided pleural effusion versus pneumonia but the patient had no cough or evidence of hypoxia. Patient required sedation by EMS in order to be transported here to the hospital. [facility] seems that the patient may require a higher level of care than the [facility] for outpatient residential care. Care/management discussed with: Nursing staff had talked to the patient's by phone. I discussed the case with manager code and EMS. I discussed the case with the [facility] Triage Nursing notes: reviewed and agree with them. Vital Signs: reviewed and remarkable for hypertension Additional History obtained from: EMS Chronic Medical/Social Conditions affecting care: Parkinson's/dementia Prior/ Outside/ External records reviewed: previous inpatient medical records Differential Diagnosis: UTI, worsening dementia, medication side effects Diagnostics, independently interpreted by me: ECG: normal sinus rhythm at a rate of [address] segment elevation or signs of ischemia. There is no ectopy. Cardiac Monitoring: normal sinus rhythm at a rate of 78 Imaging studies: portable chest x-ray: Left-sided pleural effusion as per [place] HPI: 74 year old Male arrives for evaluation of aggressive behavior. the patient presents from [facility]. He apparently was trying to pull the sink and pipes off the wall. He became very aggressive and was threatening staff. EMS was called to the [facility] and the patient required sedation in order to be taken to the ambulance. The patient was covered in Dry feces. PAST MEDICAL HISTORY: See Below, PAST SURGICAL HISTORY: See Below, SOCIAL HISTORY: See Below, HOME MEDICATIONS: see list ALLERGIES: methotrexate VITALS: See Below PHYSICAL EXAMINATION: HEENT: Head - normocephalic and atraumatic. Pupils are equal, round, and reactive to light. Extraocular eye muscles are intact and sclera are anicteric. Ears - bilaterally patent canals with noninjected tympanic membranes and no evidence of hemotympanum. Nose - moist nasal mucosa without discharge. Mouth - moist buccal mucosa. Oropharynx is nonerythematous and there is no tonsillar exudate or edema noted. Neck: Supple; no JVD or cervical lymphadenopathy noted. Heart: Regular rate and rhythm. There is a normal S1 and S2 with no murmurs, clicks, or gallops appreciated. Lungs: Clear to auscultation bilaterally with no wheezes, rales, or rhonchi. Abdomen: Soft, completely nontender, nondistended, with good bowel sounds. There are no palpable pulsatile masses or hepatosplenomegaly. There is no guarding, rigidity, or rebound noted. Extremities: Significant edema in both lower extremities with the right being worse than the left. There were multiple areas of contusion and ecchymosis noted over the lateral right leg Neuro:The patient is awake And only intermittently able to follow commands. He was more sedate at this time Emergency Department course: The patient was evaluated in room A-2. A complete history and physical was performed. An order was placed for continuous cardiac monitoring. The patient was in a normal sinus rhythm at a rate of 78. A twelve-lead EKG was obtained as described above. Nursing staff spent some time cleaning the dried feces off of the patient. Laboratory studies were drawn as above. A urine specimen was obtained. Patient was bolused with IV normal saline solution.Nursing staff spoke with the patient's on the phone and relayed the information to me. I discussed the case with the manager code. Past Med/Surg History Problem List (Updated 12/04/24 @ 09:27 by JAKOB Bearden) Counseling regarding advanced directives and goals of care Quality of life palliative care encounter Elevated CK (Acute) Aggressive behavior (Acute) Elevated CK Agitation due to dementia Weakness generalized Palliative care by specialist Altered mental status Discussion about advance care planning held with family member Delirium Dementia due to Parkinson's disease with behavioral disturbance (Acute) Acute diarrhea Renal insufficiency Ambulatory dysfunction LLL pneumonia Hallucination, visual (Acute) Acute confusion (Acute) Pulmonary nodules Carotid artery disease Edema Restrictive lung disease Paralysis, diaphragm Dyslipidemia Carotid artery stenosis Dyspnea on exertion Low back pain Cervical stenosis of spinal canal Elevated hemidiaphragm Dyspnea Rheumatoid arthritis (Chronic) Seizure (Acute) Encounter for pre-operative examination Pneumonia (Acute) Parkinson disease (Acute) SIRS (systemic inflammatory response syndrome) (Acute) Dyspnea on minimal exertion (Acute) Seizure 1 episode 8 years ago GERD (gastroesophageal reflux disease) Parkinson disease Hypophosphatemia Medical History Rheumatoid arthritis Hearing deficit Surgical History History of cataract surgery History of total hip arthroplasty left History of colonoscopy History of tooth extraction Nasal polyps removed Family History Other Allergies Cancer Heart disease No family history of adverse response to anesthesia Social History Smoking Status: Never smoker Second Hand Exposure: No; Do You Dip or Chew Tobacco: No; Hx Alcohol Use: No Hx Substance Use: No Preferred Language: German Communication Ability: Impaired 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 Beliefs That Will Affect Care: None Current Living Situation: Personal Care [facility] Other Information That Helps Us Care for You: No Feels Safe at Home: Yes Safety Concerns: Feels Safe At This Time Assistive Devices: Cane and Walker Allergies Allergies Allergy/AdvReac Type Severity Reaction Status Date / Time methotrexate Allergy Severe Seizure Verified 01/02/24 10:07 Home Meds Previous Rx's Medication Instructions Recorded aspirin 81 mg tablet,delayed 81 mg PO QAM #30 tabs 11/06/24 release biotin 1,000 mcg chewable tablet 1,000 mcg PO QAM #30 tabs 11/06/24 carbidopa 50 mg-levodopa 200 1 tab PO HS #30 tabs 11/06/24 mg-entacapone 200 mg tablet carbidopa ER 25 mg-levodopa 100 mg 2 tab PO TIDM #90 tabs 11/06/24 tablet,extended release cholecalciferol (vitamin D3) 25 50 mcg (2 x 25 mcg (1,000 unit)) 11/06/24 mcg (1,000 unit) tablet (Vitamin PO DAILY #30 tabs D3) cyanocobalamin (vitamin B-12) 1,000 mcg PO DAILY #30 caps 11/06/24 1,000 mcg capsule diclofenac sodium 1 % topical gel 2 g topical TID PRN Pain #1 g 11/06/24 lamotrigine 150 mg tablet 150 mg PO BID #60 tabs 11/06/24 magnesium chloride 64 mg 64 mg PO DAILY #30 tabs 11/06/24 (magnesium chloride) tablet olanzapine 5 mg disintegrating 5 mg PO HS PRN agitation #30 tabs 11/06/24 tablet omeprazole 20 mg tablet,delayed 40 mg (2 x 20 mg) PO BID #120 tabs 11/06/24 release prednisone 5 mg tablet 5 mg PO QAM #30 tabs 11/06/24 saw palmetto 160 mg capsule 160 mg PO BID #60 caps 11/06/24 sertraline 100 mg tablet 100 mg PO DAILY #30 tabs 11/06/24 tamsulosin 0.4 mg capsule 0.4 mg PO HS #30 caps 11/06/24 upadacitinib 15 mg tablet,extended 15 mg PO HS #30 tabs 11/06/24 release 24 hr (Rinvoq) Results & Data (ED) Vital Signs Vital Signs - 24 hr 12/04/24 00:39 12/04/24 00:40 12/04/24 00:41 Temperature 36.9 C Temperature Source Oral Pulse Rate 88 90 Pulse Rate [Apical] Respiratory Rate 20 Respiratory Effort / Characteristics Non-Labored Spontaneous Respiratory Depth Normal Respiratory Pattern Regular Blood Pressure 134/72 Blood Pressure [Right Arm] Blood Pressure Mean 92 Blood Pressure Mean [Right Arm] Blood Pressure Position Semi-fowlers Pulse Oximetry 95 95 Oxygen Delivery Method Room Air Room Air Sepsis Recent Fever Within 48 Hours No Sepsis New/Unexplained Change in Mental Status No Sepsis Action Taken by Nursing No Action Required 12/04/24 01:06 Temperature Temperature Source Pulse Rate Pulse Rate [Apical] 75 Respiratory Rate 20 Respiratory Effort / Characteristics Respiratory Depth Respiratory Pattern Blood Pressure Blood Pressure [Right Arm] 112/67 Blood Pressure Mean Blood Pressure Mean [Right Arm] 82 Blood Pressure Position Pulse Oximetry 95 Oxygen Delivery Method Room Air Sepsis Recent Fever Within 48 Hours Sepsis New/Unexplained Change in Mental Status Sepsis Action Taken by Nursing Laboratory Data 12/05/24 08:53 12/05/24 08:53 Lab Results 12/04/24 12/04/24 12/04/24 Range/Units 00:21 00:37 01:27 WBC 6.01 (4.8-10.8) K/ul RBC 3.81 L (4.70-6.10) M/uL Hgb 11.1 L (14.0-18.0) g/dl Hct 33.3 L (42.0-52.0) % MCV 87.4 (80.0-100.0) fL MCH 29.1 (25.0-34.0) pg MCHC 33.3 (32.0-36.0) g/dL RDW Std Deviation 46.1 (36.4-46.3) fL RDW Coeff of Neela 14.4 (11.5-14.5) % Plt Count 190 (130-400) K/uL MPV 10.2 (9.4-12.4) fL Immature Gran % (Auto) 0.5 % Neut % (Auto) 67.9 % Lymph % (Auto) 19.8 % Long % (Auto) 9.0 % Eos % (Auto) 1.8 % Baso % (Auto) 1.0 % Neut # (Auto) 4.08 (1.40-6.50) K/uL Lymph # (Auto) 1.19 L (1.20-3.40) K/uL Long # (Auto) 0.54 (0.11-0.59) K/uL Eos # (Auto) 0.11 (0.00-0.50) K/uL Baso # (Auto) 0.06 (0.00-0.20) K/uL Immature Gran # (Auto) 0.03 (0.01-0.20) K/uL Sodium 142 (136-145) mmol/L Potassium 3.8 (3.5-5.1) mmol/L Chloride 109 H (98-107) mmol/L Carbon Dioxide 27 (21-32) mmol/L Anion Gap 6 (3-11) BUN 19 (6-23) mg/dl Creatinine 1.20 (0.6-1.4) mg/dl Est Cr Clr Drug Dosing 69.3 ml/min eGFR 64.25 BUN/Creatinine Ratio 15.8 (10-20) Glucose 101 H (70-99(Fasting)) mg/dl Calcium 8.6 (8.6-10.3) mg/dl Magnesium 2.2 (1.7-2.4) mg/dl Total Bilirubin 1.2 H (0.2-1.0) mg/dl AST 58 H (13-39) U/L ALT < 3 L (7-52) U/L Alkaline Phosphatase 134 H (34-104) U/L Total Creatine Kinase 2576 H (30-223) U/L Troponin I High Sens 8.5 (0-20) pg/ml Total Protein 6.2 (6.0-8.3) gm/dl Albumin 3.9 (3.4-5.0) gm/dl Globulin 2.3 L (2.5-4.0) gm/dl Albumin/Globulin Ratio 1.7 (0.9-2) Procalcitonin 0.04 (0-0.5) ng/ml TSH 2.609 (0.300-4.500) uIu/ml Urine Color Dark Yellow Urine Appearance Clear (Clear) Urine pH 6.0 (4.5-7.5) Ur Specific [place] 1.029 (1.000-1.030) Urine Protein 1+ H (Negative) Urine Glucose (UA) Negative (Negative) Urine Ketones 1+ H (Negative) Urine Blood Negative (Negative) Urine Nitrite Negative (Negative) Urine Bilirubin Negative (Negative) Urine Urobilinogen Negative (Negative) Ur Leukocyte Esterase Negative (Negative) Urine WBC (Auto) 0-5 (0-5) /hpf Urine RBC (Auto) 3-5 H (0-2) /hpf U Hyaline Cast (Auto) 11-20 H (0-2) /lpf U Epithel Cells (Auto) 0-2 (0-2) /hpf Urine Bacteria (Auto) None Seen (None Seen) Urine Mucus Present A (None Prsent) Administered Medications Aspirin (Aspirin 81 Mg Ectab) 81 mg PO QAM SHA Stop: 01/03/25 08:59 Last Admin: 12/05/24 08:51 Dose: 81 mg Documented By: Admin: 12/04/24 08:59 Dose: 81 mg Documented By: ANGELIKA Carbidopa/Levodopa (Carbidopa/Levodopa 25/100mg Ext Rel Tab) 2 tab PO TIDM SHA Stop: 01/03/25 07:59 Last Admin: 12/05/24 08:51 Dose: 2 tab Documented By: Admin: 12/04/24 18:38 Dose: Not Given Documented By: Admin: 12/04/24 13:07 Dose: 2 tab Documented By: Admin: 12/04/24 08:59 Dose: 2 tab Documented By: ANGELIKA Carbidopa/Levodopa (Carbidopa/Levodopa 25/100mg Ext Rel Tab) 2 tab PO HS SHA Stop: 01/03/25 20:59 Last Admin: 12/04/24 19:23 Dose: 2 tab Documented By: MEHRAN Enoxaparin Sodium (Enoxaparin Inj 40 Mg/0.4 Ml Syr) 40 mg SQ Q24H SHA Stop: 01/03/25 08:59 Last Admin: 12/05/24 08:52 Dose: 40 mg Documented By: Admin: 12/04/24 08:59 Dose: 40 mg Documented By: ANGELIKA Entacapone (Entacapone 200 Mg Tab) 200 mg PO HS SHA Stop: 01/03/25 20:59 Last Admin: 12/04/24 19:24 Dose: 200 mg Documented By: MEHRAN Lactated Ringer's (Lr) 1,000 mls @ 100 mls/hr IV .Q10H SHA Stop: 12/07/24 03:14 Last Admin: 12/05/24 03:32 Dose: 100 mls/hr Documented By: Infusion: 12/05/24 03:32 Dose: Infused Documented By: Admin: 12/04/24 18:37 Dose: 100 mls/hr Documented By: Infusion: 12/04/24 18:37 Dose: Infused Documented By: Admin: 12/04/24 09:15 Dose: 100 mls/hr Documented By: ANGELIKA Lamotrigine (Lamotrigine 100 Mg Tab) 150 mg PO BID SHA Stop: 01/03/25 08:59 Last Admin: 12/05/24 08:52 Dose: 150 mg Documented By: Admin: 12/04/24 19:23 Dose: 150 mg Documented By: Admin: 12/04/24 09:00 Dose: 150 mg Documented By: ANGELIKA Magnesium Chloride (Magnesium Chloride W/Calcium 64mg Delayed Rel Tab) 64 mg PO DAILY SHA Stop: 01/03/25 08:59 Last Admin: 12/05/24 08:53 Dose: 64 mg Documented By: Admin: 12/04/24 09:00 Dose: 64 mg Documented By: ANGELIKA Miscellaneous (Rinvoq~Order Awaiting Action) 1 each N/A QS SHA Stop: 01/03/25 04:29 Last Admin: 12/05/24 08:51 Dose: Not Given Documented By: Admin: 12/05/24 00:04 Dose: Not Given Documented By: Admin: 12/04/24 15:22 Dose: Not Given Documented By: Admin: 12/04/24 08:59 Dose: Not Given Documented By: Admin: 12/04/24 04:51 Dose: Not Given Documented By: SOLO Olanzapine (Olanzapine 2.5 Mg Tab) 2.5 mg PO HS SHA Stop: 01/03/25 20:59 Last Admin: 12/04/24 19:21 Dose: 2.5 mg Documented By: MEHRAN Pantoprazole Sodium (Pantoprazole 40 Mg Tab) 40 mg PO BID SHA Stop: 01/03/25 08:59 Last Admin: 12/05/24 08:53 Dose: 40 mg Documented By: Admin: 12/04/24 19:24 Dose: 40 mg Documented By: Admin: 12/04/24 09:01 Dose: 40 mg Documented By: ANGELIKA Prednisone (Prednisone 5 Mg Tab) 5 mg PO QAM SHA Stop: 01/03/25 08:59 Last Admin: 12/05/24 08:53 Dose: 5 mg Documented By: Admin: 12/04/24 09:01 Dose: 5 mg Documented By: ANGELIKA Sertraline HCl (Sertraline Hcl 100 Mg Tablet) 100 mg PO DAILY SHA Stop: 01/03/25 08:59 Last Admin: 12/05/24 08:53 Dose: 100 mg Documented By: Admin: 12/04/24 09:01 Dose: 100 mg Documented By: ANGELIKA Tamsulosin HCl (Tamsulosin Hcl 0.4 Mg Cap) 0.4 mg PO HS SHA Stop: 01/03/25 20:59 Last Admin: 12/04/24 19:24 Dose: 0.4 mg Documented By: TKB Discontinued Medications Olanzapine (Olanzapine 2.5 Mg Tab) 2.5 mg PO ONCE ONE Stop: 12/04/24 11:53 Last Admin: 12/04/24 13:07 Dose: 2.5 mg Documented By: ANGELIKA Imaging Data Radiologist's Impression: Chest X-Ray 12/04/24 00:21 EXAM: XR chest 1V portable CLINICAL HISTORY: weakness TECHNIQUE: An X-ray image of the chest is obtained in AP projection. COMPARISON: 11/04/2024 FINDINGS: The patient is rotated obscuring fine details of both upper zones. Pulmonary Parenchyma: Patchy airspace shadowing is seen in the left mid and lower zones obliterating left costophrenic angle. Prominent bronchovascular markings seen bilaterally. The right costophrenic angle appears sharp. Heart and Mediastinum: The heart size appears enlarged. No mediastinal widening or masses. No hilar or mediastinal lymphadenopathy. Bony Thorax: Bony thorax appears intact without fractures or deformities. Soft Tissues: Soft tissues overlying the chest wall are unremarkable. IMPRESSION: 1. Imaging findings are likely due to pulmonary infection/atalectasis with mild to moderate left-sided pleural effusion, would recommend clinical lab correlation. 2. No significant interval changes. Electronically signed by Dre Burk 12-04-2024 01:25 AM Discharge Plan Visit Data Chief Complaint: Confusion ED Provider: Kim Cerda Discharge Problem: Aggressive behavior, Dementia due to Parkinson's disease with behavioral disturbance, Elevated CK Patient Disposition: Admitted As Inpatient Condition: Fair Discharge Instructions Interventions: ED Discharge Assessment Last Done: 12/04/24 03:21
--- NOTE | 2024-12-04 07:29 | Ultrasound Report ---
EXAM: US venous doppler LE BI CLINICAL HISTORY: bilateral lower extremity swelling, immobility. TECHNIQUE: Ultrasound examination of bilateral lower extremity veins was performed in real time and duplex. One or more of the following were performed- spectral analysis, resistive index, waveform analysis, and pulsed Doppler. COMPARISON: None. FINDINGS: Normal phasic, non-pulsatile and spontaneous flow is noted in the bilateral common femoral, deep femoral, SFJ, superficial femoral, popliteal, posterior tibial, anterior tibial, and peroneal veins. Visualized veins of both lower extremities demonstrate normal compressibility. No sonographic evidence of acute deep vein thrombosis (DVT) is detected in the visualized veins of both lower extremities. Compression and Augmentation: All evaluated veins compress fully with applied transducer pressure. Additional Findings: No evidence of intraluminal thrombus. Subcutaneous edema is noted bilaterally at the popliteal and calf regions. IMPRESSION: 1. No sonographic evidence of acute DVT was detected in the visualized bilateral lower extremity veins at this time of exam. 2. Subcutaneous edema is noted bilaterally at the popliteal and calf regions. Disclaimer: DVT could be missed early in the disease when clot burden is minimal. For patients with moderate and high pretest probability of DVT and negative ultrasound, the [employer] [employer] clinical guidelines recommend testing with a D-dimer assay or repeat ultrasound in 5-7 days. If symptoms worsen, the Society of radiologists in ultrasound recommends repeating ultrasound even earlier. Electronically signed by Dre Burk 12-04-2024 07:28 AM
[2024-12-04] MEDS: ENOXAPARIN INJ 40 MG/0.4 ML SYR SQ SCH (08:59)
[2024-12-04] MEDS: ASPIRIN 81 MG ECTAB PO SCH (08:59)
[2024-12-04] MEDS: CARBIDOPA/LEVODOPA 25/100MG EXT REL TAB PO SCH ×2 (08:59→19:23)
[2024-12-04] MEDS: MAGNESIUM CHLORIDE W/CALCIUM 64MG DELAYED REL TAB PO SCH (09:00)
[2024-12-04] MEDS: lamoTRIgine 100 MG TAB PO SCH (09:00)
[2024-12-04] MEDS: PANTOprazole 40 MG TAB PO SCH (09:01)
[2024-12-04] MEDS: predniSONE 5 MG TAB PO SCH (09:01)
[2024-12-04] MEDS: SERTRALINE HCL 100 MG TABLET PO SCH (09:01)
[2024-12-04] MEDS: LACTATED RINGER'S 1,000 ML IV SCH (09:15)
--- NOTE | 2024-12-04 09:24 | Palliative Care Consultation ---
Date of Consultation December 04, 2024 Assessment & Plan (1) Palliative care by specialist: Assessed pt at bedside, no visitors present. Patient currently lacks decisional capacity based on the inability to convey understanding of personal PMHx, current medical condition, treatment options nor the risks / benefits of those options, and lack of ability to make decisions based on such knowledge. Hospital does not have written documentation of patient wishes concerning his chosen proxy for medical decisions. Per previous palliaitive care provider notes, patient has 4 adult children, 2 from the first marriage and he is currently remarried. .Per PA [id number], in absence of written documentation of patient wishes, pt's proxy for medical decisions would be current spouse AND the 2 adult children from his first marriage, with equal authority and majority decision will rule. Pt does require a proxy for medical decisions. Attempt made to contact pt's spouse by phone, no answer, general VM left. (2) Quality of life palliative care encounter: (3) Counseling regarding advanced directives and goals of care: Palliative care will continue to follow and remain available for GOC discussions and family support. Will continue to attempt to contact family and plan a family meeting, for any GOC/ACP discussions spouse and adult sons should be included. 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 Was found to be pulling at pipes on the wall at [facility] and was covered in feces. Police were called to help to transport patient to the hospital and patient did require sedation for transport. Pt had been discharged from [facility] on 10/15/24 for PT/OT to optimize strength and function with plan to transition to comfort directed care if he declines further. Allergies Allergy/AdvReac Type Severity Reaction Status Date / Time methotrexate Allergy Severe Seizure Verified 01/02/24 10:07 Home Medications Medication Instructions Recorded Confirmed Type aspirin 81 mg tablet,delayed 81 mg PO QAM #30 tabs 11/06/24 Rx release biotin 1,000 mcg chewable tablet 1,000 mcg PO QAM #30 tabs 11/06/24 Rx carbidopa 50 mg-levodopa 200 1 tab PO HS #30 tabs 11/06/24 Rx mg-entacapone 200 mg tablet carbidopa ER 25 mg-levodopa 100 mg 2 tab PO TIDM #90 tabs 11/06/24 Rx tablet,extended release cholecalciferol (vitamin D3) 25 50 mcg (2 x 25 mcg (1,000 unit)) 11/06/24 Rx mcg (1,000 unit) tablet (Vitamin PO DAILY #30 tabs D3) cyanocobalamin (vitamin B-12) 1,000 mcg PO DAILY #30 caps 11/06/24 Rx 1,000 mcg capsule diclofenac sodium 1 % topical gel 2 g topical TID PRN Pain #1 g 11/06/24 Rx lamotrigine 150 mg tablet 150 mg PO BID #60 tabs 11/06/24 Rx magnesium chloride 64 mg 64 mg PO DAILY #30 tabs 11/06/24 Rx (magnesium chloride) tablet olanzapine 5 mg disintegrating 5 mg PO HS PRN agitation #30 tabs 11/06/24 Rx tablet omeprazole 20 mg tablet,delayed 40 mg (2 x 20 mg) PO BID #120 tabs 11/06/24 Rx release prednisone 5 mg tablet 5 mg PO QAM #30 tabs 11/06/24 Rx saw palmetto 160 mg capsule 160 mg PO BID #60 caps 11/06/24 Rx sertraline 100 mg tablet 100 mg PO DAILY #30 tabs 11/06/24 Rx tamsulosin 0.4 mg capsule 0.4 mg PO HS #30 caps 11/06/24 Rx upadacitinib 15 mg tablet,extended 15 mg PO HS #30 tabs 11/06/24 Rx release 24 hr (Rinvoq) Patient History Medical History Rheumatoid arthritis Hearing deficit Surgical History History of cataract surgery History of total hip arthroplasty left History of colonoscopy History of tooth extraction Nasal polyps removed Family History Other Allergies Cancer Heart disease No family history of adverse response to anesthesia Social History Smoking Status: Never smoker Second Hand Exposure: No; Do You Dip or Chew Tobacco: No; Hx Alcohol Use: No Hx Substance Use: No Preferred Language: Ukrainian Communication Ability: Effective [employer] Required: No Beliefs That Will Affect Care: None Current Living Situation: Personal Care Facility Current Living Situation Comment: [facility] Other Information That Helps Us Care for You: No Feels Safe at Home: Yes Safety Concerns: Feels Safe At This Time Assistive Devices: Cane and Walker Review of Systems Review of Systems: Unobtainable due to cognitive status Physical Exam Physical Exam: General: No acute distress, A&O but oriented to person only Skin: Warm and dry Head: Normocephalic, atraumatic Eyes: PERRL, conjunctivae clear, sclera non-icteric ENT: External ear and ear canal without swelling; nose atraumatic; good dentition, tongue normal appearance, pharynx normal Neck: Supple, no LAD Cardio: RRR, no M/G/R, S1 and S2 normal Resp: No respiratory distress, Lungs CTA in all lobes bilaterally, no wheezes, rales, or rhonchi Abdomen: Soft, symmetric, nontender; No masses or hepatosplenomegaly; Bowel sounds normoactive MSK: No deformities; pulses palpable and equal; significant BLE edema, ~ pitting Neuro: Sensation intact bilaterally Results & Data Vital Signs (Past 12 Hours) Vital Signs Temp Pulse Pulse Pulse Resp BP BP 12/04/24 07:59 36.6 C 79 16 124/75 12/04/24 04:18 36.3 C L 87 18 12/04/24 03:21 80 18 139/75 12/04/24 03:00 76 18 139/75 12/04/24 01:06 75 20 112/67 12/04/24 00:41 36.9 C 90 20 134/72 12/04/24 00:40 88 12/04/24 00:39 Pulse Ox O2 Del Method 12/04/24 07:59 96 Room Air 12/04/24 04:18 96 Room Air 12/04/24 03:21 95 Room Air 12/04/24 03:00 95 Room Air 12/04/24 01:06 95 Room Air 12/04/24 00:41 95 Room Air 12/04/24 00:40 12/04/24 00:39 95 Room Air Laboratory Results Abnormal lab results 12/04/24 12/04/24 12/04/24 Range/Units 00:21 01:27 06:15 RBC 3.81 L (4.70-6.10) M/uL Hgb 11.1 L (14.0-18.0) g/dl Hct 33.3 L (42.0-52.0) % Lymph # (Auto) 1.19 L (1.20-3.40) K/uL Chloride 109 H (98-107) mmol/L Glucose 101 H (70-99(Fasting)) mg/dl Total Bilirubin 1.2 H (0.2-1.0) mg/dl AST 58 H (13-39) U/L ALT < 3 L (7-52) U/L Alkaline Phosphatase 134 H (34-104) U/L Total Creatine Kinase 2576 H 2279 H (30-223) U/L Globulin 2.3 L (2.5-4.0) gm/dl Urine Protein 1+ H (Negative) Urine Ketones 1+ H (Negative) Urine RBC (Auto) 3-5 H (0-2) /hpf U Hyaline Cast (Auto) 11-20 H (0-2) /lpf Urine Mucus Present A (None Prsent) Diagnostic Findings Chest X-Ray 12/04/24 00:21 EXAM: XR chest 1V portable CLINICAL HISTORY: weakness TECHNIQUE: An X-ray image of the chest is obtained in AP projection. COMPARISON: 11/04/2024 FINDINGS: The patient is rotated obscuring fine details of both upper zones. Pulmonary Parenchyma: Patchy airspace shadowing is seen in the left mid and lower zones obliterating left costophrenic angle. Prominent bronchovascular markings seen bilaterally. The right costophrenic angle appears sharp. Heart and Mediastinum: The heart size appears enlarged. No mediastinal widening or masses. No hilar or mediastinal lymphadenopathy. Bony Thorax: Bony thorax appears intact without fractures or deformities. Soft Tissues: Soft tissues overlying the chest wall are unremarkable. IMPRESSION: 1. Imaging findings are likely due to pulmonary infection/atalectasis with mild to moderate left-sided pleural effusion, would recommend clinical lab correlation. 2. No significant interval changes. Electronically signed by Dre Burk 12-04-2024 01:25 AM Venous Doppler Study 12/04/24 05:36 EXAM: US venous doppler LE BI CLINICAL HISTORY: bilateral lower extremity swelling, immobility. TECHNIQUE: Ultrasound examination of bilateral lower extremity veins was performed in real time and duplex. One or more of the following were performed- spectral analysis, resistive index, waveform analysis, and pulsed Doppler. COMPARISON: None. FINDINGS: Normal phasic, non-pulsatile and spontaneous flow is noted in the bilateral common femoral, deep femoral, SFJ, superficial femoral, popliteal, posterior tibial, anterior tibial, and peroneal veins. Visualized veins of both lower extremities demonstrate normal compressibility. No sonographic evidence of acute deep vein thrombosis (DVT) is detected in the visualized veins of both lower extremities. Compression and Augmentation: All evaluated veins compress fully with applied transducer pressure. Additional Findings: No evidence of intraluminal thrombus. Subcutaneous edema is noted bilaterally at the popliteal and calf regions. IMPRESSION: 1. No sonographic evidence of acute DVT was detected in the visualized bilateral lower extremity veins at this time of exam. 2. Subcutaneous edema is noted bilaterally at the popliteal and calf regions. Disclaimer: DVT could be missed early in the disease when clot burden is minimal. For patients with moderate and high pretest probability of DVT and negative ultrasound, the [employer] [employer] clinical guidelines recommend testing with a D-dimer assay or repeat ultrasound in 5-7 days. If symptoms worsen, the Society of radiologists in ultrasound recommends repeating ultrasound even earlier. Electronically signed by Dre Burk 12-04-2024 07:28 AM Medications Administered Current Inpatient Medications Aspirin (Aspirin 81 Mg Ectab) 81 mg PO QAM SHA Stop: 01/03/25 08:59 Last Admin: 12/04/24 08:59 Dose: 81 mg Carbidopa/Levodopa (Carbidopa/Levodopa 25/100mg Ext Rel Tab) 2 tab PO TIDM SHA Stop: 01/03/25 07:59 Last Admin: 12/04/24 08:59 Dose: 2 tab Carbidopa/Levodopa (Carbidopa/Levodopa 25/100mg Ext Rel Tab) 2 tab PO HS SHA Stop: 01/03/25 20:59 Enoxaparin Sodium (Enoxaparin Inj 40 Mg/0.4 Ml Syr) 40 mg SQ Q24H SHA Stop: 01/03/25 08:59 Last Admin: 12/04/24 08:59 Dose: 40 mg Entacapone (Entacapone 200 Mg Tab) 200 mg PO HS [facility] Stop: 01/03/25 20:59 Lactated Ringer's (Lr) 1,000 mls @ 100 mls/hr IV .Q10H [facility] Stop: 12/07/24 03:14 Last Admin: 12/04/24 09:15 Dose: 100 mls/hr Lamotrigine (Lamotrigine 100 Mg Tab) 150 mg PO BID SHA Stop: 01/03/25 08:59 Last Admin: 12/04/24 09:00 Dose: 150 mg Magnesium Chloride (Magnesium Chloride W/Calcium 64mg Delayed Rel Tab) 64 mg PO DAILY SHA Stop: 01/03/25 08:59 Last Admin: 12/04/24 09:00 Dose: 64 mg Magnesium Hydroxide (Magnesium Hydroxide Susp 30 Ml Udc) 30 ml PO Q6H PRN PRN Reason: Constipation Stop: 01/03/25 04:17 Melatonin (Melatonin 3 Mg Tab) 3 mg PO HS PRN PRN Reason: Insomnia Stop: 01/03/25 04:17 Miscellaneous (Rinvoq~Order Awaiting Action) 1 each N/A QS [facility] Stop: 01/03/25 04:29 Last Admin: 12/04/24 08:59 Dose: Not Given Olanzapine (Olanzapine Zydis 5 Mg Orally Dis. Tab) 5 mg PO HS PRN PRN Reason: agitation Stop: 01/03/25 04:17 Ondansetron HCl (Ondansetron Inj 2 Mg/Ml 2 Ml Vial) 4 mg IV Q6H PRN PRN Reason: Nausea Stop: 01/03/25 04:17 Pantoprazole Sodium (Pantoprazole 40 Mg Tab) 40 mg PO BID [facility] Stop: 01/03/25 08:59 Last Admin: 12/04/24 09:01 Dose: 40 mg Polyethylene Glycol (Polyethylene (Miralax) 17 Gm Pack) 17 gm PO DAILY PRN PRN Reason: Constipation Stop: 01/03/25 04:17 Prednisone (Prednisone 5 Mg Tab) 5 mg PO QAM [facility] Stop: 01/03/25 08:59 Last Admin: 12/04/24 09:01 Dose: 5 mg Sertraline HCl (Sertraline Hcl 100 Mg Tablet) 100 mg PO DAILY [facility] Stop: 01/03/25 08:59 Last Admin: 12/04/24 09:01 Dose: 100 mg Tamsulosin HCl (Tamsulosin Hcl 0.4 Mg Cap) 0.4 mg PO HS SHA Stop: 01/03/25 20:59 PG Care Time/CCT Total # of Minutes Spent Total Time Spent with Patient: Total time spent is greater than 50% in coordination of care (as documented) at patient's floor/unit and/or counseling patient: Coding [place] [address] IN/OBS CONSULT LVL 3,45M Patient Type Established History Expanded Problem Focused Exam Expanded Problem Focused Medical Decision Making Moderate Complexity Diagnoses Palliative care by specialist Z51.5 Quality of life palliative care encounter Z51.5 Counseling regarding advanced directives and goals of care Z71.89
[2024-12-04] MEDS ORDERED: OLANZapine 10 MG/2.1 ML SDV IM PRN (11:15)
[2024-12-04] MEDS: OLANZAPINE 2.5 MG TAB PO ONE (13:07)
--- NOTE | 2024-12-04 15:58 | Hospitalist Progress Note ---
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 ED evaluation reveals no leukocytosis, H&H 11.1/33.3; CMP with chloride 109, glucose 101, bilirubin 1.2, AST 58, ALT <3, alk phos 135, globulin 2.3; TSH pending; CK pending; CXR findings likely due to pulmonary infection/atelectasis with mild to moderate left-sided pleural effusion; EKG NSR at 88 bpm. #Ambulatory dysfunction/AMS/Agitation Worsening PAD, aggression at baseline but on the day of arrival seem to have been pulling at pipes in the wall at nursing facility and was covered in feces. Police were called and patient required sedation to transport to hospital. Does follow with neurology, most recent visit 05/21/2023. Actively sleeping at time of admission. Patient will likely need different placement. - CBC without clear infection that could explain change, trop 8.5, CK pending, procal negative, UA negative for infection - CXR does show mild to moderate L sided pleural effusion, no leukocytosis or fevers/cough - appears to be more so a chronic finding when looking at prior imaging - Fall precautions - Compression stockings placed for BLE edema - No 1:1 required at present - Olanzapine prn agitation - Can consider psych consult as appropriate - PT/OT ordered- appreciate assistance - Palliative consult placed - appreciate input + recs #Elevated CK Mainly sedentary, unable to tell me if any recent falls. No recent change steroid dose identified. No falls reported by EMS, unable to reach place of residence. - CK 2576 - IVF w/ LR @ 100 mL/hr x 1 L - reevaluate/adjust as necessary - CK, BMP am #RA- Follows with [facility]ology, on chronic prednisone and Rinvoq - continue #PD- Stalevo, olanzapine prn agitation- continue #History of seizures- Lamotrigine - continue #GERD- Omeprazole - continue #Depression- Sertraline - continue #BPH- Bladder scan pending; Tamsulosin - continue Dispo: Admit, med/sx VTE Prophylaxis: SCDs Admission and Anticipated Discharge Date Admission Date: December 04, 2024 Subjective Patient seen and examined this morning. Patient resting in bed at time of encounter. Physical Exam Physical Exam: General: no acute distress; non-toxic appearing; well-nourished; cooperative HEENT: normocephalic, atraumatic; no scleral icterus; PERRLA w/ EOMs intact; vision and hearing grossly intact Skin: warm, dry without signs of tenting; no cyanosis; no rashes, bruising, lesions, or erythema noted Lungs: no acute respiratory distress; symmetrical chest wall expansion Results & Data Results & Data Vital Signs (Past 12 Hours) Vital Signs Temp Pulse Pulse Resp BP Pulse Ox O2 Del Method 12/04/24 15:08 36.7 C 83 18 106/63 95 Room Air 12/04/24 07:59 36.6 C 79 16 124/75 96 Room Air 12/04/24 04:18 36.3 C L 87 18 96 Room Air PG Care Time/CCT Total # of Minutes Spent Total Time Spent with Patient: Total time spent is greater than 50% in coordination of care (as documented) at patient's floor/unit and/or counseling patient: Coding Level of Care Code None Diagnoses Altered mental status R41.82 Ambulatory dysfunction R26.2 Elevated CK R74.8
[2024-12-04] MEDS: OLANZAPINE 2.5 MG TAB PO SCH (19:21)
[2024-12-04] MEDS: ENTACAPONE 200 MG TAB PO SCH (19:24)
[2024-12-04] MEDS: TAMSULOSIN HCL 0.4 MG CAP PO SCH (19:24)
[2024-12-04] MEDS ORDERED: CARBIDOPA/LEVODOPA 25-250 1 EA TAB PO SCH (21:00)
[2024-12-04] MEDS ORDERED: Nursing to Pharmacy Communication SCH (23:45)
[2024-12-05 09:15] LABS: Hematocrit (blood only) 33.5 % (42.0-52.0); Hemoglobin 11.1 g/dl (14.0-18.0); Mean Corpuscular Hemoglobin 29.2 pg (25.0-34.0); Mean Corpuscular Hgb Conc 33.1 g/dL (32.0-36.0); Mean Corpuscular Volume 88.2 fL (80.0-100.0); Mean Platelet Volume 10.1 fL (9.4-12.4); Platelet Count 175 K/uL (130-400); RDW Standard Deviation 45.1 fL (36.4-46.3); White Blood Count 6.98 K/ul (4.8-10.8)
--- NOTE | 2024-12-05 09:23 | Palliative Care Progress Note ---
Date of Service December 05, 2024 Assessment & Plan (1) Palliative care by specialist: Plan: Palliative care will continue to follow for ongoing ACP discussions and pt/family support. (2) Counseling regarding advanced directives and goals of care: Plan Patient currently lacks decisional capacity based on the inability to convey understanding of personal PMHx, current medical condition, treatment options nor the risks / benefits of those options, and lack of ability to make decisions based on such knowledge. Hospital does not have written documentation of patient wishes concerning his chosen proxy for medical decisions. Per previous palliaitive care provider notes, patient has 4 adult children, 2 from the first marriage and he is currently remarried. .Per PA [id number], in absence of written documentation of patient wishes, pt's proxy for medical decisions would be current spouse AND the 2 adult children from his first marriage, with equal authority and majority decision will rule. Pt does require a proxy for medical decisions. Again made attempt to contact pt's spouse by phone, no answer, general VM left. Spoke with Silva,pt's sister in law who states that family may be difficult to reach due to power outage in their area. Palliative care will continue to follow and remain available for GOC discussions and family support as needed. Will continue to attempt to contact family and plan a family meeting, for any GOC/ACP discussions spouse and adult children should be included. Admission and Anticipated Discharge Date Admission Date: December 04, 2024 Subjective Assessed pt at bedside, sleeping comfortably but easily aroused with gentle verbal stimuli. He was oriented to person only, but pleasantly communicative and cooperative on my assessment. No family present at bedside. Review of Systems Review of Systems: Unobtainable due to cognitive status Physical Exam Physical Exam: General: No acute distress, A&O but oriented to person only Skin: Warm and dry Head: Normocephalic, atraumatic Eyes: PERRL, conjunctivae clear, sclera non-icteric ENT: External ear and ear canal without swelling; nose atraumatic; good dentition, tongue normal appearance, pharynx normal Neck: Supple, no LAD Cardio: RRR, no M/G/R, S1 and S2 normal Resp: No respiratory distress, Lungs CTA in all lobes bilaterally, no wheezes, rales, or rhonchi Abdomen: Soft, symmetric, nontender; No masses or hepatosplenomegaly; Bowel sounds normoactive MSK: No deformities; pulses palpable and equal; significant BLE edema, ~ pitting Neuro: Sensation intact bilaterally Results & Data Vital Signs (Past 12 Hours) Vital Signs Temp Pulse Resp BP Pulse Ox O2 Del Method 12/05/24 07:18 36.3 C L 86 16 154/78 H 94 Room Air Laboratory Results Abnormal lab results 12/05/24 Range/Units 08:53 RBC 3.80 L (4.70-6.10) M/uL Hgb 11.1 L (14.0-18.0) g/dl Hct 33.5 L (42.0-52.0) % Diagnostic Findings Chest X-Ray 12/04/24 00:21 EXAM: XR chest 1V portable CLINICAL HISTORY: weakness TECHNIQUE: An X-ray image of the chest is obtained in AP projection. COMPARISON: 11/04/2024 FINDINGS: The patient is rotated obscuring fine details of both upper zones. Pulmonary Parenchyma: Patchy airspace shadowing is seen in the left mid and lower zones obliterating left costophrenic angle. Prominent bronchovascular markings seen bilaterally. The right costophrenic angle appears sharp. Heart and Mediastinum: The heart size appears enlarged. No mediastinal widening or masses. No hilar or mediastinal lymphadenopathy. Bony Thorax: Bony thorax appears intact without fractures or deformities. Soft Tissues: Soft tissues overlying the chest wall are unremarkable. IMPRESSION: 1. Imaging findings are likely due to pulmonary infection/atalectasis with mild to moderate left-sided pleural effusion, would recommend clinical lab correlation. 2. No significant interval changes. Electronically signed by Dre Burk 12-04-2024 01:25 AM Venous Doppler Study 12/04/24 05:36 EXAM: US venous doppler LE CLINICAL HISTORY: bilateral lower extremity swelling, immobility. TECHNIQUE: Ultrasound examination of bilateral lower extremity veins was performed in real time and duplex. One or more of the following were performed- spectral analysis, resistive index, waveform analysis, and pulsed Doppler. COMPARISON: None. FINDINGS: Normal phasic, non-pulsatile and spontaneous flow is noted in the bilateral common femoral, deep femoral, SFJ, superficial femoral, popliteal, posterior tibial, anterior tibial, and peroneal veins. Visualized veins of both lower extremities demonstrate normal compressibility. No sonographic evidence of acute deep vein thrombosis (DVT) is detected in the visualized veins of both lower extremities. Compression and Augmentation: All evaluated veins compress fully with applied transducer pressure. Additional Findings: No evidence of intraluminal thrombus. Subcutaneous edema is noted bilaterally at the popliteal and calf regions. IMPRESSION: 1. No sonographic evidence of acute DVT was detected in the visualized bilateral lower extremity veins at this time of exam. 2. Subcutaneous edema is noted bilaterally at the popliteal and calf regions. Disclaimer: DVT could be missed early in the disease when clot burden is minimal. For patients with moderate and high pretest probability of DVT and negative ultrasound, the [employer] clinical guidelines recommend testing with a D-dimer assay or repeat ultrasound in 5-7 days. If symptoms worsen, the Society of radiologists in ultrasound recommends repeating ultrasound even earlier. Electronically signed by Dre Burk 12-04-2024 07:28 AM Medications Administered Current Inpatient Medications Aspirin (Aspirin 81 Mg Ectab) 81 mg PO QAM SHA Stop: 01/03/25 08:59 Last Admin: 12/05/24 08:51 Dose: 81 mg Carbidopa/Levodopa (Carbidopa/Levodopa 25/100mg Ext Rel Tab) 2 tab PO TIDM SHA Stop: 01/03/25 07:59 Last Admin: 12/05/24 08:51 Dose: 2 tab Carbidopa/Levodopa (Carbidopa/Levodopa 25/100mg Ext Rel Tab) 2 tab PO HS SHA Stop: 01/03/25 20:59 Last Admin: 12/04/24 19:23 Dose: 2 tab Enoxaparin Sodium (Enoxaparin Inj 40 Mg/0.4 Ml Syr) 40 mg SQ Q24H SHA Stop: 01/03/25 08:59 Last Admin: 12/05/24 08:52 Dose: 40 mg Entacapone (Entacapone 200 Mg Tab) 200 mg PO HS SHA Stop: 01/03/25 20:59 Last Admin: 12/04/24 19:24 Dose: 200 mg Lactated Ringer's (Lr) 1,000 mls @ 100 mls/hr IV .Q10H SHA Stop: 12/07/24 03:14 Last Admin: 12/05/24 03:32 Dose: 100 mls/hr Lamotrigine (Lamotrigine 100 Mg Tab) 150 mg PO BID SHA Stop: 01/03/25 08:59 Last Admin: 12/05/24 08:52 Dose: 150 mg Magnesium Chloride (Magnesium Chloride W/Calcium 64mg Delayed Rel Tab) 64 mg PO DAILY SHA Stop: 01/03/25 08:59 Last Admin: 12/05/24 08:53 Dose: 64 mg Magnesium Hydroxide (Magnesium Hydroxide Susp 30 Ml Udc) 30 ml PO Q6H PRN PRN Reason: Constipation Stop: 01/03/25 04:17 Melatonin (Melatonin 3 Mg Tab) 3 mg PO HS PRN PRN Reason: Insomnia Stop: 01/03/25 04:17 Miscellaneous (Rinvoq~Order Awaiting Action) 1 each N/A QS SHA Stop: 01/03/25 04:29 Last Admin: 12/05/24 08:51 Dose: Not Given Olanzapine (Olanzapine 10 Mg/2.1 Ml Sdv) 2.5 mg IM DAILY PRN PRN Reason: Agitation Stop: 01/04/25 08:59 Olanzapine (Olanzapine 2.5 Mg Tab) 2.5 mg PO HS [facility] Stop: 01/03/25 20:59 Last Admin: 12/04/24 19:21 Dose: 2.5 mg Ondansetron HCl (Ondansetron Inj 2 Mg/Ml 2 Ml Vial) 4 mg IV Q6H PRN PRN Reason: Nausea Stop: 01/03/25 04:17 Pantoprazole Sodium (Pantoprazole 40 Mg Tab) 40 mg PO BID [facility] Stop: 01/03/25 08:59 Last Admin: 12/05/24 08:53 Dose: 40 mg Polyethylene Glycol (Polyethylene (Miralax) 17 Gm Pack) 17 gm PO DAILY PRN PRN Reason: Constipation Stop: 01/03/25 04:17 Prednisone (Prednisone 5 Mg Tab) 5 mg PO QAM SHA Stop: 01/03/25 08:59 Last Admin: 12/05/24 08:53 Dose: 5 mg Sertraline HCl (Sertraline Hcl 100 Mg Tablet) 100 mg PO DAILY SHA Stop: 01/03/25 08:59 Last Admin: 12/05/24 08:53 Dose: 100 mg Tamsulosin HCl (Tamsulosin Hcl 0.4 Mg Cap) 0.4 mg PO HS [facility] Stop: 01/03/25 20:59 Last Admin: 12/04/24 19:24 Dose: 0.4 mg PG Care Time/CCT Total # of Minutes Spent Total Time Spent with Patient: Total time spent is greater than 50% in coordination of care (as documented) at patient's floor/unit and/or counseling patient: Coding Level of Care Code 26414 SUB INP/OBS CARE 3/50MIN Diagnoses Palliative care by specialist Z51.5 Counseling regarding advanced directives and goals of care Z71.89
[2024-12-05 09:29] LABS: Albumin Level 3.4 gm/dl (3.4-5.0); Bilirubin Direct 0.2 mg/dl (0-0.2); Bilirubin,Total 1.3 mg/dl (0.2-1.0)
[2024-12-05 09:31] LABS: BUN Creatinine Ratio 11.5 (10-20); Calcium 8.1 mg/dl (8.6-10.3); Creatinine Clr Calc Pharmacy 106.7 ml/min; Potassium 3.8 mmol/L (3.5-5.1)
[2024-12-05 09:35] LABS: Total Protein 5.4 gm/dl (6.0-8.3)
--- NOTE | 2024-12-05 16:14 | Hospitalist Progress Note ---
Date of Service December 05, 2024 Assessment & Plan (1) Altered mental status: (2) Ambulatory dysfunction: (3) Elevated CK: Plan 74-year-old male PMHx PVD, restrictive lung disease secondary to paralyzed L hemidiaphragm, history of seizure, BPH, and RA on chronic prednisone presenting from [facility] after worsening aggression/confusion from patient's baseline day [employer] REPRESENT[employer]IVE. ED evaluation reveals no leukocytosis, H&H 11.1/33.3; CMP with chloride 109, glucose 101, bilirubin 1.2, AST 58, ALT <3, alk phos 135, globulin 2.3; TSH pending; CK pending; CXR findings likely due to pulmonary infection/atelectasis with mild to moderate left-sided pleural effusion; EKG NSR at 88 bpm. #Ambulatory dysfunction/AMS/Agitation Worsening PAD, aggression at baseline but on the day of arrival seem to have been pulling at pipes in the wall at nursing facility and was covered in feces. Police were called and patient required sedation to transport to hospital. Does follow with neurology, most recent visit 05/21/2023. Actively sleeping at time of admission. CBC with no leukocytosis. Hemoglobin stable at 11.1. BMP with stable renal function and electrolytes Total bilirubin mildly elevated at 1.3. CK level downtrending to 1215 Follow-up precautions Compression stockings for lower extremity edema Schedule olanzapine 2.5 mg prior to bedtime.Can up-titrate as needed. Patient's behaviors need to be adequately controlled prior to discharge back to [facility] or else he is unable to return. Filled out POLST form with his 12/05. Patient is a DNR/DNI. At this time the main goal is to keep the patient comfortable. They are agreeable to IV antibiotics and IV fluids if needed. No further escalation of care aside from that. Palliative was consulted and this was discussed 12/05. #Elevated CK Mainly sedentary, unable to tell me if any recent falls. No recent change steroid dose identified. No falls reported by EMS, unable to reach place of residence. CK downtrending to 1215, unknown etiology Continue IVF Chronic conditions: Rheumatoid arthritis: Follows with [facility] rheumatology, on chronic prednisone and Rinvoq Parkinson's disease: Stalevo History of seizures: Lamotrigine GERD: PPI Depression: Sertraline BPH: Flomax Dispo: Admit, med/sx VTE Prophylaxis: SCDs Admission and Anticipated Discharge Date Admission Date: December 04, 2024 Subjective Patient seen and examined this afternoon. at bedside. He was resting comfortably in bed at time of encounter. Discussed POLST form with . Physical Exam Physical Exam: General: no acute distress; non-toxic appearing; well-nourished; cooperative HEENT: normocephalic, atraumatic; no scleral icterus; PERRLA w/ EOMs intact; vision and hearing grossly intact Skin: warm, dry without signs of tenting; no cyanosis; no rashes, bruising, lesions, or erythema noted Lungs: no acute respiratory distress; symmetrical chest wall expansion Results & Data Results & Data Vital Signs (Past 12 Hours) Vital Signs Temp Pulse Resp BP Pulse Ox O2 Del Method 12/05/24 09:34 36.5 C 75 16 149/79 H 94 Room Air 12/05/24 07:18 36.3 C L 86 16 154/78 H 94 Room Air PG Care Time/CCT Total # of Minutes Spent Total Time Spent with Patient: Total time spent is greater than 50% in coordination of care (as documented) at patient's floor/unit and/or counseling patient: Coding Level of Care Code 26616 SUB INP/OBS CARE 3/50MIN Diagnoses Altered mental status R41.82 Ambulatory dysfunction R26.2 Elevated CK R74.8
[2024-12-05] MEDS: UPADACITINIB 15 MG TABERGR24H PO SCH (20:22)
[2024-12-06 06:56] LABS: Hematocrit (blood only) 29.8 % (42.0-52.0); Hemoglobin 9.9 g/dl (14.0-18.0); Mean Corpuscular Hemoglobin 29.4 pg (25.0-34.0); Mean Corpuscular Hgb Conc 33.2 g/dL (32.0-36.0); Mean Corpuscular Volume 88.4 fL (80.0-100.0); Mean Platelet Volume 10.3 fL (9.4-12.4); Platelet Count 155 K/uL (130-400); RDW Standard Deviation 45.1 fL (36.4-46.3); Red Blood Count 3.37 M/uL (4.70-6.10); White Blood Count 5.17 K/ul (4.8-10.8)
[2024-12-06 07:15] LABS: BUN Creatinine Ratio 7.8 (10-20); Bilirubin Direct 0.2 mg/dl (0-0.2); Bilirubin,Total 0.9 mg/dl (0.2-1.0); Calcium 7.8 mg/dl (8.6-10.3); Creatinine Clr Calc Pharmacy 92.5 ml/min; Potassium 3.5 mmol/L (3.5-5.1); Total Protein 4.8 gm/dl (6.0-8.3)
--- NOTE | 2024-12-06 07:57 | Hospitalist Progress Note ---
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 ED evaluation reveals no leukocytosis, H&H 11.1/33.3; CMP with chloride 109, glucose 101, bilirubin 1.2, AST 58, ALT <3, alk phos 135, globulin 2.3; TSH pending; CK pending; CXR findings likely due to pulmonary infection/atelectasis with mild to moderate left-sided pleural effusion; EKG NSR at 88 bpm. #Ambulatory dysfunction/AMS/Agitation Worsening PAD, aggression at baseline but on the day of arrival seem to have been pulling at pipes in the wall at nursing facility and was covered in feces. Police were called and patient required sedation to transport to hospital. Does follow with neurology, most recent visit 05/21/2023. Actively sleeping at time of admission. No leukocytosis/fever, hgb stable 11.1 Notable CK elevated to 2576 w/ elevation in TB/AST/ALP and slight bump in Cr to 1.2 (baseline <1.2). Not on statin therapy at baseline but do see Rinvoq (not given on admission but was resumed last evening) for his RA but patient reporting is NOT new medication/has been on for 1-2 yrs. Given last evening but will hold for today pending further discussion. Will send anaplas/babesia Notable also w/ LE edema, compression stockings ordered as tolerated. ?need for diuretics, avoid for now w/ orthostasis/fall risk but could be considered, can check BNP w/ AM labs. IVF continued, CK trending down 1215--> now 555 and will decrease IVF to 60cc/hr for now/PO hydration encouraged and will monitor given edema and above Patient's behaviors need to be adequately controlled prior to discharge back to [facility] or else he is unable to return. --> On SCHEDULED Olanzapine 2.5mg HS, prior was rec for prn but ?if was getting. Mood stable/no aggression and ambulating in room per nursing today and will continue LOW DOSE SCHEDULED Palliative consulted, POLST form filled out with 12/05, is DNR/DNI but agreeable to IVF/IV abx but no further escalation of care. At this time the main goal is to keep the patient comfortable Also noted on CT head October w/ bone lesion zygomatic arch/L maxilla, will see if Dr Cam able to review. Was tx pneumonia and should cover sinusitis but ? bony lesion. 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 F/u imaging (patient did report dog bite as child/never needed tx but suspect should be done to rule out something more sinister given rapid decline) Continued support, maintain wake/sleep schedules Labs/exam in AM, hopefully [place] back tomorrow or sunday on scheduled low dose olanzapine to maintain agitation sxs #Elevated CK Mainly sedentary, unable to tell me if any recent falls. No recent change steroid dose identified. No falls reported by EMS, unable to reach place of residence. Do note as above, Rinvoq which can cause as rare side effect jeannie w/ combination entacapone, however denies this being new medication. Note was resumed last evening 12/05 and CK trending down 555 (but is on IVF) and will monitor ALSO NOTE SAW PALMETTO ON MED LIST, can cause in some patients -- consider holding at dc as likely on for BPH but also on flomax which has been continued Not on any statin Anaplas/babesia testing sent given TB/AST/ALP elevation, no rash on exam IVF continued but decreased rate to 60cc/hr and PO hydration encouraged. Monitor level in AM #Rheumatoid arthritis -Follows with [facility] rheumatology, on chronic prednisone 5mg daily. Also on Rinvoq. -Notable rinvoq was held last admission and prior LONNIE reported did not make any difference in mentation Rec checking CK periodically while on Rinvoq at dc to ensure without elevation as never checked in the past prior #Parkinson's disease: Stalevo #BPH: Flomax continued, as above CONSIDER STOPPING saw palmetto at dc given CK Chronic conditions: History of seizures: Lamotrigine continued GERD: PPI Depression: Sertraline DVT proph: added SCDs, susie catrachoe. consider chemoproph pending ongoing inpatient stay, did ambulate w/ nursing today. Venous doppler on admission negative for DVT (but did not subcu edema) Dispo: continued inpatient stay, hopeful return to [facility] if remains stable on 2.5mg scheduled olanzapine HS. Ct facial bones as outlined to ensure no other destructive lesion Voicemail left for . Admission and Anticipated Discharge Date Admission Date: December 04, 2024 Supervising Physician Co-Signing Physician Notes The patient was not seen by me. The chart was reviewed. Case discussed with ROSIBEL Anglin. Agree with assessment and plan Subjective Eval this morning, sitting up in recliner, NAD. Hard of hearing but alert to person/place, not event time but reports he thinks he has appt w/ rheumatology tomorrow. Rinvoq resumed last evening, he reports this is NOT a new medication and has been on for years. Some leg swelling but reports chronic, discussed compression stockings for mobilization but prefers to hold off for now but will monitor if agreeable can order. No shortness of breath. Reports decent sleep. Mentation appears stable. Call to , voicemail left for discussion. Physical Exam 2 Physical Exam: General: 74yo male sitting up in recliner, NAD HEENT: head atraumatic, normocephalic, HARD OF HEARING, mmm Resp: even/unlabored, poor inspiratory effort, diminished in the bases but no wheezing/rales, 93% on rA CV: RRR, faint systolic murmur, 2+ pitting edema b/l LE, calves nontender, pulses present GI: +BS, soft/slight distension but nontender MSK/Neuro/Psych: alert to person/place, cooperative. slow speech/answering questions but appears to be answering questions appropriately, generalized weakness but nonfocal Results & Data Results & Data Vital Signs (Past 12 Hours) Vital Signs Temp Pulse Resp BP Pulse Ox O2 Del Method 12/06/24 08:58 Room Air 12/06/24 08:39 36.8 C 91 H 16 124/74 93 Room Air 12/05/24 19:44 36.6 C 58 L 18 129/71 96 Room Air Intake and Output 12/05/24 12/06/24 12/06/24 22:59 06:59 14:59 Intake Total 9996777.379 9557 / 1000 Output Total Balance -17819992.264 0813 / 0927.470 2655 / 1000 Intake: IV 9996062.421 0170 / 1000 Lactated Ringer's 1,000 ml @ 80 999 / 1000 mls/hr IV .[id number] SHA Rx#: [id number] Output: Urine 200 / 200 # Bowel Movements Other: # Unmeasured Voids 1 1 # Urine Diapers 1 Laboratory Results 12/06/24 06:18 12/06/24 06:18 PG Care Time/CCT Total # of Minutes Spent Total Time Spent with Patient: Total time spent is greater than 50% in coordination of care (as documented) at patient's floor/unit and/or counseling patient: Coding Level of Care Code 54433 SUB INP/OBS CARE 3/50MIN Diagnoses Altered mental status R41.82 Ambulatory dysfunction R26.2 Elevated CK R74.8
--- NOTE | 2024-12-06 14:43 | Electrocardiogram Report ---
Test Reason : Blood Pressure : */* mmHG Vent. Rate : 88 BPM Atrial Rate : 88 BPM P-R Int : 180 ms QRS Dur : 88 ms QT Int : 380 ms P-R-T Axes : 77 -19 18 degrees QTcB Int : 459 ms Normal sinus rhythm Nonspecific T wave abnormality Abnormal ECG When compared with ECG of 31-Oct-2024 15:24, Nonspecific T wave abnormality now evident in Lateral leads Confirmed by Tere El (Maryan) on 12/06/2024 2:43:05 PM Referred By: REFERRED SELF Confirmed By: Tere El
--- NOTE | 2024-12-06 17:01 | CT Scan Report ---
EXAM: CT facial bones wo con CLINICAL HISTORY: Eval destructive lesion, prior abn ct head Oct 28 TECHNIQUE: A non-contrast CT scan of the paranasal sinuses was performed, with sagittal and coronal multiplanar reconstruction. One of the following dose reduction techniques were utilized for this exam: Automated exposure control, adjustment of the mA and/or kV according to patient size, and use of iterative reconstruction. DLP: 807.75 mGy-cm, CTDI: 36.3 mGy. COMPARISON: 10/27/2024 CT. FINDINGS: Facial Bones: Mild expansion of the left zygomatic arch and all boundaries of the left maxillary sinus with a ground glass matrix. No destructive changes or extraosseous soft tissue component. No fractures or dislocation. Maxilla and Mandible: Normal appearance of the maxillary and mandibular bones. No fractures, lytic or sclerotic lesions. Normal dentition without significant periodontal disease. Sinuses: Left maxillary basal mucosal thickening. Right maxillary retention cyst. Osteomeatal complexes are patent. Nasal Cavity: Nasal cavity is unremarkable. No masses, polyps, or deviations. Orbits: Orbits are normal in size and shape. Extraocular muscles and optic nerves are normal. No evidence of orbital masses or proptosis. Soft Tissues: Soft tissues of the face are normal. No abnormal masses, swelling, or lymphadenopathy. Atheromatous calcifications of both common carotid arteries. Salivary Glands: Parotid, submandibular, and sublingual glands are normal. No evidence of sialadenitis or masses. Temporomandibular Joints (TMJ): Normal appearance of the TMJ bilaterally. No evidence of joint effusion, degenerative changes, or dislocation. IMPRESSION: 1. Mild expansion of the left zygomatic arch and all boundaries of the left maxillary sinus with a ground glass matrix. stable. 2. Left maxillary sinusitis. 3. Right maxillary retention cyst. Electronically signed by Dre Burk 12-06-2024 5:01 PM
[2024-12-07 07:11] LABS: Hematocrit (blood only) 33.1 % (42.0-52.0); Hemoglobin 11.1 g/dl (14.0-18.0); Mean Corpuscular Hemoglobin 29.4 pg (25.0-34.0); Mean Corpuscular Hgb Conc 33.5 g/dL (32.0-36.0); Mean Corpuscular Volume 87.8 fL (80.0-100.0); Mean Platelet Volume 10.2 fL (9.4-12.4); Platelet Count 165 K/uL (130-400); RDW Coefficient of Variation 14.1 % (11.5-14.5); RDW Standard Deviation 45.3 fL (36.4-46.3); Red Blood Count 3.77 M/uL (4.70-6.10); White Blood Count 5.11 K/ul (4.8-10.8)
[2024-12-07 07:59] LABS: BUN Creatinine Ratio 8.9 (10-20); Calcium 8.2 mg/dl (8.6-10.3); Creatinine Clr Calc Pharmacy 92.5 ml/min; Potassium 3.6 mmol/L (3.5-5.1)
--- NOTE | 2024-12-07 08:00 | Hospitalist Progress Note ---
Date of Service December 07, 2024 Assessment & Plan (1) Altered mental status: (2) Ambulatory dysfunction: (3) Elevated CK: Plan 74yo male with PMHx significant for restrictive lung disease (2nd to paralyzed L julius-diaphragm), parkison's, hx seizure, BPH and RA presented to ER from [facility] after increased agitation/confusion from patient's baseline the day before. Was found to be pulling at pipes in wall at nursing facility, covered in feces and dwain by police as patient required sedation to transport to the hospital. CXR w/ atelectasis vs infection w/ mild-moderate L effusion. EKG NSR 88bpm. No leukocytosis or fever and on room air without hypoxia. #AMS/Agitation- suspect multifactorial, in setting of patient w/ parkinson's and difficulty with feeding himself due to mobility and dexterity and increased depression w/ progressive disease as well as dehydration from lack of ability for eating, deconditioning from recent illness/hospitalization for PNA #Elevated CK/Rhabdomyolysis, Elevated TB/AST/ALP #Ambulatory dysfunction #Rheumatoid Arthritis #Depression On admit, WBC wnl, afebrile. Hgb stable. TSH wnl. UA w/o bacteria or evidence for infection but did have slight bump in Cr to 1.2, slightly above baseline. UA noting blood but no RBC and TB/AST/ALP elevation-->CK added and ELEVATED 2576. No prior UA w/ blood but no RBC of note IVF provided, CK trending down on repeat, currently 355. Off IVF for today, PO hydration encouraged --> OT notified to see about adaptive utensils/cups, not currently w/ foam in stock but has been ordered --> [employer] adaptive devices to improve patient able to feed himself as very distressing to need such level of assistance when prior was quite independent. Rec providing info to order if not able to accommodate, assist w/ feeding as needed *Also note, Rinvoq resumed 15mg HS 12/05 and did have recent hold of such w/ infection and per did have adj to dose. --Reviewed SE for Rinvoq and rare CK elevation reported, jeannie w/ lack of PO ability and ambulatory status. If CK elevated in AM w ongoing use would consider STOPPING for now/discussing w/ rheum ([facility]) and adj prednisone as needed, on 5mg daily Tick studies neg/no rash on exam, LFTs trending down on repeat *Last admit was sent on Olanzapine 5mg HS PRN at [place]--> and discussed w/ daughter/case management as do not have administration record in chart and not sure when last dose was given but not recently -WAS [facility] G[facility], suspect w/ significant depression highly benefit from continued tx/titration and remains on SCHEDULED olanzapine. Has prn dose but has NOT needed -Continue SCHEDULED olanzapine 2.5mg at [place], support for depression/conditions provided and could inc as needed/tolerated but rec continued daily use of such w/ his depression. Palliative seen last week, see prior note. Palliative at [facility] planned, possibly 12/08 vs 12/09 pending POLST form filled out with 12/05, is DNR/DNI but agreeable to IVF/IV abx but no further escalation of care. At this time the main goal is to keep the patient comfortable #Parkinson's disease - follows w/ Neurology, rapid progression over the past year. Continues home sinemet, entacapone (entacapone can inc risk for rhabdo w/ rinvoq use). Assistive devices for eating, PT/OT consulted. Per daughter, working on possible clinical trial at [facility]? F/u neuro at [place] #Abn CT head - noted last admission w/ bony process @ zygomatic arch(see prior note, does have hx sinus surgery and reported dog bite in past at age 7). CT facial bones obtained to ensure no destructive lesion and discussed w/ Dr Cam and benign. Consult placed for completeness and note should be in soon but no tx needed at this time #Elevated BNP/leg edema - chronic edema at baseline/venous insufficiency, recs for compression in past. Per daughter, reports BETTER than prior. checked BNP, slight elevation 100s, but given no hypoxia/ability for PO w/ parkinsons and rhabdo/risk for dehydration will hold off diuretics at this time. Compression stockings ordered/elevation and will monitor. Albumin 3.0 and suspect nutritional status also contributing. #Elevated CK - as above, 2nd rhabdo, ?med related/dehydration/other. Rinvoq resumed but consider holding/stopping, not on statin. TSH wnl. Tick PCR pending but smear w/o findings Do also note on saw palmetto on list and can contribute to liver dysfunction/elevated CK in some patients and could consider stopping. Check CK in AM off IVF, stop rinvoq and touch base w/ rheum if occurs #BPH - baseline incontinence issues overnight at baseline, distressing for patient at times. UA not infected and no retention noted. Flomax continued but consider stopping saw palmetto #Hx of seizures - noted continued on lamotrigine. monitor for any issues given abn movement at [facility] per daughter day prior to admit #Depression: Sertraline continued, olanzapine 2.5mg as above. Note significant depression w/ progression of his parkinson's/ambulatory status/above and rec continued management and consideration for adjustment as needed. Support provided DVT proph: SCDs, susie foote added for assistance w/ edema. Continue Lovenox SQ while inpatient (US doppler neg for DVT on admit) Dispo: continued inpatient stay, CM to follow. Possible dc to [facility] w/ palliative services for additional support at this time per - 12/08 vs 12/09 pending CK/labs and adjustment to meds. Note is due for 1yr screening CT chest w/ pulm as discussed and can be done outpatient, unchanged prior pulm noduls Daughter and of patient updated extensively at bedside 12/07 Admission and Anticipated Discharge Date Admission Date: December 04, 2024 Supervising Physician Co-Signing Physician Notes The patient was not seen by me. The chart was reviewed. Case discussed with ROSIBEL Anglin. Agree with assessment and plan Subjective Eval this afternoon, daughter at bedside. Edema unchanged, daughter reports being better than at [facility]. Mentation stable, no agitation. Some incontinence for nursing overnight. AMbulation today stable, denies increased weakness but daughter reports maybe compared to yesterday. Discussed CT chest for 1 yr screening, ok w/ holding off for now. Breathing stable. Chronic L hemidiaphragm noted. Decent appetite but req assistance, ?if able to get assistive cups. Discussed w/ daughter, said was w/ him on Sunday and wasn't himself, inc movement/agitation. ?if given higher olanzapine and needing lower dose or if never given. Also discussed depression, does have given progression and unable to play golf anymore. Daughter reporting she contacted [facility] to see about clinical trial recently as well to see if any new meds able to assist w/ progression as prior was pretty stable for sometime. Discussed off IVF for now, will monitor CK but consideration to hold Rinvoq as can cause was discussed. Agreeable to see if worse CK in AM then hold off/monitor. does report he had adjustment to dose when resumed, hx sinus surgery in the past as well. Discussed INCREASED depression suspect as large driving force as well. Compression rec'd as allows. Support provided, questions/concerns addressed a this time. Physical Exam Physical Exam: General: 74yo male sitting up in recliner, NAD, daughter at bedside, alert to person, year, didn't think was at the hospital because the noise isn't loud, did make some jokes/appears better mentation, fatigued appearing however HEENT: head atraumatic, normocephalic, HARD OF HEARING, mm stable Resp: even/unlabored, poor inspiratory effort, diminished in the bases L>R (chronic hemidiaphragm elevation) but no wheezing/rales, 93% on RA CV: RRR, faint systolic murmur, 2+ pitting edema b/l LE (reports improved from prior per daughter in room), calves nontender, pulses present GI: +BS, soft/slight distension but nontender MSK/Neuro/Psych: alert to person/place, cooperative. slow speech/answering questions but appears to be answering questions appropriately, generalized weakness but nonfocal Results & Data Results & Data Vital Signs (Past 12 Hours) Vital Signs Temp Pulse Resp BP Pulse Ox O2 Del Method 12/06/24 21:08 36.5 C 79 20 155/83 H 95 Room Air Laboratory Results 12/07/24 Range/Units 06:51 WBC 5.11 (4.8-10.8) K/ul RBC 3.77 L (4.70-6.10) M/uL Hgb 11.1 L (14.0-18.0) g/dl Hct 33.1 L (42.0-52.0) % MCV 87.8 (80.0-100.0) fL MCH 29.4 (25.0-34.0) pg MCHC 33.5 (32.0-36.0) g/dL RDW Std Deviation 45.3 (36.4-46.3) fL RDW Coeff of Neela 14.1 (11.5-14.5) % Plt Count 165 (130-400) K/uL MPV 10.2 (9.4-12.4) fL Sodium 142 (136-145) mmol/L Potassium 3.6 (3.5-5.1) mmol/L Chloride 107 (98-107) mmol/L Carbon Dioxide 32 (21-32) mmol/L Anion Gap 3 (3-11) BUN 8 (6-23) mg/dl Creatinine 0.90 (0.6-1.4) mg/dl Est Cr Clr Drug Dosing 92.5 ml/min eGFR 90.74 BUN/Creatinine Ratio 8.9 L (10-20) Glucose 104 H (70-99(Fasting)) mg/dl Calcium 8.2 L (8.6-10.3) mg/dl Iron 54 (35-175) mcg/dl TIBC 244 L (250-450) mcg/dl Transferrin 174 L (200-360) mg/dl Transferrin % Sat 22 (20-50) % Ferritin 333.9 (8-388) ng/ml Total Creatine Kinase 305 H (30-223) U/L B-Natriuretic Peptide 117 H (0-100) pg/ml PG Care Time/CCT Total # of Minutes Spent Total Time Spent with Patient: Total time spent is greater than 50% in coordination of care (as documented) at patient's floor/unit and/or counseling patient: Prolonged Care Time Prolonged Care Time: Yes additional 30 minutes at bedside above usual time spent updating daughter and at bedside (two separate visits) to discuss care and review plan Coding Level of Care Code 06345 SUB INP/OBS CARE 3/50MIN Diagnoses Altered mental status R41.82 Ambulatory dysfunction R26.2 Elevated CK R74.8 Additional Codes Prolonged Care Time - Prolonged Care Time: Yes ([id number])
[2024-12-07 08:20] LABS: Ferritin 333.9 ng/ml (8-388)
[2024-12-08 07:45] VITALS: TEMP 98.1
[2024-12-08 08:05] LABS: Albumin Globulin Ratio 1.4 (0.9-2); Albumin Level 3.4 gm/dl (3.4-5.0); BUN Creatinine Ratio 10.7 (10-20); Bilirubin,Total 0.6 mg/dl (0.2-1.0); Calcium 8.6 mg/dl (8.6-10.3); Creatinine Clr Calc Pharmacy 80.8 ml/min; Globulin 2.4 gm/dl (2.5-4.0); Potassium 3.9 mmol/L (3.5-5.1); Total Protein 5.8 gm/dl (6.0-8.3)
--- NOTE | 2024-12-08 14:01 | Hospitalist Progress Note ---
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 Was found to be pulling at pipes in wall at nursing facility, covered in feces and brought by police as patient required sedation to transport to the hospital. Inital evaluation without infectious cause, does have mild elevation in CK level. #AMS/Agitation | Depression - multifactorial, parkinson's and difficulty with feeding himself due to mobility/ dexterity leading to dehydration, increased depression w/ progressive disease, deconditioning from recent hospitalization for PNA On admit, WBC wnl, afebrile. Hgb stable. TSH wnl. UA w/o bacteria or evidence for infection Recently discharged with PO zyprexa PRN HS, but was not being used at his facility. Changed to 2.5mg PO scheduled and behaviors improved. Continue sertraline Behaviors have improved, hopeful to return to [facility] - have to re-eval if they can accept him #Parkinson's disease - follows w/ Neurology, rapid progression over the past year. Continues home Sinemet, entacapone. Rec Assistive devices for eating, OT ordering foam for utensils Per daughter, working on possible clinical trial at [facility]? [place] Pall[place] Care consulted - have not been able to connect with . POLST form filled out with 5/2, is DNR/DNI but agreeable to IVF/IV abx but no further escalation of care. At this time the main goal is to keep the patient comfortable #Elevated CK/Rhabdomyolysis, Elevated TB/AST/ALP TB/AST/ALP elevated on admission, tick studies negative. LFTs now WNL CK 2576 on admission - possible from dehydration and straining/resistance with staff prior to admission - IVF provided, CK trending down on repeat, now WNL 163 - Rinvoq resumed - rare side effects of CK elevation reported #Abn CT head - noted last admission w/ bony process @ zygomatic arch(see prior note, does have hx sinus surgery and reported dog bite in past at age 7). CT facial bones obtained to ensure no destructive lesion and discussed w/ Dr Cam and benign. #Elevated BNP/leg edema Chronic edema at baseline/venous insufficiency, recs for compression in past. Per daughter, reports BETTER than prior. BNP slight elevation 100s, but given no hypoxia/ability for PO w/ parkinsons and rhabdo/risk for dehydration will hold off diuretics at this time. Compression stockings ordered #BPH - baseline incontinence issues overnight at baseline. Continue flomax, rec stopping saw wildao for elevated CK #Hx of seizures - continued on lamotrigine. #RA - on Rivoq - may have to d/c if CK elevation continues DVT proph: SCDs, susie hose added for assistance w/ edema. Continue Lovenox SQ while inpatient Dispo: continued inpatient stay, awaiting to hear if accepted at [facility] Note is due for 1yr screening CT chest w/ pulm as discussed and can be done outpatient, unchanged prior pulm noduls Admission and Anticipated Discharge Date Admission Date: December 04, 2024 Subjective Patient seen sitting up in bed, feeding himself lunch. Able to feed himself reasonably well and RN at bedside reports that he was able to eat breakfast without issue. Denies pain reports feeling tired Review of Systems Review of Systems: All systems reviewed & are unremarkable except as noted in Subjective Physical Exam Physical Exam: General: NAD, VS as above Resp: normal respiratory effort, lungs clear to auscultation CV: RRR, no murmur, Abd: normal bowel sounds, non tender, soft Extremities: Moves all extremities, no edema Results & Data Results & Data Vital Signs (Past 12 Hours) Vital Signs Temp Pulse Resp BP Pulse Ox O2 Del Method 12/08/24 07:43 98.1 F 86 16 174/100 H 96 Room Air Laboratory Results bmp reviewed CK reviewed PG Care Time/CCT Total # of Minutes Spent Total Time Spent with Patient: Total time spent is greater than 50% in coordination of care (as documented) at patient's floor/unit and/or counseling patient: Coding Level of Care Code 57957 SUB INP/OBS CARE 2/35MIN Diagnoses Altered mental status R41.82 Ambulatory dysfunction R26.2 Elevated CK R74.8"
[2024-12-08] MEDS ORDERED: OLANZAPINE 2.5 MG TAB PO PRN (14:09)
[2024-12-08 15:22] VITALS: BP 106/65; PULSE 64; RESP 18; O2SAT 95
--- NOTE | 2024-12-08 16:29 | Discharge Summary ---
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 Was found to be pulling at pipes in wall at nursing facility, covered in feces and brought by police as patient required sedation to transport to the hospital. Inital evaluation without infectious cause, does have mild elevation in CK level. Suspect his agitiation was multifactorial, with the reaction from staff treatment at facility, parkinson's and difficulty with feeding himself due to mobility/ dexterity leading to dehydration, increased depression w/ progressive disease, deconditioning from recent hospitalization for PNA. Continue sertaline. Started on scheduled PO zyprexa and behaviors much improved. Has prn PO but has not needed. Stable for d/c back to [facility] today. #Parkinson's disease - follows w/ Neurology, rapid progression over the past year. Continues home Sinemet, entacapone. Rec Assistive devices for eating, OT ordering foam for utensils Per daughter, working on possible clinical trial at [facility]? F/[place] Palliative Care consulted - have not been able to connect with . POLST form filled out with /2, is DNR/DNI but agreeable to IVF/IV abx but no further escalation of care. At this time the main goal is to keep the patient comfortable #Elevated CK/Rhabdomyolysis, Elevated TB/AST/ALP TB/AST/ALP elevated on admission, tick studies negative. LFTs now WNL CK 2576 on admission - possible from dehydration and straining/resistance with staff prior to admission - IVF provided, CK trending down on repeat, now WNL 163. Rinvoq resumed - rare side effects of CK elevation reported however other causes more lukely. Stop Sawpomento. #Abn CT head - noted last admission w/ bony process @ zygomatic arch(see prior note, does h ave hx sinus surgery and reported dog bite in past at age 7). CT facial bones obtained to ensure no destructive lesion and discussed w/ Dr Cam and benign. #Elevated BNP/leg edema Chronic edema at baseline/venous insufficiency, recs for compression in past. Per daughter, reports BETTER than prior. BNP slight elevation 100s, but given no hypoxia/ability for PO w/ parkinsons and rhabdo/risk for dehydration will hold off diuretics at this time. Compression stockings ordered #BPH - baseline incontinence issues overnight at baseline. Continue flomax, rec stopping saw palmetto for elevated CK #Hx of seizures - continued on lamotrigine. #RA - on Rivoq - may have to d/c if CK elevation continues Dispo: discharge to [facility] today updated at bedside 12/08 Note is due for 1yr screening CT chest w/ pulm as discussed and can be done outpatient, unchanged prior pulm noduls Notes For Next Care Provider Note is due for 1yr screening CT chest w/ pulm as discussed and can be done outpatient, unchanged prior pulm noduls Medication Changes From Visit scheduled PO zyprexa HS Admission HPI Per Admitting Provider 74-year-old male PMHx PVD, restrictive lung disease secondary to paralyzed L hemidiaphragm, history of seizure, BPH, and RA on chronic prednisone presenting from [facility] after worsening aggression/confusion from patient's baseline day [employer]. Was found to be pulling at pipes on the wall at [facility] and was covered in feces. Police were called to help to transport patient to the hospital and patient did require sedation. Patient not helpful in providing a history. Wakes to voice and light touch, answers yes and no. When asked if he has pain he replies no. Also replies no to SOB, weakness, or N/V. ED evaluation reveals no leukocytosis, H&H 11.1/33.3; CMP with chloride 109, glucose 101, bilirubin 1.2, AST 58, ALT <3, alk phos 135, globulin 2.3; TSH pending; CK pending; CXR findings likely due to pulmonary infection/atelectasis with mild to moderate left-sided pleural effusion; EKG NSR at [address] Bernstein's attestation for adjustments/additions to treatment plan. Discharge Exam General: NAD, VS as above Resp: normal respiratory effort, lungs clear to auscultation CV: RRR, no murmur, Abd: normal bowel sounds, non tender, soft Extremities: Moves all extremities, no edema Discharge Plan Discharge Items Patient Disposition: Personal Custodial Reason For Visit: AGITATION, AMBULATORY DYSFUNCTION Discharge Diagnosis: agitation - resolved Parkinson's Condition on Discharge: Fair Activity: Resume your previous activity Non-emergency contact: Primary Care Provider Call non-emergency contact if: you have any medication questions, your symptoms worsen and your temperature is above 101 Follow-up/Referrals: Khai Virk MD [Primary Care Provider] - Diet: Regular Addtl Attending Provider Instructions: Mr. Reyes You were hospitalized after having an episode of agitation at [facility]. You were also found to have an elevated CK level. Thankfully this has improved with IV fluids and we have adjusted your medications that have helped with your behaviors. Recommendations at discharge: - Continue zyprexa 2.5mg orally every night with additional as needed dose for agitation or poor - Follow up with Neurology as scheduled - stop taking Saw pawmento - Foam inserts for utensils to assist with self feeding - Encourage oral hydration - Due for outpatient [address] chest Thanks for allowing us to participate in your care! Pending Studies at Discharge: No Stand-Alone Forms: My eSoft, Smoking Cessation Skilled Items Patient informed of condition?: Yes DNR: Yes Discharge Level of Care: Other Communicable Disease: No Discharge Prognosis: Stable Lines: None Urinary Catheter: No Medications and DC Order Prescriptions: New olanzapine 2.5 mg Tablet 2.5 mg PO HS Qty: 30 0RF Continued tamsulosin 0.4 mg Capsule 0.4 mg PO HS Qty: 30 0RF lamotrigine 150 mg Tablet 150 mg PO BID Qty: 60 0RF sertraline 100 mg Tablet 100 mg PO DAILY Qty: 30 0RF prednisone 5 mg tablet 5 mg PO QAM Qty: 30 0RF aspirin 81 mg Tablet,Delayed Release (Dr/Ec) 81 mg PO QAM Qty: 30 0RF cholecalciferol (vitamin D3) [Vitamin D3] 25 mcg (1,000 unit) Tablet 50 mcg PO DAILY Qty: 30 0RF Rx Instructions: Pt's spouse does 2000 units- 4000 units during the winter diclofenac sodium 1 % Gel 2 g TOPICAL TID PRN (Reason: Pain) Qty: 1 0RF Rx Instructions: apply to single elbow, wrist or hand; for hand includes palm/fingers/back of hand omeprazole 20 mg Tablet,Delayed Release (Dr/Ec) 40 mg PO BID Qty: 120 0RF biotin 1,000 mcg Tablet,Chewable 1,000 mcg PO QAM Qty: 30 0RF cyanocobalamin (vitamin B-12) 1,000 mcg capsule 1,000 mcg PO DAILY Qty: 30 0RF Rinvoq 15 mg Tablet Extended Release 24 Hr 15 mg PO HS Qty: 30 0RF magnesium chloride 64 mg magnesium tablet 64 mg PO DAILY Qty: 30 0RF carbidopa-levodopa 25-100 mg Tablet Extended Release 2 tab PO TIDM 5 Days Qty: 30 0RF Rx Instructions: ordered 1&1/2 tabs with 3 times a day with meals but pt takes 2 tablets 3 times a day with meals kqhrcyuos-qjmuhgyq-yfmiwhdjoy 50-200-200 mg tablet 1 tab PO HS Qty: 5 0RF Changed olanzapine 5 mg Tablet,Disintegrating 2.5 mg PO HS PRN (Reason: agitation) Qty: 6 0RF Discontinued saw palmetto 160 mg capsule 160 mg PO BID Qty: 60 0RF Rx Instructions: give with meal/snack Discharge Orders: Discharge Order (Routine); Ordered 12/08/24 Ordered By: Mone Lino Admission Data Admit Date/Time: 12/04/24 02:41 Attending Provider: Braden Hernandez Admit Provider: John Bernstein Primary Care Provider: Khai Virk Other Providers: John Bernsetin; Emy Buitrago; Angelina Montano; Waqar Cam; [facility] Hospital Stay Data Consultations 12/04/24 02:05 ED Decision to Admit Stat 12/04/24 04:18 Consult Palliative Care Routine 12/07/24 12:16 Consult Oromaxillofacial Surgery Routine Diagnostic Imagining Performed Chest X-Ray 12/04/24 00:21 EXAM: XR chest 1V portable CLINICAL HISTORY: weakness TECHNIQUE: An X-ray image of the chest is obtained in AP projection. COMPARISON: 11/04/2024 FINDINGS: The patient is rotated obscuring fine details of both upper zones. Pulmonary Parenchyma: Patchy airspace shadowing is seen in the left mid and lower zones obliterating left costophrenic angle. Prominent bronchovascular markings seen bilaterally. The right costophrenic angle appears sharp. Heart and Mediastinum: The heart size appears enlarged. No mediastinal widening or masses. No hilar or mediastinal lymphadenopathy. Bony Thorax: Bony thorax appears intact without fractures or deformities. Soft Tissues: Soft tissues overlying the chest wall are unremarkable. IMPRESSION: 1. Imaging findings are likely due to pulmonary infection/atalectasis with mild to moderate left-sided pleural effusion, would recommend clinical lab correlation. 2. No significant interval changes. Electronically signed by Dre Burk 12-04-2024 01:25 AM Venous Doppler Study 12/04/24 05:36 EXAM: US venous doppler LE BI CLINICAL HISTORY: bilateral lower extremity swelling, immobility. TECHNIQUE: Ultrasound examination of bilateral lower extremity veins was performed in real time and duplex. One or more of the following were performed- spectral analysis, resistive index, waveform analysis, and pulsed Doppler. COMPARISON: None. FINDINGS: Normal phasic, non-pulsatile and spontaneous flow is noted in the bilateral common femoral, deep femoral, SFJ, superficial femoral, popliteal, posterior tibial, anterior tibial, and peroneal veins. Visualized veins of both lower extremities demonstrate normal compressibility. No sonographic evidence of acute deep vein thrombosis (DVT) is detected in the visualized veins of both lower extremities. Compression and Augmentation: All evaluated veins compress fully with applied transducer pressure. Additional Findings: No evidence of intraluminal thrombus. Subcutaneous edema is noted bilaterally at the popliteal and calf regions. IMPRESSION: 1. No sonographic evidence of acute DVT was detected in the visualized bilateral lower extremity veins at this time of exam. 2. Subcutaneous edema is noted bilaterally at the popliteal and calf regions. Disclaimer: DVT could be missed early in the disease when clot burden is minimal. For patients with moderate and high pretest probability of DVT and negative ultrasound, the [place] [employer] clinical guidelines recommend testing with a D-dimer assay or repeat ultrasound in 5-7 days. If symptoms worsen, the Society of radiologists in ultrasound recommends repeating ultrasound even earlier. Electronically signed by Dre Burk 12-04-2024 07:[address] 12/06/24 11:48 EXAM: CT facial bones wo con CLINICAL HISTORY: Eval destructive lesion, prior abn ct head Oct 28 TECHNIQUE: A non-contrast CT scan of the paranasal sinuses was performed, with sagittal and coronal multiplanar reconstruction. One of the following dose reduction techniques were utilized for this exam: Automated exposure control, adjustment of the mA and/or kV according to patient size, and use of iterative reconstruction. DLP: 807.75 mGy-cm, CTDI: 36.3 mGy. COMPARISON: 10/27/2024 CT. FINDINGS: Facial Bones: Mild expansion of the left zygomatic arch and all boundaries of the left maxillary sinus with a ground glass matrix. No destructive changes or extraosseous soft tissue component. No fractures or dislocation. Maxilla and Mandible: Normal appearance of the maxillary and mandibular bones. No fractures, lytic or sclerotic lesions. Normal dentition without significant periodontal disease. Sinuses: Left maxillary basal mucosal thickening. Right maxillary retention cyst. Osteomeatal complexes are patent. Nasal Cavity: Nasal cavity is unremarkable. No masses, polyps, or deviations. Orbits: Orbits are normal in size and shape. Extraocular muscles and optic nerves are normal. No evidence of orbital masses or proptosis. Soft Tissues: Soft tissues of the face are normal. No abnormal masses, swelling, or lymphadenopathy. Atheromatous calcifications of both common carotid arteries. Salivary Glands: Parotid, submandibular, and sublingual glands are normal. No evidence of sialadenitis or masses. Temporomandibular Joints (TMJ): Normal appearance of the TMJ bilaterally. No evidence of joint effusion, degenerative changes, or dislocation. IMPRESSION: 1. Mild expansion of the left zygomatic arch and all boundaries of the left maxillary sinus with a ground glass matrix. stable. 2. Left maxillary sinusitis. 3. Right maxillary retention cyst. Electronically signed by Dre Burk 12-06-2024 5:01 PM Pending Results Patient Have Any Pending Studies at Discharge: No Discharge Instructions Given to Patient (Per Discharging Provider) Mr. Reyes You were hospitalized after having an episode of agitation at [facility]. You were also found to have an elevated CK level. Thankfully this has improved with IV fluids and we have adjusted your medications that have helped with your behaviors. Recommendations at discharge: - Continue zyprexa 2.5mg orally every night with additional as needed dose for agitation or poor - Follow up with Neurology as scheduled - stop taking Saw pawmento - Foam inserts for utensils to assist with self feeding - Encourage oral hydration - Due for outpatient [address] chest Thanks for allowing us to participate in your care! Total Time Total Time Spent Total Time Spent (In Minutes): Time spent day of discharge 40 minutes including direct patient care, medication reconciliation, documentation, review of labs and images, and coordination of care. Coding Level of Care Code 45269 INP/OBS DISCH >30 MIN Diagnoses Altered mental status R41.82 Ambulatory dysfunction R26.2 Elevated CK R74.8"
--- NOTE | 2024-12-09 11:04 | Palliative Family Discussion ---
Date of Service December 08, 2024 Patient Directed Conference Time of Meetin:00 -15:40 Participants: Ondina Buitrago AGACNP Patient participation: yes Patient Support System: spouse Other Healthcare Provider Participation: None Meeting Location: bedside Advanced Directive available: no If yes, descriptors: The patient's surrogate medical decision maker participated: pt's Other surrogate: n/a A family meeting was held for DAVID FERNANDO. This meeting was necessary for determining the appropriate course of treatment. Topics of Discussion Topics of Discussion: 1. goals of care 2. QOL Met with pt and his at bedside. Discussed goals of care and quality of life. Pt shared frustration with plan for discharge, expressed that not being able to go back home is making him depressed and frustrated. Maryam shared concern that she is unable to provide the level of care required at home. She shared that she feels like she should be able to as his and she feels badly about this. Empathy and compassion offered. Discussed ways to make his room as homelike as possible. Encouraged pt that his safety is paramount and home is not the safest option at this time. Maryam shared that she had learned this afternoon that [facility] could take him back and expressed that she would drive him there as soon as he is medically cleared for discharge. We discussed importance of continuing zyprexa as a scheduled preventative, and also PRN for anxiety. Maryam shared that she feels he is back to his baseline and confirms that the plan of care will continue to be DNR/DNI but continue life prolonging therapies at this time. She stated that patient "is not ready for hospice yet", but shared that she is discussing with CM the possibility of home visiting nursing assistance to better keep on top of medications. Other Content of Meetin. Opportunity given for participants to speak and ask questions. 2. Participants were assured of attention to patient comfort. 3. Reassurance provided. 4. Support was provided for informed, good-inder decisions. 5. Emotions expressed by family were acknowledged and addressed. 6. Follow-up Outpatient: n/a 7. Plan of Care: DNR/DNI but continue life prolonging therapies at this time, plan for DC back to [facility] Time Involved in Meeting: I spent 50 minutes overall addressing this case: 5 in medical data review/discussion with referring provider(s) and/or preparation for the visit 30 in direct interaction with the patient and spouse 30 Advance Care Planning/Goals of Care discussions as detailed above in note (must be >16min) 10 in subsequent review and synthesis of assessment and plan 5 in communicating with other providers regarding the patient's case: []
[2024-12-10 01:37] LABS: Babesia microti DNA Not Detected (Not Detected)
--- NOTE | 2024-12-10 21:41 | Oral/Maxillofacial Consult ---
Date of Consultation December 05, 2024 History of Present Illness Attending Physician: Braden Hernandez MD History of Present Illness December 05, 2024 I was asked to see Mr. David Reyes at the request of the hospitalist service due to the fact that there was an incidental finding on a CT scan, which was suggestive of a fibrous lesion of the left zygomatic area and sinus. 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 I met Mr. Reyes in his room and did a complete head, neck evaluation, including an oral evaluation. Clinically there is no abnormalities of any type of fibrous enlargement of the bones of the left side of his face. The zygomatic arch, the TMJ joint the lateral maxillary dale as well as the sinus wall NO CLINICAL ABNORMALITIES are noted. The lateral orbital area are all within normal limits. I did order a maxillofacial CT scan just to confirm the fact that there was no other areas of Ariel abnormalities. 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 Nevertheless, nothing needs to be done. No follow up is required and no further the CT scanning is necessary. Allergies Allergy/AdvReac Type Severity Reaction Status Date / Time methotrexate Allergy Severe Seizure Verified 01/02/24 10:07 Home Medications Medication Instructions Recorded Confirmed Type aspirin 81 mg tablet,delayed 81 mg PO QAM #30 tabs 11/06/24 Rx release biotin 1,000 mcg chewable tablet 1,000 mcg PO QAM #30 tabs 11/06/24 Rx cholecalciferol (vitamin D3) 25 50 mcg (2 x 25 mcg (1,000 unit)) 11/06/24 Rx mcg (1,000 unit) tablet (Vitamin PO DAILY #30 tabs D3) cyanocobalamin (vitamin B-12) 1,000 mcg PO DAILY #30 caps 11/06/24 Rx 1,000 mcg capsule diclofenac sodium 1 % topical gel 2 g topical TID PRN Pain #1 g 11/06/24 Rx lamotrigine 150 mg tablet 150 mg PO BID #60 tabs 11/06/24 Rx magnesium chloride 64 mg 64 mg PO DAILY #30 tabs 11/06/24 Rx (magnesium chloride) tablet omeprazole 20 mg tablet,delayed 40 mg (2 x 20 mg) PO BID #120 tabs 11/06/24 Rx release prednisone 5 mg tablet 5 mg PO QAM #30 tabs 11/06/24 Rx sertraline 100 mg tablet 100 mg PO DAILY #30 tabs 11/06/24 Rx tamsulosin 0.4 mg capsule 0.4 mg PO HS #30 caps 11/06/24 Rx upadacitinib 15 mg tablet,extended 15 mg PO HS #30 tabs 11/06/24 Rx release 24 hr (Rinvoq) carbidopa 50 mg-levodopa 200 1 tab PO HS #5 tabs 12/08/24 Rx mg-entacapone 200 mg tablet carbidopa ER 25 mg-levodopa 100 mg 2 tab PO TIDM 5 days #30 tabs 12/08/24 Rx tablet,extended release olanzapine 2.5 mg tablet 2.5 mg PO HS #30 tabs 12/08/24 Rx olanzapine 5 mg disintegrating 2.5 mg (1/2 x 5 mg) PO HS PRN 12/08/24 Rx tablet agitation #6 tabs Patient History Medical History Rheumatoid arthritis Hearing deficit Surgical History History of cataract surgery History of total hip arthroplasty left History of colonoscopy History of tooth extraction Nasal polyps removed Family History Other Allergies Cancer Heart disease No family history of adverse response to anesthesia Social History Smoking Status: Never smoker Second Hand Exposure: No; Do You Dip or Chew Tobacco: No; Hx Alcohol Use: No Hx Substance Use: No Preferred Language: Spanish Communication Ability: Impaired Red Lead Burner Required: No Beliefs That Will Affect Care: None Current Living Situation: Personal Care Facility Current Living Situation Comment: [facility] Feels Safe at Home: Yes Assistive Devices: Cane and Walker PG Care Time/CCT Total # of Minutes Spent Total Time Spent with Patient: Total time spent is greater than 50% in coordination of care (as documented) at patient's floor/unit and/or counseling patient: Coding Level of Care Code 42345 INT INP/OBS CARE
== END 2024-12-08 17:30 | disposition home health service (06) | DRG 57 ==
LOC: SUATTDRO → ED 00:08 → 3W 02:41 → SUATTDRO 02:41 → 3W 03:21 → 3N 12-08 09:57